=== PATIENT | female | born 1955 | race Caucasian/White ===

== ENCOUNTER → 2018-01-17 14:47 | Outpatient (CLI) | payer OTHER, SELFPAY ==
[2018-01-17 15:38] LABS: Basophils % 0.6 % (0.1-2.0); Eosinophils # 0.1 K/mm3 (0.0-0.4); Hematocrit 42.1 % (37.0-47.0); Hemoglobin 13.4 g/dL (12.2-16.2); Lymphocytes # 2.3 K/mm3 (0.7-4.5); Lymphocytes % 31.6 K/mm3 (10-50); Mean Corpuscular HGB Conc 31.8 g/dL (31.8-35.4); Mean Corpuscular Hemoglobin 29.8 pg (27.0-31.2); Mean Corpuscular Volume 93.6 fl (81-99); Mean Platelet Volume 8.9 fl (7.4-10.4); Monocytes # 0.4 K/mm3 (0.1-1.0); Monocytes % 5.7 % (1.7-9.3); Neutrophils # 4.4 K/mm3 (1.8-7.8); Neutrophils % 61.2 % (37.0-80.0); Platelet Count 274 K/mm3 (142-424); Red Cell Distribution Width 13.3 % (11.5-17.5); White Blood Count 7.2 K/mm3 (4.8-10.8)
[2018-01-17 15:45] LABS: Alanine Aminotransferase 38 U/L (12-78); Albumin Level 3.7 gm/dL (3.4-5.0); Alkaline Phosphatase 118 U/L (46-116); Anion Gap 9.2 mEq/L (5-15); Aspartate Amino Transferase 25 U/L (15-37); Bilirubin,Total 1.1 mg/dL (0.2-1.0); Blood Urea Nitrogen 28 mg/dL (7-18); Calcium 9.2 mg/dL (8.5-10.1); Carbon Dioxide 32 mmol/L (21.0-32.0); Chloride 102 mmol/L (98-107); Creatine Kinase 568 U/L (26-192); Creatinine,Serum 1.07 mg/dL (0.55-1.02); Estimated Glomerular Filt Rate 52 ml/min (>60); Ferritin 39 ng/mL (8-388); GFR (African American) 63 ML/MIN (>60); Globulin 3.6 gm/dl (1.3-3.2); Glucose 92 mg/dL (74-106); Magnesium 1.9 mg/dL (1.4-2.2); Potassium 4.2 mmoL/L (3.5-5.1); Sodium 139 mmol/L (136-145); Thyroid Stimulating Hormone 1.25 uIU/ml (0.358-3.740); Total Protein,Serum 7.3 gm/dL (6.4-8.2)
== END ==
PROVIDERS: Visit Provider Internal Medicine Adolescent Medicine
DX: M79.1 Myalgia (principal); G25.81 Restless legs syndrome
CPT/HCPCS: 36415; 80053; 82550; 82728; 83735; 84443; 85025

== ENCOUNTER → 2018-03-24 15:54 | Outpatient (CLI) | payer OTHER, SELFPAY ==
--- NOTE | 2018-03-24 16:05 | MM_ITS ---
MM Dig screening mamm BI w/CAD CAD Screening COMPARISON: None, patient had previous mammograms couple of years ago but the facility was called and no films are available. INDICATION: There Is a history of breast cancer patient's mother. TECHNIQUE: Standard CC and MLO images were obtained. R2 CAD reviewed. FINDINGS: Moderate fibroglandular densities are seen in central portions of both breasts and the findings are bilateral and symmetrical. There is no suspicious lesion in either breast and there are no suspicious microcalcifications. There is a benign-appearing calcification right breast. IMPRESSION: Upper fatty parenchyma no suspicious lesion seen BI-RADS Category: 2 Benign Finding(s) RECOMMENDED FOLLOW-UP: 1YR - 1 YEAR FOLLOW-UP (A letter has been sent to the patient regarding results of the study.)
== END ==
PROVIDERS: Family Provider Internal Medicine Adolescent Medicine; PCP Internal Medicine Adolescent Medicine; Visit Provider Internal Medicine Adolescent Medicine
DX: Z12.31 Encounter for screening mammogram for malignant neoplasm of breast (principal)
CPT/HCPCS: 77067

== ENCOUNTER → 2018-12-29 11:21 | Outpatient (CLI) | payer OTHER, SELFPAY ==
[2018-12-29 11:59] LABS: Basophils # 0.1 K/mm3 (0-0.2); Eosinophils # 0.4 K/mm3 (0.0-0.4); Eosinophils % 8.9 % (0.1-12.0); Hematocrit 38.6 % (37.0-47.0); Hemoglobin 12.5 g/dL (12.2-16.2); Lymphocytes # 1.9 K/mm3 (0.7-4.5); Lymphocytes % 41.9 % (10-50); Mean Corpuscular HGB Conc 32.5 g/dL (31.8-35.4); Mean Corpuscular Hemoglobin 29.6 pg (27.0-31.2); Mean Corpuscular Volume 91.3 fl (81-99); Mean Platelet Volume 8.9 fl (7.4-10.4); Monocytes # 0.3 K/mm3 (0.1-1.0); Monocytes % 5.7 % (1.7-9.3); Neutrophils # 1.9 K/mm3 (1.8-7.8); Neutrophils % 42.6 % (37.0-80.0); Platelet Count 222 K/mm3 (142-424); Red Blood Count 4.22 M/mm3 (4.20-5.40); Red Cell Distribution Width 13.1 % (11.5-17.5); White Blood Count 4.5 K/mm3 (4.8-10.8)
[2018-12-29 12:41] LABS: Alanine Aminotransferase 30 U/L (12-78); Albumin Level 3.5 gm/dL (3.4-5.0); Albumin/Globulin Ratio 1.1 (1.1-1.8); Alkaline Phosphatase 127 U/L (46-116); Anion Gap 12.8 mEq/L (5-15); Aspartate Amino Transferase 19 U/L (15-37); Bilirubin,Total 0.7 mg/dL (0.2-1.0); Blood Urea Nitrogen 24 mg/dL (7-18); Calcium 8.8 mg/dL (8.5-10.1); Carbon Dioxide 29 mmol/L (21.0-32.0); Chloride 105 mmol/L (98-107); Chol/HDL Ratio 3.1 (1-3.5); Cholesterol 231 mg/dL (140-200); Creatinine,Serum 1.05 mg/dL (0.55-1.02); Estimated Glomerular Filt Rate 53 ml/min (>60); GFR (African American) 64 ML/MIN (>60); Globulin 3.2 gm/dl (1.3-3.2); Glucose 85 mg/dL (74-106); HDL Cholesterol 74 mg/dL (29-89); LDL Cholesterol 147 mg/dL (0-130); Potassium 3.8 mmoL/L (3.5-5.1); Sodium 143 mmol/L (136-145); Total Protein,Serum 6.7 gm/dL (6.4-8.2); Triglycerides 52 mg/dL (30-200); VLDL Cholesterol 10 mg/dL (0-40)
== END ==
PROVIDERS: Visit Provider Internal Medicine Adolescent Medicine
DX: E78.5 Hyperlipidemia, unspecified (principal); J44.9 Chronic obstructive pulmonary disease, unspecified
CPT/HCPCS: 36415; 80053; 80061; 85025

== ENCOUNTER → 2019-03-13 07:52 | Outpatient (CLI) | payer OTHER, SELFPAY ==
--- NOTE | 2019-03-13 07:57 | XR_ITS ---
XR knee RT 3V Ordering Physician: Be Goldman MD Patient Age: 63 years: Female HISTORY: ITS.REASON: RT KNEE PAIN Lateral right knee pain TECHNIQUE: 3 views right knee COMPARISON : None . FINDINGS The right knee is intact with no fracture nor dislocation. Joint spaces well-maintained with only borderline narrowing towards medial compartment. No significant joint effusion. Bones well mineralized. IMPRESSION: Right knee intact. Negative
--- NOTE | 2019-03-13 08:00 | US_ITS ---
US gallbladder Ordering Physician: Be Goldman MD Patient Age: 63 years: Female HISTORY: ITS.REASON: EPIGASTRIC PAIN Right upper quadrant pain. Nausea, and belching. TECHNIQUE: Ultrasound right upper quadrant COMPARISON : . November 2015 bilateral renal ultrasound FINDINGS Pancreas. Unremarkable. No mass evident. No pancreatic ductal dilatation Liver.. Slightly coarse slightly inhomogeneous liver architecture which suspect most likely reflects some areas of early fatty change. No focal lesion.. If progressive abnormal LFTs consider follow-up CT No biliary ductal dilatation. Portal vein normal caliber and normal direction flow.. The visualized hepatic veins unremarkable Common duct normal diameter measuring less than 2.5 mm at hilum of liver. No intrahepatic biliary ductal dilatation. Gallbladder. . Sludge & debris;. Suggestion minimal tiny gravel-like stones along the dependent gallbladder. No gallbladder wall thickening. Gallbladder normal size. Right kidney. Overall normal size 10 cm in length. No hydronephrosis nor mass;, suggestion. Mild diffuse cortical thinning at right kidney noted IMPRESSION...... 1. Multiple tiny gallstones/gravel along dependent gallbladder. ... Along with minimal Sludge & debris. No gallbladder wall thickening. No common duct dilatation. 2. Right kidney. Normal size. Suggestion mild diffuse cortical thinning right kidney 3. Liver. No focal lesions. .Very Subtle inhomogeneity likely reflect some early fatty change . Warrants correlation with LFTs
== END ==
PROVIDERS: PCP Internal Medicine Adolescent Medicine; Visit Provider Internal Medicine Adolescent Medicine
DX: R10.11 Right upper quadrant pain (principal); M25.561 Pain in right knee
CPT/HCPCS: 73562; 76705

== ENCOUNTER 2019-04-03 12:46 | Outpatient (RCR) | payer OTHER, SELFPAY ==
--- NOTE | 2019-04-03 13:43 | HMH.PTOPEV ---
PT Outpatient Evaluation Rehab PT Outpatient Evaluation Start: 04/03/19 13:33 Freq: Status: Active Protocol: Document 04/03/19 13:33 DARRIN (Rec: 04/03/19 13:43 DARRIN [id number]) Electronically Signed By Clayton Dickson, PT 04/03/19 13:33 Outpatient Therapy Subjective History Subjective History Patient is a 63 year old female presenting to outpatient PT with reports of chronic R knee pain starting approximately 3 months ago of insidious onset. Most recent diagnostics negative. Pt reports hx of R HALEY and lumbar discectomy x2. No other comorbidities to report. Chief Complaint Pain,Swelling,Weakness Symptom Type Ache,Burning Symptoms Relieved By Rest/Positioning,OTC Meds Symptoms Aggravated By Standing,Physical Activity, Walking Prior Functional Limitations None Current Functional Limitations Housework,Standing,Squatting, Recreation Activity,Walking, Stairs Symptom Description Constant but Variable Level of pain today (0-10) 0 Pain scale - at its best (0-10) 0 Pain scale - at its worst (0-10) 7 Hip/Knee Eval Gait Observation General Gait Pattern Observation No Deviations/Normal Assistive Device Assistive Devices None / NA Palpation Tenderness right Knee Palpation Finding Tenderness Knee Palpation Overall Comment Lateral joint line, patellar tendon MMT left Hip Flexion Strength Grade 4- Good- Hip Abduction Strength Grade 4- Good- Hip Adduction Strength Grade 4- Good- Hip Extension Strength Grade 4- Good- Hip External Rotation Strength Grade 4- Good- Hip Internal Rotation Strength Grade 4- Good- Knee Extension Strength Grade 4- Good- Knee Flexion Strength Grade 4- Good- right Hip Flexion Strength Grade 3+ Fair+ Hip Abduction Strength Grade 3+ Fair+ Hip Adduction Strength Grade 3+ Fair+ Hip Extension Strength Grade 3+ Fair+ Hip External Rotation Strength Grade 3+ Fair+ Hip Internal Rotation Strength Grade 3+ Fair+ Knee Extension Strength Grade 3+ Fair+ Knee Flexion Strength Grade 3+ Fair+ ROM Hip ROM Reason Not Measured Within Functional Limits Knee Extension Active Range of Motion ( 0 degrees) Knee Flexion Active Range of Motion ( 120 degrees) Special Tests Hip Jayant Test Positive Right Hip Piriformis Test Positive Right Carter Te
== END 2019-04-03 12:50 | disposition home or self-care (01) ==
LOC: PT 12:46
PROVIDERS: Visit Provider Internal Medicine Adolescent Medicine
DX: M25.561 Pain in right knee (principal)
CPT/HCPCS: 97163

== ENCOUNTER → 2019-04-07 10:34 | Outpatient (CLI) | payer OTHER, SELFPAY ==
[2019-04-07 11:02] LABS: Basophils # 0.1 K/mm3 (0-0.2); Basophils % 1.1 % (0.1-2.0); Eosinophils # 0.3 K/mm3 (0.0-0.4); Eosinophils % 5.5 % (0.1-12.0); Hematocrit 40.7 % (37.0-47.0); Lymphocytes # 1.7 K/mm3 (0.7-4.5); Lymphocytes % 36.9 % (10-50); Mean Corpuscular HGB Conc 31.8 g/dL (31.8-35.4); Mean Corpuscular Hemoglobin 28.3 pg (27.0-31.2); Mean Platelet Volume 8.4 fl (7.4-10.4); Monocytes # 0.3 K/mm3 (0.1-1.0); Monocytes % 5.5 % (1.7-9.3); Neutrophils # 2.4 K/mm3 (1.8-7.8); Neutrophils % 50.9 % (37.0-80.0); Platelet Count 207 K/mm3 (142-424); Red Blood Count 4.57 M/mm3 (4.20-5.40); Red Cell Distribution Width 12.9 % (11.5-17.5); White Blood Count 4.6 K/mm3 (4.8-10.8)
[2019-04-07 12:00] LABS: Alanine Aminotransferase 30 U/L (12-78); Albumin Level 3.6 gm/dL (3.4-5.0); Albumin/Globulin Ratio 1.1 (1.1-1.8); Alkaline Phosphatase 116 U/L (46-116); Anion Gap 10.9 mEq/L (5-15); Aspartate Amino Transferase 21 U/L (15-37); Bilirubin,Total 0.7 mg/dL (0.2-1.0); Blood Urea Nitrogen 20 mg/dL (7-18); Carbon Dioxide 29 mmol/L (21.0-32.0); Chloride 106 mmol/L (98-107); Creatinine,Serum 1.13 mg/dL (0.55-1.02); Estimated Glomerular Filt Rate 48 ml/min (>60); GFR (African American) 59 ML/MIN (>60); Globulin 3.2 gm/dl (1.3-3.2); Glucose 79 mg/dL (74-106); Potassium 3.9 mmoL/L (3.5-5.1); Sodium 142 mmol/L (136-145); Total Protein,Serum 6.8 gm/dL (6.4-8.2)
== END ==
PROVIDERS: Visit Provider Surgery
DX: K81.1 Chronic cholecystitis (principal)
CPT/HCPCS: 36415; 80053; 85025

== ENCOUNTER → 2019-04-08 13:35 | Outpatient (CLI) | payer OTHER, SELFPAY ==
--- NOTE | 2019-04-08 13:41 | XR_ITS ---
XR knee RT 4V HISTORY: ITS.REASON: knee pain ORDERING PHYSICIAN: Gin Leslie MD PATIENT AGE: 63 years COMPARISON: 03/13/2019 FINDINGS: No fracture or dislocation. No lytic or blastic change. Normal mineralization. No significant arthritic changes evident. No other significant findings IMPRESSION: No change with no acute finding
== END ==
PROVIDERS: PCP Internal Medicine Adolescent Medicine; Visit Provider Orthopaedic Surgery
DX: M25.561 Pain in right knee (principal)
CPT/HCPCS: 73564

== ENCOUNTER → 2019-06-19 15:36 | Outpatient (CLI) | payer OTHER, SELFPAY ==
--- NOTE | 2019-06-19 15:42 | XR_ITS ---
PROCEDURE: XR HIP LT 2-3V W/PELVIS CLINICAL INDICATION: LT HIP PAIN COMPARISON: No exams were available for comparison FINDINGS: There are mild osteoarthritic changes of the left hip with some decrease in the joint space and mild osteosclerosis of the acetabulum. No fracture or dislocation. There are mild osteoarthritic changes of the SI joints and there is a right hip bipolar prosthesis present. IMPRESSION: No acute finding. Mild osteoarthritis. Dictated by: Gianfranco Iverson MD 06/19/2019 16:01 Signed by: <Electronically signed by Gianfranco Iverson MD in [place]> 06/19/2019 16:01
== END ==
PROVIDERS: PCP Internal Medicine Adolescent Medicine; Visit Provider Internal Medicine Adolescent Medicine
DX: M25.552 Pain in left hip (principal)
CPT/HCPCS: 73502

== ENCOUNTER → 2019-09-08 15:51 | Outpatient (CLI) | payer OTHER, MEDICARE, SELFPAY ==
[2019-09-08 18:08] LABS: Blood Urea Nitrogen 19 mg/dL (7-18); Creatinine,Serum 1.08 mg/dL (0.55-1.02); Estimated Glomerular Filt Rate 51 ml/min (>60); GFR (African American) 62 ML/MIN (>60)
== END ==
PROVIDERS: Visit Provider Internal Medicine Adolescent Medicine
DX: M53.3 Sacrococcygeal disorders, not elsewhere classified (principal)
CPT/HCPCS: 36415; 82565; 84520

== ENCOUNTER → 2019-09-11 13:33 | Outpatient (CLI) | payer OTHER, MEDICARE, SELFPAY ==
--- NOTE | 2019-09-11 13:46 | MR_ITS ---
PROCEDURE: MR LUMBAR SPINE WO/W CON CLINICAL INDICATION: SACROILIAC JOINT DYSFUNCTION OF LEFT SIDE Left hip and groin pain COMPARISON: [facility] [place] W/WO from 11/25/2014 TECHNIQUE: Standard multiplanar multiecho sequences are performed without contrast. 3-D MIP and myelographic images are also rendered and reviewed FINDINGS: There is normal alignment. Spinal cord ends at the L1-L2 level. There is mild lumbar scoliosis convex right. T10-T11: Mild degenerative disc disease. T11-T12: Mild degenerative disc disease. T12-L1: Mild degenerative disc disease. Small Schmorl's node along superior endplate of L1. L1-L2: Mild facet and ligamentum hypertrophy. L2-L3: Severe degenerative disc disease with bulging disc with moderate facet and ligamentum hypertrophy with moderate to severe bilateral foraminal narrowing and mild left lateral recess narrowing. This has developed since the previous exam. L3-L4: Mild concentric bulging disc. There is a lipoma along the endplate of L3 posteriorly and inferiorly on the right incidentally noted. There is moderate to severe bilateral foraminal narrowing secondary to the bulging disc along with facet ligamentum hypertrophy. This has also developed since the previous exam. L4-5: Degenerative disc disease with bulging disc along with facet ligamentum hypertrophy with severe right foraminal narrowing and mild left foraminal narrowing. There are postsurgical changes at this level with signal alteration in the subcutaneous tissue posterior to the L4-5 region. L5-S1: Mild facet and ligamentum hypertrophy. IMPRESSION: 1. Multilevel degenerative changes/lumbar spondylosis. Please see above for detailed description at each level. There has been interval development of mild lumbar scoliosis convex right 2. L2-L3: Severe degenerative disc disease with bulging disc with moderate facet and ligamentum hypertrophy with moderate to severe bilateral foraminal narrowing and mild left lateral recess narrowing. This has developed since the previous exam. 3. L3-L4: Mild concentric bulging disc. There is a lipoma along the endplate of L3 posteriorly and inferiorly on the right incidentally noted. There is moderate to severe bilateral foraminal narrowing secondary to the bulging disc along with facet ligamentum hypertrophy. This has also developed since the previous exam. 4. L4-5: Degenerative disc disease with bulging disc along with facet ligamentum hypertrophy with severe right foraminal narrowing and mild left foraminal narrowing. There are postsurgical changes at this level with signal alteration in the subcutaneous tissue posterior to the L4-5 region Dictated by: Gianfranco Iverson MD 09/12/2019 14:22 Electronically signed by Gianfranco Iverson MD in [place] 09/14/2019 11:49
--- NOTE | 2019-09-11 14:40 | HMH.ITSHM ---
Current Home Medications as stated by this patient Natalia Thomas or administrative representative. []ZYRTEC PRAVASTATIN CELEBREX BENADRYL VITAMIN D3 DIAZEPAM OMEPRAZOLE FLONASE BREO POTASSIUM CHLORIDE CITALOPRAM RANITIDINE LYRICA
== END ==
PROVIDERS: PCP Internal Medicine Adolescent Medicine; Visit Provider Internal Medicine Adolescent Medicine
DX: M53.3 Sacrococcygeal disorders, not elsewhere classified (principal)
CPT/HCPCS: 72158; 76376; A9576

== ENCOUNTER → 2019-12-08 14:40 | Outpatient (CLI) | payer OTHER, MEDICARE, SELFPAY ==
[2019-12-08 16:41] LABS: Blood Urea Nitrogen 17 mg/dl (7-17); Estimated Glomerular Filt Rate 50 ml/min (>60); GFR (African American) 60 ML/MIN (>60)
== END ==
PROVIDERS: Visit Provider Orthopaedic Surgery
DX: M25.552 Pain in left hip (principal)
CPT/HCPCS: 36415; 82565; 84520

== ENCOUNTER → 2019-12-09 09:32 | Outpatient (CLI) | payer OTHER, MEDICARE, SELFPAY ==
--- NOTE | 2019-12-09 09:35 | MR_ITS ---
PROCEDURE: MR HIP LT WO/W CON CLINICAL INDICATION: PAIN IN LEFT HIP COMPARISON: No exams were available for comparison TECHNIQUE: Routine multiplanar multisequence exam was performed. 18 milliliters of ProHance was given for postcontrast images. No abnormal contrast enhancement is demonstrated. FINDINGS: Incidental note is made of total right hip replacement. Magnetic susceptibility artifact degradation of images related to the metal is noted. Moderate osteoarthritis at the left hip joint is noted with loss of the cartilaginous joint space with subchondral cyst formation in the acetabulum and femoral head and there is reactive bone marrow edema in the femoral head. No acute fracture dislocation osseous contusion or avascular necrosis is apparent. A small joint effusion is noted. Adjacent muscle planes are of normal signal without evidence of muscle injury. There is some contrast enhancement in the acetabular region possibly secondary to synovitis. IMPRESSION: Moderate osteoarthritis at left hip joint. Status post total right hip arthroplasty. Dictated by: Chilango Hendrickson 12/09/2019 13:35 Electronically signed by Chilango Hendrickson in [place] 12/09/2019 13:35
== END ==
PROVIDERS: PCP Internal Medicine Adolescent Medicine; Visit Provider Physician Assistant
DX: M25.552 Pain in left hip (principal)
CPT/HCPCS: 73723; A9576

== ENCOUNTER → 2019-12-31 14:16 | Outpatient (CLI) | payer OTHER, MEDICARE, SELFPAY | PROVIDERS: PCP Internal Medicine Adolescent Medicine; Visit Provider Internal Medicine Adolescent Medicine | DX: I50.32 Chronic diastolic (congestive) heart failure; R60.9 Edema, unspecified | CPT/HCPCS: 93306 ==

== ENCOUNTER → 2020-01-20 12:23 | Outpatient (CLI) | payer OTHER, MEDICARE, SELFPAY ==
[2020-01-20 13:16] LABS: Basophils % 0.6 % (0.1-2.0); Eosinophils # 0.2 K/mm3 (0.0-0.4); Eosinophils % 3.3 % (0.1-12.0); Hematocrit 42.8 % (37.0-47.0); Hemoglobin 13.4 g/dL (12.2-16.2); Lymphocytes # 1.7 K/mm3 (0.7-4.5); Lymphocytes % 32.9 % (10-50); Mean Corpuscular HGB Conc 31.2 g/dL (31.8-35.4); Mean Corpuscular Hemoglobin 28.7 pg (27.0-31.2); Mean Platelet Volume 9.3 fl (7.4-10.4); Monocytes # 0.3 K/mm3 (0.1-1.0); Monocytes % 6.1 % (1.7-9.3); Neutrophils % 57.2 % (37.0-80.0); Platelet Count 265 K/mm3 (142-424); Red Blood Count 4.66 M/mm3 (4.20-5.40); Red Cell Distribution Width 13.6 % (11.5-17.5); White Blood Count 5.2 K/mm3 (4.8-10.8)
[2020-01-20 13:21] LABS: Chloride 104 mmol/L (98-107)
[2020-01-20 13:22] LABS: Sodium 139 mmol/L (136-145)
[2020-01-20 13:24] LABS: Alanine Aminotransferase 15 U/L (12-78); Alkaline Phosphatase 101 U/L (38-126); Aspartate Amino Transferase 24 U/L (14-36); Bilirubin,Total 0.9 mg/dl (0.2-1.3); Blood Urea Nitrogen 16 mg/dl (7-17); Carbon Dioxide 28 mmol/L (22.0-30.0); Estimated Glomerular Filt Rate 63 ml/min (>60); GFR (African American) 76 ML/MIN (>60)
[2020-01-20 13:25] LABS: Albumin/Globulin Ratio 1.5 (1.1-1.8); Calcium 9.5 mg/dl (8.4-10.2); Globulin 2.6 g/dL (1.3-3.2); Glucose 93 mg/dl (74-100); Magnesium 1.9 mg/dl (1.6-2.3); Total Protein,Serum 6.6 g/dl (6.3-8.2)
[2020-01-20 13:33] LABS: NT Pro Brain Natriuretic Pep. 261 pg/mL (0-125)
== END ==
PROVIDERS: Visit Provider Internal Medicine Adolescent Medicine
DX: I50.32 Chronic diastolic (congestive) heart failure (principal); R60.9 Edema, unspecified
CPT/HCPCS: 36415; 80053; 83735; 83880; 85025

== ENCOUNTER → 2020-07-12 12:34 | Outpatient (CLI) | payer OTHER, MEDICARE, SELFPAY ==
--- NOTE | 2020-07-12 13:24 | XR_ITS ---
PROCEDURE: XR FOOT RT MIN 3V CLINICAL INDICATION: RT FOOT PAIN COMPARISON: CR FTR3 FOOT-RT-3 VIEWS from 07/28/2013 FINDINGS: No fracture or dislocation. No lytic or blastic change. There is normal mineralization. The joint spaces are well-preserved. No significant degenerative/arthritic changes. No erosive changes evident. Other findings:None. IMPRESSION: No acute findings. Dictated by: Gianfranco Iverson MD 07/12/2020 18:27 Gianfranco Iverson MD in [place] 07/12/2020 18:27
== END ==
PROVIDERS: PCP Internal Medicine Adolescent Medicine; Visit Provider Internal Medicine Adolescent Medicine
DX: M79.671 Pain in right foot (principal)
CPT/HCPCS: 73630

== ENCOUNTER → 2020-07-27 10:33 | Outpatient (CLI) | payer OTHER, MEDICARE, SELFPAY ==
--- NOTE | 2020-07-27 10:34 | MM_ITS ---
PROCEDURE: MM DIG SCREENING MAMM BI W/CAD Digital Breast Tomosynthesis Included CLINICAL INDICATION: screening xmg There is a history of breast cancer in the patient's mother. COMPARISON: [facility] MM Dig screening mamm BI w/CAD from 03/24/2018 TECHNIQUE: Standard CC and MLO images and 3D Tomosynthesis was obtained. R2 CAD reviewed. FINDINGS: Moderate diffuse fibroglandular densities are seen throughout both breasts. The findings are fairly symmetrical and bilateral. There is a benign-appearing microcalcification right breast. There is no suspicious lesion and no suspicious microcalcifications. IMPRESSION: Moderate breast density with no suspicious lesions seen BI-RAD Category: 2 Benign Finding(s) FOLLOW-UP: 1YR 1 Year Follow-up (A letter has been sent to the patient regarding results of the study.) Dictated by: Dr. Fer Flor MD 08/02/2020 07:32 Dr. Fer Flor MD in [place] 08/02/2020 07:32
== END ==
PROVIDERS: PCP Internal Medicine Adolescent Medicine; Visit Provider Nurse Practitioner Obstetrics & Gynecology
DX: Z12.31 Encounter for screening mammogram for malignant neoplasm of breast (principal)
CPT/HCPCS: 77063; 77067

== ENCOUNTER → 2021-05-22 18:37 | Outpatient (CLI) | payer OTHER, MEDICARE, SELFPAY ==
--- NOTE | 2021-05-22 18:54 | XR_ITS ---
PROCEDURE INFORMATION: Exam: XR Chest Exam date and time: 05/22/21 06:54 PM Age: 65 years old Clinical indication: Patient HX: Cough and fever, covid testing; Additional info: Covid outpatient TECHNIQUE: Imaging protocol: XR of the chest. Views: 1 view. COMPARISON: No relevant prior studies available. FINDINGS: Lungs: Minimal bibasilar atelectasis. Pleural spaces: Unremarkable. No pleural effusion. No pneumothorax. Heart/Mediastinum: Unremarkable. No cardiomegaly. Bones/joints: Unremarkable. IMPRESSION: Minimal bibasilar atelectasis.
[2021-05-22 19:34] LABS: Coronavirus 19, PCR Not Detected (NotDetected); Influenza A, PCR Not Detected (NotDetected); Influenza B, PCR Not Detected (NotDetected)
[2021-05-22 19:43] LABS: Basophils % 0.2 % (0.1-2.0); Eosinophils # 0.1 K/mm3 (0.0-0.4); Eosinophils % 0.6 % (0.1-12.0); Hematocrit 43.9 % (37.0-47.0); Hemoglobin 14.7 g/dL (12.2-16.2); Lymphocytes # 1.5 K/mm3 (0.7-4.5); Lymphocytes % 13.6 % (10-50); Mean Corpuscular HGB Conc 33.5 g/dL (31.8-35.4); Mean Corpuscular Hemoglobin 29.5 pg (27.0-31.2); Mean Platelet Volume 9.2 fl (7.4-10.4); Monocytes # 0.4 K/mm3 (0.1-1.0); Monocytes % 3.2 % (1.7-9.3); Neutrophils % 82.2 % (37.0-80.0); Platelet Count 373 K/mm3 (142-424); Red Blood Count 4.99 M/mm3 (4.20-5.40); Red Cell Distribution Width 14.5 % (11.5-17.5); White Blood Count 10.9 K/mm3 (4.8-10.8)
[2021-05-22 19:51] LABS: Chloride 105 mmol/L (98-107); Sodium 139 mmol/L (136-145)
[2021-05-22 19:52] LABS: Potassium 4.1 mmoL/L (3.5-5.1)
[2021-05-22 19:54] LABS: Alanine Aminotransferase 23 U/L (12-78); Albumin Level 4.1 g/dl (3.5-5.0); Albumin/Globulin Ratio 1.3 (1.1-1.8); Alkaline Phosphatase 128 U/L (38-126); Anion Gap 12.1 mEq/L (5-15); Aspartate Amino Transferase 21 U/L (14-36); Bilirubin,Total 0.9 mg/dl (0.2-1.3); Blood Urea Nitrogen 23 mg/dl (7-17); Calcium 9.4 mg/dl (8.4-10.2); Carbon Dioxide 26 mmol/L (22.0-30.0); Estimated Glomerular Filt Rate 50 ml/min (>60); GFR (African American) 60 ML/MIN (>60); Globulin 3.2 g/dL (1.3-3.2); Glucose 126 mg/dl (74-100); Total Protein,Serum 7.3 g/dl (6.3-8.2)
== END ==
PROVIDERS: PCP Internal Medicine Adolescent Medicine; Visit Provider Internal Medicine Adolescent Medicine
DX: Z20.822 Contact with and (suspected) exposure to COVID-19 (principal); J18.0 Bronchopneumonia, unspecified organism
CPT/HCPCS: 71045; 80053; 85025; U0003

== ENCOUNTER → 2021-06-15 16:04 | Outpatient (CLI) | payer OTHER, MEDICARE, SELFPAY ==
--- NOTE | 2021-06-15 16:12 | XR_ITS ---
PROCEDURE: XR HIP LT 2-3V W/PELVIS CLINICAL INDICATION: LT HIP PAIN Chronic left hip pain COMPARISON: CR XR HIP LT 2-3V W/PELVIS from 06/19/2019 FINDINGS: There are mild osteoarthritic changes of the left hip which has slightly progressed from 06/19/2019. No fracture or dislocation. No lytic or blastic change. Right hip hemiarthroplasty is noted. This is in good position on the AP view. There are mild degenerative changes in the SI joints with minimal spurring inferiorly IMPRESSION: Mild osteoarthritis of the left hip Dictated by: Gianfranco Iverson MD 06/15/2021 17:00 Gianfranco Iverson MD in [place] 06/15/2021 17:00
== END ==
PROVIDERS: PCP Internal Medicine Adolescent Medicine; Visit Provider Internal Medicine Adolescent Medicine
DX: M16.12 Unilateral primary osteoarthritis, left hip (principal); M25.552 Pain in left hip
CPT/HCPCS: 73502

== ENCOUNTER 2021-11-08 13:54 | Outpatient (RCR) | payer OTHER, MEDICARE, SELFPAY | END 2021-11-08 13:55 | disposition home or self-care (01) | LOC: PT 13:54 | PROVIDERS: PCP Internal Medicine Adolescent Medicine; Visit Provider Orthopaedic Surgery | DX: M25.552 Pain in left hip (principal); Z96.642 Presence of left artificial hip joint | CPT/HCPCS: 97163 ==

== ENCOUNTER 2022-03-23 21:58 | Emergency (ER) | payer OTHER, MEDICARE, SELFPAY ==
[2022-03-23 21:59] VITALS: BP 145/65; PULSE 78; RESP 19; TEMP 36.6; O2SAT 97; BMI 34.3
--- NOTE | 2022-03-23 22:39 | XR_ITS ---
PROCEDURE INFORMATION: Exam: XR Right Foot Exam date and time: 03/23/2022 10:37 PM Age: 66 years old Clinical indication: Injury or trauma; Other: Dopped a bottle of water onto foot; Blunt trauma; Right; Additional info: Pain, bottle fell on foot TECHNIQUE: Imaging protocol: XR Right foot. Views: 3 or more views. COMPARISON: CR XR FOOT RT MIN 3V 07/12/2020 1:28 PM FINDINGS: Bones/joints: Small plantar calcaneal spur. No acute fractures. Chronic contour irregularity and cortical thickening in the distal diaphysis of the 2nd metatarsal is unchanged from 07/12/2020, suggesting chronic changes of remote prior fracture or possibly remote prior stress injury. Normal alignment is maintained in the midfoot, hindfoot, and forefoot. Joint spaces are well-maintained. No gross ankle joint effusion. No hindfoot coalition. Soft tissues: No gross soft tissue abnormalities. No radiopaque foreign bodies. IMPRESSION: 1. No acute osseous abnormalities. 2. Chronic changes in the distal 2nd metatarsal consistent with old healed fracture versus prior stress injury, unchanged from 2019. 3. Plantar calcaneal spurring.
--- NOTE | 2022-03-23 22:43 | HMH.EDLOEX ---
ED Disposition Clinical Impression: Blunt trauma Right foot sprain Qualifiers: Encounter type: initial encounter Qualified Code(s): S93.601A - Unspecified sprain of right foot, initial encounter Disposition: Home, Self-Care Condition on Discharge: Good Instructions: DI for Foot Pain Additional Instructions: use meds and ice and wt bearing as shanda and see pcp and podiatry for follow up Referrals: Milan Stanford MD [Primary Care Provider] - Sonia Sanchez DPM [Staff Physician] - - Critical Care Critical Care Time: No Attestation: On 03/23/22, the high probability of a clinically significant, sudden or life threatening deterioration of the following system(s) required my full and direct attention, intervention and personal management. The time I documented below is in addition to time spent performing reported procedures but includes the following listed in this critical care notation. Medical Decision Making - Medical Records Medical records reviewed: Yes: I reviewed the patient's medical records. - [place] Inquiry Pt receiving controlled substance: No Vital Signs: 03/23/22 21:59 Temperature 97.9 F Temperature Source Oral Pulse Rate [Right] 78 Respiratory Rate 19 Blood Pressure [Right Arm] 145/65 H Blood Pressure Mean [Right Arm] 91 02 Sat by Pulse Oximetry 97 Oxygen Delivery Method Room Air - Lab Data Lab results reviewed: Yes: I reviewed the patient's lab results. - Radiology Data #1 Image(s): Foot/Toes Image Reviewed: Yes I have reviewed radiologist's interpretation Preliminary Findings: No Fracture Seen Medical Decision Narrative: has acute injury rt foot with neg xray Lower Extremity Injury HPI - General Chief Complaint: Extremity Injury, Lower Stated Complaint: ao 03/23 @1730 INJURED R foot Time Seen by Provider: 03/23/22 22:43 Mode of Arrival: Family Vehicle Source of Information: Patient, Medical Record Limitations: No Limitations Description of Symptoms (Recalled from ER Triage Doc. by RN): Pt dropped a 1 L bottle of water on her R foot @ 1730 today. Brusing noted to anterior foot. 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 No edema noted. She is able to ambulate although reports pain when bearing full weight. 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 - History of Present Illness HPI Narrative: dropped bottle of water on foot at [facility] with pain and swelling rt foot MD complaint: foot injury Onset (ago): hour(s) Injury: Right: foot Type of Injury: blunt Place: other ([facility] ) Severity: moderate Context: direct blow Associated symptoms: swelling, able to partially bear weight Other symptoms: none - Related Data Home Medications Medication Instructions Recorded Confirmed cetirizine 10 mg tablet 10 mg PO QDAY 11/09/17 08/23/20 celecoxib 200 mg capsule 200 mg PO BID 04/07/19 08/23/20 citalopram 20 mg tablet 20 mg PO DAILY 04/07/19 08/23/20 fluticasone furoate 100 1 inh INHALATION DAILY 04/07/19 08/23/20 mcg-vilanterol 25 mcg/dose inhalation powder fluticasone propionate 50 1 spray INTRANASAL DAILY 04/07/19 08/23/20 mcg/actuation nasal spray,suspension gabapentin 100 mg capsule 100 mg PO TID 04/07/19 08/23/20 omeprazole 40 mg capsule,delayed 40 mg PO DAILY 04/07/19 08/23/20 release pravastatin 80 mg tablet 80 mg PO DAILY 04/07/19 08/23/20 albuterol sulfate 90 mcg/actuation INHALATION 11/19/19 08/23/20 aerosol inhaler furosemide 20 mg tablet 20 mg PO tab 07/20/20 08/23/20 potassium chloride 20 mEq 20 meq PO tab 07/20/20 08/23/20 tablet,extended release(part/cryst) Previous Rx's Medication Instructions Recorded clotrimazole 1 % topical cream 1 applic TOPICAL BID 14 Days #15 g 07/30/19 diclofenac sodium 1 % topical gel 4 g TOPICAL QID PRN 30 Days #100 g 08/02/20 methylprednisolone 4 mg tablets in See Rx Instructions PO PER PKG DIR 08/02/20 a dose pack #21 tab Allergies Allergy/AdvReac Type Severity Reaction Status Date / Time codeine Allergy Mil
[2022-03-23 23:44] VITALS: BP 134/78; PULSE 71; RESP 19; TEMP 36.6; O2SAT 97
== END 2022-03-23 23:44 | disposition home or self-care (01) ==
PROVIDERS: Emergency Provider Emergency Medicine; PCP Internal Medicine Adolescent Medicine
DX: S93.601A Unspecified sprain of right foot, initial encounter (principal); W20.8XXA Other cause of strike by thrown, projected or falling object, initial encounter; Z88.6 Allergy status to analgesic agent; Z91.048 Other nonmedicinal substance allergy status; K21.9 Gastro-esophageal reflux disease without esophagitis; E78.5 Hyperlipidemia, unspecified; J45.909 Unspecified asthma, uncomplicated; F41.9 Anxiety disorder, unspecified; F32.A Depression, unspecified; M19.90 Unspecified osteoarthritis, unspecified site
CPT/HCPCS: 73630; 99283

== ENCOUNTER → 2022-05-09 17:54 | Outpatient (CLI) | payer OTHER, MEDICARE, SELFPAY | PROVIDERS: PCP Internal Medicine Adolescent Medicine; Visit Provider Specialist | DX: G47.33 Obstructive sleep apnea (adult) (pediatric) (principal); R06.83 Snoring | CPT/HCPCS: G0399 ==

== ENCOUNTER → 2022-05-10 08:01 | Outpatient (CLI) | payer OTHER, MEDICARE, SELFPAY ==
--- NOTE | 2022-05-10 08:09 | US_ITS ---
FINAL REPORT CLINICAL HISTORY: EPIGASTIC PAIN FINDINGS: Sonographic images of the abdomen were obtained. The liver has an unremarkable appearance with normal echogenicity. The gallbladder surgically absent. There is no evidence of biliary ductal dilatation. The common hepatic duct measures 2 mm, which is within normal limits. Limited images of the pancreas are unremarkable. The spleen size is normal. The right kidney measures 9.8 cm in length. The left kidney measures 9.3 cm in length. There is bilateral renal cortical thinning. There is no evidence of hydronephrosis. The aorta has an unremarkable appearance. Limited images of the inferior vena cava are unremarkable. IMPRESSION: No acute abnormality. Reviewed, Interpreted and Dictated by Armando Craig III, MD Transcribed by Kenya Green Authenticated and [facility]
== END ==
PROVIDERS: PCP Internal Medicine Adolescent Medicine; Visit Provider Internal Medicine Adolescent Medicine
DX: R10.13 Epigastric pain (principal)
CPT/HCPCS: 76700

== ENCOUNTER → 2022-07-04 10:13 | Outpatient (CLI) | payer MEDICARE, SELFPAY ==
--- NOTE | 2022-07-04 10:21 | XR_ITS ---
FINAL REPORT CLINICAL HISTORY: RIGHT MEDIAL KNEE PAIN FINDINGS: RIGHT KNEE Three views of the right knee reveal no evidence of fracture or dislocation. The bony alignment is normal. There are mild degenerative changes. There is no evidence of joint effusion. No localized soft tissue abnormality is identified. IMPRESSION: Mild degenerative change with no acute bony abnormality. Reviewed, Interpreted and Dictated by Armando Craig III, MD Transcribed by Kenya Green Authenticated and [facility]
== END ==
PROVIDERS: PCP Internal Medicine Adolescent Medicine; Visit Provider Internal Medicine Adolescent Medicine
DX: M25.561 Pain in right knee (principal)
CPT/HCPCS: 73562

== ENCOUNTER 2022-07-24 13:33 | Emergency (ER) | payer MEDICARE, SELFPAY ==
[2022-07-24 13:53] VITALS: BP 120/70; PULSE 77; RESP 16; TEMP 36.6; O2SAT 100; BMI 34.3
--- NOTE | 2022-07-24 13:56 | XR_ITS ---
FINAL REPORT CLINICAL HISTORY: fall FINDINGS: LEFT HAND 3 views of the left hand were obtained. There is no acute fracture or dislocation. There are mild degenerative changes. Soft tissues are unremarkable. IMPRESSION: No acute bony abnormality. Reviewed, Interpreted and Dictated by Armando Craig III, MD Transcribed by Kenya Green Authenticated and [facility]
--- NOTE | 2022-07-24 13:56 | XR_ITS ---
FINAL REPORT CLINICAL HISTORY: fall FINDINGS: LEFT HUMERUS 2 views were obtained. There is no acute fracture of the humerus. There is a probable radial neck fracture that is not is fell visualized as on the elbow exam. There are mild degenerative changes. There is no soft tissue abnormality. IMPRESSION: No acute bony abnormality of the humerus. Probable radial neck fracture, not as well visualized as it is on the elbow exam. Reviewed, Interpreted and Dictated by Armando Craig III, MD Transcribed by Kenya Green Authenticated and . [facility]
--- NOTE | 2022-07-24 13:56 | XR_ITS ---
FINAL REPORT CLINICAL HISTORY: fall FINDINGS: 3 views of the left wrist were obtained. There is no acute fracture or dislocation. There are mild degenerative changes. There is no soft tissue abnormality. IMPRESSION: No acute abnormality. Reviewed, Interpreted and Dictated by Armando Craig III, MD Transcribed by Tray Jacobs Authenticated and [facility]
--- NOTE | 2022-07-24 13:56 | XR_ITS ---
FINAL REPORT CLINICAL HISTORY: fall FINDINGS: 2 views of the left forearm were obtained. There is a nondisplaced fracture of the radial neck. The joint spaces are intact. There is no soft tissue abnormality. IMPRESSION: Nondisplaced radial neck fracture. Reviewed, Interpreted and Dictated by Armando Craig III, MD Transcribed by Tray Jacobs Authenticated and [facility]
--- NOTE | 2022-07-24 13:56 | XR_ITS ---
FINAL REPORT CLINICAL HISTORY: fall FINDINGS: LEFT ELBOW 3 views were obtained. There is a nondisplaced fracture of the radial neck. There is no joint effusion or hemarthrosis. The joint spaces are intact. There is no soft tissue abnormality. IMPRESSION: Nondisplaced radial neck fracture without joint effusion or hemarthrosis. Reviewed, Interpreted and Dictated by Armando Craig III, MD Transcribed by Tray Jacobs Authenticated and . [facility]
--- NOTE | 2022-07-24 14:01 | EXP.UTC ---
Discharge Plan Disposition Patient Disposition: Home, Self-Care Condition: Good Prescriptions Prescriptions: New ibuprofen [IBU] 800 mg tablet 800 mg PO Q8HP PRN (Reason: Moderate Pain) Qty: 30 0RF No Action cetirizine [Zyrtec] 10 mg tablet 10 mg PO QDAY citalopram 20 mg tablet 20 mg PO DAILY omeprazole 40 mg capsule,delayed release(DR/EC) 40 mg PO DAILY fluticasone propionate [Flonase Allergy Relief] 50 mcg/actuation spray,suspension 1 spray INTRANASAL DAILY Breo Ellipta 100-25 mcg/dose blister with device 1 inh INHALATION DAILY pravastatin 80 mg tablet 80 mg PO DAILY gabapentin 100 mg capsule 100 mg PO TID albuterol sulfate 90 mcg/actuation HFA aerosol inhaler INHALATION furosemide 20 mg tablet 20 mg PO potassium chloride 20 mEq tablet,ER particles/crystals 20 meq PO estradiol [Estrace] 0.01 % (0.1 mg/gram) cream 0.5 appful vaginal .COMPLEX Qty: 42.5 3RF Rx Instructions: 1 blueberry size cream vaginally Twice weekly; Referrals Follow up/Referrals: Jose Armando Marie MD [Staff Physician] - See instructions Be Goldman MD [Primary Care Provider] - See instructions Activity Restrictions/Add. Instructions Additional Instructions/Restrictions: Rest the extremity, apply ice for 15 minutes as tolerated three or four times per day, levate the extremity as tolerated while you are resting. Take ibuprofen for pain. I sent in a prescription to your pharmacy. Follow up with Dr. Marie (orthopedics). I put in a referral but you need to call his office tomorrow morning and schedule an appointment. Follow up with your regular doctor. GO TO THE ER FOR ANY WORSENING SYMPTOMS Clinical Impressions Clinical Impression: Closed fracture of neck of left radius Instructions Patient Instructions: Forearm Fracture, How to Take Care of Your Splint Discharge ED Provider: Milan Beltran [facility] General Stated complaint: AO 07/24@1230@home pain in Lt arm Mode of Arrival: Ambulatory Source of Information: Patient Limitations: No Limitations Time Seen by Provider: 07/24/22 14:00 Description of Symptoms (Recalled from Triage Doc. by RN): pt comes in today with left arm pain. pt states that she fell on concrete today and her arms caught her. her left hand has a few scrapes. pt states her left arm is painful. HEENT Symptoms (Recalled from RN notes): No Resp Symptoms (Recalled from RN notes): No Skin Symptoms (Recalled from RN notes): Yes MS Symptoms (Recalled from RN notes): Yes Functional Status (Recalled from RN notes): n/a History of Present Illness Provider Complaint: She states that she fell around 1 hours ago. She came down on her left forearm. She is having left elbow and forearm pain. Her pain is worse when she twists her forearm. Related Data Home Medications Medication Instructions Recorded Confirmed cetirizine 10 mg tablet (Zyrtec) 10 mg PO QDAY allergies 11/09/17 07/02/22 citalopram 20 mg tablet 20 mg PO DAILY Anxiety 04/07/19 07/02/22 fluticasone furoate 100 1 inh inhalation DAILY allergies 04/07/19 07/02/22 mcg-vilanterol 25 mcg/dose inhalation powder (Breo Ellipta) fluticasone propionate 50 1 spray intranasal DAILY allergoes 04/07/19 07/02/22 mcg/actuation nasal spray,suspension (Flonase Allergy Relief) gabapentin 100 mg capsule 100 mg PO TID Pain 04/07/19 07/02/22 omeprazole 40 mg capsule,delayed 40 mg PO DAILY stomach 04/07/19 07/02/22 release pravastatin 80 mg tablet 80 mg PO DAILY Cholesterol 04/07/19 07/02/22 albuterol sulfate 90 mcg/actuation inhalation 11/19/19 07/02/22 aerosol inhaler furosemide 20 mg tablet 20 mg PO 07/20/20 07/02/22 potassium chloride 20 mEq 20 meq PO 07/20/20 07/02/22 tablet,extended release(part/cryst) Previous Rx's Medication Instructions Recorded estradiol 0.01% (0.1 mg/gram) 0.5 appful vaginal .COMPLEX #42.5 06/18/22 vaginal cream (Estrace) grams ibup
[2022-07-24 15:57] VITALS: BP 120/70; PULSE 77; RESP 16; TEMP 36.6
== END 2022-07-24 16:02 | disposition home or self-care (01) ==
PROVIDERS: Emergency Provider Nurse Practitioner Family; PCP Internal Medicine Adolescent Medicine
DX: S52.132A Displaced fracture of neck of left radius, initial encounter for closed fracture; W19.XXXA Unspecified fall, initial encounter
CPT/HCPCS: 29075; 73060; 73080; 73090; 73110; 73130; 99213; G0463

== ENCOUNTER → 2022-08-02 09:41 | Outpatient (CLI) | payer MEDICARE, SELFPAY ==
--- NOTE | 2022-08-02 09:45 | XR_ITS ---
FINAL REPORT CLINICAL HISTORY: Left radial neck fracture- COMPARISON: July 24, 2022 FINDINGS: LEFT ELBOW Three views of the left elbow were obtained. An overlying cast obscures bony detail. There is a healing fracture of the radial neck. No joint effusion is identified. There is no soft tissue abnormality. IMPRESSION: Healing fracture of the radial neck. Reviewed, Interpreted and Dictated by Jamarcus Mcgarry MD Transcribed by Kenya Green Authenticated and [facility]
== END ==
PROVIDERS: PCP Internal Medicine Adolescent Medicine; Visit Provider Physician Assistant Surgical
DX: S52.132A Displaced fracture of neck of left radius, initial encounter for closed fracture (principal)
CPT/HCPCS: 73080

== ENCOUNTER → 2022-08-23 08:46 | Outpatient (CLI) | payer MEDICARE, SELFPAY ==
--- NOTE | 2022-08-23 08:56 | XR_ITS ---
FINAL REPORT CLINICAL HISTORY: fracture f/u lt forearm COMPARISON: July 24, 2022 FINDINGS: 2 views of the left forearm were obtained. Overlying cast material obscures detail. There is a subacute radial neck fracture. Bony alignment is stable. The joint spaces are intact. There is no soft tissue abnormality. IMPRESSION: Subacute radial neck fracture. Stable bony alignment. Reviewed, Interpreted and Dictated by Armando Craig III, MD Transcribed by Tray Jacobs Authenticated and . [facility]
== END ==
LOC: RAD 08:50
PROVIDERS: PCP Internal Medicine Adolescent Medicine; Visit Provider Orthopaedic Surgery
DX: S52.132A Displaced fracture of neck of left radius, initial encounter for closed fracture (principal)
CPT/HCPCS: 73090

== ENCOUNTER 2022-09-11 17:02 | Emergency (ER) | payer MEDICARE, SELFPAY ==
[2022-09-11 17:20] VITALS: BP 137/77; PULSE 76; RESP 18; TEMP 36.6; O2SAT 98; BMI 33.0
--- NOTE | 2022-09-11 17:30 | EXP.UTC ---
Discharge Plan Disposition Patient Disposition: Home, Self-Care Condition: Good Prescriptions Prescriptions: New methocarbamol 500 mg tablet 500 mg PO TID PRN (Reason: muscle spasm) Qty: 15 0RF No Action cetirizine [Zyrtec] 10 mg tablet 10 mg PO QDAY citalopram 20 mg tablet 20 mg PO DAILY omeprazole 40 mg capsule,delayed release(DR/EC) 40 mg PO DAILY fluticasone propionate [Flonase Allergy Relief] 50 mcg/actuation spray,suspension 1 spray INTRANASAL DAILY Breo Ellipta 100-25 mcg/dose blister with device 1 inh INHALATION DAILY pravastatin 80 mg tablet 80 mg PO DAILY gabapentin 100 mg capsule 100 mg PO TID albuterol sulfate 90 mcg/actuation HFA aerosol inhaler INHALATION furosemide 20 mg tablet 20 mg PO potassium chloride 20 mEq tablet,ER particles/crystals 20 meq PO estradiol [Estrace] 0.01 % (0.1 mg/gram) cream 0.5 appful vaginal .COMPLEX Qty: 42.5 3RF Rx Instructions: 1 blueberry size cream vaginally Twice weekly; ibuprofen [IBU] 800 mg tablet 800 mg PO Q8HP PRN (Reason: Moderate Pain) Qty: 30 0RF Referrals Follow up/Referrals: Be Goldman MD [Primary Care Provider] - See instructions Activity Restrictions/Add. Instructions Additional Instructions/Restrictions: *Ibuprofen concepcion 6 hours with meal as needed for pain/inflammation if you can take it *Not additional anti-inflammatory like motrin, aleve, advil with the above amount of ibuprofen. You can still take Tylenol every 4 hours as needed if you need something else for pain *Muscle relaxer every 8 hours as needed for muscle spasms but remember, it WILL cause drowsiness You cannot take it and drive, operate machinery or care for small children. *Keep this area active, no movement leads to more stiffness, However take it easy and avoid heavy lifting pushing or pulling *Follow up with you family doctor if no improvement for further treatment ? Clinical Impressions Clinical Impression: Low back pain Instructions Patient Instructions: DI for Sciatica, DI for Back Pain With Sciatica Discharge ED Provider: Natalia Venegas [facility] HPI General Stated complaint: Down in her back Mode of Arrival: Ambulatory Source of Information: Patient Limitations: No Limitations Time Seen by Provider: 09/11/22 17:30 Description of Symptoms (Recalled from Triage Doc. by RN): PATIENT C/O PAIN TO RIGHT LOWER BACK THAT STARTED AFTER SHE PUT HER SEATBELT ON LAST NIGHT HEENT Symptoms (Recalled from RN notes): No Resp Symptoms (Recalled from RN notes): No Skin Symptoms (Recalled from RN notes): No MS Symptoms (Recalled from RN notes): Yes Functional Status (Recalled from RN notes): WNL History of Present Illness Provider Complaint: Patient states that she has had sciatica before and feels like she is having a flare right now States that pain started after she twisted last night putting her seatbelt on States that she has been having pain in her right buttock area that is radiating down into her right upper leg Reports pain worse when she sits or lays on that side Denies known injury and denies loss of control of bowel or bladder Related Data Home Medications Medication Instructions Recorded Confirmed cetirizine 10 mg tablet (Zyrtec) 10 mg PO QDAY allergies 11/09/17 08/23/22 citalopram 20 mg tablet 20 mg PO DAILY Anxiety 04/07/19 08/23/22 fluticasone furoate 100 1 inh inhalation DAILY allergies 04/07/19 08/23/22 mcg-vilanterol 25 mcg/dose inhalation powder (Breo Ellipta) fluticasone propionate 50 1 spray intranasal DAILY allergoes 04/07/19 08/23/22 mcg/actuation nasal spray,suspension (Flonase Allergy Relief) gabapentin 100 mg capsule 100 mg PO TID Pain 04/07/19 08/23/22 omeprazole 40 mg capsule,delayed 40 mg PO DAILY stomach 04/07/19 08/23/22 release pravastatin 80 mg tablet 80 mg PO DAILY Cholesterol 04/07/19 08/23/22 albuterol sulfate 90
[2022-09-11 17:56] VITALS: BP 137/77; PULSE 76; RESP 18; TEMP 36.6; O2SAT 98
== END 2022-09-11 18:09 | disposition home or self-care (01) ==
PROVIDERS: Emergency Provider Nurse Practitioner; PCP Internal Medicine Adolescent Medicine
DX: M54.16 Radiculopathy, lumbar region (principal); M54.30 Sciatica, unspecified side; I10 Essential (primary) hypertension; K21.9 Gastro-esophageal reflux disease without esophagitis; E78.5 Hyperlipidemia, unspecified; M62.838 Other muscle spasm; J45.909 Unspecified asthma, uncomplicated; F32.A Depression, unspecified; F41.9 Anxiety disorder, unspecified; Z79.1 Long term (current) use of non-steroidal anti-inflammatories (NSAID); Z79.51 Long term (current) use of inhaled steroids; Z79.890 Hormone replacement therapy; Z79.899 Other long term (current) drug therapy; Z88.5 Allergy status to narcotic agent; Z88.8 Allergy status to other drugs, medicaments and biological substances; Z87.891 Personal history of nicotine dependence; Z96.641 Presence of right artificial hip joint
CPT/HCPCS: 96372; 99213; G0463

== ENCOUNTER → 2022-09-20 09:22 | Outpatient (CLI) | payer MEDICARE, SELFPAY ==
--- NOTE | 2022-09-20 09:25 | XR_ITS ---
FINAL REPORT CLINICAL HISTORY: fracture COMPARISON: August 23, 2022 FINDINGS: LEFT FOREARM 2 views of the left forearm were obtained. An overlying cast has been removed. There is a healed fracture deformity of the radial neck. The joints are intact. No joint effusion is seen on the lateral view. IMPRESSION: Healed fracture deformity of the radial neck. Reviewed, Interpreted and Dictated by Jamarcus Mcgarry MD Transcribed by Kenya Green Authenticated and [facility]
== END ==
LOC: RAD 09:23
PROVIDERS: PCP Internal Medicine Adolescent Medicine; Visit Provider Orthopaedic Surgery
DX: S52.132A Displaced fracture of neck of left radius, initial encounter for closed fracture (principal); M79.632 Pain in left forearm
CPT/HCPCS: 73090

== ENCOUNTER → 2022-10-01 13:33 | Outpatient (CLI) | payer MEDICARE, SELFPAY ==
[2022-10-01 14:04] LABS: Blood Urea Nitrogen 15 mg/dl (7-17); Estimated Glomerular Filt Rate 45 ml/min (>60); GFR (African American) 54 ML/MIN (>60)
== END ==
PROVIDERS: PCP Internal Medicine Adolescent Medicine; Visit Provider Internal Medicine Adolescent Medicine
DX: Z01.812 Encounter for preprocedural laboratory examination (principal)
CPT/HCPCS: 36415; 82565; 84520

== ENCOUNTER → 2022-10-02 07:56 | Outpatient (CLI) | payer MEDICARE, SELFPAY ==
--- NOTE | 2022-10-02 08:04 | MR_ITS ---
FINAL REPORT CLINICAL HISTORY: ACUTE RIGHT SIDED LOW BACK PAIN. right leg pain. prior history 2 back surgeries in 2014 and 2015. no injury or trauma. 18ml prohance given COMPARISON: August 2019 FINDINGS: Multiplanar MR imaging of the lumbar spine was performed without and with contrast. On the sagittal T2-weighted images, disc degeneration is seen at multiple levels. There is endplate change at several levels. There is rightward curvature. The vertebral alignment is normal. There is no evidence of fracture. The conus has an unremarkable appearance. T11-T12: There is an annular bulge, facet arthropathy and vertebral osteophytes. T12-L1: There is an annular bulge, facet arthropathy and vertebral osteophytes. There is mild right neural foraminal narrowing. L1-2: There is an annular bulge and facet arthropathy. There is mild right and moderate left neural foraminal narrowing. L2-3: There is an annular bulge, facet arthropathy and vertebral osteophytes. There is moderate right and severe left neural foraminal narrowing. L3-4: There is an annular bulge and facet arthropathy. There is severe bilateral neural foraminal narrowing. L4-5: There is an annular bulge, facet arthropathy and vertebral osteophytes. There is severe right and mild left neural foraminal narrowing. L5-S1: Facet arthropathy is present. No significant canal stenosis or neuroforaminal narrowing is seen. There is mild spurring of the SI joints. There is contrast enhancement of the right annulus at L2-L3 likely representing an annular tear. No other contrast enhancement is identified. IMPRESSION: Multilevel mild degenerative disc disease and spondylosis with areas of neural foraminal narrowing as described. Reviewed, Interpreted and Dictated by Armando Craig III, MD Transcribed by Tray Jacobs Authenticated and [facility]
== END ==
LOC: RAD 07:56
PROVIDERS: PCP Internal Medicine Adolescent Medicine; Visit Provider Internal Medicine Adolescent Medicine
DX: M54.41 Lumbago with sciatica, right side (principal)
CPT/HCPCS: 72158; 76376; A9576

== ENCOUNTER → 2022-11-30 10:19 | Outpatient (CLI) | payer MEDICARE, SELFPAY ==
--- NOTE | 2022-11-30 10:22 | US_ITS ---
FINAL REPORT CLINICAL HISTORY: palp soft tissue mass ruq FINDINGS: Sonographic images of the right upper quadrant abdominal wall were obtained. No fluid collection or convincing mass is identified. There is prominent fatty tissue, a lipoma not excluded. IMPRESSION: Fatty prominent tissue, lipoma not excluded. Reviewed, Interpreted and Dictated by Shantell Caldwell MD Transcribed by Kenya Green Authenticated and [facility]
== END ==
LOC: RAD 10:19
PROVIDERS: PCP Internal Medicine Adolescent Medicine; Visit Provider Internal Medicine Adolescent Medicine
DX: R22.2 Localized swelling, mass and lump, trunk (principal)
CPT/HCPCS: 76705

== ENCOUNTER → 2022-12-26 09:34 | Outpatient (CLI) | payer MEDICARE, SELFPAY ==
--- NOTE | 2022-12-26 09:45 | ECG_ITS ---
APPROVED REPORT Exam: Resting ECG HR:63 bpm ECG Measurements Heart Rate 63 AXES PA 156 P 60 QRSd 83 QRS 34 QT 422 T 59 QTc 429 Conclusion SINUS RHYTHM WITH OCCASIONAL SUPRAVENTRICULAR PREMATURE COMPLEXES BORDERLINE ECG UNCONFIRMED REPORT Electronically signed by : Be Goldman MD 12/26/2022 17:57:50
[2022-12-26 10:35] LABS: Basophils # 0.1 K/mm3 (0-0.2); Basophils % 2.3 % (0.1-2.0); Eosinophils # 0.2 K/mm3 (0.0-0.4); Eosinophils % 2.9 % (0.1-12.0); Hematocrit 40.4 % (37.0-47.0); Hemoglobin 13.1 g/dL (12.2-16.2); Lymphocytes # 2.1 K/mm3 (0.7-4.5); Mean Corpuscular HGB Conc 32.4 g/dL (31.8-35.4); Mean Corpuscular Volume 92.5 fl (81-99); Mean Platelet Volume 10.2 fl (7.4-10.4); Monocytes # 0.4 K/mm3 (0.1-1.0); Monocytes % 7.1 % (1.7-9.3); Neutrophils # 2.4 K/mm3 (1.8-7.8); Neutrophils % 46.8 % (37.0-80.0); Platelet Count 252 K/mm3 (142-424); Red Blood Count 4.36 M/mm3 (4.20-5.40); Red Cell Distribution Width 15.4 % (11.5-17.5); White Blood Count 5.1 K/mm3 (4.8-10.8)
[2022-12-26 11:15] LABS: Blood Urea Nitrogen 16 mg/dl (7-17); Calcium 8.7 mg/dl (8.4-10.2); Carbon Dioxide 30 mmol/L (22.0-30.0); Chloride 104 mmol/L (98-107); Estimated Glomerular Filt Rate 49 ml/min (>60); GFR (African American) 60 ML/MIN (>60); Glucose 92 mg/dl (74-100); Potassium 4.2 mmoL/L (3.5-5.1)
[2022-12-26 11:21] LABS: Anion Gap 7.2 mEq/L (5-15); Sodium 137 mmol/L (136-145)
== END ==
LOC: LAB 09:35
PROVIDERS: PCP Internal Medicine Adolescent Medicine; Visit Provider Surgery
DX: D17.9 Benign lipomatous neoplasm, unspecified (principal); M79.671 Pain in right foot; Z01.818 Encounter for other preprocedural examination
CPT/HCPCS: 36415; 80048; 85025; 93005

== ENCOUNTER 2023-01-03 08:59 | Day surgery (SDC) | payer MEDICARE, SELFPAY ==
[2023-01-03] VITALS (9 sets, daily range): BP systolic 111–160; BP diastolic 66–83; PULSE 69–77; RESP 16–18; TEMP 36.7–37.2; O2SAT 90–96; BMI 34.3
--- NOTE | 2023-01-03 11:04 | P.PN_ITS ---
[facility] Disclaimer: The information contained in this section may have been updated after the patient was seen, as this information can be updated by other users. Medical History Anxiety Asthma Depression GERD (gastroesophageal reflux disease) HLD (hyperlipidemia) Hypertension Surgical History (Updated 01/03/23 @ 09:15 by Renetta Castañeda RN) H/O arthroscopy of right knee History of cholecystectomy History of colonoscopy History of left hip replacement History of total right hip replacement Hx of tonsillectomy Family History (Updated 01/03/23 @ 09:15 by Renetta Castañeda RN) Other Family history of stroke Social History (Updated 01/03/23 @ 09:16 by Renetta Castañeda RN) Smoking Status: Former smoker alcohol intake: current substance use type: denies use current occupational status: retired Travel in the last 8 weeks: None household members: spouse housing: house lives independently: No marital status: education level: college caffeine: Yes special zeinab needs: No agree to transfusion: No do you feel safe at home: Yes victim of physical abuse: No victim of emotional abuse: No victim of sexual abuse: No would you like helpful sources: No [facility] Anesthesia Checklist Patient Identification Patient Identification: Arm Band Structural Data Admitted From: Home Planned Operative Procedure/s: Excision of Right Upper Quadrant Lipoma Consent for Planned Operative Procedure(s) Verified: Yes Verified Documents: Surgical Consent and History and Physical NPO Status Verified Time NPO: 00:00 Additional verifications Anesthesia Reactions: No Hx Blood Transfusions: No Blood Transfusion Reaction: No Airway Assessment C-Spine Mobility Assessed: Yes TMJ Mobility Assessed: Yes Dentition: Good Dentition Neurological Assessment Level of Consciousness: Awake and Alert Anesthesia Plan Anesthesia Risk discussed: Yes Anesthesia Plan: Verified ASA Class: II Anesthesia Type: General
--- NOTE | 2023-01-03 11:45 | P.OP_ITS ---
Date of procedure: 01/03/23 Pre-op Diagnosis:: Right upper abdominal wall/lower chest lipoma (6 cm) Post-op Diagnosis:: Same Procedure performed:: Excision of complex right upper abdominal wall/lower chest lipoma (6 cm) Surgeon:: Warren Khalil MD UTILITY PIPE LAYER:: Sunil Hassan Anesthesia: LMA Estimated blood loss (mL): 25 Operative findings:: Lobulated lipoma versus atypical adiposity Operative note:: After informed consent was obtained the patient was taken to the operating room and placed in the supine position. General anesthesia with laryngeal mask airway was achieved. Her right upper quadrant/lower chest was prepped and draped in a sterile fashion. After infiltration local anesthetic an incision was made over the lesion. A combination of sharp dissection, blunt dissection, and electrocautery was utilized to excise a lobulated mass of adiposity that was greater than 6 cm. Dissection was taken to the fascial margin. The lesion was excised in toto and passed off for pathologic evaluation. Electrocautery was utilized to achieve hemostasis. Skin was closed with 4-0 Monocryl in a mattress fashion to facilitate hemostasis. Dressings were applied and the patient was transferred to recovery in stable condition. Condition: stable Disposition: PACU Specimens:: Abdominal/lower chest lipoma Complications:: No immediate
--- NOTE | 2023-01-03 11:48 | P.PNANES_ITS ---
[facility] Anesthesia Record Part I Anesthesia Record I Intake, IV Amount: 600 Estimated blood loss (mL): 10 Urine output (mL): 0 Blood Products used (#): none Blood Pressure: 153/77 SaO2: 92 Pulse Rate: 77 Respiratory Rate: 16 Temperature: 99 F Patient is:: Drowsy and Stable Stable to PACU at:: 11:45
--- NOTE | 2023-01-04 07:05 | EXP.ANES.II ---
[facility] Anesthesia Record Part II Anesthesia Record Part II Discharge Time: 12:15 Destination: Surgical Day Care (OP Surgery) PACU nurse assessment reviewed?: Yes Patient Condition:: Good Anesthesia Complications:: None Swallowing reflex intact?: Yes Cyanosis?: No Blood Pressure: 148/79 Pulse Rate: 69 Temperature: 98.1 F Mental Status: Alert & Oriented Pain level:: 0 Nausea and/or vomitting:: None Intake, IV Amount: 0
[2023-01-04 07:07] VITALS: BP 148/79; PULSE 69; TEMP 36.7
== END 2023-01-03 12:46 | disposition home or self-care (01) ==
PROVIDERS: PCP Internal Medicine Adolescent Medicine; Visit Provider Surgery
DX: D17.1 Benign lipomatous neoplasm of skin and subcutaneous tissue of trunk (principal); Z79.899 Other long term (current) drug therapy
CPT/HCPCS: 21931; 88304; 96374; J2405

== ENCOUNTER 2023-05-17 10:10 | Emergency (ER) | payer MEDICARE, SELFPAY ==
[2023-05-17 10:11] VITALS: BP 128/72; PULSE 71; RESP 16; TEMP 36.6; O2SAT 95; BMI 34.3
--- NOTE | 2023-05-17 10:28 | EXP.UTC ---
Discharge Plan Disposition Patient Disposition: Home, Self-Care Condition: Good Prescriptions Prescriptions: New mupirocin 2 % ointment 1 applic topical TID Qty: 22 0RF silver sulfadiazine [Silvadene] 1 % cream 1 applic topical DAILY Qty: 25 0RF Rx Instructions: apply a 1.5 mm thickness No Action cetirizine [Zyrtec] 10 mg tablet 10 mg PO QDAY citalopram 20 mg tablet 20 mg PO DAILY omeprazole 40 mg capsule,delayed release(DR/EC) 40 mg PO DAILY fluticasone propionate [Flonase Allergy Relief] 50 mcg/actuation spray,suspension 1 spray INTRANASAL DAILY Breo Ellipta 100-25 mcg/dose blister with device 1 inh INHALATION DAILY pravastatin 80 mg tablet 80 mg PO DAILY gabapentin 100 mg capsule 100 mg PO TID albuterol sulfate 90 mcg/actuation HFA aerosol inhaler 90 mcg INHALATION DAILY furosemide 20 mg tablet 20 mg PO DAILY potassium chloride 20 mEq tablet,ER particles/crystals 20 meq PO DAILY ibuprofen [IBU] 800 mg tablet 800 mg PO Q8HP PRN (Reason: Moderate Pain) Qty: 30 0RF methocarbamol 500 mg tablet 500 mg PO TID PRN (Reason: muscle spasm) Qty: 15 0RF estradiol [Estrace] 0.01 % (0.1 mg/gram) cream 0.5 appful vaginal .COMPLEX Rx Instructions: 1 blueberry size cream vaginally Twice weekly; Referrals Follow up/Referrals: Be Goldman MD [Primary Care Provider] - See instructions Activity Restrictions/Add. Instructions Additional Instructions/Restrictions: Keep clean and dry Monitor for signs of infection Follow up with Dr Goldman as needed Clinical Impressions Clinical Impression: Abrasion of forearm, left Instructions Patient Instructions: DI for Abrasion Discharge ED Provider: Eva Mccormick [facility] HPI General Stated complaint: AO 05/17, left elbow laceration Time Seen by Provider: 05/17/23 10:47 Description of Symptoms (Recalled from Triage Doc. by RN): Tripped over flower pot and skinned left elbow just [employer]. Last tetanus shot roughly 1 year ago. History of Present Illness Provider Complaint: Patient tripped over flower pot on front porch and skinned left elbow. Last tetanus 1 year ago. Onset (ago): hour(s) (1) Location: left and upper extremity Radiation: non-radiation Severity: moderate Quality: burning Related Data Home Medications Medication Instructions Recorded Confirmed cetirizine 10 mg tablet (Zyrtec) 10 mg PO QDAY allergies 11/09/17 01/23/23 citalopram 20 mg tablet 20 mg PO DAILY Anxiety 04/07/19 01/23/23 fluticasone furoate 100 1 inh inhalation DAILY allergies 04/07/19 01/23/23 mcg-vilanterol 25 mcg/dose inhalation powder (Breo Ellipta) fluticasone propionate 50 1 spray intranasal DAILY allergoes 04/07/19 01/23/23 mcg/actuation nasal spray,suspension (Flonase Allergy Relief) gabapentin 100 mg capsule 100 mg PO TID Pain 04/07/19 01/23/23 omeprazole 40 mg capsule,delayed 40 mg PO DAILY stomach 04/07/19 01/23/23 release pravastatin 80 mg tablet 80 mg PO DAILY Cholesterol 04/07/19 01/23/23 albuterol sulfate 90 mcg/actuation 90 mcg inhalation DAILY allergies 11/19/19 01/23/23 aerosol inhaler furosemide 20 mg tablet 20 mg PO DAILY Fluid 07/20/20 01/23/23 potassium chloride 20 mEq 20 meq PO DAILY Supplement 07/20/20 01/23/23 tablet,extended release(part/cryst) estradiol 0.01% (0.1 mg/gram) 0.5 appful vaginal .COMPLEX hormone 01/03/23 01/23/23 vaginal cream (Estrace) Previous Rx's Medication Instructions Recorded ibuprofen 800 mg tablet (IBU) 800 mg PO Q8HP PRN Moderate Pain 07/24/22 #30 tabs methocarbamol 500 mg tablet 500 mg PO TID PRN muscle spasm #15 09/11/22 tabs mupirocin 2 % topical ointment 1 applic topical TID #22 grams 05/17/23 silver sulfadiazine 1 % topical 1 applic topical DAILY #25 grams 05/17/23 cream (Silvadene) Allergies Allergy/AdvReac Type Severity Reaction Status Date / Time codeine Allergy Mild NA-NAUSEA/V Verifi
[2023-05-17 11:16] VITALS: BP 128/72; PULSE 71; RESP 16; TEMP 36.6; O2SAT 95
== END 2023-05-17 11:17 | disposition home or self-care (01) ==
PROVIDERS: Emergency Provider Physician Assistant; PCP Internal Medicine Adolescent Medicine
DX: S50.812A Abrasion of left forearm, initial encounter (principal); J45.909 Unspecified asthma, uncomplicated; I10 Essential (primary) hypertension; E78.5 Hyperlipidemia, unspecified; K21.9 Gastro-esophageal reflux disease without esophagitis; F41.9 Anxiety disorder, unspecified; F32.A Depression, unspecified; W01.0XXA Fall on same level from slipping, tripping and stumbling without subsequent striking against object, initial encounter
CPT/HCPCS: 99212; 99214; G0463

== ENCOUNTER 2023-10-31 12:51 | Outpatient (CLI) | payer MEDICARE, SELFPAY ==
--- NOTE | 2023-10-31 12:58 | XR_ITS ---
FINAL REPORT CLINICAL HISTORY: RT FOOT PAIN FINDINGS: Right foot Three views were obtained. There is no acute fracture or dislocation. The joint spaces appear normal. No soft tissue abnormality is identified. There is a small plantar calcaneal spur. IMPRESSION: No acute process. Reviewed, Interpreted and Dictated by Armando Craig III, MD Transcribed by Liz Dyer Authenticated and [facility]
== END 2023-10-31 23:59 ==
LOC: RAD 12:53
PROVIDERS: PCP Internal Medicine Adolescent Medicine; Visit Provider Nurse Practitioner Family
DX: M79.671 Pain in right foot (principal)
CPT/HCPCS: 73630

== ENCOUNTER 2023-12-06 12:44 | Outpatient (CLI) | payer MEDICARE, SELFPAY ==
--- NOTE | 2023-12-06 12:47 | CT_ITS ---
FINAL REPORT TECHNIQUE: Thin section axial images were obtained from the lung apices to the upper abdomen by computed tomography. Reformatted images were obtained and reviewed. This study was performed with techniques to keep radiation doses al low as reasonably achievable (ALARA). Individualized dose reduction techniques using automated exposure control or adjustment of mA and/or kV according to the patient's size were employed. CLINICAL HISTORY: H/O TOBACCO USE former smoker x 16 years 2ppd x 35 years COMPARISON: None FINDINGS: CHEST CT LOW DOSE 68-year-old female, former smoker who quit 16 years ago, 21-mfpd-brgf history. CTDI vol (mGy): 2.9 DLP (mGy-cm): 100.29 There is no axillary adenopathy. There is no mediastinal or hilar mass or adenopathy. The heart is normal in size. There is no pericardial or pleural effusion. There is mild pulmonary scarring. Lung window images demonstrate reveal a lateral left upper lobe nodule, 3 mm in size, best seen on image #19. There is also a 3 mm lateral left upper lobe nodule seen on image #22. In the right lower lobe there is a 3 mm nodule, noncalcified, seen best in image #45. There are several other bilateral noncalcified nodules present, less than 5 mm in size, nonspecific. Limited images of the upper abdomen reveal that the patient has undergone a prior cholecystectomy IMPRESSION: Lung-RADS category 2. Recommend 12 month follow up low dose chest CT. Reviewed, Interpreted and Dictated by Armando Craig III, MD Transcribed by Jo Ann Mckinnon Authenticated and [facility]
== END 2023-12-06 23:59 ==
LOC: RAD 12:44
PROVIDERS: PCP Internal Medicine Adolescent Medicine; Visit Provider Internal Medicine Adolescent Medicine
DX: Z87.891 Personal history of nicotine dependence (principal); Z12.2 Encounter for screening for malignant neoplasm of respiratory organs
CPT/HCPCS: 71271

== ENCOUNTER 2023-12-13 07:57 | Outpatient (CLI) | payer MEDICARE, SELFPAY ==
--- NOTE | 2023-12-13 08:03 | MM_ITS ---
PROCEDURE INFORMATION: Exam: MG Bilateral Screening 3D Mammography Exam date and time: 12/13/2023 8:03 AM Age: 68 years old Clinical indication: Screening mammogram TECHNIQUE: Imaging protocol: Bilateral Screening tomosynthesis and 2D mammography including computer-aided detection (CAD) when performed. COMPARISON: 1. MG MM DIG SCREENING MAMM BI W/CAD 07/27/2020 10:36 AM 2. MG SCBI MM Dig screening mamm BI w/CAD 03/24/2018 4:11 PM FINDINGS: MAMMOGRAPHY: Breast composition: There are scattered areas of fibroglandular density. Mass: 0.5 cm mass within the upper inner left middle 1/3 should be further assessed with spot views in CC/MLO projection. Ultrasound should also be performed. 0.5 cm mass within the slightly upper slightly outer anterior right breast should be further assessed with spot views in CC/MLO projection. Ultrasound should also be performed. Architectural distortion: No new or suspicious architectural distortion. Calcifications: No new or suspicious calcifications are present Asymmetric density: No new or suspicious asymmetric density is present Skin thickening: None. Axillary adenopathy: None. IMPRESSION: 1. 0.5 cm mass within the upper inner left middle 1/3 should be further assessed with spot views in CC/MLO projection. Ultrasound should also be performed. 2. 0.5 cm mass within the slightly upper slightly outer anterior right breast should be further assessed with spot views in CC/MLO projection. Ultrasound should also be performed. ASSESSMENT: BI-RADS category 0: Incomplete-need additional imaging evaluation
--- NOTE | 2023-12-13 08:04 | XR_ITS ---
FINAL REPORT CLINICAL HISTORY: POST MENOPAUSAL FINDINGS: Using L1-4, the bone mineral density of the spine is 1.011 g/cm2, corresponding to T-score of -0.3 which is within the normal range but may be falsely elevated due to hypertrophic change. Using the distal one third of the ulna, the bone mineral density of the right forearm is 0.542 g/cm2, corresponding to a T-score of -2.5 which is within the osteoporosis range.. IMPRESSION: Normal bone mineral density of the lumbar spine may be falsely elevated due to hypertrophic changes. Osteoporotic bone mineral density of the right forearm. NOTE: T-score: Standard deviation compared with peak bone mass of young adult mean. *Following the recommendations of the International Society of Bone densitometry, classification of hip BMD is based on the lower of two T-scores; total hip or femoral neck. Reviewed, Interpreted and Dictated by Jamarcus Mcgarry MD Transcribed by Sindy Calvert Authenticated and [facility]
== END 2023-12-13 23:59 ==
LOC: RAD 07:58
PROVIDERS: PCP Internal Medicine Adolescent Medicine; Visit Provider Nurse Practitioner Family
DX: Z12.31 Encounter for screening mammogram for malignant neoplasm of breast; Z78.0 Asymptomatic menopausal state; Z13.820 Encounter for screening for osteoporosis
CPT/HCPCS: 77063; 77067; 77080

== ENCOUNTER 2023-12-31 13:49 | Outpatient (CLI) | payer MEDICARE, SELFPAY ==
--- NOTE | 2023-12-31 13:59 | MM_ITS ---
PROCEDURE INFORMATION: Exam: US Right Breast, Complete US Left Breast, Complete MG Bilateral Diagnostic Breast Tomosynthesis Exam date and time: 12/31/2023 1:52 PM Age: 68 years old Clinical indication: Patient recalled on the basis of a screening mammogram for further evaluation; Bilateral breasts; masses TECHNIQUE: Imaging protocol: Complete ultrasound of all four quadrants of the right breast and the retroareolar regions, including ultrasound of the axilla when performed. Complete ultrasound of all four quadrants of the left breast and the retroareolar regions, including ultrasound of the axilla when performed. Bilateral Diagnostic tomosynthesis and 2D mammography including computer-aided detection (CAD) when performed. Unilateral or bilateral exam. COMPARISON: 1. MG MM DIG SCREENING MAMM BI W/CAD 12/13/2023 8:03 AM 2. MG MM DIG SCREENING MAMM BI W/CAD 07/27/2020 10:36 AM FINDINGS: MAMMOGRAPHY: Digital diagnostic spot compression views of the left breast and 90 degree lateral view of the left breast demonstrate normal overlapping fibroglandular structures without persistent mass or asymmetry identified. Digital diagnostic spot compression views of the right breast and 90 degree lateral view of the right breast demonstrate normal overlapping fibroglandular structures without persistent mass or asymmetry identified. ULTRASOUND: Sonographic images of both breasts including the retroareolar regions, all 4 quadrants and the axilla demonstrates a vertically oriented hypoechoic mass in the left 11 o'clock axis 4 cm from the nipple not definitively seen on mammography. It measures 0.3 x 0.3 x 0.3 cm in dimension. 0.5 cm cyst in the right retroareolar region. No architectural distortion or acoustical shadowing. No skin thickening or axillary adenopathy. IMPRESSION: Indeterminate sonographically detected left breast mass. Ultrasound-guided core biopsy is recommended for further evaluation. ASSESSMENT: BI-RADS Category 4: Suspicious.
== END 2023-12-31 23:59 ==
LOC: RAD 13:50
PROVIDERS: PCP Nurse Practitioner Family; Visit Provider Nurse Practitioner Family
DX: R92.8 Other abnormal and inconclusive findings on diagnostic imaging of breast (principal); Z12.31 Encounter for screening mammogram for malignant neoplasm of breast
CPT/HCPCS: 76641; 77062; 77066; G0279

== ENCOUNTER 2024-01-09 07:34 | Outpatient (CLI) | payer MEDICARE, SELFPAY ==
--- NOTE | 2024-01-09 07:44 | US_ITS ---
FINAL REPORT CLINICAL HISTORY: ABN MAMM OF LT BREAST FINDINGS: Ultrasound directed aspiration left breast nodule History: Left breast nodule Comparison: 12/31/2023 Technique: Sent a written informed consent was obtained. Left breast was prepped in a routine sterile fashion and locally anesthetized with 1% lidocaine. A 3 mm hypoechoic nodule was redemonstrated at 11:00 4 cm from the nipple. An 18-gauge needle was directed toward the nodule of interest to better assess whether the lesion was cystic or solid in nature. The nodule was completely decompressed with less than 1 mL of slightly cloudy fluid removed. No residual solid component was seen. Imaging features were compatible with a benign cyst. IMPRESSION: Technically successful complete aspiration of nodule compatible with benign cyst measuring 3 mm at 11:00 Recommendation: Short-term sonographic and mammographic follow-up left breast in 6 months for continued surveillance. If cystic nodule does not recur, patient may resume screening mammography at that time Authenticated and [facility]
== END 2024-01-09 23:59 ==
LOC: RAD 07:34
PROVIDERS: PCP Nurse Practitioner Family; Visit Provider Nurse Practitioner Family
DX: R92.8 Other abnormal and inconclusive findings on diagnostic imaging of breast (principal); N63.20 Unspecified lump in the left breast, unspecified quadrant
CPT/HCPCS: 10005; 88173

== ENCOUNTER 2024-03-18 15:44 | Outpatient (CLI) | payer MEDICARE, SELFPAY ==
--- NOTE | 2024-03-18 15:53 | XR_ITS ---
FINAL REPORT TECHNIQUE: Chest PA & Lateral CLINICAL HISTORY: CRACKLES IN LUNG BASES WITH WHEEZING COMPARISON: 05/22/2021 FINDINGS: 2 views of the chest were performed. The lungs are slightly underinflated. The heart size is normal. The mediastinum is within normal limits. There is no acute cardiopulmonary process. Mild chronic changes are noted in the lung bases. There are no pleural effusions. There is no pneumothorax. The bony thorax appears intact. IMPRESSION: No acute cardiopulmonary process. Reviewed, Interpreted and Dictated by Jamarcus Mcgarry MD Transcribed by Jo Ann Mckinnon Authenticated and [facility]
== END 2024-03-18 23:59 | disposition home or self-care (01) ==
PROVIDERS: PCP Internal Medicine Adolescent Medicine; Visit Provider Physician Assistant
DX: J44.1 Chronic obstructive pulmonary disease with (acute) exacerbation (principal)
CPT/HCPCS: 71046

== ENCOUNTER 2024-04-16 15:49 | Outpatient (CLI) | payer MEDICARE, SELFPAY ==
--- NOTE | 2024-04-16 15:55 | XR_ITS ---
FINAL REPORT CLINICAL HISTORY: ACUTE BRONCHOPNEUMONIA COMPARISON: 03/18/2024 FINDINGS: No acute pulmonary density is evident. There is no evidence of effusion or other pleural disease. The mediastinum has a normal appearance. The cardiac silhouette is unremarkable. IMPRESSION: No active disease, no change from prior. Reviewed, Interpreted and Dictated by Haylee Louie MD Transcribed by Martha Covarrubias Authenticated and [facility]
== END 2024-04-16 23:59 | disposition home or self-care (01) ==
LOC: RAD 15:51
PROVIDERS: PCP Internal Medicine Adolescent Medicine; Visit Provider Internal Medicine Adolescent Medicine
DX: J18.0 Bronchopneumonia, unspecified organism (principal)
CPT/HCPCS: 71046

== ENCOUNTER 2024-04-21 09:57 | Outpatient (CLI) | payer MEDICARE, SELFPAY ==
[2024-04-21 10:07] LABS: Adenovirus,PCR Not Detected (NotDetected); Bordetella Pertussis Not Detected (NotDetected); Chlamydophila Pneumoniae, PCR Not Detected (NotDetected); Coronavirus 19, PCR Not Detected (NotDetected); Coronavirus 229E Not Detected (NotDetected); Coronavirus NL63 Not Detected (NotDetected); Coronavirus OC43 Not Detected (NotDetected); Coronovirus HKU1,PCR Not Detected (NotDetected); Human Metapneumovirus Not Detected (NotDetected); Influenza A, PCR Not Detected (NotDetected); Influenza AH1, 2009 Not Detected (NotDetected); Influenza AH1, PCR Not Detected (NotDetected); Influenza AH3,PCR Not Detected (NotDetected); Influenza B, PCR Not Detected (NotDetected); Mycoplasma Pneumoniae, PCR Not Detected (NotDetected); Parainfluenza 1, PCR Not Detected (NotDetected); Parainfluenza 2, PCR Not Detected (NotDetected); Parainfluenza 3, PCR Not Detected (NotDetected); Parainfluenza 4, PCR Not Detected (NotDetected); Respiratory Syncytial Virus Not Detected (NotDetected); Rhinovirus/Enterovirus Not Detected (NotDetected)
[2024-04-21 10:53] LABS: Basophils # 0.1 K/mm3 (0-0.2); Basophils % 1.1 % (0.1-2.0); Eosinophils # 0.2 K/mm3 (0.0-0.4); Eosinophils % 2.3 % (0.1-12.0); Hematocrit 42.7 % (37.0-47.0); Hemoglobin 13.9 g/dL (12.2-16.2); Lymphocytes # 3.1 K/mm3 (0.7-4.5); Lymphocytes % 40.3 % (10-50); Mean Corpuscular HGB Conc 32.6 g/dL (31.8-35.4); Mean Corpuscular Hemoglobin 31.1 pg (27.0-31.2); Mean Corpuscular Volume 95.4 fl (81-99); Mean Platelet Volume 9.5 fl (7.4-10.4); Monocytes # 0.5 K/mm3 (0.1-1.0); Monocytes % 6.7 % (1.7-9.3); Neutrophils # 3.8 K/mm3 (1.8-7.8); Neutrophils % 49.7 % (37.0-80.0); Platelet Count 270 K/mm3 (142-424); Red Blood Count 4.47 M/mm3 (4.20-5.40); Red Cell Distribution Width 13.7 % (11.5-17.5); White Blood Count 7.7 K/mm3 (4.8-10.8)
[2024-04-21 11:05] LABS: Chloride 106 mmol/L (98-107); Potassium 4.1 mmoL/L (3.5-5.1); Sodium 138 mmol/L (136-145)
[2024-04-21 11:08] LABS: Alanine Aminotransferase 16 U/L (12-78); Albumin Level 3.7 g/dl (3.5-5.0); Albumin/Globulin Ratio 1.4 (1.1-1.8); Alkaline Phosphatase 111 U/L (38-126); Anion Gap 7.1 mEq/L (5-15); Aspartate Amino Transferase 19 U/L (14-36); Blood Urea Nitrogen 14 mg/dl (7-17); Calcium 9.3 mg/dl (8.4-10.2); Carbon Dioxide 29 mmol/L (22.0-30.0); Estimated Glomerular Filt Rate 41 ml/min (>60); GFR (African American) 49 ML/MIN (>60); Globulin 2.6 g/dL (1.3-3.2); Glucose 80 mg/dl (74-100); Total Protein,Serum 6.3 g/dl (6.3-8.2)
[2024-04-21 11:14] LABS: C-Reactive Protein 29.5 mg/L (0-4)
== END 2024-04-21 23:59 | disposition home or self-care (01) ==
LOC: LAB 10:01
PROVIDERS: PCP Internal Medicine Adolescent Medicine; Visit Provider Internal Medicine Adolescent Medicine
DX: J18.9 Pneumonia, unspecified organism (principal); R06.09 Other forms of dyspnea; J44.89 Other specified chronic obstructive pulmonary disease
CPT/HCPCS: 36415; 80053; 85025; 86140; 87581; 87632; 87635; 87798

== ENCOUNTER 2024-04-22 12:41 | Outpatient (CLI) | payer MEDICARE, SELFPAY ==
--- NOTE | 2024-04-22 12:48 | CT_ITS ---
FINAL REPORT CLINICAL HISTORY: PNEUMONIA OF BOTH LOWER LOBES COMPARISON: 12/06/2023 FINDINGS: CT CHEST WITHOUT AND WITH CONTRAST TECHNIQUE: Pre and postcontrast axial images through the chest were performed by computed tomography. This study was performed with techniques to keep radiation doses as low as reasonably achievable, (ALARA). Individualized dose reduction techniques using automated exposure control or adjustment of mA and/or kV according to the patient's size were employed. FINDINGS: There is no axillary adenopathy. Small mediastinal nodes are present. There is no hilar adenopathy. The heart size is normal. There is no pericardial or pleural effusion. Limited images of the upper abdomen are unremarkable. No suspicious infiltrate or nodule identified. There is mild atelectasis or scarring in the lung bases. IMPRESSION: No acute intrathoracic abnormality. Mild atelectasis or scarring in the lung bases. Reviewed, Interpreted and Dictated by Armando Craig III, MD Transcribed by Sindy Calvert Authenticated and [facility]
[2024-04-22] MEDS: SODIUM CHLORIDE 0.9% 10ML SYR (RAD ONLY) 10 ML IV (13:40)
[2024-04-22] MEDS: IOPAMIDOL-370 (76%);100ML BOTTLE 75 ML IV (13:40)
== END 2024-04-22 23:59 | disposition home or self-care (01) ==
LOC: RAD 12:41
PROVIDERS: PCP Internal Medicine Adolescent Medicine; Visit Provider Internal Medicine Adolescent Medicine
DX: J18.9 Pneumonia, unspecified organism (principal); R06.09 Other forms of dyspnea; Z87.891 Personal history of nicotine dependence
CPT/HCPCS: 71270; Q9967

== ENCOUNTER 2024-05-27 15:54 | Outpatient (CLI) | payer MEDICARE, SELFPAY ==
[2024-05-27 16:21] LABS: Basophils % 0.6 % (0.1-2.0); Eosinophils # 0.1 K/mm3 (0.0-0.4); Eosinophils % 2.1 % (0.1-12.0); Hematocrit 41.4 % (37.0-47.0); Hemoglobin 13.3 g/dL (12.2-16.2); Lymphocytes # 1.7 K/mm3 (0.7-4.5); Mean Corpuscular HGB Conc 32.2 g/dL (31.8-35.4); Mean Corpuscular Volume 96.5 fl (81-99); Mean Platelet Volume 10.4 fl (7.4-10.4); Monocytes # 0.2 K/mm3 (0.1-1.0); Monocytes % 4.2 % (1.7-9.3); Neutrophils # 3.5 K/mm3 (1.8-7.8); Neutrophils % 62.2 % (37.0-80.0); Platelet Count 227 K/mm3 (142-424); Red Cell Distribution Width 13.7 % (11.5-17.5); White Blood Count 5.6 K/mm3 (4.8-10.8)
[2024-05-27 17:12] LABS: 25-OH Vitamin D, Total 33.6 ng/mL (30-100)
[2024-06-04 05:00] LABS: Immunoglobulin E, Total 28 IU/mL (6-495)
== END 2024-05-27 23:59 | disposition home or self-care (01) ==
LOC: LAB 15:55
PROVIDERS: PCP Internal Medicine Adolescent Medicine; Visit Provider Allergy & Immunology
DX: J45.40 Moderate persistent asthma, uncomplicated (principal); E66.9 Obesity, unspecified; Z68.35 Body mass index [BMI] 35.0-35.9, adult; Z87.891 Personal history of nicotine dependence
CPT/HCPCS: 36415; 82306; 82785; 85025

== ENCOUNTER 2024-07-14 14:30 | Outpatient (CLI) | payer MEDICARE, SELFPAY ==
[2024-07-14 15:25] LABS: Basophils # 0.1 K/mm3 (0-0.2); Basophils % 0.9 % (0.1-2.0); Eosinophils # 0.1 K/mm3 (0.0-0.4); Hemoglobin 13.9 g/dL (12.2-16.2); Lymphocytes # 2.2 K/mm3 (0.7-4.5); Lymphocytes % 39.2 % (10-50); Mean Corpuscular HGB Conc 30.9 g/dL (31.8-35.4); Mean Corpuscular Hemoglobin 30.5 pg (27.0-31.2); Mean Corpuscular Volume 98.7 fl (81-99); Mean Platelet Volume 9.4 fl (7.4-10.4); Monocytes # 0.3 K/mm3 (0.1-1.0); Monocytes % 6.1 % (1.7-9.3); Neutrophils # 2.8 K/mm3 (1.8-7.8); Neutrophils % 51.8 % (37.0-80.0); Platelet Count 235 K/mm3 (142-424); Red Blood Count 4.56 M/mm3 (4.20-5.40); Red Cell Distribution Width 13.3 % (11.5-17.5); White Blood Count 5.5 K/mm3 (4.8-10.8)
[2024-07-18 03:47] LABS: D001-IgE D pteronyssinus <0.10 kU/L (Class 0); D002-IgE D farinae <0.10 kU/L (Class 0); E001-IgE Cat Dander <0.10 kU/L (Class 0); E005-IgE Dog Dander <0.10 kU/L (Class 0); E072-IgE Mouse Urine <0.10 kU/L (Class 0); G002-IgE Bermuda Grass <0.10 kU/L (Class 0); G006-IgE Timothy Grass <0.10 kU/L (Class 0); I006-IgE Cockroach, German 0.22 kU/L (Class 0/I); Immunoglobulin E, Total 19 IU/mL (6-495); M001-IgE Penicillium chrysogen <0.10 kU/L (Class 0); M002-IgE Cladosporium herbarum <0.10 kU/L (Class 0); M003-IgE Aspergillus fumigatus <0.10 kU/L (Class 0); M006-IgE Alternaria alternata <0.10 kU/L (Class 0); T001-IgE Maple/Box Elder <0.10 kU/L (Class 0); T003-IgE Common Silver Birch <0.10 kU/L (Class 0); T006-IgE Cedar, Mountain <0.10 kU/L (Class 0); T007-IgE Oak, White <0.10 kU/L (Class 0); T008-IgE Elm, American <0.10 kU/L (Class 0); T010-IgE Walnut <0.10 kU/L (Class 0); T011-IgE Maple Leaf Sycamore <0.10 kU/L (Class 0); T014-IgE Cottonwood <0.10 kU/L (Class 0); T015-IgE Ash, White <0.10 kU/L (Class 0); T022-IgE Pecan, Hickory <0.10 kU/L (Class 0); T070-IgE White Mulberry <0.10 kU/L (Class 0); W001-IgE Ragweed, Short <0.10 kU/L (Class 0); W011-IgE Thistle, Russian <0.10 kU/L (Class 0); W014-IgE Pigweed, Common <0.10 kU/L (Class 0); W018-IgE Sheep Sorrel <0.10 kU/L (Class 0)
== END 2024-07-14 23:59 | disposition home or self-care (01) ==
LOC: LAB 14:31
PROVIDERS: PCP Internal Medicine Adolescent Medicine; Visit Provider Internal Medicine Pulmonary Disease
DX: J45.909 Unspecified asthma, uncomplicated (principal); R06.09 Other forms of dyspnea; Z87.09 Personal history of other diseases of the respiratory system; Z87.891 Personal history of nicotine dependence
CPT/HCPCS: 36415; 82785; 85025; 86003

== ENCOUNTER 2024-07-29 14:13 | Outpatient (CLI) | payer MEDICARE, SELFPAY ==
--- NOTE | 2024-07-29 14:19 | XR_ITS ---
FINAL REPORT CLINICAL HISTORY: COPD EXACERBATION COMPARISON: 04/16/2024 FINDINGS: Two views of the chest were obtained. The heart size and pulmonary vascularity are within normal limits. The mediastinum is normal. There is mild linear atelectasis or scar in the left lung base. There is no pneumothorax. The bony thorax is intact. IMPRESSION: Left lung base linear atelectasis or scar. Reviewed, Interpreted and Dictated by Armando Craig III, MD Transcribed by Martha Covarrubias Authenticated and [facility]
== END 2024-07-29 23:59 | disposition home or self-care (01) ==
LOC: RAD 14:16
PROVIDERS: PCP Internal Medicine Adolescent Medicine; Visit Provider Physician Assistant
DX: J44.9 Chronic obstructive pulmonary disease, unspecified (principal)
CPT/HCPCS: 71046

== ENCOUNTER 2024-08-21 07:46 | Outpatient (CLI) | payer MEDICARE, SELFPAY ==
[2024-08-21] MEDS: IPRATROPIUM/ALBUTEROL 3 ML NEB IH (09:51)
[2024-08-28 09:15] LABS: Aspergillus fumigatus IgG Negative (Negative); Pigeon Serum Abs Negative (Negative)
[2024-08-31 16:20] LABS: Antinuclear Antibodies (ANA) POSITIVE
[2024-08-31 16:22] LABS: RNP Antibodies Charge YES
[2024-08-31 16:23] LABS: RNP Antibodies 1.5
[2024-08-31 16:24] LABS: Anti-DNA (DS) Ab Charge YES
[2024-08-31 16:26] LABS: Anti-DNA (DS) Ab Qn 1
== END 2024-08-21 23:59 | disposition home or self-care (01) ==
PROVIDERS: PCP Internal Medicine Adolescent Medicine; Visit Provider Internal Medicine Pulmonary Disease
DX: R06.09 Other forms of dyspnea (principal); J84.9 Interstitial pulmonary disease, unspecified
CPT/HCPCS: 36415; 86038; 86140; 86225; 86235; 86331; 86602; 86606; 86609; 94060; 94618; 94726; 94729; J7620

== ENCOUNTER 2024-12-14 06:57 | Outpatient (CLI) | payer MEDICARE, SELFPAY ==
--- NOTE | 2024-12-14 06:58 | CT_ITS ---
FINAL REPORT TECHNIQUE: Axial CT without IV contrast administration. Coronal and sagittal reconstructions obtained and reviewed. This study was performed with techniques to keep radiation doses as low as reasonably achievable, (ALARA). Individualized dose reduction techniques using automated exposure control or adjustment of mA and/or kV according to the patient''s size were employed. CLINICAL HISTORY: .smoker, exertional dyspnea, ?? interstitial lung disease COMPARISON: 04/22/2024 FINDINGS: There are coarse linear densities in the lung bases, greater on the right, probably due to scar. Mild bronchiectasis is noted. There are mild airspace opacities in the posterior periphery of both lower lung superior segment. This is mildly improved with prone position and favored to represent dependent atelectasis. No pleural or pericardial effusion is seen. No adenopathy or mass lesion is present. IMPRESSION: No evidence of diffuse interstitial lung disease. Mild bronchiectasis. Bibasilar scarring. Peripheral airspace opacity superior segment of the bilateral lower lobes, probable dependent atelectasis. Reviewed, Interpreted and Dictated by Haylee Louie MD Transcribed by Martha Covarrubias Authenticated and . [facility]
[2024-12-14 07:31] LABS: Basophils % 0.3 % (0.1-2.0); Eosinophils # 0.3 K/mm3 (0.0-0.4); Eosinophils % 3.5 % (0.1-12.0); Hematocrit 39.2 % (37.0-47.0); Hemoglobin 12.5 g/dL (12.2-16.2); Lymphocytes # 3.3 K/mm3 (0.7-4.5); Mean Corpuscular HGB Conc 31.9 g/dL (31.8-35.4); Mean Corpuscular Hemoglobin 29.2 pg (27.0-31.2); Mean Corpuscular Volume 91.6 fl (81-99); Mean Platelet Volume 11.9 fl (7.4-10.4); Monocytes # 0.9 K/mm3 (0.1-1.0); Monocytes % 9.7 % (1.7-9.3); Neutrophils # 4.4 K/mm3 (1.8-7.8); Neutrophils % 48.9 % (37.0-80.0); Platelet Count 154 K/mm3 (142-424); Red Blood Count 4.28 M/mm3 (4.20-5.40); Red Cell Distribution Width 13.2 % (11.5-17.5)
[2024-12-14 08:02] LABS: Albumin Level 3.2 g/dl (3.5-5.0); Chloride 105 mmol/L (98-107); Sodium 138 mmol/L (136-145)
[2024-12-14 08:03] LABS: Potassium 3.7 mmoL/L (3.5-5.1)
[2024-12-14 08:05] LABS: Alanine Aminotransferase 25 U/L (12-78); Albumin/Globulin Ratio 1.3 (1.1-1.8); Alkaline Phosphatase 108 U/L (38-126); Anion Gap 10.7 mEq/L (5-15); Aspartate Amino Transferase 22 U/L (14-36); Bilirubin,Total 1.2 mg/dl (0.2-1.3); Blood Urea Nitrogen 13 mg/dl (7-17); Carbon Dioxide 26 mmol/L (22.0-30.0); Cholesterol 120 mg/dl (140-200); Estimated Glomerular Filt Rate 49 ml/min (>60); GFR (African American) 59 ML/MIN (>60); Globulin 2.5 g/dL (1.3-3.2); Total Protein,Serum 5.7 g/dl (6.3-8.2); Triglycerides 150 mg/dl (30-150); VLDL Cholesterol 30 mg/dL (0-40)
[2024-12-14 08:06] LABS: Calcium 8.5 mg/dl (8.4-10.2); Chol/HDL Ratio 2.9 (1-3.5); Glucose 106 mg/dl (74-100); HDL Cholesterol 42 mg/dl (40-60)
[2024-12-14 08:17] LABS: Direct LDL Cholesterol 43.94 mg/dL (100-129)
[2024-12-14 11:30] LABS: 25-OH Vitamin D, Total 49.7 ng/mL (30-100)
== END 2024-12-14 23:59 | disposition home or self-care (01) ==
LOC: RAD 06:58
PROVIDERS: Nurse Practitioner Family; PCP Internal Medicine Adolescent Medicine; Visit Provider Internal Medicine Pulmonary Disease
DX: J84.9 Interstitial pulmonary disease, unspecified (principal); E78.5 Hyperlipidemia, unspecified; I10 Essential (primary) hypertension; E55.9 Vitamin D deficiency, unspecified
CPT/HCPCS: 36415; 71250; 80053; 80061; 82306; 85025

== ENCOUNTER 2024-12-30 16:27 | Outpatient (CLI) | payer MEDICARE, SELFPAY ==
--- NOTE | 2024-12-30 16:30 | MM_ITS ---
PROCEDURE INFORMATION: Exam: MG Bilateral Screening 3D Mammography Exam date and time: 12/30/2024 4:33 PM Age: 69 years old Clinical indication: Screening mammogram TECHNIQUE: Imaging protocol: Bilateral Screening tomosynthesis and 2D mammography including computer-aided detection (CAD) when performed. COMPARISON: 1. MG MM DIG MAMM BI DX W/CAD 12/31/2023 1:52 PM 2. MG MM DIG SCREENING MAMM BI W/CAD 12/13/2023 8:03 AM 3. MG MM DIG SCREENING MAMM BI W/CAD 07/27/2020 10:36 AM 4. MG [facility]BI MM Dig screening mamm BI w/CAD 03/24/2018 4:11 PM FINDINGS: MAMMOGRAPHY: Breast composition: There are scattered areas of fibroglandular density. Mass: None. Architectural distortion: No new or suspicious architectural distortion. Calcifications: No new or suspicious calcifications are present Asymmetric density: No new or suspicious asymmetric density is present Skin thickening: None. Axillary adenopathy: None. IMPRESSION: No mammographic evidence of malignancy. Recommend annual screening mammography unless otherwise clinically indicated. ASSESSMENT: BI-RADS category 1: Negative.
== END 2024-12-30 23:59 | disposition home or self-care (01) ==
LOC: RAD 16:28
PROVIDERS: PCP Internal Medicine Adolescent Medicine; Visit Provider Nurse Practitioner Family
DX: Z12.31 Encounter for screening mammogram for malignant neoplasm of breast (principal)
CPT/HCPCS: 77063; 77067

== ENCOUNTER 2025-05-20 15:40 | Inpatient (IN) | payer MEDICARE, SELFPAY ==
[2025-05-20] VITALS (17 sets, daily range): BP systolic 119–148; BP diastolic 48–85; PULSE 67–85; RESP 13–28; TEMP 36.8–39.1; O2SAT 84–98; BMI 34.3; BMI 34.9
--- NOTE | 2025-05-20 | CT_ITS ---
PROCEDURE INFORMATION: Exam: CT Abdomen And Pelvis With Contrast Exam date and time: 05/20/2025 4:46 PM Age: 69 years old Clinical indication: Abdominal pain; Additional info: Sepsis, diffuse abd pain, nausea, vomiting TECHNIQUE: Imaging protocol: Computed tomography of the abdomen and pelvis with contrast. 3D rendering (Not supervised by radiologist): MIP and/or 3D reconstructed images were created by the technologist. Radiation optimization: All CT scans at this facility use at least one of these dose optimization techniques: automated exposure control; mA and/or kV adjustment per patient size (includes targeted exams where dose is matched to clinical indication); or iterative reconstruction. Contrast material: ISOVUE; Contrast volume: 70 ml; Contrast route: IV; COMPARISON: CT HR CHEST X3 12/14/2024 6:59 AM FINDINGS: Tubes, catheters and devices: None noted. Lungs: Bilateral lower lobe atelectasis and infiltrate. Heart: No significant coronary calcifications. No cardiomegaly. No significant pericardial effusion. Liver: Normal. No mass. Gallbladder and biliary ducts: Normal. No calcified stones. No ductal dilation. Pancreas: Normal. No ductal dilation. Spleen: Normal. No splenomegaly. Adrenal glands: Normal. No mass. Kidneys and ureters: Normal. No hydronephrosis. Stomach and bowel: Unremarkable. No obstruction. No mucosal thickening. Appendix: No evidence of appendicitis. Intraperitoneal space: Unremarkable. No free air. No significant fluid collection. Retroperitoneal space: No significant retroperitoneal inflammatory changes are noted. Vasculature: Unremarkable. No abdominal aortic aneurysm. Lymph nodes: Unremarkable. No enlarged lymph nodes. Urinary bladder: Unremarkable as visualized. Reproductive: Unremarkable as visualized. Bones/joints: Bilateral total hip arthroplasty. No acute fracture. Soft tissues: Unremarkable. IMPRESSION: 1. Bilateral lower lobe infiltrates. 2. Cholecystectomy.
--- NOTE | 2025-05-20 15:47 | ED_ITS ---
<Statement entered by Drea Jackson DO - 05/20/25 23:27> I was consulted by the RAJIV, and we discussed the complexity of the problems being addressed. I approved the treatment and management plan for this patient's care in the emergency department, thus performing a substantive portion of the medical decision making. Drea Jackson DO Discharge Plan Disposition Patient Disposition: Admitted Condition: Fair Clinical Impressions Clinical Impression: Pneumonia, Hypoxia, Sepsis, Electrolyte disturbance Discharge ED Provider: Drea Jackson General Adult HPI <MICHAEL Charles - Last Filed: 05/20/25 19:46> General Chief complaint: Shortness of Breath/Dyspnea Stated complaint: Jones wants her to be seen,headache,vomiting Time Seen by Provider: 05/20/25 15:43 Mode of Arrival: Ambulatory Source of Information: Patient and Relative Limitations: No Limitations History of Present Illness HPI narrative: 69-year-old female presents to the emergency department, accompanied by her relatives, at the request of her PCP for a 1 week history of productive cough congestion, subjective fever and chills, shortness of breath, that is worsened over the last 2 or 3 days, generalized weakness and fatigue as well as nausea and vomiting that occurred over the last 2 or 3 days, patient also endorses headache, denies any recent sick contacts, denies any overt chest pain, does admit to abdominal pain, denies any diarrhea or constipation, does admit to increased urinary output, denies any true dysuria, patient is a current everyday smoker, denies any alcohol or drug use, other past medical history is consistent with COPD, obesity, anxiety/depression, GERD, hyperlipidemia. Initial triage vitals triggering sepsis criteria with Fever 102.4 ?F, SPO2 in the mid 80s according to nursing staff upon triage, placement was placed on 2 L nasal cannula, patient also had some tachypnea at 28, breaths per minute, no tachycardia, blood pressure within normal limits. Please note that above description of symptoms, in this electronic medical record under categorization of recalled from ER triage doctor by RN are reflective of an initial nursing assessment, however, is not reflective of my full history and physical exam that was personally taken and clarified. Consequentially, this preceding description of symptoms, which may include the patient's categorized chief complaint in the EMR, do not reflect my personal clinical impression, and the ultimate description of history of present illness and patient stated complaints should be deferred to this section of the note. Unless stated otherwise or congruent with this section of the note, additional signs, symptoms, or incongruence should be interpreted as inaccurate with my clinical impression. Onset (ago): week(s) Related Data Home Medications ?Medication ?Instructions ?Recorded ?Confirmed citalopram 20 mg tablet 20 mg PO DAILY Anxiety 04/0708/21/24 fluticasone propionate 50 1 spray intranasal DAILY all ergoes 04/07/19 08/21/24 mcg/actuation nasal spray,suspension (Flonase Allergy Relief) gabapentin 100 mg capsule 100 mg PO TID Pain 04/07/19 08/21/24 omeprazole 40 mg capsule,delayed 40 mg PO DAILY stomac h 04/07/19 08/21/24 release pravastatin 80 mg tablet 80 mg PO DAILY Cholesterol 0 04/07/19 08/21/24 albuterol sulfate 90 mcg/actuation 90 mcg inhalation D AILY allergies 11/19/19 08/21/24 aerosol inhaler furosemide 20 mg tablet 20 mg PO DAILY Fluid 0 08/21/24 potassium chloride 20 mEq 20 meq PO DAILY Supplement 0 07/20/20 08/21/24 tablet,extended release(part/cryst) estradiol 0.01% (0.1 mg/gram) 0.5 appful vaginal .COMP LAXMI hormone 01/03/23 08/21/24 vaginal cream (Estrace) carvedilol 12.5 mg tablet 12.5 mg PO BID 07/14/24 1111/13 cholecalciferol (vitamin D3) 25 25 mcg PO DAILY 08/21/24 mcg (1,000 unit) capsule cyclosporine 0.05 % eye drops in a 1 drp ophthalmic (e ye) Q12H 07/14/24 08/21/24 dropperette (Restasis) ipratropium 0.5 mg-albuterol 3 mg 3 ml inhalation Q4-6 H PRN 07/14/24 08/21/24 (2.5 mg base)/3 mL nebulization soln metoclopramide HCl 5 mg tablet 5 mg PO QACHS 07/14/24 08/21/24 Previous Rx's ?Medication ?Instructions ?Recorded ibuprofen 800 mg tablet (IBU) 800 mg PO Q8HP PRN Moder ate Pain 07/24/22 #30 tabs methocarbamol 500 mg tablet 500 mg PO TID PRN muscle s pasm #15 09/11/22 tabs Spiriva with HandiHaler 18 mcg and 1 cap inhalation DA EARL #90 puffs 08/21/24 inhalation capsules (tiotropium bromide) montelukast 10 mg tablet 10 mg PO DAILY #90 tabs 11/13 (Singulair) fluticasone 500 mcg-salmeterol 50 1 inh inhalation BID #180 ea 10/28/24 mcg/dose blistr powdr for inhalation (Advair Diskus) Allergies Allergy/AdvReac Type Severity Reaction Status Date / Time codeine Allergy Mild NA-NAUSEA/V Verified 08/21/24 10:13 OMITING adhesive Allergy Unknown Verified 08/21/24 10:13 lanolin Allergy Unknown Verified 08/21/24 10:13 [facility] <MICHAEL Charles - Last Filed: 05/20/25 19:46> [facility] Disclaimer: The information contained in this section may have been updated after the patient was seen, as this information can be updated by other users. Medical History (Updated 05/20/25 @ 19:02 by Milan Stanford MD) History of asthma History of COPD History of smoking 30 or more pack years Dyspnea on exertion Lipoma Hypertension HLD (hyperlipidemia) GERD (gastroesophageal reflux disease) Depression Asthma Anxiety Surgical History History of local excision of skin lesion History of left hip replacement History of colonoscopy History of cholecystectomy Hx of tonsillectomy History of total right hip replacement H/O arthroscopy of right knee Family History Family history of stroke Social History Smoking Status: Never smoker alcohol intake: current alcohol intake frequency: holidays/special occasions only substance use type: denies use current occupational status: retired Travel in the last 8 weeks?: None household members: spouse housing: house lives independently: No marital status: education level: college caffeine: Yes special zeinab needs: No agree to transfusion: No do you feel safe at home: Yes victim of physical abuse: No victim of emotional abuse: No victim of sexual abuse: No would you like helpful sources: No Have you lived/traveled outside [place] in past 30 days?: No Contact w/someone who lives/traveled outside [place] past 30 days?: No Exposure to someone with infectious disease in past 14 days?: No Do you have a fever (greater than 100.4 F or 38 C)?: No Have you tested positive for COVID-19?: No Exposed to someone with COVID-19 in past 14 days?: No Do you have a sore throat?: No Do you have a cough?: Yes Do you have any weakness?: Yes Do you have any diarrhea?: No Are you experiencing any unusual bleeding?: No Do you have any muscle aches/pain?: No Do you have any abdominal pain?: No Are you experiencing loss of taste or smell?: No Other Medical History Have you received the Flu Vaccine for this season: No Have you received the Pneumonia Vaccine: Yes <MICHAEL Charles - Last Filed: 05/20/25 19:46> ROS Obtained: Yes All systems reviewed & no additional complaints except as documented Physical Exam <MICHAEL Charles - Last Filed: 05/20/25 19:46> General General appearance: alert and in no apparent distress Comment: Alert, oriented, ill-appearing female Head Head exam: atraumatic and normocephalic Eye Eye exam: Present PERRL and EOMI ENT ENT exam: Present mucous membranes moist Neck Neck exam: Present normal inspection Chest Chest inspection: Present normal inspection and symmetric chest wall rise Respiratory Respiratory exam: Present wheezes, accessory muscle use and other (Patient has bilateral wheezes and crackles upon auscultation.); Absent normal lung sounds bilaterally or respiratory distress Cardiovascular Cardiovascular exam: Present regular rate and normal rhythm Abdominal Exam Abdominal exam: Present soft and tenderness; Absent guarding or rebound Abdominal tenderness: Present diffuse and mild Extremities Exam Extremities exam: Present normal inspection Neurological Exam Neurological exam: Present alert and oriented X3 Psychiatric Psychiatric exam: Present normal affect Skin Skin exam: Present warm and dry Medical Decision Making <MICHAEL Charles - Last Filed: 05/20/25 19:46> Medical Records Medical records reviewed: Yes I reviewed the patient's medical records. Screening: Per USPSTF and CDC recommendations, given the prevalence of disease in our region, it is our hospital?s policy to screen for HIV and viral Hepatitis for all patients aged 18 and over and those with ongoing risk factors. [place] Inquiry Pt receiving controlled substance: No [place] was queried for this patient: No Vital Signs: 05/20/25 15:49 05/20/25 16:01 05/20/25 17:00 Temperature 102.4 F H Temperature Source Oral Pulse Rate 84 85 Pulse Rate [Right] 85 Respiratory Rate 28 H 28 H 25 H Blood Pressure 119/54 L 138/54 L Blood Pressure [Right Arm] 122/71 Blood Pressure Mean 73 82 Blood Pressure Mean [Right Arm] 88 02 Sat by Pulse Oximetry 84 L 94 L 92 L Oxygen Delivery Method Room Air 05/20/25 17:30 05/20/25 18:00 05/20/25 18:30 Temperature Temperature Source Pulse Rate 84 78 74 Pulse Rate [Right] Respiratory Rate 23 22 16 Blood Pressure 125/48 L 133/58 L 125/70 Blood Pressure [Right Arm] Blood Pressure Mean Blood Pressure Mean [Right Arm] 02 Sat by Pulse Oximetry 92 L 90 L 95 Oxygen Delivery Method 05/20/25 19:00 05/20/25 19:30 Temperature Temperature Source Pulse Rate 77 73 Pulse Rate [Right] Respiratory Rate 19 17 Blood Pressure 145/85 H 142/62 H Blood Pressure [Right Arm] Blood Pressure Mean Blood Pressure Mean [Right Arm] 02 Sat by Pulse Oximetry 98 95 Oxygen Delivery Method Lab Data Lab results reviewed: Yes I reviewed the patient's lab results. Lab Results 05/20/25 15:50: SARS-CoV-2 (PCR) Not detected, Influenza A Untype (PCR) Not detected, Influenza Type B (PCR) Not detected 05/20/25 15:51: WBC 15.9 H, RBC 4.21, Hgb 11.9 L, Hct 36.5 L, MCV 86.7, MCH 28.3, MCHC 32.6, RDW 13.3, Plt Count 255, MPV 11.2 H, Neut % (Auto) 83.3 H, L ymph % (Auto) 9.2 L, [place] % (Auto) 6.5, Eos % (Auto) 0.3, Baso % (Auto) 0.3, N eut # (Auto) 13.3 H, Lymph # (Auto) 1.5, [place] # (Auto) 1.0, Eos # (Auto) 0.1, Baso # (Auto) 0.0, PT 15.0 H, INR 1.38 H, Sodium 131 L, Potassium 3.4 L, Chloride 100, Carbon Dioxide 26, Anion Gap 8.4, BUN 15, Creatinine 1.10 H, Estimated Creat Clear 68, Estimated GFR 49 L, Est GFR ( Amer) 59, Glucose 102 H, Lactate 1.0, Calcium 9.0, Magnesium 1.3 L, Total Bilirubin 2.4 H, AST 24, ALT 16, Alkaline Phosphatase 113, Troponin I < 0.01, NT-Pro-B Natriuret Pep 1220 H, Total Protein 7.0, Albumin 3.1 L, Globulin 3.9 H, Albumin/Globulin Ratio 0.8 L, Lipase 24 05/20/25 16:01: VBG pH 7.43 H, VBG pCO2 35.5, VBG pO2 49.7 H, VBG HCO3 23.1, VBG Total CO2 24.2, VBG O2 Saturation 86.7 H, VBG Base Excess -0.7, VBG Lactic Acid 1.5 05/20/25 15:51 05/20/25 15:51 Orders (Tests/Meds): ED MEDICATIONS Generic Name Dose Route Start Last Admin Trade Name Freq PRN Reason Stop Dose Admin Acetaminophen 650 mg 05/20/25 18:35 Acetaminophen 325mg Tab PO 06/19/25 18:34 Q4HP PRN Fever or Mild Pain (1-3) Heparin Sodium (Porcine) 5,000 unit 05/20/25 21:00 Heparin Sodium 5,000 Unit/Ml Vial SUBCUT 06/19/25 20:59 TID CIRA Ondansetron HCl 4 mg 05/20/25 18:35 Ondansetron 4mg/2ml Vial IV 06/19/25 18:34 Q8HP PRN Nausea Sodium Chloride 10 ml 05/20/25 16:49 05/20/25 16:50 Sodium Chloride 0.9% 10ml Syr (Rad Only) IV 06/19/25 16:48 10 ml NEEDED PRN Administration Maintain IV Site Discontinued Medications Generic Name Dose Route Start Last Admin Trade Name Freq PRN Reason Stop Dose Admin Acetaminophen 1,000 mg 05/20/25 16:15 05/20/25 16:18 Acetaminophen 1,000mg/100ml Vial IV 05/20/25 16:16 1,000 mg ONCE ONE Administration Albuterol/Ipratropium 6 ml 05/20/25 18:04 05/20/25 18:24 Ipratropium/Albuterol 3 Ml Neb IH 05/20/25 18:05 6 ml ONCE ONE Administration Lactated Ringer's 1,000 mls @ 999 mls/hr 05/20/25 15:57 05/20/25 16:13 Lactated Ringer's 1000 Ml Bag IV 05/20/25 16:57 999 mls/hr .Q1H1M ONE Administration Ceftriaxone Sodium 1 gm/ 50 mls @ 100 mls/hr 05/20/25 15:58 05/20/25 16:12 Sodium Chloride IV 05/20/25 16:27 100 mls/hr ONCE ONE Administration Magnesium Sulfate 2 gm in 50 mls @ 50 mls/hr 05/20/25 17:02 05/20/25 18:00 Magnesium Sulfate 2gm/50ml Premix IV 05/20/25 18:01 50 mls/hr ONCE ONE Administration Azithromycin 500 mg/ Sodium 250 mls @ 250 mls/hr 05/20/25 18:22 05/20/25 18:23 Chloride IV 05/20/25 18:23 250 mls/hr ONCE ONE Administration Iopamidol 75 ml 05/20/25 16:49 05/20/25 16:51 Iopamidol-370 (76%);100ml Bottle IV 05/20/25 16:50 75 ml ONCE ONE Administration Methylprednisolone Sodium Succinate 125 mg 05/20/25 18:05 05/20/25 18:24 Methylprednisolone Sod Succ 125mg Vial IV 05/20/25 18:06 125 mg ONCE ONE Administration Ondansetron HCl 4 mg 05/20/25 18:36 05/20/25 18:38 Ondansetron 4mg/2ml Vial IV 05/20/25 18:37 4 mg ONCE ONE Administration Sodium Chloride 50 ml 05/20/25 16:49 05/20/25 16:50 0.9 % Sodium Chloride 50 Ml Vial IV 05/20/25 16:50 50 ml ONCE ONE Administration ORDERS Category Date Time Status CT abdomen pelvis w con Stat Cat Scan 05/20/[address] angio chest PE protocol Stat Cat Scan 05/20/25 15:55 Completed XR chest portable Stat Exams 05/20/25 15:57 Completed Basic Metabolic Panel AMLAB Lab 05/21/25 06:00 Ordered Basic Metabolic Panel AMLAB Lab 05/22/25 06:00 Ordered Basic Metabolic Panel AMLAB Lab 05/23/25 06:00 Ordered Complete Blood Count Auto Diff AMLAB Lab 05/21/25 06:00 Ordered Complete Blood Count Auto Diff AMLAB Lab 05/22/25 06:00 Ordered Complete Blood Count Auto Diff AMLAB Lab 05/23/25 06:00 Ordered Complete Blood Count Auto Diff Stat Lab 05/20/25 15:51 Completed Comprehensive Metabolic Panel Stat Lab 05/20/25 15:51 Completed HIV Combo Stat Lab 05/20/25 15:51 Received Hepatitis C Ab Qual. W/ RFX Stat Lab 05/20/25 15:51 Received Lactic Acid Stat Lab 05/20/25 15:51 Completed Lipase Stat Lab 05/20/25 15:51 Completed Magnesium Stat Lab 05/20/25 15:51 Completed NT Pro Brain Natriuretic Pep. Stat Lab 05/20/25 15:51 Completed PT INR [Prothrombin Time INR] Stat Lab 05/20/25 15:51 Completed Rapid PCR Covid and Flu A/B Stat Lab 05/20/25 15:50 Completed Troponin I Q3H Lab 05/20/25 22:00 Ordered Troponin I Stat Lab 05/20/25 15:51 Completed Urinalysis and Microscopic Stat Lab 05/20/25 15:56 Ordered Blood Culture Stat Micro 05/20/25 15:59 Received VBG [Venous Blood Gas] Stat RT 05/20/25 16:00 Stop Req VBG [Venous Blood Gas] Stat RT 05/20/25 16:01 Completed Medical Decision Narrative: 69-year-old female presents the emergency department with productive cough, shortness of air, hypoxia, congestion, abdominal pain nausea and vomiting for 1 week, differential diagnose include but not limited to, sepsis, acute UTI, acute pyelonephritis, colitis, ileitis, gastroenteritis, COPD exacerbation, new onset CHF exacerbation, ACS, cardiac arrhythmia, electrolyte disturbance, acute URI, acute bronchitis, pneumonia, pulmonary edema, pleural effusion, among others. I discussed the patient's case with the attending physician Dr. Jackson Will obtain basic laboratory studies, EKG, lactic acid level lipase level magnesium level proBNP PT/INR, rapid PCR COVID and flu, troponin level, will give 1 L LR IV, for sepsis protocol will give 1 g IV Rocephin and obtain blood cultures, will only give 1 L LR IV at this time for sepsis bolus, due to concerns of pulmonary edema upon auscultation of the patient's chest. Will give IV Tylenol 1000 mg, will obtain CT abdomen pelvis with contrast, VBG and CTA chest with and without contrast for further evaluation/characterization. CBC is notable for leukocytosis of 15.9, hemoglobin hematocrit are 11.9/36.5 respectively, neutrophil percentage is elevated. Coagulation studies are notable for PT of 15 seconds, INR 1.38 CMP is notable for mild hyponatremia at 131, and hypokalemia at 3.4, creatinine is minimally elevated at 1.1, lactic acid level within normal limits, total bilirubin is elevated at 2.4, hypomagnesia 1.3, troponin initially is within normal limits at less than 0.01, lipase within normal limits, proBNP is significantly elevated at 1220 VBG is notable for pH of 7.43, PO2 is 49.7, but oxygen saturation is 86.7. Venous lactic acid within normal limits. I reviewed the patient's chest x-ray along the corresponding radiologic report, patchy bilateral pulmonary infiltrates. Will replace patient's magnesium with 2 g IV magnesium. I reviewed the patient's CTA chest with without contrast PE protocol, bilateral lower lobe atelectasis and infiltrates, no CT evidence of pulmonary embolism. However the patient's CT abdomen pelvis with contrast along the corresponding radiologic report, bilateral lower lobe infiltrates, cholecystectomy. Will add additional 500 mg IV azithromycin for community-acquired pneumonia. I attempted to call the hospitalist at approximately 6 PM, he would like me to call him back in around 15 minutes as he is currently performing direct patient care at this time. Will call back. At this time we will also add on DuoNeb therapy 6 mL, and 125 mg IV Solu-Medrol COVID-19, influenza is negative per PCR I attempted to discuss this patient's case with Dr. Banegas again at 6:23 PM, fortunately he is unable to discuss the patient's case at this time , due to performing direct patient care. We will call them back at later time. I discussed this patient's case with the hospitalist Dr. Banegas at 6:34 PM, he is in agreement with the current admission plan/treatment plan for sepsis in the setting of bilateral pneumonia, hypoxia requiring new oxygen supplementation. I discussed need for admission with the patient family at the bedside patient and family in agreement with current admission plan/treatment plan. I was notified by nursing staff at approximately 6:36 PM the patient is complaining of some nausea, will give 4 mg IV Zofran for nausea. <Drea Hyde Jackson, DO - Last Filed: 05/20/25 18:13> Vital Signs: 05/20/25 15:49 05/20/25 16:01 05/20/25 17:00 Temperature 102.4 F H Temperature Source Oral Pulse Rate 84 85 Pulse Rate [Right] 85 Respiratory Rate 28 H 28 H 25 H Blood Pressure 119/54 L 138/54 L Blood Pressure [Right Arm] 122/71 Blood Pressure Mean 73 82 Blood Pressure Mean [Right Arm] 88 02 Sat by Pulse Oximetry 84 L 94 L 92 L Oxygen Delivery Method Room Air 05/20/25 17:30 05/20/25 18:00 05/20/25 18:30 Temperature Temperature Source Pulse Rate 84 78 74 Pulse Rate [Right] Respiratory Rate 23 22 16 Blood Pressure 125/48 L 133/58 L 125/70 Blood Pressure [Right Arm] Blood Pressure Mean Blood Pressure Mean [Right Arm] 02 Sat by Pulse Oximetry 92 L 90 L 95 Oxygen Delivery Method 05/20/25 19:00 05/20/25 19:30 Temperature Temperature Source Pulse Rate 77 73 Pulse Rate [Right] Respiratory Rate 19 17 Blood Pressure 145/85 H 142/62 H Blood Pressure [Right Arm] Blood Pressure Mean Blood Pressure Mean [Right Arm] 02 Sat by Pulse Oximetry 98 95 Oxygen Delivery Method Lab Data Lab Results 05/20/25 15:50: SARS-CoV-2 (PCR) Not detected, Influenza A Untype (PCR) Not detected, Influenza Type B (PCR) Not detected 05/20/25 15:51: WBC 15.9 H, RBC 4.21, Hgb 11.9 L, Hct 36.5 L, MCV 86.7, MCH 28.3, MCHC 32.6, RDW 13.3, Plt Count 255, MPV 11.2 H, Neut % (Auto) 83.3 H, L ymph % (Auto) 9.2 L, [place] % (Auto) 6.5, Eos % (Auto) 0.3, Baso % (Auto) 0.3, N eut # (Auto) 13.3 H, Lymph # (Auto) 1.5, [place] # (Auto) 1.0, Eos # (Auto) 0.1, Baso # (Auto) 0.0, PT 15.0 H, INR 1.38 H, Sodium 131 L, Potassium 3.4 L, Chloride 100, Carbon Dioxide 26, Anion Gap 8.4, BUN 15, Creatinine 1.10 H, Estimated Creat Clear 68, Estimated GFR 49 L, Est GFR ( Amer) 59, Glucose 102 H, Lactate 1.0, Calcium 9.0, Magnesium 1.3 L, Total Bilirubin 2.4 H, AST 24, ALT 16, Alkaline Phosphatase 113, Troponin I < 0.01, NT-Pro-B Natriuret Pep 1220 H, Total Protein 7.0, Albumin 3.1 L, Globulin 3.9 H, Albumin/Globulin Ratio 0.8 L, Lipase 24 05/20/25 16:01: VBG pH 7.43 H, VBG pCO2 35.5, VBG pO2 49.7 H, VBG HCO3 23.1, VBG Total CO2 24.2, VBG O2 Saturation 86.7 H, VBG Base Excess -0.7, VBG Lactic Acid 1.5 Orders (Tests/Meds): ED MEDICATIONS Generic Name Dose Route Start Last Admin Trade Name Freq PRN Reason Stop Dose Admin Acetaminophen 650 mg 05/20/25 18:35 Acetaminophen 325mg Tab PO 06/19/25 18:34 Q4HP PRN Fever or Mild Pain (1-3) Heparin Sodium (Porcine) 5,000 unit 05/20/25 21:00 Heparin Sodium 5,000 Unit/Ml Vial SUBCUT 06/19/25 20:59 TID CIRA Ondansetron HCl 4 mg 05/20/25 18:35 Ondansetron 4mg/2ml Vial IV 06/19/25 18:34 Q8HP PRN Nausea Sodium Chloride 10 ml 05/20/25 16:49 05/20/25 16:50 Sodium Chloride 0.9% 10ml Syr (Rad Only) IV 06/19/25 16:48 10 ml NEEDED PRN Administration Maintain IV Site Discontinued Medications Generic Name Dose Route Start Last Admin Trade Name Freq PRN Reason Stop Dose Admin Acetaminophen 1,000 mg 05/20/25 16:15 05/20/25 16:18 Acetaminophen 1,000mg/100ml Vial IV 05/20/25 16:16 1,000 mg ONCE ONE Administration Albuterol/Ipratropium 6 ml 05/20/25 18:04 05/20/25 18:24 Ipratropium/Albuterol 3 Ml Neb IH 05/20/25 18:05 6 ml ONCE ONE Administration Lactated Ringer's 1,000 mls @ 999 mls/hr 05/20/25 15:57 05/20/25 16:13 Lactated Ringer's 1000 Ml Bag IV 05/20/25 16:57 999 mls/hr .Q1H1M ONE Administration Ceftriaxone Sodium 1 gm/ 50 mls @ 100 mls/hr 05/20/25 15:58 05/20/25 16:12 Sodium Chloride IV 05/20/25 16:27 100 mls/hr ONCE ONE Administration Magnesium Sulfate 2 gm in 50 mls @ 50 mls/hr 05/20/25 17:02 05/20/25 18:00 Magnesium Sulfate 2gm/50ml Premix IV 05/20/25 18:01 50 mls/hr ONCE ONE Administration Azithromycin 500 mg/ Sodium 250 mls @ 250 mls/hr 05/20/25 18:22 05/20/25 18:23 Chloride IV 05/20/25 18:23 250 mls/hr ONCE ONE Administration Iopamidol 75 ml 05/20/25 16:49 05/20/25 16:51 Iopamidol-370 (76%);100ml Bottle IV 05/20/25 16:50 75 ml ONCE ONE Administration Methylprednisolone Sodium Succinate 125 mg 05/20/25 18:05 05/20/25 18:24 Methylprednisolone Sod Succ 125mg Vial IV 05/20/25 18:06 125 mg ONCE ONE Administration Ondansetron HCl 4 mg 05/20/25 18:36 05/20/25 18:38 Ondansetron 4mg/2ml Vial IV 05/20/25 18:37 4 mg ONCE ONE Administration Sodium Chloride 50 ml 05/20/25 16:49 05/20/25 16:50 0.9 % Sodium Chloride 50 Ml Vial IV 05/20/25 16:50 50 ml ONCE ONE Administration ORDERS Category Date Time Status CT abdomen pelvis w con Stat Cat Scan 05/20/[address] angio chest PE protocol Stat Cat Scan 05/20/25 15:55 Completed XR chest portable Stat Exams 05/20/25 15:57 Completed Basic Metabolic Panel AMLAB Lab 05/21/25 06:00 Ordered Basic Metabolic Panel AMLAB Lab 05/22/25 06:00 Ordered Basic Metabolic Panel AMLAB Lab 05/23/25 06:00 Ordered Complete Blood Count Auto Diff AMLAB Lab 05/21/25 06:00 Ordered Complete Blood Count Auto Diff AMLAB Lab 05/22/25 06:00 Ordered Complete Blood Count Auto Diff AMLAB Lab 05/23/25 06:00 Ordered Complete Blood Count Auto Diff Stat Lab 05/20/25 15:51 Completed Comprehensive Metabolic Panel Stat Lab 05/20/25 15:51 Completed HIV Combo Stat Lab 05/20/25 15:51 Received Hepatitis C Ab Qual. W/ RFX Stat Lab 05/20/25 15:51 Received Lactic Acid Stat Lab 05/20/25 15:51 Completed Lipase Stat Lab 05/20/25 15:51 Completed Magnesium Stat Lab 05/20/25 15:51 Completed NT Pro Brain Natriuretic Pep. Stat Lab 05/20/25 15:51 Completed PT INR [Prothrombin Time INR] Stat Lab 05/20/25 15:51 Completed Rapid PCR Covid and Flu A/B Stat Lab 05/20/25 15:50 Completed Troponin I Q3H Lab 05/20/25 22:00 Ordered Troponin I Stat Lab 05/20/25 15:51 Completed Urinalysis and Microscopic Stat Lab 05/20/25 15:56 Ordered Blood Culture Stat Micro 05/20/25 15:59 Received VBG [Venous Blood Gas] Stat RT 05/20/25 16:00 Stop Req VBG [Venous Blood Gas] Stat RT 05/20/25 16:01 Completed ECG Data Tracing #1: I reviewed this ECG and interpreted as documented below: Normal sinus rhythm with a ventricular rate of [address] changes concerning for STEMI. Normal axis and intervals. ECG initial impression date: 05/20/25 ECG initial impression time: 15:52 Critical Care <MICHAEL Charles - Last Filed: 05/20/25 19:46> Critical Care Time Critical Care Time: Yes Attestation: On 05/20/25, the high probability of a clinically significant, sudden or life threatening deterioration of the following system(s) required my full and direct attention, intervention and personal management. The time I documented below is in addition to time spent performing reported procedures but includes the following listed in this critical care notation. Total Time Total Critical Care Time: 60
--- NOTE | 2025-05-20 15:51 | ECG_ITS ---
APPROVED REPORT Exam: Resting ECG HR:85 bpm ECG Measurements Heart Rate 85 AXES NJ 151 P 82 QRSd 84 QRS 95 QT 348 T 87 QTc 390 Conclusion SINUS RHYTHM BORDERLINE RIGHT AXIS DEVIATION [QRS AXIS > 90] LOW QRS VOLTAGE IN PRECORDIAL LEADS [QRS DEFLECTION < 1.0 mV IN CHEST LEADS] MODERATE ST DEPRESSION [0.05+ mV ST DEPRESSION] No STEMI Electronically signed by : HERO JAVED, 05/22/2025 06:42:17
--- NOTE | 2025-05-20 15:55 | CT_ITS ---
PROCEDURE INFORMATION: Exam: CTA Chest With Contrast Exam date and time: 05/20/2025 4:46 PM Age: 69 years old Clinical indication: Dyspnea; Additional info: Cough, dyspnea, hypoxia, sepsis TECHNIQUE: Imaging protocol: Computed tomographic angiography of the chest with contrast. Exam focused on the arteries. 3D rendering (Not supervised by radiologist): MIP and/or 3D reconstructed images were created by the technologist. Radiation optimization: All CT scans at this facility use at least one of these dose optimization techniques: automated exposure control; mA and/or kV adjustment per patient size (includes targeted exams where dose is matched to clinical indication); or iterative reconstruction. Contrast material: ISOVUE; Contrast volume: 70 ml; Contrast route: INTRAVENOUS (IV); COMPARISON: CT HR CHEST X3 12/14/2024 6:59 AM FINDINGS: Pulmonary arteries: No CTA evidence of pulmonary embolus. Aorta: Unremarkable. No aortic aneurysm. No aortic dissection. Lungs: Bilateral lower lobe atelectasis and infiltrates. Pleural spaces: Unremarkable. No pneumothorax. No pleural effusion. Heart: Unremarkable. No cardiomegaly. No pericardial effusion. Lymph nodes: Unremarkable. No enlarged lymph nodes. Bones/joints: Unremarkable. No acute fracture. Soft tissues: Unremarkable. IMPRESSION: 1. Bilateral lower lobe atelectasis and infiltrates. 2. No CTA evidence of pulmonary embolus.
--- NOTE | 2025-05-20 15:57 | XR_ITS ---
PROCEDURE INFORMATION: Exam: XR Chest Exam date and time: 05/20/2025 4:09 PM Age: 69 years old Clinical indication: Shortness of breath; Additional info: Shortness of air TECHNIQUE: Imaging protocol: Radiologic exam of the chest. Views: 1 view. COMPARISON: CT HR CHEST X3 12/14/2024 6:59 AM FINDINGS: Lungs: Patchy bilateral pulmonary infiltrates. Pleural spaces: Unremarkable. No pleural effusion. No pneumothorax. Heart/Mediastinum: Unremarkable. No cardiomegaly. Bones/joints: Unremarkable. IMPRESSION: Patchy bilateral pulmonary infiltrates.
--- OUTSIDE RECORDS SUMMARY | 2025-05-20 16:03 | XMS_ITS | Encounter Summary ---
Author Organization [employer] ([place], [place], [place], [place]) Address [address] [place] [address] Care Team Providers Care General Farm Hand Name Role Phone Unavailable Primary Care Provider Unavailabl e Encounter Details Date Type Department Care Team (Late st Contact Info) Description 09/20/2021 Transcribed Document [facility] Radiology [address] [place] [address] Salena Brush MD [facility] [address] [address] Social History Tobacco Use Types Packs/Day Years Used Date Smoking Tobacco: Never Assessed Comments Unknown Sex and Gender Information Value Date Recorded Sex Assigned at Female 04/17/2022 7:31 PM CDT Legal Sex Female 7:31 PM CDT Gender Identity Female 04/17/2022 7:31 PM CDT Sexual Orientation Not on file documented as of this encounter Miscellaneous Notes * Cerner Conversion Note - Salena Brush MD - 09/20/2021 10:18 AM EST Patient: PINKY REID Age: 66 years Sex: Female : 1955 Associated Diagnoses: None Author: JEREMIAH CROWLEY PA-FAM 09/20/2021 cc: medical management s/p left total hip arthroplasty HPI: Patient is a 66 yo female admitted to [facility] per Dr. Johnson for a left total hip arthroplasty. Preoperatively patient was found to have advanced osteoarthritis of the left hip and elected surgical intervention after failing conservative treatment. Patient is followed perioperatively while hospitalized for medical management. Initial visit in preop --- Denies prior stroke or seizure. Denies SC, CHF or cardiac arrhythmia. Denies DM. Denies asthma or RAFFAELE. Denies DVT or PE. Denies h/o cancer. +urinary incontinences. Denies any recent illnesses that required abx. Denies prior skin infections. +GERD/ PUD, HTN, OA. Has COPD. has some allergies and coughing. Sleepy after surgery. Past Med Hx: Active Problems (17) Arthritis Asthma At risk for sleep apnea Back pain Bronchitis Cardiac arrhythmia Cataract Cataracts, bilateral Depression GERD - Gastro-esophageal reflux disease High blood pressure Impaired vision Incontinence Osteoporosis Peptic ulcer disease Peripheral neuropathy Seasonal allergies Active Procedures (3) back surgery Cholecystectomy right total hip Family Hx: parents and siblings --- no health problems. Social & Psychosocial Habits Alcohol 03/28/2015 Alcohol Use History, Social Habits No Alcohol Use in Last Twelve Months No 08/30/2021 Alcohol Use History, Social Habits Yes Alcohol Use Frequency Rarely Home/Environment 03/28/2015 Lives with: Spouse Living situation: Home/Independent Alcohol abuse in household: No Substance abuse in household: No Smoker in household: Yes Injuries/Abuse/Neglect in household: No Feels unsafe at home: No Substance Abuse 05/12/2014 Recreational Drug Use History No Recreational Drug Use Last 12 Months No 08/30/2021 Recreational Drug Use History No Recreational Drug Use Last 12 Months No Tobacco 03/28/2015 Tobacco Use Within Last Twelve Months Cigarettes Smoking Status Former smoker Years of Tobacco Use 35 Packs/Tins Daily 2 Month Tobacco Last Used quit in 200608/30/2021 Smoking Status Former smoker, quit more Smokeless Tobacco Status Never Allergies (8) Active Reaction codeine NAUSEA AND VOMITING feathers None Documented Hay None Documented hemlock None Documented Mold None Documented Nickel None Documented trees None Documented wool None Documented Home Medications (14) Active Allergy Relief (Diphenhydramine HCl) 25 mg oral capsule 25 mg = 1 Cap, PRN, Oral, Once a day (at bedtime) Breo Ellipta 100 mcg-25 mcg inhalation powder 1 Puff, Inhalation, Daily Celexa 20 mg, Oral, Daily Chondroitin-Glucosamine 2,000 Units, Oral, Daily Flonase 1 [place], PRN, Nasal, BID furosemide 20 mg oral tablet , Oral, Daily gabapentin 100 mg oral capsule 200 mg = 2 Cap, Oral, BID loratadine 10 mg, PRN, Oral, Daily potassium chloride extended release 20 mEq, Oral, BID pravastatin 80 mg oral tablet , Oral, Daily ProAir HFA 90 mcg/inh inhalation aerosol 2 puffs, PRN, Inhalation, QID traMADol 50 mg, PRN, Oral, Q8H Tylenol 8 HR Arthritis Pain 650 mg oral tablet, extended release , Oral, Q8H Vitamin D3 2,000 Units, Oral, Daily ROS: Constitutional: [No fevers, chills, sweats] HEENT: [No ear pain, nasal congestion, sore throat] Respiratory: [No shortness of breath,+cough due to allergies she states. Cardiovascular: [No Chest pain, palpitations, shortness of breath] Gastrointestinal: [No nausea, vomiting, diarrhea, constipation] Genitourinary: [No hematuria, dysuria, incontinence Musculoskeletal: left hip pain Integumentary: [No rash, pruritus, abrasions, lesions] Neurologic: [No seizures or stroke. No dizziness or syncope. Psychiatric: +depression Exam: Vitals Signs (last 24 hrs) Last Charted Minimum Maximum Temp 97.5 (SEP 20:) 97.5 (SEP 20:) 97.5 (SEP 20:) Mon HR 73 (SEP 20:) 73 (SEP 20:) 73 (SEP 20:) Resp Rate 16 (SEP 20:19) 16 (SEP 20:19) 16 (SEP 20:) SBP 122 (SEP 20:19) 122 (SEP 20:) 122 (SEP 20:) DBP 70 (SEP 20:) 70 (SEP 20:) 70 (SEP 20:) MAP 87 (SEP 20:) 87 (SEP 20:) 87 (SEP 20:19) SpO2 98 (SEP 20:) 98 (SEP 20:) 98 (SEP 20:) GEN: sleepy, NAD Neck: supple, no thyromegaly HEENT: NCAT, no icterus, no thrush, nares patent, CV: S1S2, no murmur. No LE edema Resp: Right lung wheezes,rhonchi Abd: Soft, NT, ND +BS Skin: no rashes on inspection and palpation. Ext: No LE edema. No joint edema, erythema. Neuro: O x 3, CN grossly intact Data: Labs Most Recent Last 28 days CBC Results-Most Recent Last 28 Days Event Name Event Result Date/Time WBC 7.2 K/uL 08/31/21 11:24:00 RBC 4.28 Million/uL 08/31/21 11:24:00 Hgb 12.8 g/dL 08/31/21 11:24:00 Hct 40.3 % 08/31/21 11:24:00 MCV 94.2 fL 08/31/21 11:24:00 MCH 29.9 pg 08/31/21 11:24:00 MCHC 31.8 Gram/dL Low 08/31/21 11:24:00 Platelet Count 287 K/uL 08/31/21 11:24:00 MPV 11.2 fL 08/31/21 11:24:00 RDW 12.6 % 08/31/21 11:24:00 Slide Review No 08/31/21 11:24:00 BMP Results (Most Recent Last 28 Days) Event Name Event Result Date/Time Sodium Level 134 mmol/L Low 08/31/21 11:24:00 Potassium Level 4.1 mmol/L 08/31/21 11:24:00 Chloride Level 101 mmol/L Low 08/31/21 11:24:00 Carbon Dioxide Level 29 mmol/L 08/31/21 11:24:00 Anion Gap 8 Low 08/31/21 11:24:00 Glucose Level 92 mg/dL 08/31/21 11:24:00 Blood Urea Nitrogen 22 mg/dL 08/31/21 11:24:00 Creatinine Level 1.1 mg/dL High 08/31/21 11:24:00 eGFR 60 mL/min/1.73m2 08/31/21 11:24:00 eGFR NonAfrican 50 mL/min/1.73m2 Low 08/31/21 11:24:00 Bun/Creatinine 20 08/31/21 11:24:00 Calcium Level 9.5 mg/dL 08/31/21 11:24:00 Other Lab Results (Most Recent Last 28 Days) Event Name Event Result Date/Time PT 11.9 Second(s) 08/31/21 11:24:00 INR 1.1 08/31/21 11:24:00 PTT 32.5 Second(s) 08/31/21 11:24:00 a1c 5.3 EKG SR with occ PVC HR 81 Impression: advanced OA left hip -s/p left total hip arthroplasty per Dr. Johnson COPD HTN HLD cough Plan: duoneb tid flutter valve IS hold lasix Monitor HTN; add PRN's, hold parameters bowel regimen incentive spirometer PT/OT DVT prophylaxis: ASA, SCDs Pain management deferred to surgeon will monitor hb/hct daily for signs of ongoing acute blood loss will monitor bun/cr daily for signs of dehydration, prerenal azotemia will monitor for signs/symptoms of post-op wound infection or hospital acquired infectious process resume outpatient medication regimen for comorbidities Assessment and treatment plan made in conjunction with Marc Brush MD Scribed by Katherin Carrera documented in this encounter Plan of Treatment Not on file documented as of this encounter Visit Diagnoses Not on filedocumented in this encounter
--- OUTSIDE RECORDS SUMMARY | 2025-05-20 16:03 | XMS_ITS | Encounter Summary ---
Author Organization [employer] ([place], [place], [place], [place]) Address [address] [place] [address] Care Team Providers Care Financial Consultant Name Role Phone Unavailable Primary Care Provider Unavailabl e Encounter Details Date Type Department Care Team (Late st Contact Info) Description 08/30/2021 Transcribed Document [facility] Family Medicine [address] [place] [address] ProviderInes MD [address] [place] [address] Social History Tobacco Use Types Packs/Day Years Used Date Smoking Tobacco: Never Assessed Comments Unknown Sex and Gender Information Value Date Recorded Sex Assigned at Female 04/17/2022 7:31 PM CDT Legal Sex Female 7:31 PM CDT Gender Identity Female 04/17/2022 7:31 PM CDT Sexual Orientation Not on file documented as of this encounter Miscellaneous Notes * Cerner Conversion Note - Historical ProviderMD - 08/30/2021 1:24 PM CORN HUSK BALER PAT Adult Entered On: 08/30/2021 13:29 EST Performed On: 08/30/2021 13:24 EST by LEON JAMES RN Vital Measurements Temperature Source : Temporal artery scanning Temperature Mode : Fahrenheit Temperature, Fahrenheit : 97.8 Deg F Clinical Temperature, C : 36.6 Deg C Pulse Method : Palpation Pulse Source : Radial, Left Heart Rate, Apical : 82 bpm Pulse Rhythm : Regular Respiratory Rate : 20 Breaths/Min Blood Pressure Location : Arm, left upper Blood Pressure Source : Non-Invasive BP Device Blood Pressure Position : Sitting Systolic Blood Pressure : 147 mmHg (HI) Diastolic Blood Pressure : 67 mmHg Oxygen Saturation : 96 % Oxygen Therapy Mode : Room air KASSI AMIN RN - 08/31/2021 10:45 EST Height and Weight, Clinical Dosing Height Source : Measured Height Entry Format : [place] Height, Feet : 5 ft(Converted to: 152 cm, 60 Inch) Height, Inches : 4 Inch(Converted to: 0 ft 4 Inch, 10.16 cm) Clinical Height : 162.56 cm Weight Source : Standing scale Weight Entry Format : [place] Clinical Dosing Weight : 88.18 kg Weight, Pounds : 194 lb Body Surface Area (BSA) : 1.93 m2 Body Mass Index : 33.4 kg/m2 (HI) [place] Body Weight : 54 kg KASSI AMIN RN - 08/31/2021 10:45 EST Health Histories Smoking Status : Former smoker, quit more than 30 days ago Smokeless Tobacco Status : Never LEON JAMES RN - 08/30/2021 13:24 EST Social History (As Of: 08/30/2021 13:29:41 EST) Tobacco: Use in Last 12 Months: Cigarettes. Smoking Status Former smoker. Years of Use: 35. Packs/Tins Daily: 2. Last Used: quit in 2006. (Last Updated: 03/28/2015 11:17:26 EDT by TERESA PARKER RN) Former smoker, quit more than 30 days ago Smoking Status. Never Smokeless Tobacco Status. (Last Updated: 08/30/2021 13:25:09 EST by LEON JAMES RN) Alcohol: Alcohol Use History No. Use in Last 12 Months: No. (Last Updated: 03/28/2015 11:17:31 EDT by TERESA PARKER RN) Alcohol Use History Yes. Alcohol Use Frequency Rarely. (Last Updated: 08/30/2021 13:25:09 EST by LEON JAMES RN) Substance Abuse: Drug Use Hx: No. Use in Last 12 Months: No. (Last Updated: 05/12/2014 12:30:30 EDT by PADMA CARDONA RN) Drug Use Hx: No. Use in Last 12 Months: No. (Last Updated: 08/30/2021 13:25:09 EST by LEON JAMES RN) Home/Environment: Lives with Spouse. Living situation: Home/Independent. Alcohol abuse in household: No. Substance abuse in household: No. Smoker in household: Yes. Injuries/Abuse/Neglect in household: No. Feels unsafe at home: No. (Last Updated: 03/28/2015 11:18:04 EDT by TERESA PARKER RN) Infectious Disease History Does patient have symptoms of COVID-19? : No Has the Patient Been Tested for COVID-19 in the last 14 days? : No, Patient stated Does the Patient state known exposure to a COVID-19 positive case in the last 14 days? : No Patient Vaccinated for COVID-19 : Fully vaccinated LEON JAMES RN - 08/30/2021 13:24 EST Infectious Disease Risk Screening Grid Cough < 2 wks of unknown origin : NO Cough > 2 weeks : NO Blood in Sputum : NO Fever or self-reported Fever : NO Rash of unknown origin : NO Headache : NO Stiff neck : NO Night Sweats : NO Unexplained Weight Loss : NO Diarrhea (3 episode per day) : NO LEON JAMES RN - 08/30/2021 13:24 EST Physical contact outside [place] in the last 30 days : No Hospitalized in Foreign Country : No Infectious Disease History : Chicken pox/Shingles, Influenza, Measles, Mumps INF Disease TB Screening Calc : 0 INF Disease Recent Travel Calc : 0 LEON JAMES RN - 08/30/2021 13:24 EST COVID19 PreProcedure Screening Date PreProcedure COVID-19 test known? : Yes Date of PreProcedure COVID-19 : 09/18/2021 EST Has patient been isolated since the test : Yes Exposed to COVID19 symptoms since test? : No DERECK Yates RN - 09/20/2021 6:17 EST Is this an Emergent or Add on Procedure? : No KASSI AMIN RN - 08/31/2021 10:45 EST Anesthesia/Transfusion History Family History of Anesthesia Reaction : No prior transfusion(s) Blood Transfusion Acceptable to Patient : Yes Transfusion History : Prior anesthesia without reaction Family History of Anesthesia Reaction : None LEON JAMES RN - 08/30/2021 13:24 EST Functional Assessment Functional ADL Evaluation Index EBN Bathing : Independent (2) Dressing : Independent (2) Toileting : Independent (2) Transferring Bed or Chair : Independent (2) Continence : Independent (2) Feeding : Independent (2) LEON JAMES RN - 08/30/2021 13:24 EST ADL Index Score : 12 LEON JAMES RN - 08/30/2021 13:24 EST Advance Directive Patient has Advance Directive *Q : No, patient refuses Advance Directive information LEON JAMES RN - 08/30/2021 13:24 EST Spiritual/Cultural Needs Any Spiritual/Cultural Needs or Requests : Yes Spiritual/Cultural Needs Comment : 09/20 Spiritual/Cultural Needs Comment : 09/20 LEON JAMES RN - 08/30/2021 13:24 EST [place] Suicide Severity Rating Scale (C-SSRS) CSSRS Past Month Wish to be : No CSSRS Past Month Suicidal Thoughts : No CSSRS Lifetime Suicide Behavior : No Suicide Severity Rating Score : 0 Suicide Severity Rating : No Additional Care Required at this time LEON JAMES RN - 08/30/2021 13:24 EST Psychosocial History Do You Have a History of the Following? : Depression Currently in Unsafe Situation : No LEON JAMES RN - 08/30/2021 13:24 EST General Info Patient Arrival Date/Time : 09/20/2021 5:30 EST DERECK Yates RN - 09/20/2021 6:17 EST Preferred Name : Natalia Arrived From : Home Mode of Arrival on Unit : Ambulatory Legal Guardian : Spouse Support Person/Patient Dental Nurse : Yes Support Person/Pt Rep Name : Yesica Gilbert mother Support Person/Pt Rep Contact Information : [phone] Want Family/Rep/Phys Notified of Admit : No Emergency Contact #1 : Eugene Thomas Emergency Contact #1 Emergency Contact #1 Relationship : spouse Emergency Contact #2 : Kaya Pruitt Emergency Contact #2 Phone Number : [phone] Emergency Contact #2 Relationship : sister Information Obtained From : Patient Primary Language : Guinean Preferred Communication Mode : Verbal Communication Barrier : None Credit Operations Processor Needed : No Objects to Sharing Info w Family : No LEON JAMES RN - 08/30/2021 13:24 EST Forest Scale Forest Sensory Perception : No impairment Forest Moisture : Rarely moist Forest Activity : Walks occasionally Forest Mobility : Slightly limited Forest Nutrition : Excellent Forest Friction and Shear : No apparent problem Forest Score : 21 LEON JAMES RN - 08/30/2021 13:24 EST Sleep Apnea Risk Assmt BMI Greater Than 35 kg/m2 : Yes Neck Circumference Greater Than 40 cm : No STOP-BANG Sleep Apnea Risk Level Score : 4 KASSI AMIN RN - 08/31/2021 10:45 EST Hx of Obstructive Sleep Apnea Diagnosis : No Snore Loudly : Yes Tired, Fatigued, or Sleepy During Day : Yes Observed Stopping Breathing During Sleep : No Have/Are Being Treated for Hypertension : No Age over 50 Years Old : Yes Gender Male : No LEON JAMES RN - 08/30/2021 13:24 EST documented in this encounter Plan of Treatment Not on file documented as of this encounter Visit Diagnoses Not on filedocumented in this encounter
--- OUTSIDE RECORDS SUMMARY | 2025-05-20 16:03 | XMS_ITS | Encounter Summary ---
Author Organization [employer] ([place], [place], [place], [place]) Address [address] [place] [id number] Care Team Providers Care Town Clerk Name Role Phone Unavailable Primary Care Provider Unavailabl e Encounter Details Date Type Department Care Team (Late st Contact Info) Description 09/20/2021 Transcribed Document [facility] Family Medicine [address] [place] [address] ProviderInes MD [address] [place] [address] Social History Tobacco Use Types Packs/Day Years Used Date Smoking Tobacco: Never Assessed Comments Unknown Sex and Gender Information Value Date Recorded Sex Assigned at Female 04/17/2022 7:31 PM CDT Legal Sex Female 7:31 PM CDT Gender Identity Female 04/17/2022 7:31 PM CDT Sexual Orientation Not on file documented as of this encounter Miscellaneous Notes * Cerner Conversion Note - Ines ProviderMD - 09/20/2021 11:23 AM DIRECTOR FOOD SAFETY UM Authorization Entered On: 09/20/2021 11:23 EST Performed On: 09/20/2021 11:23 EST by KEVIN STONE, Honey Blender Primary Insurance Authorization Authorization and Policy Numbers : Insurance 1 Health Plan: [employer] Policy Number: [id number] Authorization Number: [id number] Insurance 2 Health Plan: [employer] CHOICE Policy Number: [id number] Authorization Number: [id number] Insurance Primary Name : Juan Manuel [id number] Authorization Status-Primary : Opo status approv Authorized Service Begin Date-Primary : 09/20/2021 EST Observation Authorization Nbr-Primary : [id number] Historical Authorization Comments-Primary : Comment 1: Pt is [place] for OP total hip on Sat09-20-21 [place] [facility] auth# [id number] Gold OP auth# [id number] (KEVIN STONE, Honey Blender 09/19/2021 14:10) KEVIN STONE, Honey Blender - 09/20/2021 11:23 EST Secondary Insurance Authorization Authorization and Policy Numbers : Insurance 1 Health Plan: [employer] Policy Number: [id number] Authorization Number: [id number] Insurance 2 Health Plan: [employer] CHOICE Policy Number: [id number] Authorization Number: [id number] Insurance Secondary Name : [employer] [id number] Authorization Status-Secondary : Opo status approv Auth/Referral Contact Name-Secondary : Marcus R Authorized Service Begin Date-Secondary : 09/20/2021 EST Observation Authorization Number-Secondary : [id number] Historical Authorization Comments-Secondary : No Authorization Comments Found KEVIN STONE, Honey Blender - 09/20/2021 11:23 EST Electronically signed by Penelope Hutchins Conversion Practical Nurse Clinical Coordinator Cerner at 02/04/2023 12:33 PM CDT documented in this encounter Plan of Treatment Not on file documented as of this encounter Visit Diagnoses Not on filedocumented in this encounter
--- OUTSIDE RECORDS SUMMARY | 2025-05-20 16:03 | XMS_ITS | Encounter Summary ---
Author Organization [employer] ([place], [place], [place], [place]) Address [address] [place] [address] Care Team Providers Care Cosmetic Assembler Name Role Phone Unavailable Primary Care Provider Unavailabl e Encounter Details Date Type Department Care Team (Late st Contact Info) Description 08/25/2021 Transcribed Document [facility] Family Medicine [address] [place] [address] ProviderInes MD [address] [place] [address] Social History Tobacco Use Types [...] Cerner Conversion Note - Historical ProviderMD - 08/25/2021 1:15 PM CDT Orthopedic Nurse Navigator Entered On: 08/25/2021 13:17 EDT Performed On: 08/25/2021 13:15 EDT by Karmen Gates RN-Navigator Orthopedic Nurse Navigator Assessment Anticipated Discharge Plan Comment : Called patient, she confirmed PAT 08/31 0930. She plans on overnight stay and d/c home with the help of her . She would like home therapy. Discussed issues in 2016 when she had [facility]. [employer] with scant HH in network. She states that [employer] is her primary insurance now. She would like whichever home therapy agency is rated best. Karmen Gates RN-Navigator - 08/25/2021 13:15 EDT Electronically signed by Penelope Hutchins Conversion Small Offset Printer Luis Enrique at 02/04/2023 12:15 PM CDT documented in this encounter Plan of Treatment Not on file documented as of this encounter Visit Diagnoses Not on filedocumented in this encounter
--- OUTSIDE RECORDS SUMMARY | 2025-05-20 16:03 | XMS_ITS | Encounter Summary ---
Author Organization [employer] ([place], [place], [place], [place]) Address [address] [place] [address] Care Team Providers Care Inside Phone Sales Name Role Phone Unavailable Primary Care Provider Unavailabl e Encounter Details Date Type Department Care Team (Late st Contact Info) Description 09/20/2021 Transcribed Document [facility] Family Medicine [address] [place] [address] ProviderInes MD [address] [place] [address] Social History Tobacco Use Types [...] Cerner Conversion Note - Historical ProviderMD - 09/20/2021 2:00 AM EARTH SCIENCES PROFESSOR Spiritual Care Assessment Entered On: 09/20/2021 7:53 EST Performed On: 09/20/2021 6:45 EST by DIEUDONNE MORALES General Information Initial Visit : Yes Referred by : Patient Referral Reason Comment : Pre-surgery visit Ministry Provided to : Patient, Family/Significant other DIEUDONNE MORALES P - 09/20/2021 7:52 EST Spiritual Assessment Spiritual Assessment Comment/Summary Points : Provided pre-surgery visit and prayer with patient and . Spirital Assessment Comment/Summary Report : SPIRITUAL ASSESSMENT COMMENT/SUMMARY No qualifying data available. DIEUDONNE MORALES - 09/20/2021 7:52 EST Interventions Emotional Support : Empathic/Engaged listening, Family/Significant other supported Spiritual and Sabianism : Prayer shared, Spiritual/Sabianism support provided DIEUDONNE MORALES - 09/20/2021 7:52 EST documented in this encounter Plan of Treatment Not on file documented as of this encounter Visit Diagnoses Not on filedocumented in this encounter
--- OUTSIDE RECORDS SUMMARY | 2025-05-20 16:03 | XMS_ITS | Encounter Summary ---
Author Organization [email or web address] ([place], [place], [place], [place]) Address [address] [place] [id number] Care Team Providers Care Fiberglass Boat Assembly Supervisor Name Role Phone Unavailable Primary Care Provider Unavailabl e Encounter Details Date Type Department Care Team (Late st Contact Info) Description 09/20/2021 Transcribed Document [facility] Family Medicine [address] [place] [address] ProviderInes MD [address] [place] [address] Social History Tobacco Use Types [...] Conversion Note - Ines ProviderMD - 09/20/2021 7:56 AM SUPERVISOR DRAWING [facility] Main OR IntraOp Summary Primary Physician: TIMO BLAKE MD-ORT Finalized Date/Time: 09/21/21 13:14:06 Pt. Name: NATALIA REID Barrett /Sex: 1955 Female Med Rec #: [id number] Physician: TIMO BLAKE MD-ORT Financial #: [id number] Pt. Type: O Room/Bed: 3/1 Admit/Disch: 09/20/21 06:33:00 - Institution: [facility] IntraOp Case Attendance Entry 1 Entry 2 Entry 3 Case Attendee TIMO BLAKE CORNEA, MIHAELA, [facility], VLAD K, MD-ORT PENSIONHOLDER INFORMATION CLERK, PSYCHIATRIC SPECIALIST Role Performed Surgeon/Proceduralist, Anesthesiologist of PSYCHIATRIC SPECIALIST/Nurse Immigration Associate First Record Time In 09/20/21 07:25:00 09/20/21 07:25:00 09/20/21 07:25:00 Time Out 09/20/21 09:12:00 09/20/21 09:12:00 09/20/21 09:12:00 Procedure Hip Total Anterior Hip Total Anterior Hip Total Anterior Approach(Left) Approach(Left) Approach(Left) Other Attendee Superficial Wound Closed By: Last Modified By: Ana Fitch, Rn Ana Fitch, Rn Ana Fitch, Alfa 09/20/21 09:12:37 09/20/21 09:12:37 09/20/21 09:12:37 Entry 4 Entry 5 Entry 6 Case Attendee BAUTISTA SEXTON, Ana Buenrostro, Rn Sridhar eJssica, Pharmacy Scheduler Role Performed Fiber Optic Technician, First Development Educator, First Scrub, First Time In 09/20/21 07:25:00 09/20/21 07:25:00 09/20/21 07:25:00 Time Out 09/20/21 09:12:00 09/20/21 09:12:00 09/20/21 09:12:00 Procedure Hip Total Anterior Hip Total Anterior Hip Total Anterior Approach(Left) Approach(Left) Approach(Left) Other Attendee Superficial Wound Closed By: Last Modified By: Ana Fitch, Ana Padilla, Rn Ana Fitch, Alfa 09/20/21 09:12:37 09/20/21 09:12:37 09/20/21 09:12:37 Entry 7 Entry 8 Entry 9 Case Attendee RADHA OWUSU OTHER, ATTENDEE LEON PEACOCK RN Role Performed Vocational Rehab Consultant Vendor Development Educator, Second Time In 09/20/21 07:25:00 09/20/21 07:25:00 09/20/21 07:25:00 Time Out 09/20/21 09:12:00 09/20/21 09:12:00 09/20/21 09:12:00 Procedure Hip Total Anterior Hip Total Anterior Hip Total Anterior Approach(Left) Approach(Left) Approach(Left) Other Attendee JERZY FERNANDO BREAK Superficial Wound Closed By: Last Modified By: Ana Fitch Rn Ana Fitch, Rn Ana Fitch Rn 09/20/21 09:12:37 09/20/21 09:12:37 09/20/21 09:12:37 [facility] IntraOp Case Attendance Audit 09/20/21 09:12:37 Print Line Inspector: [id number] Modifier: [id number] <+> Time Out 1 <*> Procedure Hip Total Anterior Approach(Left) 2 <+> Time Out 2 <*> Procedure Hip Total Anterior Approach(Left) 3 <+> Time Out 3 <*> Procedure Hip Total Anterior Approach(Left) 4 <+> Time Out 4 <*> Procedure Hip Total Anterior Approach(Left) 5 <+> Time Out 5 <*> Procedure Hip Total Anterior Approach(Left) 6 <+> Time Out 6 <*> Procedure Hip Total Anterior Approach(Left) 7 <+> Time Out 7 <*> Procedure Hip Total Anterior Approach(Left) 8 <+> Time Out 8 <*> Procedure Hip Total Anterior Approach(Left) 9 <+> Time In 9 <+> Time Out 9 <*> Procedure Hip Total Anterior Approach(Left) 09/20/21 08:55:51 Print Line Inspector: [id number] Modifier: [id number] 1 <+> Time In 1 <*> Procedure Hip Total Anterior Approach(Left) 2 <+> Time In 2 <*> Procedure Hip Total Anterior Approach(Left) 3 <+> Time In 3 <*> Procedure Hip Total Anterior Approach(Left) 4 <+> Time In 4 <*> Procedure Hip Total Anterior Approach(Left) 5 <+> Time In 5 <*> Procedure Hip Total Anterior Approach(Left) 6 <+> Time In 6 <*> Procedure Hip Total Anterior Approach(Left) 7 <+> Time In 7 <*> Procedure Hip Total Anterior Approach(Left) 8 <+> Time In 8 <*> Procedure Hip Total Anterior Approach(Left) <+> 9 Case Attendee <+> 9 Role Performed <+> 9 Procedure <+> 9 Other Attendee 09/20/21 06:47:55 Print Line Inspector: [id number] Modifier: [id number] <+> 1 Procedure 2 <*> Procedure Hip Total Anterior Approach(Left) 3 <*> Procedure Hip Total Anterior Approach(Left) 4 <*> Procedure Hip Total Anterior Approach(Left) 5 <*> Procedure Hip Total Anterior Approach(Left) 6 <*> Procedure Hip Total Anterior Approach(Left) 7 <*> Procedure Hip Total Anterior Approach(Left) 8 <*> Procedure Hip Total Anterior Approach(Left) [facility] IntraOp Case Times Entry 1 Patient In Room Time 09/20/21 07:25:00 Out Room Time 09/20/21 09:12:00 Anesthesia Start Time 09/20/21 07:25:00 Stop Time 09/20/21 09:12:00 Surgery / Procedure Times Start Time 09/20/21 07:56:00 Stop Time 09/20/21 09:05:00 Last Modified By: Ana Fitch Rn 09/20/21 09:12:29 [facility] IntraOp Case Times Audit 09/20/21 09:12:29 Print Line Inspector: [id number] Modifier: [id number] <+> 1 Out Room Time <+> 1 Stop Time <+> 1 Stop Time 09/20/21 07:56:47 Print Line Inspector: [id number] Modifier: [id number] <+> 1 Start Time [facility] IntraOp Cautery Entry 1 ESU Identification Cautery Type Monopolar ESU ID Number [id number] ID Type Hospital Number Cautery Settings Cut Setting 50 Coag Setting 50 ESU Grounding Pad Ground Pad Type Adult Grounding Pad Site Right Lower Abdomen Grounding Pad Ana Fitch Rn Applied By Grounding Pad Site Intact, Warm, Dry Skin Condition Before Cautery Grounding Pad Site Unchanged Skin Condition After Cautery Last Modified By: Ana Fitch Rn 09/20/21 06:45:44 [facility] IntraOp Communication Entry 1 Entry 2 Communication To Family/Significant other Family/Significant other Comment CLOSE Communication By Ana Fitch Rn TAYLOR, MELISSA A, RN Date and Time 09/20/21 07:58:00 09/20/21 08:56:00 Last Modified By: Ana Fitch Rn Compton, Tracy R, Rn 09/20/21 07:58:41 09/20/21 09:06:57 [facility] IntraOp Communication Audit 09/20/21 09:06:57 Print Line Inspector: [id number] Modifier: [id number] <+> 2 Communication By <+> 2 Date and Time <+> 2 Communication To <+> 2 Comment [facility] IntraOp Counts Verification Entry 1 Procedure Hip Total Anterior Approach(Left) Count Info Count Type Sponge, Sharps Counts Verification Baseline/pre-procedure Sequence Count Results Not Applicable Counts Performed By Count Performed By Sridhar Jessica Scrub (Scrub) Tech Count Performed By Ana Fitch Rn (RN) Last Modified By: Ana Fitch Rn 09/20/21 06:45:59 [facility] IntraOp Counts Final Entry 1 Procedure Hip Total Anterior Approach(Left) Final Count Info Count Type Sponge, Sharps, Miscellaneous Counts Verification Skin Closure/end of Sequence procedure Count Results Correct, surgeon notified Counts Performed By Count Performed By Sridhar Jessica Scrub (Scrub) Tech Count Performed By LEON PEACOCK RN (RN) Last Modified By: Ana Fitch Rn 09/20/21 08:56:06 [facility] IntraOp Cultures and Spec Summary Entry 1 Cultrures and Specimens Specimen Ordered: Yes Test(s) Routine/Path-Lab Requested/Final Disposition Last Modified By: Ana Fitch Rn 09/20/21 06:46:09 General Comments: A, LEFT FEMORAL HEAD [facility] IntraOp Delays Entry 1 Delay Reason Surgeon late - no reason Duration 10 Minute(s) Last Modified By: Ana Fitch Rn 09/20/21 07:32:08 [facility] IntraOp Departure from OR Entry 1 Integumentary Assessment Integumentary WDL Assessment WDL Transfer/Handoff Transfer to PACU Phase I Handoff Method Bedside/Face to face, Phone call Post-op Transport Stretcher/Johanna Via Patient Transport VLAD ORTIZ, Accompanied by PENSIONHOLDER INFORMATION CLERK, PSYCHIATRIC SPECIALIST, Ana Fitch Rn Last Modified By: Ana Fitch Rn 09/20/21 06:46:16 [facility] IntraOp Dressing and Packing Entry 1 Type Dressing Location OPERATIVE SITE Wound Dressing Item Occlusive dressing, Skin Closure Glue, Other Applied By BAUTISTA SEXTON CSA Other Comments AQUACEL AG, HIP WRAP Last Modified By: Ana Fitch Rn 09/20/21 06:46:19 [facility] IntraOp Fire Risk Assessment Entry 1 Fire Info Surgical Site or 0- No Incision Above the Xyphoid Open O2 Source 0- No (Mask or Cannula) Available Ignition 1- Yes (ESU, Laser, Light Source) Fire Risk 1 Assessment Score Fire Score Fire Risk Yes Assessment Complete Fire Risk Ana Fitch Rn Assessment Verified By Fire Risk 09/20/21 06:46:00 Assessment Verified Date/Time Fire Risk Standard Fire Yes Safety Precautions Followed Last Modified By: Ana Fitch Rn 09/20/21 06:46:22 [facility] IntraOp General Case Electronic Engineering Technician 1 Case Information OR OR 05 [facility] Case Level 1 Room Verified Yes Wound Class 1 - Clean Specialty Orthopedic Anesthesia Type General ASA Class 2 Diagnosis Preop Diagnosis LEFT HIP OSTEOARTHRITIS Postop Same As Preop Yes Postop Diagnosis LEFT HIP OSTEOARTHRITIS Wound Class Definitions Last Modified By: Ana Fitch Rn 09/20/21 08:08:55 [facility] IntraOp General Case Data Audit 09/20/21 08:08:55 Print Line Inspector: [id number] Modifier: [id number] 1 <*> OR OR 04 [facility] IntraOp Implant Log Entry 1 Entry 2 Entry 3 Type Implant (Synthetic) Implant (Synthetic) Implant (Synthetic) Implant Log Implant Type Hardware Hardware Hardware Tissue Implant Type Implant TRIDENT ACEL CLUSTER SCR LOW PROFILE SCR LOW PROFILE Identification 48MM [id number] Description Implant Quantity 1 1 1 Implant Site LEFT HIP LEFT HIP LEFT HIP Implant Identification Model Number Implant Identification Serial Number Implant [id number] Identification Lot Number Implant Ira Ortho Cap Ira:Ira Ira:Ira Identification Orthopaedics Orthopaedics Private Branch Exchange Operator Name: Implant [id number] Identification Catalog Number Implant Size Implant Has an Yes Yes Yes Expiration Date Implant Expiration 07/12/26 06/14/26 06/16/26 Date Wasted Radioactive Material Time Implanted Tissue Implant Continue for Tissue Implant Documentation Tissue Identification Number Graft Prep Per Private Branch Exchange Operator Instructions: Tissue Preparation Method: Reconstitution Solution: Reconstitution Solution Lot Number Reconstitution Solution Expiration Date: Thawing Solution Thawing Solution Lot Number Thawing Solution Expiration Date Preparation Materials, Other Preparation Materials, Other Lot Number Preparation Materials, Other Expiration Date Tissue Prepared/Processed By Private Branch Exchange Operator Paperwork Completed Implant Type Comment Last Modified By: Ana Fitch Rn Compton, Tracy R, Rn Compton, Tracy R, Rn 09/20/21 08:45:43 09/20/21 08:45:43 09/20/21 08:45:43 Entry 4 Entry 5 Entry 6 Type Implant (Synthetic) Implant (Synthetic) Implant (Synthetic) Implant Log Implant Type Hardware Hardware Hardware Tissue Implant Type Implant INSRT TRIDENT POLY X3 HIP STEM ACCOLADE II HEAD FEM 36MM BIOLOX Identification 36MM [id number] [id number] Description Implant Quantity 1 1 1 Implant Site LEFT HIP LEFT HIP LEFT HIP Implant Identification Model Number Implant Identification Serial Number Implant [id number] Identification Lot Number Implant Ira:Ira [place]:Ira Ira:Ira Identification Orthopaedics Orthopaedics Orthopaedics Private Branch Exchange Operator Name: Implant [id number] Identification Catalog Number Implant Size Implant Has an Yes Yes Yes Expiration Date Implant Expiration 07/16/26 07/17/26 07/18/26 Date Wasted Radioactive Material Time Implanted Tissue Implant Continue for Tissue Implant Documentation Tissue Identification Number Graft Prep Per Private Branch Exchange Operator Instructions: Tissue Preparation Method: Reconstitution Solution: Reconstitution Solution Lot Number Reconstitution Solution Expiration Date: Thawing Solution Thawing Solution Lot Number Thawing Solution Expiration Date Preparation Materials, Other Preparation Materials, Other Lot Number Preparation Materials, Other Expiration Date Tissue Prepared/Processed By Private Branch Exchange Operator Paperwork Completed Implant Type Comment Last Modified By: Ana Fitch Rn Compton, Tracy R, Rn Compton, Tracy R, Rn 09/20/21 08:45:43 09/20/21 08:45:43 09/20/21 08:45:43 [facility] IntraOp Intraoperative Assessment Entry 1 Handoff Method Bedside/Face to face, Online nursing summary Valid History / Yes Physical in Chart Preoperative Yes Checklist Reviewed/Evaluated Allergies Reviewed Yes Patient is Latex No Sensitive Isolation Not applicable Precautions Noted Level of WDL Consciousness (WDL = Alert, Oriented to Person, Place, and Time) Skin Assessment Yes Verified Present Upon IVs Arrival to OR Last Modified By: Ana Fitch Rn 09/20/21 06:46:55 [facility] IntraOp Intraoperative Equipment Entry 1 Type Equipment Equipment Equipment Alina Suction System ID Number [id number] Setting ON Intraop Monitoring Blood Pressure Non-Invasive BP Device Source Blood Pressure Arm, right upper Location Pulse Oximeter Hand, left Probe Site Antiembolic Devices Antiembolic Devices Antiembolic hose, knee high Antiembolic Device Right Location Scopes Photo/Video Documentation Last Modified By: Ana Fitch Rn 09/20/21 06:47:18 [facility] IntraOp Medication Admin Entry 1 Entry 2 Entry 3 Medication/Irrigant TRANEXAMIC ACID 1 GM vancomycin 1Gm vial - SHIREEN IRR NACL 0.9PCT [id number] 2000ML [id number] Combo Med List Time Administered 09/20/21 08:47:00 09/20/21 08:47:00 09/20/21 07:56:00 Route of TOPICAL TOPICAL IRRIGATION Administration Dose Dose 2 1 Unit of Measure gram gram Volume Administered By TIMO BLAKE KARTHIKEYAN, THARUN, KARTHIKEYAN, THARUN, MD-ORT MERYORT MERYORT Procedure Irrigation Irrigant Volume In Irrigant Volume Out Last Modified By: Ana Fitch Rn Compton, Tracy R, Rn Compton, Tracy R, Rn 09/20/21 08:47:38 09/20/21 08:47:38 09/20/21 07:57:01 Entry 4 Medication/Irrigant DR. BLAKE HIP INJECTION Combo Med List Time Administered 09/20/21 08:47:00 Route of INJECTION Administration Dose Dose 50 Unit of Measure ml Volume Administered By TIMO BLAKE MD-ORKristin Procedure Irrigation Irrigant Volume In Irrigant Volume Out Last Modified By: Ana Fitch Rn 09/20/21 08:47:38 [facility] IntraOp Medication Admin Audit 09/20/21 08:47:38 Print Line Inspector: [id number] Modifier: [id number] <+> 1 Time Administered 2 <*> Medication/Irrigant vancomycin 1Gm vial - [id number] <+> Time Administered <+> 4 Time Administered 09/20/21 07:57:01 Print Line Inspector: [id number] Modifier: [id number] <*> Medication/Irrigant SHIREEN IRR NACL 0.9PCT 2000ML [id number] 3 <+> Time Administered [facility] IntraOp Patient Positioning Entry 1 Procedure Hip Total Anterior Approach(Left) Body Position Supine Left Arm Position Secured on padded arm board Right Arm Position Secured on padded arm board Left Leg Position Secured in Leg Costa Right Leg Position Secured in Leg Cosat Feet Uncrossed Yes Pressure Points Yes Checked Positioning Devices Arm Board, Head Rest, Pad, Arm, Safety Strap, Arm(s), Stirrups/Leg Costa, Boot, Pad, Elbow, Table, Lincoln Positioned By TIMO BLAKE MD-ORKristin, VLAD ORTIZ APRN, TRISTEN, Ana Fitch, Rn, BAUTISTA SEXTON CSA Position Verified Positioning Yes Verified by Anesthesia Positioning Yes Verified by Surgeon Last Modified By: Ana Fitch Rn 09/20/21 06:47:25 [facility] IntraOp Sign In Entry 1 Patient, Site, Yes Procedure Identified Surgical Consent Yes Confirmed Relevant Surgical Yes Documents Available Surgical Site Yes Marked by person performing procedure Anesthesia Machine Yes Check Completed Medication Checks Yes Completed Allergies Yes Airway Difficult Yes Airway/Aspiration Risk Difficult Yes Airway/Aspiration Intervention Equipment Available Blood Loss Risk Yes Blood Loss Yes Intervention Equipment Prepared and Ready Blood Identifiers Not applicable Verified Per Policy Hypothermia Risk Yes Warming Measures Yes Taken Last Modified By: Ana Fitch Rn 09/20/21 06:47:33 [facility] IntraOp Sign Out Entry 1 RN Confirmation Surgical Yes Procedure(s) Identified Instrument, Sponge Yes and Sharps Counts Correct/Documented Equipment Problems N/A Documented Specimen Labeled Yes Correctly Urinary Catheter N/A Documented in IView Wound Yes classification reviewed, verified and updated post case in both the General Case Data and Procedure segments Chan Patient Yes Recovery Concerns Reviewed with Anesthesia Provider, Surgeon and RN Chan Patient Yes Management Concerns Reviewed with Anesthesia Provider, Surgeon and RN Safety Checklist Yes Elements Complete? RN Sign Out Ana Fitch Rn Signature RN Sign Out 09/20/21 09:12:00 Signature Date/Time Plan of Care Outcome - Fire Risk OUTCOME STATEMENT: Goal met Patient is free from injury related to surgical fire Plan of Care Outcome - Pt Positioning OUTCOME STATEMENT: Goal met Absence of signs and symptoms of positioning injury. Plan of Care Outcome - Skin Prep OUTCOME STATEMENT: Goal met Intraoperative care is consistent with measures to prevent infection Plan of Care Outcome - Xray/Images OUTCOME STATEMENT: Goal met Absence of observable signs or symptoms of radiation injury Plan of Care Outcome - Counts OUTCOME STATEMENT: Goal met Absence of signs and symptoms of injury related to extraneous objects Last Modified By: Ana Fitch Rn 09/20/21 09:12:34 [facility] IntraOp Sign Out Audit 09/20/21 09:12:34 Print Line Inspector: [id number] Modifier: [id number] <+> 1 RN Sign Out Signature Date/Time [facility] IntraOp Skin Prep Entry 1 Procedure Hip Total Anterior Approach(Left) Prescribed Yes Pre-Surgical Prep Completed Prep Area OPERATIVE HIP TO KNEE Intraop Prep Integumentary WDL Assessment WDL Prep Agents Chlorhexidine gluconate/alcohol, Chloraprep, DuraPrep Prep by Ana Fitch Rn Hair Removal Methods No hair removal performed Last Modified By: Ana Fitch Rn 09/20/21 06:47:49 [facility] IntraOp Surgical Procedures Entry 1 Procedure Hip Total Anterior Approach Modifiers Left Additional (LT ANTERIOR TOTAL HIP Procedure ARTHROPLASTY Description Primary Procedure Yes Primary Surgeon TIMO BLAKE MD-ORT Start 09/20/21 07:56:00 Stop 09/20/21 09:05:00 Anesthesia Type General Specialty Orthopedic Wound Class 1 - Clean Last Modified By: Ana Fitch Rn 09/20/21 09:12:35 [facility] IntraOp Surgical Procedures Audit 09/20/21 09:12:35 Print Line Inspector: [id number] Modifier: [id number] <+> 1 Start <+> 1 Stop [facility] IntraOp Temp Regulation Devices Entry 1 Temp Regulation Temperature Forced Air Warming Regulation Device device, Warm blankets Temperature 60794 Regulation Device Serial/Unit Number Temperature Upper body Regulation Site Temperature Device ON Setting Temperature VLAD ORTIZ, Regulation Device PENSIONHOLDER INFORMATION CLERK, PSYCHIATRIC SPECIALIST Applied by Temperature THERMOREGULATION Regulation Comment MEASURES MONITORED AND ADJUSTED BY ANESTHESIA Last Modified By: Ana Fitch Rn 09/20/21 06:48:09 [facility] IntraOP Time Out Entry 1 Procedure to be Hip Total Anterior Performed Approach(Left) Time Out Time Out Pause Time 09/20/21 07:54:00 All activity Yes suspended (unless life threatening emergency) Team Verbally Correct patient Confirms Information identity, Correct side and site are marked, Consent form is present and accurate, Agreement on the procedure to be done, Correct patient position, Relevant images/results properly labeled/appropriately displayed, Confirm antibiotics have been administered, Confirm the skin prep has dried, Confirm prosthesis/implant/devic e is present, Performed in location of procedure after prepped/draped, Reconcile problems if responses among team members differ Antibiotic Yes Prophylaxis Administered Or In Progress Within the Last 60 Minutes Beta Kelly N/A Administered Venous N/A Thromboembolism Prophylaxis Required Anticipated Critical Events Surgeon None expected Anesthesia Provider None expected Nursing Assures Sterility of instruments, Equipment concerns or issues, Implant Availability Essential Imaging Yes Labeled and Displayed Last Modified By: Ana Fitch Rn 09/20/21 07:54:28 [facility] IntraOP Time Out Audit 09/20/21 07:54:28 Print Line Inspector: [id number] Modifier: [id number] <+> Time Out Pause Time 1 <*> Procedure to be Performed Hip Total Anterior Approach(Left) [facility] IntraOp X-Ray and Images Entry 1 X-Ray/Imaging Type Fluoroscopy Fluoroscopy Type C-Arm Site OPERATIVE HIP Distribution Spec Name RADHA OWUSU Protective Devices No Used Last Modified By: Ana Fitch Rn 09/20/21 06:48:44 Case Comments <None> Finalized By: KAL ROBLES Document Signatures Signed By: Ana Fitch Rn 09/20/21 11:04 Ana Fitch Rn 09/20/21 09:12 KAL ROBLES 09/21/21 13:14 Unfinalized History Date/Time Username Reason for Unfinalizing Freetext Reason for Unfinalizing 09/20/21 11:00 [id number] Correct Documentation 09/21/21 13:11 ISAAC Correct Billing Electronically signed by Liset [facility] Conversion Committee Member Cerner at 02/04/2023 12:40 PM CDT documented in this encounter Plan of Treatment Not on file documented as of this encounter Visit Diagnoses Not on filedocumented in this encounter
--- OUTSIDE RECORDS SUMMARY | 2025-05-20 16:03 | XMS_ITS | Referral Summary ---
Author Organization [employer] ([place], [place], [place], [place]) Address [address] [place] [address] Care Team Providers Care Distiller Name Role Phone Unavailable Primary Care Provider Unavailabl e Social History Tobacco Use Types Packs/Day Years Used Date Smoking Tobacco: Never Assessed Comments Unknown Sex and Gender Information Value Date Recorded Sex Assigned at Female 04/17/2022 7:31 PM CDT Legal Sex Female 7:31 PM CDT Gender Identity Female 04/17/2022 7:31 PM CDT Sexual Orientation Not on file Plan of Treatment Not on file
--- OUTSIDE RECORDS SUMMARY | 2025-05-20 16:03 | XMS_ITS | Encounter Summary ---
Author Organization [employer] ([place], [place], [place], [place]) Address [address] [place] [address] Care Team Providers Care Final Cigar And Box Examiner Name Role Phone Unavailable Primary Care Provider Unavailabl e Encounter Details Date Type Department Care Team (Late st Contact Info) Description 09/19/2021 Transcribed Document [facility] [place] Family Medicine [address] [place] [address] ProviderInes MD [address] [place] [address] Social History Tobacco Use Types [...] Cerner Conversion Note - Historical ProviderMD - 09/19/2021 2:10 PM AUTOMATION AND CONTROLS INSTRUCTOR UM Authorization Entered On: 09/19/2021 15:32 EST Performed On: 09/19/2021 14:10 EST by KEVIN STONE, Quality Intern Primary Insurance Authorization Authorization and Policy Numbers : Insurance 1 Health Plan: CIGNA Policy Number: [id number] Authorization Number: Insurance 2 Health Plan: [employer] GOLD CHOICE Policy Number: [id number] Authorization Number: Insurance Primary Name : Cigna [id number] Authorization Status-Primary : Opo status approv Authorized Service Begin Date-Primary : 09/20/2021 EST Observation Authorization Nbr-Primary : [id number] Authorization Comments-Primary : Pt is [place] for OP total hip on Sat09-20-21 Cigna OP auth# [id number] Hum[employer] Gold OP auth# [id number] Historical Authorization Comments-Primary : No Authorization Comments Found KEVIN STONE, Quality Intern - 09/19/2021 14:10 EST Secondary Insurance Authorization Authorization and Policy Numbers : Insurance 1 Health Plan: CIGNA Policy Number: [id number] Authorization Number: Insurance 2 Health Plan: HUMANA [employer]'s CHOICE Policy Number: [id number] Authorization Number: Insurance Secondary Name : [place] [id number] Authorization Status-Secondary : Opo status approv Auth/Referral Contact Name-Secondary : Marcus R Authorized Service Begin Date-Secondary : 09/20/2021 EST Observation Authorization Number-Secondary : [id number] Historical Authorization Comments-Secondary : No Authorization Comments Found KEVIN STONE, Quality Intern - 09/19/2021 14:10 EST documented in this encounter Plan of Treatment Not on file documented as of this encounter Visit Diagnoses Not on filedocumented in this encounter
--- OUTSIDE RECORDS SUMMARY | 2025-05-20 16:03 | XMS_ITS | Encounter Summary ---
Author Organization [employer] ([place], [place], [place], [place]) Address [address] [place] [address] Care Team Providers Care Energy Attorney Name Role Phone Unavailable Primary Care Provider Unavailabl e Encounter Details Date Type Department Care Team (Late st Contact Info) Description 03/04/2021 Transcribed Document [facility] [place] [address] [place] [address] ProviderInes MD [address] [place] [address] Social History Tobacco Use Types [...] Cerner Conversion Note - Ines ProviderMD - 03/04/2021 10:32 AM CDT Total Joints Assessment Entered On: 12/26/2021 10:33 EST Performed On: 03/04/2021 10:32 EDT by KAVIN LARA OTR/Yoanna MONTE JR. Hip Survey 1. Going up or down stairs : Severe 2. Walking on an uneven surface : Severe 3. Rising from sitting : Severe 4. Bending to floor/apple picker an object : Severe 5. Lying in bed (turning over, maintaining hip position) : Severe 6. Sitting : Severe MELL CUMMINS Raw Score (ref) : 18 KAVIN LARA OTR/Yoanna - 12/26/2021 10:32 EST PROMIS Global Health Scale In general, would you say your health is: : Good In general, would you say your quality of life is: : Very good In general, how would you rate your physical health? : Fair In general, how would you rate your mental health, including your mood and your ability to think? : Good In general, how would you rate your satisfaction with your social activities and relationships? : Fair In general, please rate how well you carry out your usual social activities and roles. (This includes activities at home, at work and in your community, and responsibilities as a parent, child, spouse, employee, friend, etc.) : Poor To what extent are you able to carry out your everyday physical activities such as walking, climbing stairs, carrying groceries, or moving a chair? : A little How often have you been bothered by emotional problems such as feeling anxious, depressed or irritable? : Sometimes How would you rate your fatigue on average? : Severe How would you rate your pain on average? : 8 Global Physical Health Score (ref) : 8 Global Mental Health Score (ref) : 12 KAVIN LARA OTR/Yoanna - 12/26/2021 10:32 EST documented in this encounter Plan of Treatment Not on file documented as of this encounter Visit Diagnoses Not on filedocumented in this encounter
--- OUTSIDE RECORDS SUMMARY | 2025-05-20 16:03 | XMS_ITS | Encounter Summary ---
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 Pain Assessment Entered On: 09/21/2021 6:28 EST Performed On: 09/21/2021 4:36 EST by Gabby Mukherjee RN Intervention Information: oxyCODONE Performed by Gabby Mukherjee RN on 09/21/2021 03:36:00 EST oxyCODONE,10mg Oral,Pain (Severe 7-10) Pain Assessment Pain Assessment : Follow-up assessment Pain Scale Goal : 3 Pain Scale Used : 0-10 Scale Onset : Acute Opioid Adverse Effects : None Pain Improved by Intervention : Yes Gabby Mukherjee RN - 09/21/2021 6:26 EST Pain Scale Intensity : 3 Gabby Mukherjee RN - 09/21/2021 6:26 EST Image 4 - Images currently included in the form version of this document have not been included in the text rendition version of the form. Electronically signed by Penelope Hutchins Conversion Central Control Room Operator Cerner at 02/10/2023 12:58 PM CDT documented in this encounter Plan of Treatment Not on file documented as of this encounter Visit Diagnoses Not on filedocumented in this encounter
--- OUTSIDE RECORDS SUMMARY | 2025-05-20 16:03 | XMS_ITS | Clinical Summary ---
Author Organization [facility] Address [address] [place] [address], [address] [place] [address] Care Team Providers Care Consulting Sme Name Role Phone System, Referring Not In Primary Care Provider U navailable Social History Tobacco Use Types Packs/Day Years Used Date Smoking Tobacco: Never Assessed Comments Unknown Sex and Gender Information Value Date Recorded Sex Assigned at Not on file Legal Sex Female 5:14 PM EST Gender Identity Not on file Sexual Orientation Not on file Plan of Treatment Not on file Care Teams Consulting Sme Relationship Specialty Start Date End Date System, Referring Not In PCP - General 11/05/12
--- OUTSIDE RECORDS SUMMARY | 2025-05-20 16:03 | XMS_ITS | Encounter Summary ---
Author Organization [employer] ([place], [place], [place], [place]) Address [address] [place] [address] Care Team Providers Care Pit Shovel Operator Name Role Phone Unavailable Primary Care Provider Unavailabl e Encounter Details Date Type Department Care Team (Late st Contact Info) Description 09/21/2021 Transcribed Document [facility] Radiology [address] [place] [address] Salena Brush MD [address] [address] Social History Tobacco Use Types [...] Conversion Note - Salena Brush MD - 09/21/2021 9:23 AM EST Patient: PINKY REID Age: 66 years Sex: Female : 1955 Associated Diagnoses: None Author: DEX ALMAZAN PA 09/21/2021 cc: medical management s/p left total hip arthroplasty S: Pt is doing ok. No f'/c/s. No n/v/d. + gas, - BM. No CP, SOA, palpitations. No cough or sputum. Urinating well. +post op pain. Using incentive spirometer. No issues overnight. Has had some left upper quadrant pain, likely due to gas, improved after flatus. HPI: Patient is a 66 yo female admitted to [facility] per Dr. Johnson for a left total hip arthroplasty. Preoperatively patient was found to have advanced osteoarthritis of the left hip and elected surgical intervention after failing conservative treatment. Patient is followed perioperatively while hospitalized for medical management. Initial visit in preop --- Denies prior stroke or seizure. Denies ND, CHF or cardiac arrhythmia. Denies DM. Denies [...] None Documented wool None Documented Home Medications (18) Active Allergy Relief (Diphenhydramine HCl) 25 mg oral capsule 25 mg = 1 Cap, PRN, Oral, Once a day (at bedtime) aspirin 81 mg oral delayed release tablet 81 mg = 1 Tab, Oral, BID Breo Ellipta 100 mcg-25 mcg inhalation powder 1 Puff, Inhalation, Daily cefadroxil 500 mg oral capsule 500 mg = 1 Cap, Oral, Q12H Celexa 20 mg, Oral, Daily Chondroitin-Glucosamine 2,000 Units, Oral, Daily Colace 100 mg oral capsule 100 mg = 1 Cap, PRN, Oral, BID Flonase 1 [place], PRN, Nasal, BID furosemide 20 mg oral tablet , Oral, Daily gabapentin 100 mg oral capsule 200 mg = 2 Cap, Oral, BID loratadine 10 mg, PRN, Oral, Daily Mobic 15 mg oral tablet 15 mg = 1 Tab, Oral, Daily Percocet 5/325 oral tablet 1 Tab, PRN, Oral, Q4H potassium chloride extended release 20 mEq, Oral, BID pravastatin 80 mg oral tablet , Oral, Daily ProAir HFA 90 mcg/inh inhalation aerosol 2 puffs, PRN, Inhalation, QID Vitamin D3 2,000 Units, Oral, Daily Zofran 4 mg oral tablet 4 mg = 1 Tab, Oral, Q8H ROS: ROS as above, all other systems reviewed negative Exam: Vitals Signs (last 24 hrs) Last Charted Minimum Maximum Temp 98.5 (SEP 21 05:55) 97.8 (SEP 20 20:34) 98.3 (SEP 20 09:15) Mon HR 90 (SEP 21 05:55) 78 (SEP 20 15:19) 94 (SEP 20 20:34) Resp Rate 16 (SEP 21 05:55) L 9 (SEP 20 10:35) H 31 (SEP 20 10:25) SBP 140 (SEP 21 05:55) 97 (SEP 20 18:30) 140 (SEP 21 05:55) DBP 65 (SEP 21 05:55) L 51 (SEP 20 10:20) 65 (SEP 21 05:55) MAP 86 (SEP 21 05:55) 64 (SEP 20 20:34) 86 (SEP 21 05:55) SpO2 95 (SEP 21 05:55) L 93 (SEP 20 09:55) 100 (SEP 20 09:25) GEN: Alert, awake, NAD, sitting up in chair Neck: supple, no thyromegaly HEENT: NCAT, no icterus, no thrush. Nares patent. CV: S1S2, no murmur. No LE edema RESP: CTAB, NL. No wheezes or rhonchi ABD: soft, NTND, +BS NEURO: A&O x 3, CN grossly intact. No focal deficits. MSK: Generalized weakness. No calf tenderness. No joint edema, erythema. Data: Labs Most Recent Last 28 days CBC Results-Most Recent Last 28 Days Event Name Event Result Date/Time WBC 13.4 K/uL High 09/21/21 03:26:00 RBC 3.01 Million/uL Low 09/21/21 03:26:00 Hgb 9 g/dL Low 09/21/21 03:26:00 Hct 29 % Low 09/21/21 03:26:00 MCV 96.3 fL High 09/21/21 03:26:00 MCH 29.9 pg 09/21/21 03:26:00 MCHC 31 Gram/dL Low 09/21/21 03:26:00 Platelet Count 288 K/uL 09/21/21 03:26:00 MPV 10.9 fL 09/21/21 03:26:00 RDW 12.5 % 09/21/21 03:26:00 Slide Review No 09/21/21 03:26:00 BMP Results (Most Recent Last 28 Days) Event Name Event Result Date/Time Sodium Level 135 mmol/L Low 09/21/21 03:26:00 Potassium Level 4.8 mmol/L 09/21/21 03:26:00 Chloride Level 104 mmol/L 09/21/21 03:26:00 Carbon Dioxide Level 24 mmol/L 09/21/21 03:26:00 Anion Gap 12 09/21/21 03:26:00 Glucose Level 138 mg/dL High 09/21/21 03:26:00 Blood Urea Nitrogen 24 mg/dL High 09/21/21 03:26:00 Creatinine Level 1.2 mg/dL High 09/21/21 03:26:00 eGFR 54 mL/min/1.73m2 Low 09/21/21 03:26:00 eGFR NonAfrican 45 mL/min/1.73m2 Low 09/21/21 03:26:00 Bun/Creatinine 18.5 09/21/21 03:26:00 Calcium Level 8.8 mg/dL 09/21/21 03:26:00 Other Lab Results (Most Recent Last 28 Days) Event Name Event Result Date/Time PT 11.9 Second(s) 08/31/21 11:24:00 INR 1.1 08/31/21 11:24:00 PTT 32.5 Second(s) 08/31/21 11:24:00 a1c 5.3 EKG SR with occ PVC HR 81 Impression: advanced OA left hip -s/p left total hip arthroplasty per Dr. Johnson COPD HTN HLD cough Postop anemia-likely due to acute blood loss and delusional component from IV fluids Postop leukocytosis-likely due to perioperative steroid as well as inflammation from surgery Plan: Encourage fluids at home, expect small bump in creatinine to improve with continued oral hydration. OK to discharge from IM standpoint pain meds per surgery DVT prophylaxis per surgery bowel regimen at home IS at home Assessment and treatment plan made in conjunction with Marc Brush MD Scribed by Katherin Carrera documented in this encounter Plan of Treatment Not on file documented as of this encounter Visit Diagnoses Not on filedocumented in this encounter
--- OUTSIDE RECORDS SUMMARY | 2025-05-20 16:03 | XMS_ITS | Encounter Summary ---
Author Organization [employer] ([place], [place], [place], [place]) Address [address] [place] [address] Care Team Providers Care Gum Remover Name Role Phone Unavailable Primary Care Provider Unavailabl e Encounter Details Date Type Department Care Team (Late st Contact Info) Description 09/21/2021 Transcribed Document [facility] [place] [address] [place] [address] ProviderInes MD [address] [place] [address] Social History Tobacco Use Types [...] Cerner Conversion Note - Historical ProviderMD - 09/21/2021 4:02 PM SCHOOL COMMUNITY RELATIONS COORDINATOR Nursing Discharge Summary Entered On: 09/21/2021 16:02 EST Performed On: 09/21/2021 16:02 EST by Hue Lopez RN Discharge Documentation Discharge Date/Time : 09/21/2021 16:00 EST Patient Disposition, General : Discharge Discharge To : Home with ambulatory/outpatient follow-up Mode Of Departure, General Discharge : Private vehicle Accompanied By, Discharge : Spouse IV Discontinued : Yes Prescriptions Given to Patient : Yes Discharge Instructions Reviewed With, Opportunity For Questions Given : 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
--- OUTSIDE RECORDS SUMMARY | 2025-05-20 16:03 | XMS_ITS | Encounter Summary ---
Author Organization [facility] ([place], [place], [place], [place]) Address [address] [place] [address] Care Team Providers Care Medical Director Occupational Health Name Role Phone Unavailable Primary Care Provider Unavailabl e Encounter Details Date Type Department Care Team (Late st Contact Info) Description 09/20/2021 Transcribed Document [facility] Radiology [address] [place] [address] Kuldeep Johnson MD [address] [place] [address] Social History Tobacco Use Types Packs/Day Years Used Date Smoking Tobacco: Never Assessed Comments Unknown Sex and Gender Information Value Date Recorded Sex Assigned at Female 04/17/2022 7:31 PM CDT Legal Sex Female 7:31 PM CDT Gender Identity Female 04/17/2022 7:31 PM CDT Sexual Orientation Not on file documented as of this encounter Miscellaneous Notes * Cerner Conversion Note - Kuldeep Johnson MD - 09/20/2021 7:00 AM EST Patient: PINKY REID Age: 66 years Sex: Female : 1955 Associated Diagnoses: None Author: COMER, CHINMAY Urena APRN Chief Complaint pleasant 66 yo female here with her for L anterior HALEY with Dr. Johnson. pt has had L hip pain for 1 year, gotten worse, failed conservative measures. Review of Systems Constitutional: Negative. Eye: Negative. Ear/Nose/Mouth/Throat: Negative. Respiratory: Negative. Cardiovascular: Negative. Gastrointestinal: Negative. Genitourinary: Negative. Hematology/Lymphatics: Negative. Endocrine: Negative. Immunologic: Negative. Musculoskeletal: Joint pain, Decreased range of motion, L hip. Integumentary: Negative. Neurologic: Negative. Psychiatric: Negative. All other systems are negative Health Status Allergies: Allergic Reactions (Selected) Severity Not Documented Codeine- Nausea and vomiting. Feathers- No reactions were documented. Hay- No reactions were documented. Quincy- No reactions were documented. Mold- No reactions were documented. Nickel- No reactions were documented. Trees- No reactions were documented. Wool- No reactions were documented., Allergies (8) Active Reaction codeine NAUSEA AND VOMITING feathers None Documented Hay None Documented hemlock None Documented Mold None Documented Nickel None Documented trees None Documented wool None Documented Current medications: (Selected) Inpatient Medications Ordered Ancef: 2 Gram, 100 mL, 200 mL/Hr, IV Piggyback, PREOP Lactated Ringers Injection intravenous solution 1,000 mL: 20 mL/Hr, IntraVENous Toradol: 15 mg, IV Push, 1-Time Zofran: 4 mg, IV Push, 1-Time clonidine/epinephrine/ketorolac/ropivacaine: 50 mL, IntraArtiCULAR, 1-Time lidocaine 1% preservative-free injectable solution: 0.5 mL, IntraDermal, 1-Time tranexamic acid 1,000 mg + syringe 1 Each + Sodium Chloride 0.9% intravenous solution 15 mL: 1,000 mg, 10 mL, 150 mL/Hr, Miscellaneous, 1-Time tranexamic acid 2,000 mg + sodium chloride 0.9% injectable solution 5 mL + syringe 1 Each: 2,000 mg, 20 mL, mL/Hr, IntraArtiCULAR, 1-Time Documented Medications Documented Allergy Relief (Diphenhydramine HCl) 25 mg oral capsule: 1 Cap, Oral, Once a day (at bedtime), PRN: as needed for insomnia, 30 Cap, 0 Refill(s) Breo Ellipta 100 mcg-25 mcg inhalation powder: 1 Puff, Inhalation, Daily, 0 Refill(s) Celexa: 20 mg, Oral, Daily Chondroitin-Glucosamine: 2,000 Units, Oral, Daily, 0 Refill(s) Flonase: 1 [place], Nasal, BID, PRN: as needed for allergies, 0 Refill(s) ProAir HFA 90 mcg/inh inhalation aerosol: 2 puffs, Inhalation, QID, PRN: as needed, 0 Refill(s) Tylenol 8 HR Arthritis Pain 650 mg oral tablet, extended release: Tab, Oral, Q8H, 0 Refill(s) Vitamin D3: 2,000 Units, Oral, Daily, 0 Refill(s) furosemide 20 mg oral tablet: Tab, Oral, Daily, 0 Refill(s) gabapentin 100 mg oral capsule: 2 Cap, Oral, BID, 120 Cap, 0 Refill(s) loratadine: 10 mg, Oral, Daily, PRN: as needed, 0 Refill(s) potassium chloride extended release: 20 mEq, Oral, BID, 0 Refill(s) pravastatin 80 mg oral tablet: Tab, Oral, Daily, 0 Refill(s) traMADol: 50 mg, Oral, Q8H, PRN: as needed for pain, 0 Refill(s), Home Medications (14) Active Allergy Relief (Diphenhydramine HCl) 25 mg oral capsule 25 mg = 1 Cap, PRN, Oral, Once a day (at bedtime) Breo Ellipta 100 mcg-25 mcg inhalation powder 1 Puff, Inhalation, Daily Celexa 20 mg, Oral, Daily Chondroitin-Glucosamine 2,000 Units, Oral, Daily Flonase 1 [place], PRN, Nasal, BID furosemide 20 mg oral [...] Q8H Vitamin D3 2,000 Units, Oral, Daily , Medications (8) Active Scheduled: (7) ceFAZolin 2 Gram 100 mL, IV Piggyback, PREOP clon/epi/ketor/ropiv 0.04/0.25/15/123 mg 50 mL inj 50 mL, IntraArtiCULAR, 1-Time ketorolac 30 mg/1 mL inj 15 mg 0.5 mL, IV Push, 1-Time lidocaine 1% *PF* inj 2 mL 0.5 mL, IntraDermal, 1-Time ondansetron 4 mg/2 mL inj 4 mg 2 mL, IV Push, 1-Time tranexamic acid 1,000 mg + syringe 1 Each + NaCl 0.9% 15 mL 1,000 mg 10 mL, Miscellaneous, 1-Time tranexamic acid 2,000 mg + NaCl 0.9% *PF* 5 mL + syringe 1 Each 2,000 mg 20 mL, IntraArtiCULAR, 1-Time Continuous: (1) lactated ringers 1,000 mL 1,000 mL, IntraVENous, 20 mL/Hr PRN: (0) Problem list: All Problems Seasonal allergies / SNOMED CT 5972513039 / Confirmed Peripheral neuropathy / SNOMED CT 4976162888 / Confirmed Peptic ulcer disease / SNOMED CT 2744254854 / Confirmed Osteoporosis / SNOMED CT 069428721 / Confirmed Incontinence / SNOMED CT 26779710 / Confirmed stress-wears a pad Impaired vision / SNOMED CT 30392791 / Confirmed corrected with lenses Cataract / SNOMED CT 9717591785 / Confirmed High blood pressure / SNOMED CT 45490181 / Confirmed GERD - Gastro-esophageal reflux disease / SNOMED CT 0556287605 / Confirmed Depression / SNOMED CT 84204180 / Confirmed Cardiac arrhythmia / SNOMED CT 6316345123 / Confirmed Bronchitis / SNOMED CT 76976665 / Confirmed Cataracts, bilateral / SNOMED CT 199325878 / Confirmed Back pain / SNOMED CT 696269506 / Confirmed At risk for sleep apnea / IMO 59976622 / Confirmed Asthma / SNOMED CT 191469506 / Confirmed Arthritis / SNOMED CT 4851557 / Confirmed, Active Problems (17) Arthritis Asthma At risk for sleep apnea Back pain Bronchitis Cardiac arrhythmia Cataract Cataracts, bilateral Depression GERD - Gastro-esophageal reflux disease High blood pressure Impaired vision Incontinence Osteoporosis Peptic ulcer disease Peripheral neuropathy Seasonal allergies Histories Past Medical History: Active Cataract (7418452285) Peptic ulcer disease (3905694886) Resolved Anemia (357153400): Resolved. Family History: No family history items have been selected or recorded. Procedure history: Right Hand Surgery in 2008 at 54 Years. stress test on 10/21/1999 at 44 Years. Right Knee Scope in 1998 at 44 Years. tubal ligation in 1976 at 22 Years. tonsillectomy in 1959 at 4 Years. cataract surgery right and left. fatty tumor removed from left thigh. colonoscopy. right total hip. Cholecystectomy (12033946). back surgery. Social History Social & Psychosocial Habits Alcohol 03/28/2015 Alcohol [...] smoker, quit more Smokeless Tobacco Status Never . Physical Examination VS/Measurements Vital Signs/Vital Measures 09/20/2021 6:19 EST Systolic Blood Pressure 122 mmHg Diastolic Blood Pressure 70 mmHg Mean Arterial Pressure (MAP)-BMDI 87 Temperature Source Temporal artery scanning Temperature Mode Fahrenheit Temperature, Fahrenheit 97.5 Deg F Clinical Temperature, C 36.4 Deg C Heart Rate Monitored 73 bpm Respiratory Rate 16 Breaths/Min Oxygen Saturation 98 % Oxygen Therapy Mode Room air , Vitals Signs (last 24 hrs) Last Charted Minimum Maximum Temp 97.5 (SEP 20 06:19) 97.5 (SEP 20 06:19) 97.5 (SEP 20 06:19) Mon HR 73 (SEP 20 06:19) 73 (SEP 20 06:19) 73 (SEP 20 06:19) Resp Rate 16 (SEP 20 06:19) 16 (SEP 20 06:19) 16 (SEP 20 06:19) SBP 122 (SEP 20 06:19) 122 (SEP 20 06:19) 122 (SEP 20 06:19) DBP 70 (SEP 20 06:19) 70 (SEP 20 06:19) 70 (SEP 20 06:19) MAP 87 (SEP 20 06:19) 87 (SEP 20 06:19) 87 (SEP 20 06:19) SpO2 98 (SEP 20 06:19) 98 (SEP 20 06:19) 98 (SEP 20 06:19) General: Alert and oriented, No acute distress, obese. Eye: Extraocular movements are intact, glasses. HENT: Normocephalic, Normal hearing. Respiratory: Lungs are clear to auscultation, Respirations are non-labored. Cardiovascular: Normal rate, Regular rhythm, No murmur, No gallop, No edema. Musculoskeletal: painful ROM L hip, LLE weakness, uses cane/wc, see comprehensive ortho exam in office notes. Integumentary: Warm, Dry, [place]. Neurologic: Alert, Oriented. Psychiatric: Cooperative, Appropriate mood & affect. Review / Management Results review: Labs (Last four charted values) WBC 7.2 (AUG 31) HB 12.8 (AUG 31) HCT 40.3 (AUG 31) Plt 287 (AUG 31) Na L 134 (AUG 31) K 4.1 (AUG 31) Cl L 101 (AUG 31) CO2 29 (AUG 31) BUN 22 (AUG 31) Cr H 1.10 (AUG 31) Glu R 92 (AUG 31) Ca 9.5 (AUG 31) PT 11.9 (AUG 31) INR 1.1 (AUG 31) PTT 32.5 (AUG 31) . Impression and Plan Diagnosis 1. OA L hip 2. RAFFAELE risk 3. depression 4. GERD 5. HTN 6. PUD 7. neuropathy . Condition: Stable. pt to proceed with surgery, plan to DC home tomorrow documented in this encounter Plan of Treatment Not on file documented as of this encounter Visit Diagnoses Not on filedocumented in this encounter
--- OUTSIDE RECORDS SUMMARY | 2025-05-20 16:03 | XMS_ITS | Clinical Summary ---
Author Organization [employer] ([place], [place], [place], [place]) Address [address] [place] [address] Care Team Providers Care Elementary School Director Name Role Phone Unavailable Primary Care Provider [...]
--- OUTSIDE RECORDS SUMMARY | 2025-05-20 16:03 | XMS_ITS | Encounter Summary ---
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 Discharge Vitals Temperature 36.6 ??C Heart Rate (Monitored) 100 Respiratory Rate 15 Blood Pressure 104/55 What to do next Instructions From Your Care Team Please STOP taking Tramadol Home Health Services: [facility]--[phone] Medical Equipment for Home Use: Diet after Discharge: Resume usual diet as tolerated, _, _ Activity after Discharge: As tolerated, _, _ Lifting Restrictions: No heavy lifting over 10 pounds Weight Bearing: Full weight bearing Driving after Discharge: Do not drive Showering/Bathing: May shower, No tub bathing, soaking or swimming Notify Provider of: MD of any redness, swelling, excessive drainage, or temperature over 100.5F Wound/Incision Care after Discharge: Keep operative site/wound site clean and dry, _remove bandage in 7-10days Medical Equipment for Home Use: Home Health Services: Community Services: Discharge Follow Up Instructions: Follow-up w/ Jose Maria Hernandez PA-C in 3 wks ([phone]) Follow Up Instructions: Continue AMANDA hose for 3 wks if tolerated. Follow Up Instructions: Leave Aquacel dressing in place x 7d, then leave open to air. Follow-Up Appointments Follow Up with ARNOLD HERNANDEZ PA-ORT When 10/11/2021 02:15 PM EST Where: [address] [place], [place] [address] [address]- Medications What How Much When Instructions Next Dose acetaminophen-oxyCODONE (Percocet 5/ 325 oral tablet) 1 Tablet(s) Oral Every 4 Hours as needed for as needed for pain Duration: 7 Day(s) not to exceed 5 tablets/ day Pickup at [facility] [address] aspirin (aspirin 81 mg oral delayed release tablet) 1 Tablet(s) Oral Two Times A Day Pickup at [facility] cefadroxil (cefadroxil 500 mg oral capsule) 1 Capsule(s) Oral Every 12 hours Duration: 7 Day(s) Pickup at [facility] docusate (Colace 100 mg oral capsule) 1 Capsule(s) Oral Two Times A Day as needed for as needed for constipation Pickup at [facility] meloxicam (Mobic 15 mg oral tablet) 1 Tablet(s) Oral Every Day Pickup at [facility] 12-3 PRAVAstatin (pravastatin 80 mg oral tablet) 1 Tablet(s) Oral Every Day 12-3 albuterol (ProAir HFA 90 mcg/ inh inhalation aerosol) 2 puffs Inhalation Four Times A Day as needed for Shortness of Breath 12-3 furosemide (furosemide 20 mg oral tablet) 1 Tablet(s) Oral Every Day 12-3 loratadine 10 Milligram(s) Oral Every Day as needed for Allergies 12-3 cholecalciferol (Vitamin D3) 2,000 Unit(s) Oral Every Day 12-3 chondroitin-glucosamine (Chondroitin-Glucosamine) 2,000 Unit(s) Oral Every Day 12-3 citalopram (Celexa) 20 Milligram(s) Oral Every Day 12-3 diphenhydrAMINE (Allergy Relief (Diphenhydramine HCl) 25 mg oral capsule) 1 Capsule(s) Oral Once a day (at bedtime) as needed for as needed for insomnia tonight fluticasone nasal (Flonase) 1 [place](s) Nasal Two Times A Day as needed for as needed for allergies tonight fluticasone-vilanterol (Breo Ellipta 100 mcg-25 mcg inhalation powder) 1 Puff(s) Inhalation Every Day 12-3 gabapentin (gabapentin 100 mg oral capsule) 2 Capsule(s) Oral Two Times A Day tonight ondansetron (Zofran 4 mg oral tablet) 1 Tablet(s) Oral Every 8 Hours as needed for Nausea/Vomiting Pickup at [facility] potassium chloride (potassium chloride extended release) 20 Milliequivalent(s) Oral Two Times A Day [facility] Pharmacy Information [facility]: [address] [facility] [address] [place], [place] [id number] [phone] Take your medications faithfully. Do NOT skip medication. Do NOT stop taking medications without the direction of a physician. Carry a list of your medications with you at all times, and take this medication list with you to your first follow up visit. Report any side effects. Avoid herbal remedies unless discussed with your physician. As part of your treatment plan, your physician may have prescribed a limited course of a controlled substance. This medication may be given to help people with moderate or severe pain or for other medical conditions, but there are risks involved with treatment. Common side effects may include nausea, constipation, drowsiness, sweating, itching, dry mouth, and rash. More serious side effects may include cognitive and motor impairment, like problems with thinking, concentrating, alertness, and movement (e.g. slowed reflexes), and driving and operating heavy machinery can be dangerous. It is important for you to talk to your physician if you have these side effects or questions. These controlled substances can produce physical dependence and be habit-forming if taken for an extended period of time, which means that the body has gotten used to them and may experience withdrawal symptoms if they are abruptly stopped. Withdrawal symptoms can include runny nose, sweating, goose bumps, diarrhea, abdominal cramping, rapid heartbeat, difficulty sleeping, and nervousness. Please dispose of unused and medications per your retail pharmacy guidance. Allergies Hay Mold Nickel codeine (NAUSEA AND VOMITING) feathers hemlock trees wool Immunizations This Visit No Immunizations Found Education Materials Discharge Instructions for Anterior Total Hip Replacement Your Hip Incision: Do not swim, soak or bathe in a tub until cleared by the surgeon. If you have an Aquacel (light brown) dressing: ??? Keep your dressing in place for 7-10 days. You may shower, but you must cover your incision or dressing with Glad Wrap Press N??? Seal or something that will keep your incision dry. ??? Your Physical Therapist will remove the dressing after 7-10 days, OR your surgeon will remove it at your follow-up appointment. Then your incision may be open to air. If you shower, be sure to keep your incision dry until your follow-up appointment. Activity ??? You may put weight on your leg when you walk, unless your surgeon tells you differently. Use your walker until the therapist or surgeon say you do not need it anymore. Continue your exercises from physical therapy. ??? Stay active, getting up every 1-2 hours, walk short distances. No driving until cleared by your surgeon. ??? If your surgeon has ordered support hose, continue to wear them for 3 weeks in order to prevent blood clots. Remove them 1-2 times per day for about 30 minutes-1 hour. Check your skin for red or open areas under stockings. Support hose can be bought online and at many pharmacies, be sure that compression is at least 15-20mmHg. ??? For swelling, prop up your leg above your heart. ??? Cold therapy wrap as tolerated. Switch out cold gel pack every 4 - 5 hours. Cold therapy is for pain and swelling. Use it as long as your hip is painful or swollen. General Instructions: ??? Increase fiber and protein intake. Drink 8-10 glasses of water a day and take stool softeners while you are on pain medication, since it causes constipation. If you do not have a bowel movement in 3-4 days after your surgery, try an over the counter laxative, such as milk of magnesia, miralax, dulcolax tablet or suppository, or fleets enema. If you do not have success after this, contact your nurse navigator or surgeon???s office. ??? Continue using your incentive spirometer to keep fever and lung infection away. Aim for 10 breaths every hour while you are awake. ??? Take pain medicine as needed, especially before therapy. ??? Let your doctors and dentist know you have a prosthetic hip. They may need to give you an antibiotic before a procedure. Call Your Surgeon: 1. Infection: ??? Your hip has increased swelling that does not get better with time, propping up your leg and with rest. ??? Your incision has a foul smell or your incision begins to open. ??? Your incision gets red, is warm or has increased drainage after 2 days. ??? You have a fever over 101 degrees for more than 24 hours. 2. A Blood Clot: ??? You have increased swelling that does not get better with time, propping your leg and rest, and redness, warmth or pain in your calf. 3. A Fall: ??? You fall down without obvious injury. Call 911: 1. You have sudden chest pain and/or difficulty breathing 2. You fall and cannot get up CALL FIRST! Unless you are experiencing life-threatening issues, call your surgeon???s office or nurse navigator first, before going to the Emergency Department. Call your surgeon or nurse navigator if: ??? Your incision has increased swelling that does not get better with time, rest, and propping up your leg ??? Your incision has a foul smell or begins to open ??? You have a large amount of bleeding from incision ??? Your incision gets red, warm or increased drainage after 2 days ??? You have a fever over 101 degrees for more than 24 hours ??? You have increased swelling, redness, warmth or pain in your calf ??? You fall, but don???t have an obvious injury ??? You have questions or cause for concern regarding your total joint replacement Call 329 if: ??? You have sudden chest pain or shortness of breath ??? You fall and cannot get up ??? Life-threatening signs or symptoms ??? Stroke signs and symptoms: Facial droop, uneven smile, arm numbness, arm weakness, slurred speech, difficulty speaking or understanding If you are a patient of Dr. Johnson or Dr. Damon, call [phone] If you are a patient of Dr. Reid, call [phone] Nurse Navigator: Kemi Gates Office: [phone]; ; available during regular business hours docusate (oral/rectal) (DOK ue sate) Colace, Diocto, Doc-Q-Lace, Docu, Doculase, Docusil, Docusoft S, DocuSol, Dulcolax Stool Softener, Enemeez Mini, Mario-Tin, Pedia-Lax Stool Softener, Sharma Stool Softener, Promolaxin, Silace, Surfak Stool Softener, Angelita-Q-Lax What is the most important information I should know about docusate? You should not use docusate if you also use mineral oil, unless your doctor tells you to. What is docusate? Docusate is a stool softener that makes bowel movements softer and easier to pass. Docusate is used to relieve occasional constipation (irregularity). There are many brands and forms of docusate available. Not all brands are listed on this leaflet. Docusate may also be used for purposes not listed in this medication guide. What should I discuss with my healthcare provider before using docusate? You should not use docusate if you are allergic to it. Ask a doctor or pharmacist if this medicine is safe to use if you have: ?? stomach pain; ?? nausea; ?? vomiting; or ?? a sudden change in bowel habits that lasts over 2 weeks. Ask a doctor before using this medicine if you are or . Do not give this medicine to a child without medical advice. How should I use docusate? Use exactly as directed on the label, or as prescribed by your doctor. Drink plenty of liquids while you are using docusate. Measure liquid medicine carefully. Use the dosing syringe provided, or use a medicine dose-measuring device (not a kitchen spoon). Do not take the rectal enema by mouth. Rectal medicine is for use only in the rectum. Wash your hands before and after using the enema. To use the enema, lie on your left side with your left leg extended and your right leg slightly bent. Remove the cap from the applicator tip and gently insert the tip into your rectum. Slowly squeeze the bottle to empty the contents into the rectum. After using the enema, lie down on your left side for at least 30 minutes to allow the liquid to distribute throughout your intestines. Avoid using the bathroom, and hold in the enema at least 1 hour, or all night if possible. Read and carefully follow any Instructions for Use provided with your medicine. Ask your doctor or pharmacist if you do not understand these instructions. Docusate generally produces bowel movement in 12 to 72 hours. Call your doctor if your symptoms do not improve after 72 hours. You should not use docusate for longer than 1 week, unless your doctor tells you to. Store at room temperature away from moisture and heat. Do not freeze liquid medicine. What happens if I miss a dose? Since docusate is used when needed, you may not be on a dosing schedule. Skip any missed dose if it's almost time for your next dose. Do not use two doses at one time. What happens if I overdose? Seek emergency medical attention or call the Poison Help line at . What should I avoid while using docusate? Avoid using mineral oil, unless told to do so by a doctor. What are the possible side effects of docusate? Get emergency medical help if you have signs of an allergic reaction: hives; difficult breathing; swelling of your face, lips, tongue, or throat. Stop using docusate and call your doctor at once if you have: ?? rectal bleeding or irritation; or ?? no bowel movement after 72 hours. Less serious side effects may be more likely, and you may have none at all. This is not a complete list of side effects and others may occur. Call your doctor for medical advice about side effects. You may report side effects to FDA at 6-180-VIR-2981. What other drugs will affect docusate? Other drugs may affect docusate, including prescription and lapk-mpe-debgsem medicines, vitamins, and herbal products. Tell your doctor about all your current medicines and any medicine you start or stop using. Where can I get more information? Your pharmacist can provide more information about docusate. Remember, keep this and all other medicines out of the reach of children, never share your medicines with others, and use this medication only for the indication prescribed. Every effort has been made to ensure that the information provided by [employer] is accurate, up-to-date, and complete, but no guarantee is made to that effect. Drug information contained herein may be time sensitive. [employer] information has been compiled for use by healthcare practitioners and consumers in the [place] and therefore [employer] does not warrant that uses outside of the [place] are appropriate, unless specifically indicated otherwise. [employer] drug information does not endorse drugs, diagnose patients or recommend therapy. [employer] drug information is an informational resource designed to assist licensed healthcare practitioners in caring for their patients and/or to serve consumers viewing this service as a supplement to, and not a substitute for, the expertise, skill, knowledge and judgment of healthcare practitioners. The absence of a warning for a given drug or drug combination in no way should be construed to indicate that the drug or drug combination is safe, effective or appropriate for any given patient. [employer] does not assume any responsibility for any aspect of healthcare administered with the aid of information [employer] provides. The information contained herein is not intended to cover all possible uses, directions, precautions, warnings, drug interactions, allergic reactions, or adverse effects. If you have questions about the drugs you are taking, check with your doctor, nurse or pharmacist. Copyright 9611-8611 [employer]. Version: 4.01. Revision Date: 04/27/2019. cefadroxil (SEF a DROX il) What is the most important information I should know about cefadroxil? Follow all directions on your medicine label and package. Tell each of your healthcare providers about all your medical conditions, allergies, and all medicines you use. What is cefadroxil? Cefadroxil is a cephalosporin (SEF a low spor in) antibiotic that is used to treat many different types of infections caused by bacteria. Cefadroxil may also be used for purposes not listed in this medication guide. What should I discuss with my healthcare provider before taking cefadroxil? You should not take this medicine if you are allergic to cefadroxil or other cephalosporin antibiotic (cefdinir, cefalexin, Keflex, Omnicef, and others). Tell your doctor if you have ever had: ?? an allergy to any drug (especially penicillin); ?? intestinal problems, such as colitis; or ?? kidney disease. Cefadroxil liquid contains sucrose. Talk to your doctor before using this form of cefadroxil if you have diabetes. Tell your doctor if you are or . How should I take cefadroxil? Follow all directions on your prescription label and read all medicine guides or instruction sheets. Use the medicine exactly as directed. You may take cefadroxil with or without food. Take with food if cefadroxil upsets your stomach. Shake the oral suspension (liquid) before you measure a dose. Use the dosing syringe provided, or use a medicine dose-measuring device (not a kitchen spoon). Cefadroxil doses are based on weight in children. Follow all dosing instructions carefully when giving this medicine to a child. Use this medicine for the full prescribed length of time, even if your symptoms quickly improve. Skipping doses can increase your risk of infection that is resistant to medication. Cefadroxil will not treat a viral infection such as the flu or a common cold. Cefadroxil can affect the results of certain medical tests. Tell any doctor who treats you that you are using cefadroxil. Store the tablets or capsules at room temperature, away from moisture and heat. Store cefadroxil liquid in the refrigerator. Do not freeze. Throw away any unused cefadroxil liquid that is older than 14 days. What happens if I miss a dose? Take the medicine as soon as you can, but skip the missed dose if it is almost time for your next dose. Do not take two doses at one time. What happens if I overdose? Seek emergency medical attention or call the Poison Help line at . What should I avoid while taking cefadroxil? Antibiotic medicines can cause diarrhea, which may be a sign of a new infection. If you have diarrhea that is watery or bloody, call your doctor before using anti-diarrhea medicine. What are the possible side effects of cefadroxil? Get emergency medical help if you have signs of an allergic reaction: hives; difficult breathing; swelling of your face, lips, tongue, or throat. Call your doctor at once if you have: ?? severe stomach pain, diarrhea that is watery or bloody (even if it occurs months after your last dose); ?? fever, chills, body aches, flu symptoms; ?? pale skin, easy bruising, unusual bleeding; ?? a seizure; ?? fever, weakness, confusion; ?? dark colored urine, jaundice (yellowing of the skin or eyes); or ?? kidney problems--little or no urination, swelling in your feet or ankles, feeling tired or short of breath. Common side effects may include: ?? diarrhea; ?? stomach pain; or ?? vaginal itching or discharge. This is not a complete list of side effects and others may occur. Call your doctor for medical advice about side effects. You may report side effects to FDA at 2-591-OLV-9570. What other drugs will affect cefadroxil? Other drugs may affect cefadroxil, including prescription and uzdl-heg-nbxqufv medicines, vitamins, and herbal products. Tell your doctor about all your current medicines and any medicine you start or stop using. Where can I get more information? Your pharmacist can provide more information about cefadroxil. Remember, keep this and all other medicines out of the reach of children, never share your medicines with others, and use this medication only for the indication prescribed. Every effort has been made to ensure that the information provided by [employer] is accurate, up-to-date, and complete, but no guarantee is made to that effect. Drug information contained herein may be time sensitive. [employer] information has been compiled for use by healthcare practitioners and consumers in the [place] and therefore [employer] does not warrant that uses outside of the [place] are appropriate, unless specifically indicated otherwise. [employer]'s drug information does not endorse drugs, diagnose patients or recommend therapy. [employer] drug information is an informational resource designed to assist licensed healthcare practitioners in caring for their patients and/or to serve consumers viewing this service as a supplement to, and not a substitute for, the expertise, skill, knowledge and judgment of healthcare practitioners. The absence of a warning for a given drug or drug combination in no way should be construed to indicate that the drug or drug combination is safe, effective or appropriate for any given patient. [facility] does not assume any responsibility for any aspect of healthcare administered with the aid of information [facility] provides. The information contained herein is not intended to cover all possible uses, directions, precautions, warnings, drug interactions, allergic reactions, or adverse effects. If you have questions about the drugs you are taking, check with your doctor, nurse or pharmacist. Copyright 0837-3979 [facility] [employer]. Version: 6.03. Revision Date: 10/24/2020. acetaminophen and oxycodone (a SEET a MIN oh fen and OX i KOE done) Endocet 10/325, Endocet 2.5/325, Endocet 5/325, Endocet 7.5/325, Nalocet, Percocet, Primlev What is the most important information I should know about acetaminophen and oxycodone? MISUSE OF OPIOID MEDICINE CAN CAUSE ADDICTION, OVERDOSE, OR . Keep the medication in a place where others cannot get to it. Taking opioid medicine during may cause life-threatening withdrawal symptoms in the . Fatal side effects can occur if you use opioid medicine with alcohol, or with other drugs that cause drowsiness or slow your breathing. Stop taking this medicine and call your doctor right away if you have skin redness or a rash that spreads and causes blistering and peeling. What is acetaminophen and oxycodone? Acetaminophen and oxycodone is a combination medicine used to relieve moderate to severe pain. Acetaminophen and oxycodone contains an opioide medicine and may be habit-forming. Acetaminophen and oxycodone may also be used for purposes not listed in this medication guide. What should I discuss with my healthcare provider before taking acetaminophen and oxycodone? You should not use this medicine if you are allergic to acetaminophen or oxycodone, or if you have: ?? severe asthma or breathing problems; or ?? a blockage in your stomach or intestines. Tell your doctor if you have ever had: ?? breathing problems, sleep apnea; ?? liver disease; ?? a drug or alcohol addiction; ?? kidney disease; ?? a head injury or seizures; ?? urination problems; or ?? problems with your thyroid, pancreas, or gallbladder. If you use opioid medicine while you are , your baby could become dependent on the drug. This can cause life-threatening withdrawal symptoms in the baby after it is born. Babies born dependent on opioids may need medical treatment for several weeks. Ask a doctor before using opioid medicine if you are . Tell your doctor if you notice severe drowsiness or slow breathing in the nursing baby. How should I take acetaminophen and oxycodone? Follow all directions on your prescription label. Never take this medicine in larger amounts, or for longer than prescribed. An overdose can damage your liver or cause . Tell your doctor if you feel an increased urge to use more of this medicine. Never share opioid medicine with another person, especially someone with a history of drug abuse or addiction. MISUSE CAN CAUSE ADDICTION, OVERDOSE, OR . Keep the medicine in a place where others cannot get to it. Selling or giving away opioid medicine is against the law. Measure liquid medicine carefully. Use the dosing syringe provided, or use a medicine dose-measuring device (not a kitchen spoon). If you need surgery or medical tests, tell the doctor ahead of time that you are using this medicine. You should not stop using this medicine suddenly. Follow your doctor's instructions about tapering your dose. Store at room temperature away from moisture and heat. Keep track of your medicine. You should be aware if anyone is using it improperly or without a prescription. Do not keep leftover opioid medication. Just one dose can cause in someone using this medicine accidentally or improperly. Ask your pharmacist where to locate a drug take-back disposal program. If there is no take-back program, flush the unused medicine down the toilet. What happens if I miss a dose? Since this medicine is used for pain, you are not likely to miss a dose. Skip any missed dose if it is almost time for your next dose. Do not use two doses at one time. What happens if I overdose? Seek emergency medical attention or call the Poison Help line at . An overdose of this medicine can be fatal, especially in a child or other person using the medicine without a prescription. Overdose symptoms may include nausea, vomiting, sweating, severe drowsiness, pinpoint pupils, slow breathing, or no breathing. Your doctor may recommend you get naloxone (a medicine to reverse an opioid overdose) and keep it with you at all times. A person caring for you can give the naloxone if you stop breathing or don't wake up. Your caregiver must still get emergency medical help and may need to perform CPR (cardiopulmonary resuscitation) on you while waiting for help to arrive. Anyone can buy naloxone from a pharmacy or local health department. Make sure any person caring for you knows where you keep naloxone and how to use it. What should I avoid while taking acetaminophen and oxycodone? Avoid driving or operating machinery until you know how this medicine will affect you. Dizziness or drowsiness can cause falls, accidents, or severe injuries. Do not drink alcohol. Dangerous side effects or could occur. Ask a doctor or pharmacist before using any other medicine that may contain acetaminophen (sometimes abbreviated as APAP). Taking certain medications together can lead to a fatal overdose. What are the possible side effects of acetaminophen and oxycodone? Get emergency medical help if you have signs of an allergic reaction: hives; difficulty breathing; swelling of your face, lips, tongue, or throat. Opioid medicine can slow or stop your breathing, and may occur. A person caring for you should give naloxone and/or seek emergency medical attention if you have slow breathing with long pauses, blue colored lips, or if you are hard to wake up. In rare cases, acetaminophen may cause a severe skin reaction that can be fatal. This could occur even if you have taken acetaminophen in the past and had no reaction. Stop taking this medicine and call your doctor right away if you have skin redness or a rash that spreads and causes blistering and peeling. Call your doctor at once if you have: ?? noisy breathing, sighing, shallow breathing, breathing that stops; ?? a light-headed feeling, like you might pass out; ?? weakness, tiredness, fever, unusual bruising or bleeding; ?? confusion, unusual thoughts or behavior; ?? problems with urination; ?? liver problems--nausea, upper stomach pain, tiredness, loss of appetite, dark urine, perla-colored stools, jaundice (yellowing of the skin or eyes); ?? low cortisol levels-- nausea, vomiting, loss of appetite, dizziness, worsening tiredness or weakness; or ?? high levels of serotonin in the body--agitation, hallucinations, fever, sweating, shivering, fast heart rate, muscle stiffness, twitching, loss of coordination, nausea, vomiting, diarrhea. Serious breathing problems may be more likely in older adults and in those who are debilitated or have wasting syndrome or chronic breathing disorders. Common side effects include: ?? dizziness, drowsiness, feeling tired; ?? feelings of extreme happiness or sadness; ?? nausea, vomiting, stomach pain; ?? constipation; or ?? headache. This is not a complete list of side effects and others may occur. Call your doctor for medical advice about side effects. You may report side effects to FDA at 2-876-QYV-3333. What other drugs will affect acetaminophen and oxycodone? You may have breathing problems or withdrawal symptoms if you start or stop taking certain other medicines. Tell your doctor if you also use an antibiotic, antifungal medication, heart or blood pressure medication, seizure medication, or medicine to treat HIV or hepatitis C. Opioid medication can interact with many other drugs and cause dangerous side effects or . Be sure your doctor knows if you also use: ?? cold or allergy medicines, bronchodilator asthma/COPD medication, or a diuretic ('water pill'); ?? medicines for motion sickness, irritable bowel syndrome, or overactive bladder; ?? other opioids--opioid pain medicine or prescription cough medicine; ?? a sedative like Valium--diazepam, alprazolam, lorazepam, Xanax, Klonopin, Versed, and others; ?? drugs that make you sleepy or slow your breathing--a sleeping pill, muscle relaxer, medicine to treat mood disorders or mental illness; ?? drugs that affect serotonin levels in your body--a stimulant, or medicine for depression, Parkinson's disease, migraine headaches, serious infections, or nausea and vomiting. This list is not complete. Other drugs may affect acetaminophen and oxycodone, including prescription and pnqz-tpc-ndvykhe medicines, vitamins, and herbal products. Not all possible interactions are listed here. Where can I get more information? Your doctor or pharmacist can provide more information about acetaminophen and oxycodone. Remember, keep this and all other medicines out of the reach of children, never share your medicines with others, and use this medication only for the indication prescribed. Every effort has been made to ensure that the information provided by [employer]. [employer]') is accurate, up-to-date, and complete, but no guarantee is made to that effect. Drug information contained herein may be time sensitive. [employer] information has been compiled for use by healthcare practitioners and consumers in the [place] and therefore [employer] does not warrant that uses outside of the [place] are appropriate, unless specifically indicated otherwise. [employer] drug information does not endorse drugs, diagnose patients or recommend therapy. [employer] drug information is an informational resource designed to assist licensed healthcare practitioners in caring for their patients and/or to serve consumers viewing this service as a supplement to, and not a substitute for, the expertise, skill, knowledge and judgment of healthcare practitioners. The absence of a warning for a given drug or drug combination in no way should be construed to indicate that the drug or drug combination is safe, effective or appropriate for any given patient. [employer] does not assume any responsibility for any aspect of healthcare administered with the aid of information [employer] provides. The information contained herein is not intended to cover all possible uses, directions, precautions, warnings, drug interactions, allergic reactions, or adverse effects. If you have questions about the drugs you are taking, check with your doctor, nurse or pharmacist. Copyright 7682-3193 [employer]. Version: .. Revision Date: 11/25/2020. ondansetron (oral) (on PRIYA se cathryn) Qing Longo Zuplenz What is the most important information I should know about ondansetron? You should not use ondansetron if you are also using apomorphine (Apokyn). What is ondansetron? Ondansetron blocks the actions of chemicals in the body that can trigger nausea and vomiting. Ondansetron is used to prevent nausea and vomiting that may be caused by surgery, cancer chemotherapy, or radiation treatment. Ondansetron may be used for purposes not listed in this medication guide. What should I discuss with my health care provider before taking ondansetron? You should not use ondansetron if: ?? you are also using apomorphine (Apokyn); or ?? you are allergic to ondansetron or similar medicines (dolasetron, granisetron, palonosetron). To make sure ondansetron is safe for you, tell your doctor if you have: ?? liver disease; ?? an electrolyte imbalance (such as low levels of potassium or magnesium in your blood); ?? congestive heart failure, slow heartbeats; ?? a personal or family history of long QT syndrome; or ?? a blockage in your digestive tract (stomach or intestines). Ondansetron is not expected to harm an unborn baby. Tell your doctor if you are . It is not known whether ondansetron passes into breast milk or if it could harm a nursing baby. Tell your doctor if you are breast-feeding a baby. Ondansetron is not approved for use by anyone younger than 4 years old. Ondansetron orally disintegrating tablets may contain phenylalanine. Tell your doctor if you have phenylketonuria (PKU). How should I take ondansetron? Follow all directions on your prescription label. Do not take this medicine in larger or smaller amounts or for longer than recommended. Ondansetron can be taken with or without food. The first dose of ondansetron is usually taken before the start of your surgery, chemotherapy, or radiation treatment. Follow your doctor's dosing instructions very carefully. Take the ondansetron regular tablet with a full glass of water. To take the orally disintegrating tablet (Zofran ODT): ?? Keep the tablet in its blister pack until you are ready to take it. Open the package and peel back the foil. Do not push a tablet through the foil or you may damage the tablet. ?? Use dry hands to remove the tablet and place it in your mouth. ?? Do not swallow the tablet whole. Allow it to dissolve in your mouth without chewing. ?? Swallow several times as the tablet dissolves. To use ondansetron oral soluble film (strip) (Zharitha): ?? Keep the strip in the foil pouch until you are ready to use the medicine. ?? Using dry hands, remove the strip and place it on your tongue. It will begin to dissolve right away. ?? Do not swallow the strip whole. Allow it to dissolve in your mouth without chewing. ?? Swallow several times after the strip dissolves. If desired, you may drink liquid to help swallow the dissolved strip. ?? Wash your hands after using Zuplenz. Measure liquid medicine with the dosing syringe provided, or with a special dose-measuring spoon or medicine cup. If you do not have a dose-measuring device, ask your pharmacist for one. Store at room temperature away from moisture, heat, and light. Store liquid medicine in an upright position. What happens if I miss a dose? Take the missed dose as soon as you remember. Skip the missed dose if it is almost time for your next scheduled dose. Do not take extra medicine to make up the missed dose. What happens if I overdose? Seek emergency medical attention or call the Poison Help line at . Overdose symptoms may include sudden loss of vision, severe constipation, feeling light-headed, or fainting. What should I avoid while taking ondansetron? Ondansetron may impair your thinking or reactions. Be careful if you drive or do anything that requires you to be alert. What are the possible side effects of ondansetron? Get emergency medical help if you have signs of an allergic reaction: rash, hives; fever, chills, difficult breathing; swelling of your face, lips, tongue, or throat. Call your doctor at once if you have: ?? severe constipation, stomach pain, or bloating; ?? headache with chest pain and severe dizziness, fainting, fast or pounding heartbeats; ?? fast or pounding heartbeats; ?? jaundice (yellowing of the skin or eyes); ?? blurred vision or temporary vision loss (lasting from only a few minutes to several hours); ?? high levels of serotonin in the body--agitation, hallucinations, fever, fast heart rate, overactive reflexes, nausea, vomiting, diarrhea, loss of coordination, fainting. Common side effects may include: ?? diarrhea or constipation; ?? headache; ?? drowsiness; or ?? tired feeling. This is not a complete list of side effects and others may occur. Call your doctor for medical advice about side effects. You may report side effects to FDA at 8-736-KYI-8010. What other drugs will affect ondansetron? Ondansetron can cause a serious heart problem, especially if you use certain medicines at the same time, including antibiotics, antidepressants, heart rhythm medicine, antipsychotic medicines, and medicines to treat cancer, malaria, HIV or AIDS. Tell your doctor about all medicines you use, and those you start or stop using during your treatment with ondansetron. Taking ondansetron while you are using certain other medicines can cause high levels of serotonin to build up in your body, a condition called 'serotonin syndrome,' which can be fatal. Tell your doctor if you also use: ?? medicine to treat depression; ?? medicine to treat a psychiatric disorder; ?? a narcotic (opioid) medication; or ?? medicine to prevent nausea and vomiting. This list is not complete and many other drugs can interact with ondansetron. This includes prescription and muux-nww-yubkurm medicines, vitamins, and herbal products. Give a list of all your medicines to any healthcare provider who treats you. Where can I get more information? Your pharmacist can provide more information about ondansetron. Remember, keep this and all other medicines out of the reach of children, never share your medicines with others, and use this medication only for the indication prescribed. Every effort has been made to ensure that the information provided by [employer]. ('[employer] is accurate, up-to-date, and complete, but no guarantee is made to that effect. Drug information contained herein may be time sensitive. [employer] information has been compiled for use by healthcare practitioners and consumers in the [place] and therefore [employer] does not warrant that uses outside of the [place] are appropriate, unless specifically indicated otherwise. [employer]'s drug information does not endorse drugs, diagnose patients or recommend therapy. [employer] drug information is an informational resource designed to assist licensed healthcare practitioners in caring for their patients and/or to serve consumers viewing this service as a supplement to, and not a substitute for, the expertise, skill, knowledge and judgment of healthcare practitioners. The absence of a warning for a given drug or drug combination in no way should be construed to indicate that the drug or drug combination is safe, effective or appropriate for any given patient. [employer] does not assume any responsibility for any aspect of healthcare administered with the aid of information [employer] provides. The information contained herein is not intended to cover all possible uses, directions, precautions, warnings, drug interactions, allergic reactions, or adverse effects. If you have questions about the drugs you are taking, check with your doctor, nurse or pharmacist. Copyright 7478-9998 [employer]. Version: 13.01. Revision Date: 08/10/2016. aspirin (oral) ( pir in) Arthritis Pain, Aspi-Cor, Aspir-Low, Moy Plus, Durlaza, Ecotrin, Miniprin, Vazalore What is the most important information I should know about aspirin? Aspirin can cause Nina's syndrome, a serious and sometimes fatal condition in children. What is aspirin? Aspirin is a salicylate (bq-ZMZ-rd-ate) that is used to treat pain, and reduce fever or inflammation. Aspirin is sometimes used to treat or prevent heart attacks, strokes, and chest pain (angina). Aspirin should be used for these conditions only under the supervision of a doctor. Aspirin may also be used for purposes not listed in this medication guide. What should I discuss with my healthcare provider before taking aspirin? Using aspirin in a child or teenager with flu symptoms or chickenpox can cause a serious or fatal condition called Nina's syndrome. You should not use aspirin if you are allergic to it, or if you have: ?? a recent history of stomach or intestinal bleeding; ?? a bleeding disorder such as hemophilia; or ?? if you have ever had an asthma attack or severe allergic reaction after taking aspirin or an NSAID (non-steroidal anti-inflammatory drug). Tell your doctor if you have ever had: ?? asthma or seasonal allergies; ?? stomach ulcers; ?? liver disease; ?? kidney disease; ?? a bleeding or blood clotting disorder; ?? gout; or ?? heart disease, high blood pressure, or congestive heart failure. Taking aspirin during late may cause bleeding in the mother or the baby during delivery. Tell your doctor if you are or plan to become . You should not breastfeed while using this medicine. How should I take aspirin? Use exactly as directed on the label, or as prescribed by your doctor. Always follow directions on the medicine label about giving aspirin to a child. Take with food if aspirin upsets your stomach. You must chew the chewable tablet before you swallow it. Do not crush, chew, break, or open an enteric-coated or delayed/extended-release pill. Swallow it whole. Tell your doctor if you have a planned surgery. Store at room temperature away from moisture and heat. Do not use aspirin if you smell a strong vinegar odor in the aspirin bottle. The medicine may no longer be effective. What happens if I miss a dose? Aspirin is used when needed. If you are on a dosing schedule, skip any missed dose. Do not use two doses at one time. What happens if I overdose? Seek emergency medical attention or call the Poison Help line at . Overdose may cause stomach pain, vomiting, diarrhea, vision or hearing problems, fast or slow breathing, or confusion. What should I avoid while taking aspirin? Avoid alcohol. Heavy drinking can increase your risk of stomach bleeding. Avoid taking ibuprofen if you take aspirin to prevent stroke or heart attack. Ibuprofen can make aspirin less effective in protecting your heart and blood vessels. Ask your doctor how far apart your doses should be. Ask a doctor or pharmacist before using other medicines for pain, fever, swelling, or cold/flu symptoms. They may contain ingredients similar to aspirin (such as magnesium salicylate, ibuprofen, ketoprofen, or naproxen). What are the possible side effects of aspirin? Get emergency medical help if you have signs of an allergic reaction: hives; difficult breathing; swelling of your face, lips, tongue, or throat. Stop using aspirin and call your doctor at once if you have: ?? ringing in your ears, confusion, hallucinations, rapid breathing, seizure (convulsions); ?? severe nausea, vomiting, or stomach pain; ?? bloody or tarry stools, coughing up blood or vomit that looks like coffee grounds; ?? fever lasting longer than 3 days; or ?? swelling, or pain lasting longer than 10 days. Common side effects may include: ?? upset stomach, heartburn; ?? drowsiness; or ?? mild headache. This is not a complete list of side effects and others may occur. Call your doctor for medical advice about side effects. You may report side effects to FDA at 1-576-MFZ-7569. What other drugs will affect aspirin? Ask your doctor before using aspirin if you take an antidepressant. Taking certain antidepressants with aspirin may cause you to bruise or bleed easily. Ask a doctor or pharmacist before using aspirin with any other medications, especially: ?? a blood thinner (warfarin, Coumadin, Jantoven), or other medication used to prevent blood clots; or ?? other salicylates such as Nuprin Backache Caplet, Kaopectate, KneeRelief, Pamprin Cramp Formula, Pepto-Bismol, Tricosal, Trilisate, and others. This list is not complete. Other drugs may affect aspirin, including prescription and wegh-eht-xwvsidw medicines, vitamins, and herbal products. Not all possible drug interactions are listed here. Where can I get more information? Your pharmacist can provide more information about aspirin. Remember, keep this and all other medicines out of the reach of children, never share your medicines with others, and use this medication only for the indication prescribed. Every effort has been made to ensure that the information provided by [employer]') is accurate, up-to-date, and complete, but no guarantee is made to that effect. Drug information contained herein may be time sensitive. [employer] information has been compiled for use by healthcare practitioners and consumers in the [place] and therefore [employer] does not warrant that uses outside of the [place] are appropriate, unless specifically indicated otherwise. [employer] drug information does not endorse drugs, diagnose patients or recommend therapy. [employer] drug information is an informational resource designed to assist licensed healthcare practitioners in caring for their patients and/or to serve consumers viewing this service as a supplement to, and not a substitute for, the expertise, skill, knowledge and judgment of healthcare practitioners. The absence of a warning for a given drug or drug combination in no way should be construed to indicate that the drug or drug combination is safe, effective or appropriate for any given patient. [employer] does not assume any responsibility for any aspect of healthcare administered with the aid of information [employer] provides. The information contained herein is not intended to cover all possible uses, directions, precautions, warnings, drug interactions, allergic reactions, or adverse effects. If you have questions about the drugs you are taking, check with your doctor, nurse or pharmacist. Copyright 6112-5181 [employer]. Version: 16.03. Revision Date: 04/17/2021. meloxicam (oral/injection) (anh OKS i vance) Darian, Mobic, Qmiiz ODT, Vivlodex What is the most important information I should know about meloxicam? Meloxicam can increase your risk of fatal heart attack or stroke. Do not use this medicine just before or after heart bypass surgery (coronary artery bypass graft, or CABG). Meloxicam may also cause stomach or intestinal bleeding, which can be fatal. What is meloxicam? Meloxicam is a nonsteroidal anti-inflammatory drug (NSAID) that is used to treat osteoarthritis or rheumatoid arthritis in adults. Meloxicam is also used to treat juvenile rheumatoid arthritis in children who are at least 2 years old. The Anjeso brand of meloxicam is used to treat moderate to severe pain in adults. Vivlodex is for use only in adults. Qmiiz is for adults and children weighing at least 132 pounds (60 kilograms). Meloxicam may also be used for purposes not listed in this medication guide. What should I discuss with my healthcare provider before taking meloxicam? Meloxicam can increase your risk of fatal heart attack or stroke, even if you don't have any risk factors. Do not use this medicine just before or after heart bypass surgery (coronary artery bypass graft, or CABG). Meloxicam may also cause stomach or intestinal bleeding, which can be fatal. These conditions can occur without warning while you are using meloxicam, especially in older adults. You should not use meloxicam if you are allergic to it, or if you have ever had an asthma attack or severe allergic reaction after taking aspirin or an NSAID. You should not take meloxicam disintegrating tablets (Qmiiz ODT) if you have phenylketonuria (PKU). This form of meloxicam contains phenylalanine. Tell your doctor if you have ever had: ?? heart disease, high blood pressure, high cholesterol, diabetes, or if you smoke; ?? a heart attack, stroke, or blood clot; ?? ulcers or bleeding in your stomach; ?? asthma; ?? kidney disease (or if you are on dialysis); ?? liver disease; or ?? fluid retention. If you are , you should not take meloxicam unless your doctor tells you to. Taking an NSAID during the last 20 weeks of can cause serious heart or kidney problems in the unborn baby and possible complications with your . Meloxicam may cause a delay in ovulation (the release of an egg from an ovary). You should not take meloxicam if you are undergoing fertility treatment, or are otherwise trying to get . It may not be safe to breastfeed while using this medicine. Ask your doctor about any risk. Meloxicam is not approved for use by anyone younger than 2 years old. How should I take meloxicam? Follow all directions on your prescription label and read all medication guides. Use the lowest dose that is effective in treating your condition. Meloxicam oral is taken by mouth. Meloxicam injection is given as an infusion into a vein. A healthcare provider will give you this injection. You may take meloxicam oral with or without food. Remove an orally disintegrating tablet from the package only when you are ready to take the medicine. Place the tablet in your mouth and allow it to dissolve, without chewing. Swallow several times as the tablet dissolves. Your dose needs may change if you switch to a different brand, strength, or form of this medicine. Avoid medication errors by using only the form and strength your doctor prescribes. Meloxicam doses are based on weight (especially in children and teenagers). Your dose needs may change if you gain or lose weight. If you use this medicine long-term, you may need frequent medical tests. Store meloxicam tablets or capsules at room temperature, away from moisture and heat. Keep the bottle tightly closed when not in use. What happens if I miss a dose? Take the medicine as soon as you can, but skip the missed dose if it is almost time for your next dose. Do not take two doses at one time. What happens if I overdose? Seek emergency medical attention or call the Poison Help line at . What should I avoid while taking meloxicam? Avoid alcohol. Heavy drinking can increase your risk of stomach bleeding. Avoid taking aspirin while you are taking meloxicam, unless your doctor tells you to. Ask a doctor or pharmacist before using other medicines for pain, fever, swelling, or cold/flu symptoms. They may contain ingredients similar to meloxicam (such as aspirin, ibuprofen, ketoprofen, or naproxen). What are the possible side effects of meloxicam? Get emergency medical help if you have signs of an allergic reaction (hives, difficult breathing, swelling in your face or throat) or a severe skin reaction (fever, sore throat, burning eyes, skin pain, red or purple skin rash with blistering and peeling). Get emergency medical help if you have signs of a heart attack or stroke: chest pain spreading to your jaw or shoulder, sudden numbness or weakness on one side of the body, slurred speech, leg swelling, feeling short of breath. Stop using meloxicam and call your doctor at once if you have: ?? the first sign of any skin rash, no matter how mild; ?? shortness of breath (even with mild exertion); ?? swelling or rapid weight gain; ?? signs of stomach bleeding--bloody or tarry stools, coughing up blood or vomit that looks like coffee grounds; ?? liver problems--nausea, upper stomach pain, itching, tired feeling, flu-like symptoms, loss of appetite, dark urine, perla-colored stools, jaundice (yellowing of the skin or eyes); ?? low red blood cells (anemia)--pale skin, unusual tiredness, feeling light-headed, cold hands and feet; or ?? kidney problems--little or no urination, swelling in your feet or ankles, feeling tired or short of breath. Common side effects may include: ?? stomach pain, nausea, vomiting, heartburn; ?? diarrhea, constipation, gas; ?? dizziness; or ?? cold symptoms, flu symptoms. This is not a complete list of side effects and others may occur. Call your doctor for medical advice about side effects. You may report side effects to FDA at 4-881-EMT-8213. What other drugs will affect meloxicam? Ask your doctor before using meloxicam if you take an antidepressant. Taking certain antidepressants with an NSAID may cause you to bruise or bleed easily. Tell your doctor about all your other medicines, especially: ?? cyclosporine; ?? lithium; ?? methotrexate; ?? pemetrexed; ?? sodium polystyrene sulfonate (Kayexalate); ?? a blood thinner (warfarin, Coumadin, Jantoven); ?? heart or blood pressure medication, including a diuretic or 'water pill'; or ?? steroid medicine (such as prednisone). This list is not complete. Other drugs may affect meloxicam, including prescription and waks-nww-afoonnf medicines, vitamins, and herbal products. Not all possible drug interactions are listed here. Where can I get more information? Your pharmacist can provide more information about meloxicam. Remember, keep this and all other medicines out of the reach of children, never share your medicines with others, and use this medication only for the indication prescribed. Every effort has been made to ensure that the information provided by [employer]. ('[employer]') is accurate, up-to-date, and complete, but no guarantee is made to that effect. Drug information contained herein may be time sensitive. [employer] information has been compiled for use by healthcare practitioners and consumers in the [place] and therefore [employer] does not warrant that uses outside of the [place] are appropriate, unless specifically indicated otherwise. [employer] drug information does not endorse drugs, diagnose patients or recommend therapy. [employer] drug information is an informational resource designed to assist licensed healthcare practitioners in caring for their patients and/or to serve consumers viewing this service as a supplement to, and not a substitute for, the expertise, skill, knowledge and judgment of healthcare practitioners. The absence of a warning for a given drug or drug combination in no way should be construed to indicate that the drug or drug combination is safe, effective or appropriate for any given patient. [employer] does not assume any responsibility for any aspect of healthcare administered with the aid of information [employer] provides. The information contained herein is not intended to cover all possible uses, directions, precautions, warnings, drug interactions, allergic reactions, or adverse effects. If you have questions about the drugs you are taking, check with your doctor, nurse or pharmacist. Copyright 8384-6954 [employer]. Version: 14.. Revision Date: 08/23/2020. Emergency Awareness and Preventative Care STROKE is an EMERGENCY Every Minute Counts Act FAST and Check for these signs: FACE Does the face look uneven? ARM Does one arm drift down? SPEECH Does their speech sound strange? TIME Call at any sign of stroke Stroke Risk Factors Atrial Fibrillation (irregular heartbeat) Diabetes Family history of stroke Heart Disease Heavy alcohol use High Blood Pressure High Cholesterol Physical inactivity and obesity Smoking Cigarette Smoking The facts are clear, cigarette smoking will shorten your life. Smoking can cause many illnesses along the way. As a healthcare provider, we recommend that you stop smoking. Assistance with quitting is available by contacting 3-159-HDYG-NOW. This is a free resource providing counseling, support, and referral. Or you may contact your personal physician. National Suicide Prevention Lifeline: The National Suicide Prevention Lifeline is a national network of local crisis centers that provides free and confidential emotional support to people in suicidal crisis or emotional distress 24 hours a day, 7 days a week. Don't Wait! Stop a Heart Attack Before it Starts What is a heart attack? A heart attack is damage or to a part of the heart from severely decreased or lack of blood flow to the heart. Over time, arteries can become narrow from the buildup of fat and cholesterol, which is called plaque. The plaque can rupture causing a blood clot to form. When the blood clot forms, the artery can become severely narrowed or completely blocked, causing a heart attack. Heart attack is the leading cause of in the [place]. 85% of muscle damage occurs within the first 2 hours. Delay in the recognition of heart attack symptoms increases the chances of . Know the early symptoms of a heart attack: Nausea Feeling of fullness in chest Jaw Pain Pain that travels down one or both arms Fatigue/being tired Anxiety Back Pain Chest pressure, squeezing, or discomfort Shortness of breath Sweating, or a cold sweat Feeling of impending doom There are unusual signs of a heart attack, too! Women, the elderly, and diabetics may present with atypical symptoms: Fainting/dizziness Weakness Confusion Risk Factors for a Heart Attack Some heart disease risk factors, such as age and family history, cannot be changed. Others, like smoking and lack of exercise, can be changed. Smoking High Cholesterol High Blood Pressure Family History Obesity Age Gender (Males are at higher risk) Lack of Exercise Diabetes Diet Stress Excessive Alcohol Intake If you or someone you know is experiencing the signs and symptoms of a heart attack, DON???T DELAY. Call immediately and seek help. If someone collapses, perform CPR! Do not attempt to drive if you are having symptoms of heart attack. Hands-Only CPR Why Hands-Only CPR? Hands-Only CPR has been shown to be as effective as conventional CPR for cardiac arrests that occur outside of a hospital. Survival depends on immediately receiving CPR from someone nearby. How do you perform Hands-Only CPR? There are two easy steps: Call if you see a teen or adult collapse Push hard and fast in the center of the chest at a beat of 100 beats per minute. Save a life! 4 WAYS TO GET AHEAD OF SEPSIS SEPSIS is a MEDICAL EMERGENCY. Time matters! Infections put you and your family at risk for a life-threatening condition called sepsis. Sepsis is the body's extreme response to an infection. It is life-threatening, and without timely treatment, sepsis can rapidly lead to tissue damage, organ failure, and . Sepsis happens when an infection you already have-in your skin, lungs, urinary tract or somewhere else-triggers a chain reaction throughout your body. 1 PREVENT INFECTIONS Take good care of chronic conditions. Talk to your doctor about getting the recommended vaccines. 2 PRACTICE GOOD HYGIENE Wash your hands frequently. Keep cuts or open sores clean and covered until they are healed. 3 KNOW THE SYMPTOMS Confusion or disorientation Shortness of breath High heart rate Fever, shivering, or feeling very cold Extreme pain or discomfort Clammy or sweaty skin 4 ACT FAST Get medical care IMMEDIATELY if you suspect sepsis or if you have an infection that is not getting better or is getting worse. To learn more about sepsis and how to prevent infections, visit www.cdc.gov/sepsis. Test Results Laboratory or Other Results This Visit (last charted value for your 09/20/2021 visit) Hematology 09/21/2021 3:26 AM WBC: 13.4 K/uL -- Normal range between ( 4.5 and 10.5 ) RBC: 3.01 Million/uL -- Normal range between ( 3.93 and 5.22 ) Hct: 29.0 % -- Normal range between ( 34.1 and 44.9 ) Hgb: 9.0 g/dL -- Normal range between ( 11.2 and 15.7 ) Platelet Count: 288 K/uL -- Normal range between ( 163 and 369 ) MCH: 29.9 pg -- Normal range between ( 25.6 and 32.2 ) MCHC: 31.0 Gram/dL -- Normal range between ( 32.2 and 36.5 ) documented in this encounter Plan of Treatment Not on file documented as of this encounter Visit Diagnoses Not on filedocumented in this encounter
--- OUTSIDE RECORDS SUMMARY | 2025-05-20 16:03 | XMS_ITS | Encounter Summary ---
Author Organization [employer] ([place], [place], [place], [place]) Address [address] [place] [address] Care Team Providers Care Lead Data Entry Operator Name Role Phone Unavailable Primary Care Provider Unavailabl e Encounter Details Date Type Department Care Team (Late st Contact Info) Description 09/21/2021 Transcribed Document [facility] [place] [address] [place] [address] ProviderInes MD [address] [place] [address] Social History Tobacco Use Types [...] Conversion Note - Historical ProviderMD - 09/21/2021 2:44 PM JUDGE CLERK Spiritual Care Assessment Entered On: 09/21/2021 18:02 EST Performed On: 09/21/2021 14:44 EST by Derrek Saldana Chaplain General Information Referred by : initiated Ministry Provided to : Patient Derrek Saldana Chaplain - 09/21/2021 18:02 EST Spiritual Assessment Spiritual Assessment Comment/Summary Points : Follow-up visit with patient at bedside prior to discharge. Continued support provided. Spirital Assessment Comment/Summary Report : SPIRITUAL ASSESSMENT COMMENT/SUMMARY Spiritual Assessment Comment/Summary 09/20/21 17:04:00 Supportive visit with patient at bedside. Signed By: Derrek Saldana Chaplain Spiritual Assessment Comment/Summary 09/20/21 06:45:00 Provided pre-surgery visit and prayer with patient and . Signed By: DIEUDONNE MORALES Fred M, Chaplain - 09/21/2021 18:02 EST Interventions Emotional Support : Empathic/Engaged listening Spiritual and Spiritism : Spiritual/Spiritism support provided Derrek Saldana Chaplain - 09/21/2021 18:02 EST Electronically signed by Liset [facility] Conversion Fuse Assembler Cerner at 02/04/2023 12:17 PM CDT documented in this encounter Plan of Treatment Not on file documented as of this encounter Visit Diagnoses Not on filedocumented in this encounter
--- OUTSIDE RECORDS SUMMARY | 2025-05-20 16:03 | XMS_ITS | Encounter Summary ---
Author Organization [employer] ([place], [place], [place], [place]) Address [address] [place] [id number] Care Team Providers Care Hand Screen Printer Name Role Phone Unavailable Primary Care Provider Unavailabl e Encounter Details Date Type Department Care Team (Late st Contact Info) Description 09/21/2021 Transcribed Document [facility] [place] [address] [place] [address] ProviderInes MD [address] [place] [address] Social History Tobacco Use Types [...] Conversion Note - Ines ProviderMD - 09/21/2021 3:15 PM SACK SEWER MACHINE Final Discharge Planning Entered On: 09/21/2021 15:15 EST Performed On: 09/21/2021 15:15 EST by FERNIE MACE RN-C Python Developer Final Discharge Planning Discharge Arrangements : Patient Post-Acute Information Patient Name: PINKY REID Gender: Female : [birth year] Age: 66 Years [place] Referral(s): Service: Organization: Business Address: Phone Number: Home Care Physician Services [facility] - [address], [address], [place], [place], [address] Patient Offered Choice/Affiliations Explained : Yes Designation of Choice Signed : Yes Important Medicare Message Reviewed With : Other: Outpatient Transportation Needs : Car Follow Up Appointment Scheduled : Yes Is Patient High/Moderate Readmission Risk? : No Patient/Family Notified of Plan : Yes Is Patient Ready for Discharge? : Yes Physician Notified Patient is Ready for Discharge? : Yes Discharge To Care Management : Home Health Services (Related/SOC within 3 days)-06 FERNIE MACE RN-C Python Developer - 09/21/2021 15:15 EST Electronically signed by Liset [facility] Conversion Diet Supervisor Cerner at 02/04/2023 12:20 PM CDT documented in this encounter Plan of Treatment Not on file documented as of this encounter Visit Diagnoses Not on filedocumented in this encounter
--- OUTSIDE RECORDS SUMMARY | 2025-05-20 16:03 | XMS_ITS | Encounter Summary ---
Author Organization [employer] ([place], [place], [place], [place]) Address [address] [place] [address] Care Team Providers Care Certified Medical Coder Name Role Phone Unavailable Primary Care Provider Unavailabl e Encounter Details Date Type Department Care Team (Late st Contact Info) Description 09/20/2021 Transcribed Document [facility] [place] [address] [place] [address] ProviderInes MD [address] [place] [address] Social History Tobacco Use Types [...] Conversion Note - Historical ProviderMD - 09/20/2021 10:45 AM POWER BRAKE OPERATOR Meds to Bed Enrollment Entered On: 09/20/2021 10:52 EST Performed On: 09/20/2021 10:45 EST by Bret Plummer Risk Advisor Cert Lead Meds to Bed Enrollment Patient Enrollment Decision: : Yes/enroll in meds to bed program Bret Plummer Risk Advisor Cert Lead - 09/20/2021 10:52 EST documented in this encounter Plan of Treatment Not on file documented as of this encounter Visit Diagnoses Not on filedocumented in this encounter
--- OUTSIDE RECORDS SUMMARY | 2025-05-20 16:03 | XMS_ITS | Encounter Summary ---
Author Organization [employer] ([place], [place], [place], [place]) Address [address] [place] [address] Care Team Providers Care Postage Machine Operator Name Role Phone Unavailable Primary Care Provider Unavailabl e Encounter Details Date Type Department Care Team (Late st Contact Info) Description 09/20/2021 Transcribed Document [facility] [place] [address] [place] [address] ProviderInes MD [address] [place] [address] Social History Tobacco Use Types [...] Conversion Note - Ines ProviderMD - 09/20/2021 5:04 PM GREASE REMOVER Spiritual Care Assessment Entered On: 09/20/2021 17:45 EST Performed On: 09/20/2021 17:04 EST by Derrek Saldana Chaplain General Information Referred by : initiated Ministry Provided to : Patient Derrek Saldana Chaplain - 09/20/2021 17:45 EST Spiritual Assessment Spiritual Assessment Comment/Summary Points : Supportive visit with patient at bedside. Spirital Assessment Comment/Summary Report : SPIRITUAL ASSESSMENT COMMENT/SUMMARY Spiritual Assessment Comment/Summary 09/20/21 06:45:00 Provided pre-surgery visit and prayer with patient and . Signed By: DIEUDONNE MORALES Fred M, Chaplain - 09/20/2021 17:45 EST Interventions Emotional Support : Empathic/Engaged listening Spiritual and Mosque : Spiritual/Mosque support provided Derrek Saldana Chaplain - 09/20/2021 17:45 EST Electronically signed by [facility] Conversion Environmental Air Specialist Cerner at 02/04/2023 12:38 PM CDT documented in this encounter Plan of Treatment Not on file documented as of this encounter Visit Diagnoses Not on filedocumented in this encounter
--- OUTSIDE RECORDS SUMMARY | 2025-05-20 16:03 | XMS_ITS | Encounter Summary ---
Author Organization [employer] ([place], [place], [place], [place]) Address [address] [place] [address] Care Team Providers Care Ocean Export Account Manager Name Role Phone Unavailable Primary Care Provider Unavailabl e Encounter Details Date Type Department Care Team (Late st Contact Info) Description 09/21/2021 Transcribed Document [facility] [place] [address] [place] [address] ProviderInes MD [address] [place] [address] Social History Tobacco Use Types [...] Conversion Note - Historical ProviderMD - 09/21/2021 11:51 AM TECHNICAL ASSISTANT Discharge Summary, PT Entered On: 09/21/2021 11:51 EST Performed On: 09/21/2021 11:51 EST by EDGARD BUENO PT Discharge Summary Discharge Summary Provider Notified : Nursing, Referring provider Reason for Discharge : Discharged from hospital, All goals met Discharge Summary Comment, PT : Pt has met 3/3 goals for physical therapy and is appropriate for discharge from acute care therapy services. Pt performs all bed mobility and transfers with SBA-modified independent, and is ambulatory x 150ft with RWx and SBA. Pt has successfully navigated a single step with RWx and CGA. Pt has successfully participated in post-op HEP for anterior HALEY and was issued written exercises instructions for continued strengthening at discharge. EDGARD BUENO PT - 09/21/2021 11:51 EST Electronically signed by [facility] Conversion Certified Home Health Aide Cerner at 02/04/2023 12:20 PM CDT documented in this encounter Plan of Treatment Not on file documented as of this encounter Visit Diagnoses Not on filedocumented in this encounter
--- OUTSIDE RECORDS SUMMARY | 2025-05-20 16:03 | XMS_ITS | Encounter Summary ---
Author Organization [employer] ([place], [place], [place]) Address [address] [place] [address] Care Team Providers Care Homemaker Companion Name Role Phone Unavailable Primary Care Provider Unavailabl e Encounter Details Date Type Department Care Team (Late st Contact Info) Description 09/21/2021 Transcribed Document [facility] [place] [address] [place] [address] ProviderInes MD [address] [place] [address] Social History Tobacco Use Types [...] Conversion Note - Historical ProviderMD - 09/21/2021 12:00 PM MANUFACTURING MAINTENANCE MECHANIC Pain Assessment Entered On: 09/21/2021 16:07 EST Performed On: 09/21/2021 12:54 EST by Hue Lopez RN Intervention Information: acetaminophen Performed by Hue Lopez RN on 09/21/2021 11:54:00 EST acetaminophen,1000mg Oral Pain Assessment Pain Assessment : Follow-up assessment Pain Scale Goal : 3 Pain Scale Used : 0-10 Scale Location : Hip, left Onset : Acute Quality : Aching Pain Radiation : No Pain Worsened by : Movement Pain Improved by Intervention : Yes Hue Lopez RN - 09/21/2021 16:06 EST Pain Scale Intensity : 3 Hue Lopez RN - 09/21/2021 16:06 EST Image 4 - Images currently included in the form version of this document have not been included in the text rendition version of the form. Electronically signed by Liset, Penelope Conversion Adjunct Business Instructor Cerner at 02/04/2023 12:43 PM CDT documented in this encounter Plan of Treatment Not on file documented as of this encounter Visit Diagnoses Not on filedocumented in this encounter
--- OUTSIDE RECORDS SUMMARY | 2025-05-20 16:03 | XMS_ITS | Encounter Summary ---
Author Organization [employer] ([place], [place], [place], [place]) Address [address] [place] [address] Care Team Providers Care Regional Engagement Consultant Name Role Phone Unavailable Primary Care Provider Unavailabl e Encounter Details Date Type Department Care Team (Late st Contact Info) Description 09/20/2021 Transcribed Document [facility] [place] Family Medicine [address] [place] [address] ProviderInes MD [address] [place] [address] Social History Tobacco Use Types [...] Conversion Note - Historical ProviderMD - 09/20/2021 10:00 PM REFUELING RAMPMAN Pain Assessment Entered On: 09/21/2021 6:27 EST Performed On: 09/20/2021 21:00 EST by Gabby Mukherjee RN Intervention Information: ketorolac Performed by Gabby Mukherjee RN on 09/20/2021 20:30:00 EST ketorolac,15mg IV Push,Forearm Right Pain Assessment Pain Assessment : Follow-up assessment Pain Scale Goal : 3 Pain Scale Used : 0-10 Scale Opioid Adverse Effects : Not applicable Pain Improved by Intervention : Yes Gabby Mukherjee RN - 09/21/2021 6:26 EST Pain Scale Intensity : 2 Gabby Mukherjee RN - 09/21/2021 6:26 EST Image 4 - Images currently included in the form version of this document have not been included in the text rendition version of the form. documented in this encounter Plan of Treatment Not on file documented as of this encounter Visit Diagnoses Not on filedocumented in this encounter
--- OUTSIDE RECORDS SUMMARY | 2025-05-20 16:03 | XMS_ITS | Encounter Summary ---
Author Organization [employer] ([place], [place], [place], [place]) Address [address] [place] [address] Care Team Providers Care Cable Layer Name Role Phone Unavailable Primary Care Provider Unavailabl e Encounter Details Date Type Department Care Team (Late st Contact Info) Description 09/20/2021 Transcribed Document [facility] [place] Family Medicine [address] [place] [address] ProviderInes MD [address] [place] [address] Social History Tobacco Use Types [...] Conversion Note - Ines ProviderMD - 09/20/2021 10:50 AM UPPER EXTREMITY SURGEON Evaluation, Occupational Therapy Entered On: 09/20/2021 16:24 EST Performed On: 09/20/2021 14:56 EST by MADONNA CUETO OTR/L General Information, OT Visit Type, OT : Initial evaluation Patient Orders : Order Date Order Ordering 09/20/2021 10:50 OT Evaluation and Treatment Ordered By: TIMO BLAKE MD-ORT 09/20/2021 10:50 OT Treatment Instructions Ordered By: TIMO BLAKE MD-ORT Active Diagnoses : No Qualifying Diagnoses Therapy Diagnosis, OT : Decreased weakness s/p L anterior HALEY Admission Date : 09/20/2021 06:33 Co-treated by, OT : Physical Therapist Personal Devices : Personal Devices No Devices Recorded Assistive Devices : Assistive Devices No Devices Recorded General Information Comment, OT : S/P L anterior HALEY MADONNA CUETO OTR/Yoanna - 09/20/2021 16:23 EST General Status Treatment Start Time : 09/20/2021 14:38 EST Patient Left Status : Up in chair, All needs met and within reach RN/PCT Informed Comment : RN ok/d Treatment End Time : 09/20/2021 14:56 EST Treatment Time : 18 Minute(s) MADONNA CUETO OTR/Yoanna - 09/20/2021 16:24 EST Patient Received Status : Supine in bed MADONNA CUETO OTR/Yoanna - 09/20/2021 16:23 EST History and Environment, OT Living Situation, Therapy : Home Patient Lives With : Spouse Persons Assisting Patient at Home : Spouse Professional Skilled Services : None Persons Providing Information : Patient Home Equipment, Therapy : Walker Walker : Walker, front wheel Home Setup : One story Stairs : Yes Stair Location(s) : Outside Outside Stairs, Number of Steps : 2 Outside Stairs Comment : platform steps Railing Outside : No MADONNA CUETO OTR/Yoanna - 09/20/2021 16:24 EST Prior LOF Bathing, OT : Independent Prior LOF Bed Mobility : Independent Prior LOF Upper Body Dressing, OT : Independent Prior LOF Lower Body Dressing, OT : Independent Prior LOF Toileting : Independent Prior LOF Transfer : Independent Prior LOF Grooming, OT : Independent Prior LOF for IADLs, OT : Independent MADONNA CUETO OTR/Yoanna - 09/20/2021 16:24 EST Upper Extremity Right UE Active ROM : WFL Left UE Active ROM : WFL MADONNA CUETO OTR/Yoanna - 09/20/2021 16:24 EST Self Care/Home Management, OT Self Feeding Assist Level, OT : Supervision or set-up Grooming Assist Level, OT : Supervision or set-up Bathing Assist Level, OT : Assist, minimal Upper Body Dressing Assist Level, OT : Supervision or set-up Lower Body Dressing Assist Level, OT : Assist, minimal Toileting Assist Level : Assist, minimal Toilet Transfer Assist Level : Assist, minimal MADONNA CUETO OTR/Yoanna - 09/20/2021 16:24 EST Functional Mobility Mobility Grid Sit to Stand : Rehab Minimal assistance Bed to Chair : Rehab Minimal assistance Stand to Sit : Rehab Minimal assistance MADONNA CUETO OTR/L - 09/20/2021 16:24 EST Cognition Assessment, OT Orientation : Oriented x 4 MADONNA CUETO OTR/L - 09/20/2021 16:24 EST Indication Assessment, OT Occupational Therapy Indicated : Yes Problem List, OT : Impaired, endurance tolerance, Impaired functional mobility, Impaired, strength, Impaired, transfers Potential Barriers, OT : None evident Rehabilitation Potential, OT : Good NORYMADONNA OTR/L - 09/20/2021 16:24 EST Plan of Care, OT OT Tx Plan/Goals Established w Patient : Yes OT Frequency Rehab : Five days per week OT Duration Rehab : Fourteen days OT Treatments Planned : Activities of daily living, Functional mobility training, Safety education, Therapeutic activities MADONNA CUETO OTR/L - 09/20/2021 16:24 EST Prison Goals, OT Grooming LTG Grid Goal #1 Activity : Grooming Assist : Independent, modified Date to Meet : 10/04/2021 EST Goal Status : Initial goal MADONNA CUETO OTR/L - 09/20/2021 16:24 EST Bathing LTG Grid Goal #1 Activity : Bathing Assist : Independent, modified Date to Meet : 10/04/2021 EST Goal Status : Initial goal MADONNA CUETO OTR/L - 09/20/2021 16:24 EST Dressing, Lower Body LTG Grid Goal #1 Activity : Dressing, Lower Body Assist : Independent, modified Date to Meet : 10/04/2021 EST Goal Status : Initial goal MADONNA CUETO OTR/L - 09/20/2021 16:24 EST Toileting LTG Grid Goal #1 Activity : Toileting (Comment: [MADONNA CUETO OTR/L - 09/20/2021 16:24 EST] ) Assist : Independent, modified Date to Meet : 10/04/2021 EST Goal Status : Initial goal MADONNA CUETO OTR/L - 09/20/2021 16:24 EST Toilet Transfer LTG Grid Goal #1 Activity : Toilet Transfer, Ambulatory Assist : Independent, modified Date to Meet : 10/04/2021 EST Goal Status : Initial goal MADONNA CUETO OTR/L - 09/20/2021 16:24 EST Treatment Note Subjective Comment : Pt was agreeable Patient's Response to Treatment : Pt tolerated eval Additional Objective Information : Pt was found lying supine in bed. Pt was mi nA for supine to sit, sit to stand, ambulation via RWX, tolieting, stand to sit. Pt was left sitting up in chair with all needs met, call light within reach. Assessment : Pt would benefit from OT services during hospitalization Plan for Treatment : See goals MADONNA CUETO OTR/L - 09/20/2021 16:24 EST Pain Assessment Pain Scaled Used : 0-10 Pain scale Pain Score Pre-Intervention : 5 MADONNA CUETO OTR/L - 09/20/2021 16:24 EST Image 1 - Images currently included in the form version of this document have not been included in the text rendition version of the form. Anticipated Discharge Needs, OT/PT Anticipated Discharge to : Home, with home health MADONNA CUETO OTR/L - 09/20/2021 16:[address] [facility] OT Charges OT Selfcare/Hm Mgmt Ea 15 Min : 1 OT Eval Moderate Complexity : 1 MADONNA CUETO OTR/L - 09/20/2021 16:24 EST documented in this encounter Plan of Treatment Not on file documented as of this encounter Visit Diagnoses Not on filedocumented in this encounter
--- OUTSIDE RECORDS SUMMARY | 2025-05-20 16:03 | XMS_ITS | Encounter Summary ---
Author Organization [employer] ([place], [place], [place], [place]) Address [address] [place] [address] Care Team Providers Care Color Tester Name Role Phone Unavailable Primary Care Provider Unavailabl e Encounter Details Date Type Department Care Team (Late st Contact Info) Description 09/20/2021 Transcribed Document [facility] [place] [address] [place] [address] ProviderInes MD [address] [place] [address] Social History Tobacco Use Types [...] Conversion Note - Historical ProviderMD - 09/20/2021 6:00 PM SHOP DIRECTOR Pain Assessment Entered On: 09/21/2021 6:26 EST Performed On: 09/20/2021 19:32 EST by Gabby Mukherjee RN Intervention Information: acetaminophen Performed by RONEN DAVE RN on 09/20/2021 18:32:00 EST acetaminophen,1000mg Oral Pain Assessment Pain Assessment : Follow-up assessment Pain Scale Goal : 3 Pain Scale Used : 0-10 Scale Onset : Acute Opioid Adverse Effects : Not applicable Pain [...]
--- OUTSIDE RECORDS SUMMARY | 2025-05-20 16:03 | XMS_ITS | Encounter Summary ---
Author Organization [employer] ([place], [place], [place], [place]) Address [address] [place] [address] Care Team Providers Care Financial Planning Assistant Name Role Phone Unavailable Primary Care Provider Unavailabl e Encounter Details Date Type Department Care Team (Late st Contact Info) Description 09/20/2021 Transcribed Document [facility] [place] [address] [place] [address] ProviderInes MD [address] [place] [address] Social History Tobacco Use Types [...] Conversion Note - Historical ProviderMD - 09/20/2021 6:32 AM CHILI POWDER MIXER Admission History, Adult Entered On: 09/20/2021 18:05 EST Performed On: 09/20/2021 6:32 EST by RONEN DAVE RN Advance Directive Patient has Advance Directive *Q : No, patient refuses Advance Directive information RONEN DAVE RN - 09/20/2021 18:03 EST Anesthesia/Transfusion History Family History of Anesthesia Reaction : No prior transfusion(s) Blood Transfusion Acceptable to Patient : Yes Transfusion History : Prior anesthesia without reaction Family History of Anesthesia Reaction : None RONEN DAVE RN - 09/20/2021 18:03 EST Anticipated Discharge Needs Discharge To, Anticipated : Home Anticipated Discharge Needs at This Time : Equipment, Outpatient follow-up, Physical Therapy RONEN DAVE RN - 09/20/2021 18:03 EST Education Topics, Admission Orientation DCP GENERIC CODE Advance Directives : Verbalizes understanding Allergy Band Applied : Verbalizes understanding Assessment/Vital Signs : Verbalizes understanding Bed Control : Verbalizes understanding Call Light : Verbalizes understanding Confidentiality : Verbalizes understanding Diet/Room Service : Verbalizes understanding Fall Prevention : Verbalizes understanding Hand Hygiene : Verbalizes understanding Healthcare Provider Visit : Verbalizes understanding ID Band Applied : Verbalizes understanding Isolation Precautions : Verbalizes understanding Orientation to Room/Bathroom : Verbalizes understanding Patient Bill of Rights : Verbalizes understanding Patient Rights/Responsibilities : Verbalizes understanding Patient Safety : Verbalizes understanding Personal Privacy Code : Verbalizes understanding Rapid Response Initiated by Patient/Family : Verbalizes understanding Rounding : Verbalizes understanding Siderails use/risks : Verbalizes understanding Skin Precautions : Verbalizes understanding Smoking Policy : Verbalizes understanding Telemetry Monitoring : Verbalizes understanding Television/Phone : Verbalizes understanding Visiting Policy : Verbalizes understanding RONEN DAVE RN - 09/20/2021 18:03 EST Functional Assessment Living Situation : Home Patient Lives With : Spouse Persons Assisting Patient at Home : Spouse Current Home Treatments : None Professional Skilled Services : None RONEN DAVE RN - 09/20/2021 18:03 EST General Info Preferred Name : Natalia Arrived From : Home Mode of Arrival on Unit : Ambulatory Legal Guardian : Spouse Support Person/Patient Hand Glass Cutter : Yes Support Person/Pt Rep Name : Yesica Gilbert mother Support Person/Pt Rep Contact Information : [phone] Want Family/Rep/Phys Notified of Admit : No Emergency Contact #1 : Eugene Thomas Emergency Contact #1 Emergency Contact #1 Relationship : spouse Emergency Contact #2 : Kaya Pruitt Emergency Contact #2 Phone Number : [phone] Emergency Contact #2 Relationship : sister Information Obtained From : Patient Primary Language : Italian Preferred Communication Mode : Verbal Communication Barrier : None Door To Door Lead Generation Needed : No Objects to Sharing Info w Family : No RONEN DAVE RN - 09/20/2021 18:03 EST Fall Risk Scales ABCs Fall Injury Risk Identification : Surgery ABC Fall Injury Risk : Moderate to high injury risk LAMBERT Hx Falls Immediate/Within 3 Months : No Lambert Secondary Diagnosis : No LAMBERT Use of Ambulatory Aid : Bed rest/Nurse assist LAMBERT IV Therapy or IV Access : Yes Lambert Gait/Transferring : Impaired Lambert Mental Status : Oriented to own ability Lambert Fall Risk Score : 40 LAMBERT Fall Scale Risk Level : 25-45 Medium Risk [place] Fall Interventions : Adequate lighting, Assistive devices within reach, Bed in low position Barriers to Learning : None evident RONEN DAVE RN - 09/20/2021 18:03 EST Health Histories Smoking Status : Former smoker, quit more than 30 days ago Smokeless Tobacco Status : Never RONEN DAVE RN - 09/20/2021 18:03 EST Social History (As Of: 09/20/2021 18:05:02 EST) Tobacco: Use in Last 12 Months: Cigarettes. Smoking Status Former smoker. Years of Use: 35. Packs/Tins Daily: 2. Last Used: quit in 2006. (Last Updated: 03/28/2015 11:17:26 EDT by TERESA PARKER RN) Former smoker, quit more than 30 days ago Smoking Status. Never Smokeless Tobacco Status. (Last Updated: 08/30/2021 13:25:09 EST by LEON JAMES, DELROY) Alcohol: Alcohol Use History No. Use in Last 12 Months: No. (Last Updated: 03/28/2015 11:17:31 EDT by TERESA PARKER RN) Alcohol Use History Yes. Alcohol Use Frequency Rarely. (Last Updated: 08/30/2021 13:25:09 EST by LEON JAMES, DELROY) Substance Abuse: Drug Use Hx: No. Use in Last 12 Months: No. (Last Updated: 05/12/2014 12:30:30 EDT by PADMA CARDONA RN) Drug Use Hx: No. Use in Last 12 Months: No. (Last Updated: 08/30/2021 13:25:09 EST by LEON JAMES, DELROY) Home/Environment: Lives with Spouse. Living situation: Home/Independent. Alcohol abuse in household: No. Substance abuse in household: No. Smoker in household: Yes. Injuries/Abuse/Neglect in household: No. Feels unsafe at home: No. (Last Updated: 03/28/2015 11:18:04 EDT by TERESA PARKER RN) Height and Weight, Clinical Dosing Height Source : Measured Height Entry Format : [place] Height, Feet : 5 ft(Converted to: 152 cm, 60 Inch) Height, Inches : 4 Inch(Converted to: 0 ft 4 Inch, 10.16 cm) Clinical Height : 162.56 cm Weight Source : Standing scale Weight Entry Format : [place] Clinical Dosing Weight : 88.18 kg Weight, Pounds : 194 lb Body Surface Area (BSA) : 1.93 m2 Body Mass Index : 33.4 kg/m2 (HI) [place] Body Weight : 54 kg RONEN DAVE RN - 09/20/2021 18:03 EST Infectious Disease History Does patient have symptoms of COVID-19? : No Has the Patient Been Tested for COVID-19 in the last 14 days? : No, Patient stated Does the Patient state known exposure to a COVID-19 positive case in the last 14 days? : No Patient Vaccinated for COVID-19 : Fully vaccinated RONEN DAVE RN - 09/20/2021 18:03 EST Infectious Disease Risk Screening Grid Cough < 2 wks of unknown origin : NO Cough > 2 weeks : NO Blood in Sputum : NO Fever or self-reported Fever : NO Rash of unknown origin : NO Headache : NO Stiff neck : NO Night Sweats : NO Unexplained Weight Loss : NO Diarrhea (3 episode per day) : NO RONEN DAVE RN - 09/20/2021 18:03 EST Physical contact outside [place] in the last 30 days : No Hospitalized in Foreign Country : No Infectious Disease History : Chicken pox/Shingles, Influenza, Measles, Mumps INF Disease TB Screening Calc : 0 INF Disease Recent Travel Calc : 0 RONEN DAVE RN - 09/20/2021 18:03 EST Influenza Vaccine Asmt, Adult Previous Vaccines from Immunization Schedule : No qualifying data available. Influenza Immunization, Current Season : Yes RONEN DAVE RN - 09/20/2021 18:03 EST Pneumococcal Vaccine Previous Vaccines from Immunization Schedule : No qualifying data available. Pneumonia Immunization Received : Yes RONEN DAVE RN - 09/20/2021 18:03 EST Order Details Patient Needs Meds Crushed/Liquid : No RONEN DAVE RN - 09/20/2021 18:03 EST Nutrition History Adaptive Feeding Equipment : Regular Eating Poorly Due to Decreased Appetite : No Unplanned Weight Loss in Past 3-6 Months : No Malnutrition Screening Tool Total(mal) : 0 Malnutrition Screening Tool Risk Level : Patient not at risk RONEN DAVE RN - 09/20/2021 18:03 EST [place] Suicide Severity Rating Scale (C-SSRS) CSSRS Past Month Wish to be : No CSSRS Past Month Suicidal Thoughts : No CSSRS Lifetime Suicide Behavior : No Suicide Severity Rating Score : 0 Suicide Severity Rating : No Additional Care Required at this time RONEN DAVE RN - 09/20/2021 18:03 EST Psychosocial History Do You Have a History of the Following? : Depression Currently in Unsafe Situation : No RONEN DAVE RN - 09/20/2021 18:03 EST Sleep Apnea Risk Assmt Hx of Obstructive Sleep Apnea Diagnosis : No Snore Loudly : Yes Tired, Fatigued, or Sleepy During Day : Yes Observed Stopping Breathing During Sleep : No Have/Are Being Treated for Hypertension : No BMI Greater Than 35 kg/m2 : Yes Age over 50 Years Old : Yes Neck Circumference Greater Than 40 cm : No Gender Male : No STOP-BANG Sleep Apnea Risk Level Score : 4 RONEN DAVE RN - 09/20/2021 18:03 EST Valuables and Belongings Valuables and Belongings : Clothing Clothing : Common streetwear Clothing Disposition : Bedside RONEN DAVE RN - 09/20/2021 18:03 EST Electronically signed by Liset [facility] Conversion Automation/Controls Manager Cerner at 02/04/2023 12:15 PM CDT documented in this encounter Plan of Treatment Not on file documented as of this encounter Visit Diagnoses Not on filedocumented in this encounter
--- OUTSIDE RECORDS SUMMARY | 2025-05-20 16:03 | XMS_ITS | Encounter Summary ---
Author Organization [employer] ([place], [place], [place], [place]) Address [address] [place] [id number] Care Team Providers Care Field Return Repairer Name Role Phone Unavailable Primary Care Provider Unavailabl e Encounter Details Date Type Department Care Team (Late st Contact Info) Description 09/21/2021 Transcribed Document [facility] [place] Family Medicine [address] [place] [address] ProviderInes MD [address] [place] [address] Social History Tobacco Use [...] Conversion Note - Historical ProviderMD - 09/21/2021 3:11 PM ADJUNCT PSYCHOLOGY PROFESSOR Initial Discharge Planning Entered On: 09/21/2021 15:14 EST Performed On: 09/21/2021 15:11 EST by FERNIE MACE RN-Financial Sales Representative Initial Assessment I Previously Documented Living Environment : No qualifying data available. Living Situation : Home Patient Lives With : Spouse Is the Patient a Caregiver at Home? : No Emergency Contact #1 : Eugene Thomas Emergency Contact #1 Emergency Contact #1 Relationship : spouse Emergency Contact #2 : Kaya Pruitt Emergency Contact #2 Phone Number : [phone] Emergency Contact #2 Relationship : sister Enter Doctors Name : DARSHAN ARRINGTON (REF), -CADY Does Patient have PCP Listed? : Yes FERNIE MACE RN-Financial Sales Representative - 09/21/2021 15:11 EST Initial Assessment II Sensory and Motor Deficits : None Current Home Treatments and Equipment : Walker Does the Patient have a Floor to SNF Benefit? : No FERNIE MACE RN-Financial Sales Representative - 09/21/2021 15:11 EST Discharge Needs I Anticipated Discharge Date : 09/21/2021 EST Anticipated Discharge To, CM : Home with home health Current Home Treatment/Equipment : Current Home Treatment/Equipment No qualifying data available. Post Acute/Home Treatments : Bedside commode Documentation Status Complete : Yes FERNIE MACE RN-Financial Sales Representative - 09/21/2021 15:11 EST Discharge Needs II Professional Skilled Services : Professional Skilled Services No qualifying data available. Needs Assistance with Transportation : No Discharge Options Discussed with Patient : DME, Home Health Patient Discharge Goal : Home health care FERNIE MACE RN-Financial Sales Representative - 09/21/2021 15:11 EST Narrative Note Narrative Note : 66yo female pt s/p LTHA. Met with pt at bedside to discuss DCP. Pt needs a BSC and has no DME provider preference. Obtained one from [facility] and it has been delivered. Pt agrees to HH PT and has no CEMETERY WORKERS SUPERVISOR preference other than, a good one. Referral sent to [facility] via [facility] and confirmed acceptance with Mabel. No other CM needs noted. FERNIE MACE RN-Financial Sales Representative - 09/21/2021 15:11 EST documented in this encounter Plan of Treatment Not on file documented as of this encounter Visit Diagnoses Not on filedocumented in this encounter
--- OUTSIDE RECORDS SUMMARY | 2025-05-20 16:03 | XMS_ITS | Encounter Summary ---
Author Organization [employer] ([place], [place], [place], [place]) Address [address] [place] [address] Care Team Providers Care Accounts Receivable Analyst Name Role Phone Unavailable Primary Care Provider Unavailabl e Encounter Details Date Type Department Care Team (Late st Contact Info) Description 09/20/2021 Transcribed Document [facility] [place] [address] [place] [address] ProviderInes MD [address] [place] [address] Social History Tobacco Use Types [...] Conversion Note - Ines ProviderMD - 09/20/2021 3:32 PM REGISTERED VASCULAR TECHNOLOGIST (RVT) Treatment Intervention, PT Entered On: 09/21/2021 11:51 EST Performed On: 09/21/2021 11:46 EST by EDGARD BUENO, PT General Information, PT Visit Type, PT : Treatment Note Patient Orders : Order Date Order Ordering 09/20/2021 10:50 PT Evaluation and Treatment Ordered By: TIMO BLAKE MD-ORT 09/20/2021 10:50 PT Treatment Instructions Ordered By: TIMO BLKAE MD-ORT 09/20/2021 10:50 PT Treatment Instructions Ordered By: TIMO BLAKE MD-ORT 09/20/2021 10:50 PT Treatment Instructions Ordered By: TIMO BLAKE MD-ORT 09/20/2021 10:50 PT Treatment Instructions Ordered By: TIMO BLAKE MD-ORT 09/20/2021 10:50 PT Treatment Instructions Ordered By: TIMO BLAKE MD-ORT 09/20/2021 15:32 PT Additional Treatment Ordered By: EDGARD BUENO, PT Active Diagnoses : No Qualifying Diagnoses Therapy Diagnosis, PT : Aftercare following L anterior HALEY Admission Date : 09/20/2021 06:33 Co-treated by, PT : Occupational Therapist Personal Devices : Personal Devices No Devices Recorded Assistive Devices : Assistive Devices No Devices Recorded EDGARD BUENO, PT - 09/21/2021 11:46 EST General Status Patient Received Status : Up in chair Treatment Start Time : 09/21/2021 10:59 EST Patient Left Status : Up in chair, RN/PCT informed, Communication board completed, All needs met and within reach, Other: SCD's, ICE RN/PCT Informed Comment : Rn malcolm and pt consent Treatment End Time : 09/21/2021 11:33 EST Treatment Time : 34 Minute(s) EDGARD BUENO PT - 09/21/2021 11:46 EST Edu Topics Physical Therapy Education Grid Bed Mobility Training : Returns demonstration Gait Training : Returns demonstration Home Program/Exercises : Verbalizes understanding Role of Physical Therapy : Verbalizes understanding Safety : Verbalizes understanding Stair Training : Returns demonstration Therapeutic Exercises : Returns demonstration Transfer Training : Returns demonstration Use of Assistive Device : Returns demonstration EDGARD BUENO, PT - 09/21/2021 11:46 EST Indication Assesessment, PT Physical Therapy Indicated : EDGARD Wills PT - 09/21/2021 11:46 EST Plan of Care, PT PT Tx Plan/Goals Established w Patient : EDGARD Wills PT - 09/21/2021 11:46 EST Allied Health Teacher Goals Mobility/Bed Mobility LTG PT Grid Goal #1 Activity : Sit to stand Assist : Supervision or set-up Equipment : Walker, front wheel Date to Meet : 10/04/2021 EST Goal Status : Goal met Date Met : 09/21/2021 EST EDGARD BUENO PT - 09/21/2021 11:46 EST Ambulation LTG Grid Goal #1 Device : Walker, front wheel Distance : 100ft Assist : Supervision or set-up Date to Meet : 10/04/2021 EST Goal Status : Goal met Date Met : 09/21/2021 EST EDGARD BUENO, PT - 09/21/2021 11:46 EST Stairs LTG Grid Goal #1 Device : Walker, front wheel Number of Steps : 1 Handrail(s) : No handrails Assist : Assist, minimal Date to Meet : 10/04/2021 EST Goal Status : Goal met Date Met : 09/21/2021 EST EDGARD BUENO, PT - 09/21/2021 11:46 EST Treatment Note Subjective Comment : Pt agreeable to PT treatment, states pain 4/10 at rest. Patient's Response to Treatment : No acute complaints throughout, min verbal cues to take it easy 'slow and steady wins the race.' and to reinforce use of RWx x 3 weeks. Additional Objective Information : Modified independent sup-sit with leg manager strategic development SBA sit-stand with RWx SBA gait x 150ft with RWx CGA ascend/descend 1 step with RWx. min verbal cues to promote correct sequence, 'up with the good, down with the bad.' Pt performed 10 reps of HEP to include seated LAQ, supine ankle pumps, quad sets, glut sets, heel slides, and hip abduction Assessment : Pt has met 3/3 goals for [...] exercises instructions for continued strengthening at discharge. Plan for Treatment : discontinue EDGARD BUENO, PT - 09/21/2021 11:46 EST Pain Assessment Pain Scaled Used : 0-10 Pain scale Pain Score Pre-Intervention : 3 Pain Score Post-Intervention. : 3 EDGARD BUENO, PT - 09/21/2021 11:46 EST Image 1 - Images currently included in the form version of this document have not been included in the text rendition version of the form. [facility] PT Charges PT Therap. Exercise 15 min : 1 Gait Training Each 15 Min : 1 EDGARD BUENO, PT - 09/21/2021 11:46 EST documented in this encounter Plan of Treatment Not on file documented as of this encounter Visit Diagnoses Not on filedocumented in this encounter
--- OUTSIDE RECORDS SUMMARY | 2025-05-20 16:03 | XMS_ITS | Encounter Summary ---
Author Organization [employer] ([place], [place], [place], [place]) Address [address] [place] [address] Care Team Providers Care Data Support Specialist Name Role Phone Unavailable Primary Care Provider Unavailabl e Encounter Details Date Type Department Care Team (Late st Contact Info) Description 09/20/2021 Transcribed Document [facility] [place] [address] [place] [address] ProviderInes MD [address] [place] [address] Social History Tobacco Use Types [...] - Ines ProviderMD - 09/20/2021 7:56 AM MANAGER QUALITY [facility] Main OR PACU Summary Primary Physician: TIMO BLAKE MD-ORT Finalized Date/Time: 09/25/21 14:46:33 Pt. Name: PINKY REIDO.B./Sex: 1955 Female Med Rec #: [id number] Physician: TIMO BLAKE MD-ORT Financial #: [id number] Pt. Type: O Room/Bed: 643/1 Admit/Disch: 09/20/21 06:33:00 - 09/21/21 16:00:00 Institution: [facility] Main OR PACU I Case Times Entry 1 In PACU I 09/20/21 09:15:00 Ready for PACU 09/20/21 10:10:00 Discharge Discharge from PACU 12/01/21 10:35:00 I Last Modified By: Carmela Franco RN-PATIENT CARE BEDSIDE NON-EXEMPT 09/20/21 10:52:42 [facility] Main OR PACU Acuity Entry 1 Start Time 09/20/21 10:10:00 Stop Time 09/20/21 10:35:00 Acuity Level [facility] PACU Acuity I Last Modified By: Carmela Franco RN-PATIENT CARE BEDSIDE NON-EXEMPT 09/20/21 10:53:17 [facility] Main OR PACU Acuity Audit 09/25/21 14:46:32 Cash Accounting Clerk: [id number] Modifier: [id number] <*> Start Time 09/20/21 09:15:00 Finalized By: Estella Grover, Nurse Algorithm Design Engineer Signatures Signed By: Carmela Franco RN-PATIENT CARE BEDSIDE NON-EXEMPT 09/20/21 10:53 Estella Grover, Nurse Analytical Research Program Manager 09/25/21 14:46 Unfinalized History Date/Time Username Reason for Unfinalizing Freetext Reason for Unfinalizing 09/25/21 14:46 [id number] Correct Billing Electronically signed by Liset [facility] Conversion Portfolio Analyst Cerner at 02/04/2023 12:30 PM CDT documented in this encounter Plan of Treatment Not on file documented as of this encounter Visit Diagnoses Not on filedocumented in this encounter
--- OUTSIDE RECORDS SUMMARY | 2025-05-20 16:03 | XMS_ITS | Encounter Summary ---
Author Organization [employer] ([place], [place], [place], [place]) Address [address] [place] [address] Care Team Providers Care Learning Developer Name Role Phone Unavailable Primary Care Provider Unavailabl e Encounter Details Date Type Department Care Team (Late st Contact Info) Description 09/20/2021 Transcribed Document [facility] [place] [address] [place] [address] ProviderInes MD [address] [place] [address] Social History Tobacco Use Types [...] - Ines ProviderMD - 09/20/2021 7:56 AM DETAIL TECHNICIAN [facility] Main OR Preop Summary Primary Physician: TIMO BLAKE MD-ORT Finalized Date/Time: 09/20/21 13:54:12 Pt. Name: PINKY REIDO.B./Sex: 1955 Female Med Rec #: [id number] Physician: TIMO BLAKE MD-ORT Financial #: [id number] Pt. Type: O Room/Bed: 643/1 Admit/Disch: 09/20/21 06:33:00 - Institution: [facility] PreOp Case Times Entry 1 In Preop 09/20/21 05:42:00 Ready for Holding n/a Room Patient Ready for 09/20/21 06:37:00 Surgery Patient Out of Preop 09/20/21 07:22:00 Patient Out of n/a Holding Room Last Modified By: DERECK Yates RN 09/20/21 13:54:09 [facility] PreOp Case Times Audit 09/20/21 13:54:09 Rug Weaver: ANNIE Modifier: WILSONDL <+> 1 Patient Out of Preop 09/20/21 06:37:39 Rug Weaver: ANNIE Modifier: WILSONDL <+> 1 Patient Ready for Surgery Finalized By: DERECK Yates, RN Document Signatures Signed By: DERECK Yates RN 09/20/21 13:54 Electronically signed by Liset [facility] Conversion Veterinarian Helper Cerner at 02/04/2023 12:17 PM CDT documented in this encounter Plan of Treatment Not on file documented as of this encounter Visit Diagnoses Not on filedocumented in this encounter
--- OUTSIDE RECORDS SUMMARY | 2025-05-20 16:03 | XMS_ITS | Encounter Summary ---
Author Organization [employer] ([place], [place], [place], [place]) Address [address] [place] [address] Care Team Providers Care Engine Installer Name Role Phone Unavailable Primary Care Provider Unavailabl e Encounter Details Date Type Department Care Team (Late st Contact Info) Description 09/21/2021 Transcribed Document [facility] [place] [address] [place] [address] ProviderInes MD [address] [place] [address] Social History Tobacco Use Types Packs/Day Years Used Date Smoking Tobacco: Never Assessed Comments Unknown Sex and Gender Information Value Date Recorded Sex Assigned at Female 04/17/2022 7:31 PM CDT Legal Sex Female 7:31 PM CDT Gender Identity Female 04/17/2022 7:31 PM CDT Sexual Orientation Not on file documented as of this encounter Miscellaneous Notes * Cerner Conversion Note - Ines Jimenez MD - 09/21/2021 12:16 PM PHOTOENGRAVING SKETCH MAKER Patient Education Materials Follows: Discharge Instructions for Anterior Total Hip Replacement Your Hip Incision: Do not swim, soak or bathe in a tub until cleared by the surgeon. If you have an Aquacel (light brown) dressing: ?? Keep your dressing in place for 7-10 days. You may shower, but you must cover your incision or dressing with Glad Wrap Press N??? Seal or something that will keep your incision dry. ?? Your Physical Therapist will remove the dressing after 7-10 days, OR your surgeon will remove it at your follow-up appointment. Then your incision may be open to air. If you shower, be sure to keep your incision dry until your follow-up appointment. Activity ?? You may put weight on your leg when you walk, unless your surgeon tells you differently. Use your walker until the therapist or surgeon say you do not need it anymore. Continue your exercises from physical therapy. ?? Stay active, getting up every 1-2 hours, walk short distances. No driving until cleared by your surgeon. ?? If your surgeon has ordered support hose, continue to wear them for 3 weeks in order to prevent blood clots. Remove them 1-2 times per day for about 30 minutes-1 hour. Check your skin for red or open areas under stockings. Support hose can be bought online and at many pharmacies, be sure that compression is at least 15-20mmHg. ?? For swelling, prop up your leg above your heart. ?? Cold therapy wrap as tolerated. Switch out cold gel pack every 4 - 5 hours. Cold therapy is for pain and swelling. Use it as long as your hip is painful or swollen. General Instructions: ?? Increase fiber and protein intake. Drink 8-10 [...] contact your nurse navigator or surgeon???s office. ?? Continue using your incentive spirometer to keep fever and lung infection away. Aim for 10 breaths every hour while you are awake. ?? Take pain medicine as needed, especially before therapy. ?? Let your doctors and dentist know you have a prosthetic hip. They may need to give you an antibiotic before a procedure. Call Your Surgeon: 1. Infection: ?? Your hip has increased swelling that does not get better with time, propping up your leg and with rest. ?? Your incision has a foul smell or your incision begins to open. ?? Your incision gets red, is warm or has increased drainage after 2 days. ?? You have a fever over 101 degrees for more than 24 hours. 2. A Blood Clot: ?? You have increased swelling that does not get better with time, propping your leg and rest, and redness, warmth or pain in your calf. 3. A Fall: ?? You fall down without obvious injury. Call 911: 1. You have sudden chest pain and/or difficulty breathing 2. You fall and cannot get up CALL FIRST! Unless you are experiencing life-threatening issues, call your surgeon's office or nurse navigator first, before going to the Emergency Department. Call your surgeon or nurse navigator if: ?? Your incision has increased swelling that does not get better with time, rest, and propping up your leg ?? Your incision has a foul smell or begins to open ?? You have a large amount of bleeding from incision ?? Your incision gets red, warm or increased drainage after 2 days ?? You have a fever over 101 degrees for more than 24 hours ?? You have increased swelling, redness, warmth or pain in your calf ?? You fall, but don't have an obvious injury ?? You have questions or cause for concern regarding your total joint replacement Call 201 if: ?? You have sudden chest pain or shortness of breath ?? You fall and cannot get up ?? Life-threatening signs or symptoms ?? Stroke signs and symptoms: Facial droop, uneven smile, arm numbness, arm weakness, slurred speech, difficulty speaking or understanding If you are a patient of Dr. Johnson or Dr. Damon, call [phone] If you are a patient of Dr. Thomas, call [phone] Nurse Navigator: Kemi Gates Office: [phone]; ; available during regular business hours documented in this encounter Plan of Treatment Not on file documented as of this encounter Visit Diagnoses Not on filedocumented in this encounter
--- OUTSIDE RECORDS SUMMARY | 2025-05-20 16:03 | XMS_ITS | Encounter Summary ---
Author Organization [employer] ([place], [place], [place], [place]) Address [address] [place] [address] Care Team Providers Care Patient Care Representative Name Role Phone Unavailable Primary Care Provider Unavailabl e Encounter Details Date Type Department Care Team (Late st Contact Info) Description 09/20/2021 Transcribed Document [facility] [place] [address] [place] [address] ProviderInes MD [address] [place] [address] Social History Tobacco Use Types [...] Conversion Note - Ines ProviderMD - 09/20/2021 3:59 PM IMAGERY ANALYST Orthopedic Nurse Navigator Entered On: 09/20/2021 16:00 EST Performed On: 09/20/2021 15:59 EST by Karmen Gates RN-Navigator Orthopedic Nurse Navigator Assessment Attended Joint Academy : Yes Joint AcademyType : Online Joint [facility] Cna Name : [place] Type of Surgery : Anterior Hip Replacement, Left Anticipated Discharge Plan : Home Health PT Anticipated Discharge Plan Comment : Pt plans to d/c home tomorrow with the help of her . She would like home therapy, does not have a preference. Karmen Gates RN-Navigator - 09/20/2021 15:59 EST Teaching/Learning Assessment Barriers To Learning : None evident Individuals Taught : Patient Readiness to Learn : Cooperative Readiness to Learn : Demonstration, Explanation, Printed materials, Video/Educational TV Education Comment : JA Quiz 100% Karmen Gates RN-Navigator - 09/20/2021 15:59 EST Education Topics, Orthopedic Pre-Op Ortho Pre-Op Education Grid Ed-Assistive Devices : Verbalizes understanding DVT Prophylaxis : Verbalizes understanding Family Instructions : Verbalizes understanding Herbs/Supplement Instructions : Verbalizes understanding Laboratory Studies : Verbalizes understanding Medication Instructions : Verbalizes understanding NPO : Verbalizes understanding Ed-Occupational Therapy : Verbalizes understanding Pain Management : Verbalizes understanding Physical Prep : Verbalizes understanding Physical Therapy : Verbalizes understanding Plan of Care : Verbalizes understanding Positioning : Verbalizes understanding Post-op Activity/Exercise Regimen : Verbalizes understanding Postoperative Home Needs : Verbalizes understanding Post-operative Monitoring : Verbalizes understanding Post-Op Orthopedic Equipment : Verbalizes understanding Procedure Information : Verbalizes understanding Respiratory Care : Verbalizes understanding Surgical Site : Verbalizes understanding Tubes/Drains/IV's : Verbalizes understanding Turn/Cough/Deep Breathe : Verbalizes understanding (Comment: verbalizes understanding of incentive spirometry [Karmen Gates RN-Navigator - 09/20/2021 15:59 EST] ) Weight Bearing : Verbalizes understanding Ed-Orthopedic Pre-Op, Other : Verbalizes understanding Karmen Gates RN-Navigator - 09/20/2021 15:59 EST documented in this encounter Plan of Treatment Not on file documented as of this encounter Visit Diagnoses Not on filedocumented in this encounter
--- OUTSIDE RECORDS SUMMARY | 2025-05-20 16:03 | XMS_ITS | Encounter Summary ---
Author Organization [employer] ([place], [place], [place], [place]) Address [address] [place] [address] Care Team Providers Care Lead Case Manager Name Role Phone Unavailable Primary Care Provider Unavailabl e Encounter Details Date Type Department Care Team (Late st Contact Info) Description 09/21/2021 Transcribed Document [facility] Radiology [address] [place] [address] Timo Johnson MD [address] [place] [address] Social History Tobacco Use Types Packs/Day Years Used Date Smoking Tobacco: Never Assessed Comments Unknown Sex and Gender Information Value Date Recorded Sex Assigned at Female 04/17/2022 7:31 PM CDT Legal Sex Female 7:31 PM CDT Gender Identity Female 04/17/2022 7:31 PM CDT Sexual Orientation Not on file documented as of this encounter Miscellaneous Notes * Cerner Conversion Note - Timo Johnson MD - 09/21/2021 8:04 AM EST Patient: PINKY REID Age: 66 Years Sex: Female : 1955 Admit Date 09/20/2021 06:33 Discharge Date 09/21/2021 Primary Care Provider DARSHAN ARRINGTON (REFMD [facility] Discharge Diagnosis Left direct anterior total hip arthroplasty Procedures SN - Proc - Procedure: Hip Total Anterior Approach (09/20/21 06:47:54) Reason for Hospitalization Pleasant 66-year-old female well-known to me from a previous right HALEY. The patient has end-stage osteoarthritis of the above-mentioned hip. They have otherwise failed conservative measures and now present for total hip arthroplasty. The risks benefits and alternatives have been explained to the patient in detail and they have voiced their agreement. [1] Hospital Course Patient was taken to the operating room on date of admission where they underwent the aforementioned procedure without complication. They were then transferred to the floor for postoperative care including PT & OT, consultation of hospitalist for medical care, and discharge planning by nurse navigator/case management. Vital Signs T: 36.9 ??C TMIN: 36.6 ??C TMAX: 36.9 ??C HR: 90(Monitored) RR: 16 BP: 140/65 SpO2: 95% Oxygen Settings (Last) Oxygen Therapy Mode: Room air (09/20/21 20:18:00) Oxygen Flow Rate: 2 Liter/Min (09/20/21 10:30:00) Physical Exam The dressing is clean dry secure. The operative extremity is neurovascularly intact with the exception of that which is attributed to peripheral nerve block. Compartments are soft. Discharge Disposition Home with home health Discharge Follow Up ARNOLD GOODSON PA-ORT - 02:15 PM Discharge Medications (18) Active Allergy Relief (Diphenhydramine HCl) [...] 1 Cap, PRN, Oral, BID Flonase 1 [place], PRN, Nasal, BID furosemide 20 mg [...] 4 mg = 1 Tab, Oral, Q8H Code Status Start: 09/20/21 10:50:00 EST, Full Code, Continuous Order Condition on Discharge Stable Consulting Physicians MIRZA WEEBR MD-ANS JUAN C BREWER MD-INT Current Diet Order Diet, Adult - Ordered -- Start: 09/20/21 10:50:00 EST, Regular Diet, Isolation: Standard Precautions Patient Discharge Summary Orders Patient is weightbearing as tolerated. Patient should transition from a walker to a cane at the discretion of physical therapy. However the patient should minimize ambulation, and focus on copious ice and elevation to reduce swelling. Bilateral knee-high AMANDA hose should be worn 21+ hours per day for 3 weeks for DVT prophylaxis. Chemoprophylaxis for DVT (see medlist)times 4 weeks. Dressings remain in place for 7-10 days, during which time the patient may shower. Dressings then can be removed and incision left open to air. Any wound drainage should be reported to the orthopedic office. Continuous use of cryotherapy as needed for pain and swelling. Pending Labs In Process SENDOUT REPORT [id number], [id number], RT - Routine, 09/20/21 6:54:00 EST Pathology Tissue Request [id number], [id number], 09/20/21 6:54:00 EST, Collected, RT - Routine, 09/20/21 9:36:59 EST, BRUNA CARDONA, [employer], Specimen Type: AP Specimen, Specimen Desc: LEFT FEMORAL HEAD In Transit Path Tissue Request, Sendout Specimen Type: AP Specimen, Routine collect, 09/20/21 6:54:00 EST, 1-Time, Collected, Stop: 09/20/21 6:54:00 EST, Nurse Collect, Specimen Desc: LEFT FEMORAL HEAD, Print Label By Order Location Ordered CBC w/ Auto Diff Specimen Type: Blood, AM Draw collect, 09/21/21 4:00:00 EST, Daily, For: 3 Day(s), Stop: 09/23/21 4:00:00 EST, Nurse Collect BMP Basic Metabolic Panel Specimen Type: Blood, AM Draw collect, 09/21/21 4:00:00 EST, Daily, Lab Collect Time Spent on Discharge 18 minutes Patient was seen and examed by Dr. Johnson with myself, Richard Gunderson PA-C, present in room. All medical decision making was discussed with patient. [1] Left HALEY op Note; TIMO JOHNSON MD-ORT 09/20/2021 09:02 EST documented in this encounter Plan of Treatment Not on file documented as of this encounter Visit Diagnoses Not on filedocumented in this encounter
--- OUTSIDE RECORDS SUMMARY | 2025-05-20 16:03 | XMS_ITS | Encounter Summary ---
Author Organization [employer] ([place], [place], [place], [place]) Address [address] [place] [address] Care Team Providers Care Public Works Commissioner Name Role Phone Unavailable Primary Care Provider Unavailabl e Encounter Details Date Type Department Care Team (Late st Contact Info) Description 09/20/2021 Transcribed Document [facility] Radiology [address] [place] [address] Kuldeep Johnson MD [address] [place] [address] Social History Tobacco Use Types [...] Note - Kuldeep Johnson MD - 09/20/2021 10:02 AM EST Patient: PINKY REID Age: 66 Years Sex: Female : 1955 *Operation Left total arthroplasty, direct anterior approach Indication for Surgery Pleasant 66-year-old female well-known to me from a previous right HALEY. The patient has end-stage osteoarthritis of the above-mentioned hip. They have otherwise failed conservative measures and now present for total hip arthroplasty. The risks benefits and alternatives have been explained to the patient in detail and they have voiced their agreement. *Preoperative Diagnosis 1. Osteoarthritis left hip 2. Mild dysplasia left hip *Postoperative Diagnosis 1. Osteoarthritis left hip 2. Mild dysplasia left hip *Surgeon(s) Surgeon: Alex Landfill Attendant: Richard Rowe CSA *Procedure Narrative Patient was identified in the preoperative holding and the appropriate lower extremity was marked. They were transferred to operating theater, general anesthesia induced by the attending Anesthesia staff. The patient was given appropriate preop antibiotic prophylaxis as well as 1 g of intravenous tranexamic acid. Feet wrapped in Coban, placed in traction boots. The patient was then carefully positioned on the Redway table. The hip was then prepped and draped in the usual sterile fashion. Time-out was performed. Appropriate patient and operative extremity were confirmed. A standard 14 cm skin incision was made, 2 cm distal and lateral to the ASIS. Subcutaneous dissection carried down to the level of the TFL fascia. Fascia incised in line with the skin, reflected anteriorly off the TFL muscle belly. The interval between superior neck and the abductors were identified and reflected. Lateral femoral circumflex vessels were identified and cauterized. Rectus gently elevated off the anterior aspect of the femur and the inferior neck was exposed. Pericapsular fat was removed. Next, a standard L-shaped capsulotomy performed in line with the femoral neck. Anterior and posterior limbs were tagged and reflected. Capsule released medially off the calcar down to the level of the lesser trochanter. Next, with the hip in a slight amount of external rotation and gentle traction applied, the neck osteotomy was marked using preoperative templating and local landmarks. Osteotomy carried out in a napkin ring fashion. Residual femoral neck and head were then removed. Next, the acetabulum was exposed. Capsule was reflected. Labrum, pulvinar and other soft tissues were resected. Next, under fluoroscopic guidance, a series of hemispherical acetabular reamers were passed. [id number] ream, with an excellent bleeding cancellous bony bed. Good maintenance of anterior and posterior leon. We then impacted the appropriately sized cup under fluoroscopic guidance in approximately 40 degrees of abduction, 20 degrees of anteversion. We had an appropriate initial press-fit. We placed bone screws as needed, with excellent purchase. Acetabular osteophytes removed, if present. Cup was irrigated. Final liner impacted in place. We turned our attention to femoral exposure. A femoral hook placed proximal to gluteal sling. Leg was externally rotated, extended and adducted. Posterosuperior capsule reflected medially off the greater trochanter. Conjoint tendon, Piriformis and capsule were released and the femoral hook was elevated. Next, a box osteotome used to remove lateral bone followed by canal finder. A chili pepper broach was used to set version parallel to the posterior cortex of the femur. Series of Accolade broaches were then passed. We passed sequentially larger broaches until we obtained good axial and rotational stability. Calcar planer passed over final broach. We trialed necks and heads. Stability, leg length and offset all tested at this point, found to be appropriate. Next, the proximal femur was again exposed and trials were removed. Final Accolade stem impacted into place. Position relative to final broach was assessed. We re-trialed heads and selected the above-mentioned ceramic head, which was impacted onto a clean and dry trunnion. Next, hip was reduced. Final fluoroscopic images were taken and saved. The wound was thoroughly irrigated with dilute Betadine lavage and normal saline. Pericapsular tissues infiltrated with a pain cocktail. 1 g vancomycin powder and 2 g topical tranexamic acid applied to the joint. The fascia was closed with #1 Stratafix. Skin closed in layers with Vicryl, Stratafix, and Dermabond. Wound was covered with an Aquacel dressing. Next, drapes were removed. Patient carefully transferred to a stretcher. Traction boots and Coban were removed. They were then extubated without incident, and taken to PACU in stable condition. All instruments, sponge and needle counts were correct at the end of the case. Drains/Packs Used None Anesthesia General *Estimated Blood Loss 400 cc *Findings Abx: 2g Ancef Implants: Bellona Trident 2 acetabular component: 48 mm 6.5 mm Acetabular screws: 2 Bellona Accolade 2 femoral component: Size 132 neck angle Trident X3 acetabular liner: 36 mm neutral Biolox Delta ceramic femoral head: 36 mm -2.5 Reaming technique: [id number] Initial press-fit assessment: excellent Acetabular osteophytes: none Femoral osteotomy level: 14 mm above lesser trochanter Releases: posterior/superior capsule, conjoint tendon, piriformis Broach position relative to neck cut: 1.5 mm proud Final implant position relative to final broach: same Stability: ER- 120 deg max IR- 70 Other: Mild dysplasia, minimal cup uncoverage, less than 10%. Cup completely medialized. *Specimen(s) Femoral head to pathology Complications None Technique Press-fit HALEY, direct anterior approach, Ira components Date of Service No qualifying data available. documented in this encounter Plan of Treatment Not on file documented as of this encounter Visit Diagnoses Not on filedocumented in this encounter
--- OUTSIDE RECORDS SUMMARY | 2025-05-20 16:03 | XMS_ITS | Encounter Summary ---
Author Organization [employer] ([place], [place], [place], [place]) Address [address] [place] [id number] Care Team Providers Care Electronic Lab Technician Name Role Phone Unavailable Primary Care Provider Unavailabl e Encounter Details Date Type Department Care Team (Late st Contact Info) Description 09/21/2021 Transcribed Document [facility] Family Medicine [address] [place] [address] ProviderInes MD [address] [place] [address] Social History Tobacco Use Types [...] Conversion Note - Historical ProviderMD - 09/21/2021 12:26 PM FIRE PREVENTION SPECIALIST Stroke/Warfarin Instructions Entered On: 09/21/2021 12:26 EST Performed On: 09/21/2021 12:26 EST by Hue Lopez RN Stroke/Warfarin Instructions Stroke/TIA Discharge Ins : N/A Warfarin Discharge Ins : N/A Hue Lopez RN - 09/21/2021 12:26 EST Electronically signed by Liset [facility] Conversion Campaign Advisor Cerner at 02/04/2023 12:32 PM CDT documented in this encounter Plan of Treatment Not on file documented as of this encounter Visit Diagnoses Not on filedocumented in this encounter
--- OUTSIDE RECORDS SUMMARY | 2025-05-20 16:03 | XMS_ITS | Encounter Summary ---
Author Organization [employer] ([place], [place], [place], [place]) Address [address] [place] [address] Care Team Providers Care Flexo Press Operator Name Role Phone Unavailable Primary Care Provider Unavailabl e Encounter Details Date Type Department Care Team (Late st Contact Info) Description 09/20/2021 Transcribed Document [facility] [place] [address] [place] [address] ProviderInes MD [address] [place] [address] Social History Tobacco Use Types [...] - Ines ProviderMD - 09/20/2021 10:50 AM CLOTH FOLDER HAND Evaluation, Physical Therapy Entered On: 09/20/2021 15:31 EST Performed On: 09/20/2021 15:26 EST by EDGARD BUENO, PT General Information, PT Visit Type, PT : Initial evaluation Patient Orders : Order [...] PT : Aftercare following L anterior HALEY Onset of Problem, PT : 09/20/2021 EST Admission Date : 09/20/2021 06:33 Co-treated by, PT : Occupational Therapist Personal Devices : Personal Devices No Devices Recorded Assistive Devices : Assistive Devices No Devices Recorded EDGARD BUENO, PT - 09/20/2021 15:26 EST General Status Patient Received Status : Supine in bed Treatment Start Time : 09/20/2021 14:38 EST Patient Left Status : Up in chair, RN/PCT informed, Communication board completed, All needs met and within reach, Other: SCD's, iCE RN/PCT Informed Comment : RN peter and pt consent Treatment End Time : 09/20/2021 14:56 EST Treatment Time : 18 Minute(s) EDGARD BUENO, PT - 09/20/2021 15:26 EST History and Environment Living Situation, Therapy : Home Patient Lives With : Spouse Persons Assisting Patient at Home : Spouse Professional Skilled Services : None Persons Providing Information : Patient Home Equipment Therapy, PT : Walker Walker : Walker, front wheel Home Setup : One story Stairs : Yes Stair Location(s) : Outside Outside Stairs, Number of Steps : 2 Outside Stairs Comment : platform steps Railing Outside : No EDGARD BUENO, PT - 09/20/2021 15:26 EST Prior Level of Function PT GRID Prior LOF Ambulation, Household : Independent Prior LOF Ambulation, Community : Independent Prior LOF Bed Mobility : Independent Prior LOF Toileting : Independent Prior LOF Transfer : Independent EDGARD BUENO, PT - 09/20/2021 15:26 EST Upper Extremity Right UE Active ROM : WFL Right UE Strength : WFL Left UE Active ROM : WFL Left UE Strength : WFL EDGARD BUENO, PT - 09/20/2021 15:26 EST Lower Extremity RLE Active ROM : WFL Right LE Strength : WFL LLE Active ROM : Impaired Left LE Strength : Impaired EDGARD BUENO, PT - 09/20/2021 15:26 EST Functional Mobility Mobility Grid Supine to Sit : Rehab Minimal assistance Sit to Stand : Rehab Minimal assistance Stand to Sit : Rehab Minimal assistance EDGARD BUENO, PT - 09/20/2021 15:26 EST Sit to Stand Device : Belt, gait, Walker, front wheel Bed to Chair Device : Belt, gait, Walker, front wheel EDGARD BUENO, PT - 09/20/2021 15:26 EST Gait Training/Assessment, PT Weight Bearing Status : As tolerated Gait Assistance Level : Assist, minimal Walking Distance : 15ft with RWx, no LOB, wide CARMELLA and decreased weight bearing on LLE Ambulatory Devices : Gait belt, Walker, front wheel EDGARD BUENO, PT - 09/20/2021 15:26 EST Neuromuscular Reeducation, PT Balance Comment : SBA static sitting, CGA static standing with RWx EDGARD BUENO, PT - 09/20/2021 15:26 EST Neurological/Sensory Overall Sensory Response : Intact EDGARD BUENO, PT - 09/20/2021 15:26 EST Activity Tolerance, PT Activity Comment : states severe fatigue limiting gait distance EDGARD BUENO, PT - 09/20/2021 15:26 EST Cognition Assessment, PT Orientation : Oriented x 4 Attention Assessment : Present EDGARD BUENO, PT - 09/20/2021 15:26 EST Edu Topics Physical Therapy Education Grid Bed Mobility Training : Needs reinforcement Gait Training : Needs reinforcement Role of Physical Therapy : Verbalizes understanding Safety : Verbalizes understanding Transfer Training : Needs reinforcement Use of Assistive Device : Needs reinforcement EDGARD BUENO, PT - 09/20/2021 15:26 EST Indication Assesessment, PT Physical Therapy Indicated : Yes PT Problem List : Impaired, endurance tolerance, Impaired, gait, Impaired, joint mobility, Impaired, stair mobility, Impaired, standing balance, Impaired, strength, Impaired, transfers Potential Barriers To Therapy : None evident Rehabilitation Potential : Good EDGARD BUENO, PT - 09/20/2021 15:26 EST Plan of Care, PT PT Tx Plan/Goals Established w Patient : Yes PT Frequency Rehab : Daily, twice (bid) PT Duration Rehab : Fourteen days PT Treatments Planned : Bed mobility training, Gait training, Safety education, Stair training, Therapeutic exercises, Transfer training EDGARD BUENO, PT - 09/20/2021 15:26 EST Carpenter Inspector Goals Mobility/Bed Mobility LTG PT Grid Goal #1 Activity : Sit to stand Assist : Supervision or set-up Equipment : Walker, front wheel Date to Meet : 10/04/2021 EST Goal Status : Intial Goal EDGARD BUENO, PT - 09/20/2021 15:26 EST Ambulation LTG Grid Goal #1 Device : Walker, front wheel Distance : 100ft Assist : Supervision or set-up Date to Meet : 10/04/2021 EST Goal Status : Intial Goal EDGARD BUENO, PT - 09/20/2021 15:26 EST Stairs LTG Grid Goal #1 Device : Walker, front wheel Number of Steps : 1 Handrail(s) : No handrails Assist : Assist, minimal Date to Meet : 10/04/2021 EST Goal Status : Intial Goal EDGARD BUENO, PT - 09/20/2021 15:26 EST Treatment Note Subjective Comment : Pt agreeable to PT eval, states pain 5/10 at rest. Patient's Response to Treatment : Fair initial tolerance, limited by complaints of fatigue, able to void successfully but tired after ambulation to restroom. Educated about use of call lawton for assitance with mobility tasks. Additional Objective Information : Jacob sup-sit Jacob sit-stand with RWx CGA gait 15ft with RWx Assessment : Pt with fair initial tolerance to mobility, will benefit from continued PT to maximize activity tolerance and minimize fall risk. Plan for Treatment : BID EDGARD BUENO, PT - 09/20/2021 15:26 EST Pain Assessment Pain Scaled Used : 0-10 Pain scale Pain Score Pre-Intervention : 5 Pain Score Post-Intervention. : 5 Location : Hip, left Pain Improved by : Medication Pain Improved by Intervention : Yes Pain Comment : DELROY green aware EDGARD BUENO, PT - 09/20/2021 15:26 EST Image 1 - Images currently included in the form version of this document have not been included in the text rendition version of the form. Anticipated Discharge Needs, OT/PT Anticipated Discharge to : Home, with home health, Outpatient rehabilitation Anticipated Home Equipment : Commode Recommend Continued Therapy at Discharge : Yes EDGARD BUENO, PT - 09/20/2021 15:26 EST [place] PT Charges PT Eval Low Complexity : 1 EDGARD BUENO PT - 09/20/2021 15:26 EST Electronically signed by Loyd Hutchins Conversion Medical Records Custodian Luis Enrique at 02/04/2023 12:24 PM CDT documented in this encounter Plan of Treatment Not on file documented as of this encounter Visit Diagnoses Not on filedocumented in this encounter
--- OUTSIDE RECORDS SUMMARY | 2025-05-20 16:03 | XMS_ITS | Encounter Summary ---
Author Organization [employer] ([place], [place], [place], [place]) Address [address] [place] [address] Care Team Providers Care Marketing Compliance Manager Name Role Phone Unavailable Primary Care Provider Unavailabl e Encounter Details Date Type Department Care Team (Late st Contact Info) Description 09/20/2021 Transcribed Document [facility] Family Medicine [address] [place] [address] ProviderInes MD [address] [place] [address] Social History Tobacco Use Types [...] Conversion Note - Ines ProviderMD - 09/20/2021 4:28 PM SEXUAL ASSAULT COUNSELLOR Treatment Intervention, OT Entered On: 09/21/2021 16:06 EST Performed On: 09/21/2021 11:21 EST by MADONNA CUETO OTR/Yoanna General Information, OT Visit Type, OT : Treatment Note Patient Orders : Order Date Order Ordering 09/20/2021 10:50 OT Evaluation and Treatment Ordered By: TIMO BLAKE MD-ORT 09/20/2021 10:50 OT Treatment Instructions Ordered By: TIMO BLAKE MD-ORT 09/20/2021 16:28 OT Additional Treatment Ordered By: Active Diagnoses : No Qualifying Diagnoses Therapy Diagnosis, OT : Decreased weakness s/p L anterior HALEY Admission Date : 09/20/2021 06:33 Co-treated by, OT : Physical Therapist Personal Devices : Personal Devices No Devices Recorded Assistive Devices : Assistive Devices No Devices Recorded MADONNA CUETO OTR/Yoanna - 09/21/2021 16:03 EST General Status Patient Received Status : Up in chair Treatment Start Time : 09/21/2021 10:53 EST Patient Left Status : Up in chair Treatment End Time : 09/21/2021 11:21 EST Treatment Time : 28 Minute(s) MADONNA CUETO OTR/Yoanna - 09/21/2021 16:03 EST Self Care/Home Management, OT Lower Body Dressing Assist Level, OT : Supervision or set-up Toileting Assist Level : Supervision or set-up Toilet Transfer Assist Level : Supervision or set-up MADONNA CUETO OTR/Yoanna - 09/21/2021 16:03 EST Functional Mobility Mobility Grid Sit to Stand : Supervision/set-up Bed to Chair : Supervision/set-up Stand to Sit : Supervision/set-up MADONNA CUETO OTR/Yoanna - 09/21/2021 16:03 EST Plan of Care, OT OT Tx Plan/Goals Established w Patient : Yes MADONNA CUETO OTR/Yoanna - 09/21/2021 16:03 EST Acoustical Material Worker Goals, OT Grooming LTG Grid Goal #1 Activity : Grooming Assist : Independent, modified Date to Meet : 10/04/2021 EST Goal Status : Initial goal MADONNA CUETO OTR/Yoanna - 09/21/2021 16:03 EST Bathing LTG Grid Goal #1 Activity : Bathing Assist : Independent, modified Date to Meet : 10/04/2021 EST Goal Status : Initial goal MADONNA CUETO OTR/Yoanna - 09/21/2021 16:03 EST Dressing, Lower Body LTG Grid Goal #1 Activity : Dressing, Lower Body Assist : Independent, modified Date to Meet : 10/04/2021 EST Goal Status : Progressing, continue MADONNA CUETO OTR/Yoanna - 09/21/2021 16:03 EST Toileting LTG Grid Goal #1 Activity : Toileting Assist : Independent, modified Date to Meet : 10/04/2021 EST Goal Status : Initial goal MADONNA CUETO OTR/Yoanna - 09/21/2021 16:03 EST Toilet Transfer LTG Grid Goal #1 Activity : Toilet Transfer, Ambulatory Assist : Independent, modified Date to Meet : 10/04/2021 EST Goal Status : Progressing, continue MADONNA CUETO OTR/Yoanna - 09/21/2021 16:03 EST Treatment Note Subjective Comment : Pt was agreeable Patient's Response to Treatment : Pt tolerated tx Additional Objective Information : Pt was found sitting up in chair. Pt was supervision for sit to stand, tolieting, dressing lower body via AE, ambulation via RWX, and stand to sit. Pt was left in PT gym recieivng edu on HEP. No joint jv baseball coach present. Assessment : Pt is progressing towards goals Plan for Treatment : Cont OT POC MADONNA CUETO OTR/Yoanna - 09/21/2021 16:03 EST [place] OT Charges OT Selfcare/Hm Mgmt Ea 15 Min : 1 OT Ther Activities Ea 15 Min : 1 MADONNA CUETO OTR/Yoanna - 09/21/2021 16:03 EST documented in this encounter Plan of Treatment Not on file documented as of this encounter Visit Diagnoses Not on filedocumented in this encounter
--- OUTSIDE RECORDS SUMMARY | 2025-05-20 16:03 | XMS_ITS | Encounter Summary ---
Author Organization [employer] ([place], [place], [place], [place]) Address [address] [place] [address] Care Team Providers Care Bulldogger Name Role Phone Unavailable Primary Care Provider Unavailabl e Encounter Details Date Type Department Care Team (Late st Contact Info) Description 09/20/2021 Transcribed Document [facility] [place] [address] [place] [address] ProviderInes MD [address] [place] [address] Social History Tobacco Use Types [...] - Ines ProviderMD - 09/20/2021 11:20 AM APPOINTMENT SETTER Pain Assessment Entered On: 09/20/2021 18:05 EST Performed On: 09/20/2021 12:11 EST by RONEN DAVE RN Intervention Information: oxyCODONE Performed by RONEN DAVE RN on 09/20/2021 11:11:00 EST oxyCODONE,5mg Oral,Pain (Moderate 4-6) Pain Assessment Pain Assessment : Follow-up assessment Pain Scale Goal : 3 Pain Scale Used : 0-10 Scale RONEN DAVE RN - 09/20/2021 18:05 EST Pain Scale Intensity : 3 RONEN DAVE RN - 09/20/2021 18:05 EST Image 4 - Images currently included in the form version of this document have not been included in the text rendition version of the form. documented in this encounter Plan of Treatment Not on file documented as of this encounter Visit Diagnoses Not on filedocumented in this encounter
[2025-05-20 16:05] LABS: Hematocrit 36.5 % (37.0-47.0); Hemoglobin 11.9 g/dL (12.2-16.2); Immature Granulocytes % 0.4 %; Mean Corpuscular HGB Conc 32.6 g/dL (31.8-35.4); Mean Corpuscular Hemoglobin 28.3 pg (27.0-31.2); Mean Corpuscular Volume 86.7 fl (81-99); Nucleated Red Blood Cells % 0 %; Platelet Count 255 K/mm3 (142-424); Red Blood Count 4.21 M/mm3 (4.20-5.40); Red Cell Distribution Width-SD 41.8 fL; White Blood Count 15.9 K/mm3 (4.8-10.8)
[2025-05-20 16:10] LABS: VBG PCO2 35.5 mmol/L (35-51); VBG PH 7.43 mmol/L (7.31-7.41)
[2025-05-20 16:11] LABS: Lactate Venous 1.5 mmol/L (0.4-2.0); VBG HCO3 23.1 mmol/L (23-30); VBG PO2 49.7 mmol/L (28-40)
[2025-05-20 16:11] LABS: INR 1.38 (0.9-1.1); Prothrombin Time 15.0 seconds (10.1-12.5)
[2025-05-20] MEDS: LACTATED RINGERS 1000ML 1,000 ML 999 ML IV (16:13)
[2025-05-20 16:17] LABS: Coronavirus 19, PCR Not Detected (NotDetected); Influenza A, PCR Not Detected (NotDetected); Influenza B, PCR Not Detected (NotDetected)
[2025-05-20] MEDS: ACETAMINOPHEN 1,000MG/100ML VIAL 1000 MG IV (16:18)
[2025-05-20 16:19] LABS: Albumin Level 3.1 g/dl (3.5-5.0); Chloride 100 mmol/L (98-107); Sodium 131 mmol/L (136-145)
[2025-05-20 16:20] LABS: Potassium 3.4 mmoL/L (3.5-5.1)
[2025-05-20 16:22] LABS: Alanine Aminotransferase 16 U/L (12-78); Albumin/Globulin Ratio 0.8 (1.1-1.8); Alkaline Phosphatase 113 U/L (38-126); Anion Gap 8.4 mEq/L (5-15); Aspartate Amino Transferase 24 U/L (14-36); Bilirubin,Total 2.4 mg/dl (0.2-1.3); Blood Urea Nitrogen 15 mg/dl (7-17); Calcium 9.0 mg/dl (8.4-10.2); Carbon Dioxide 26 mmol/L (22.0-30.0); Creatinine Clearance Estimated 68 mL/min (50-200); Creatinine,Serum 1.10 mg/dl (0.52-1.04); Estimated Glomerular Filt Rate 49 ml/min (>60); GFR (African American) 59 ML/MIN (>60); Globulin 3.9 g/dL (1.3-3.2); Glucose 102 mg/dl (74-100); Lipase 24 U/L (23-300); Magnesium 1.3 mg/dl (1.6-2.3); Total Protein,Serum 7.0 g/dl (6.3-8.2)
[2025-05-20 16:32] LABS: NT Pro Brain Natriuretic Pep. 1220 pg/mL (0-125)
[2025-05-20 16:40] LABS: Troponin I < 0.01 ng/ml (0.00-0.034)
[2025-05-20] MEDS: 0.9 % SODIUM CHLORIDE 50 ML VIAL IV (16:50)
[2025-05-20] MEDS: SODIUM CHLORIDE 0.9% 10ML SYR (RAD ONLY) 10 ML IV (16:50)
[2025-05-20] MEDS: IOPAMIDOL-370 (76%);100ML BOTTLE 75 ML IV (16:51)
[2025-05-20] MEDS: MAGNESIUM SULFATE IN WATER 2 GM/50 ML PIGGYBACK IV (18:00)
[2025-05-20] MEDS: AZITHROMYCIN 500 MG in 0.9 % SODIUM CHLORIDE 250 ML 250 MG IV (18:23)
[2025-05-20] MEDS: IPRATROPIUM/ALBUTEROL 3 ML NEB 6 ML IH (18:24)
[2025-05-20] MEDS: METHYLPREDNISOLONE SOD SUCC 125MG VIAL 125 MG IV (18:24)
[2025-05-20] MEDS: ONDANSETRON 4MG/2ML VIAL 4 MG IV (18:38)
--- NOTE | 2025-05-20 18:41 | PC.NURSE ---
called house for a bed
--- NOTE | 2025-05-20 19:01 | EXP.HP ---
History of Present Illness *Admission Date: 05/20/25 *Reason for visit:: dyspnea, fever *History of present illness: 69-year-old female with history of hypertension, COPD, smoking stopped many years ago, obesity. She presents with a week of worsening shortness of breath, chills, cough that is nonproductive. Saw her PCP today who sent her to the ER for evaluation for concern of sepsis and pneumonia. On arrival to the ER, patient sats were in the 70s. Placed on nasal cannula oxygen with improvement. Workup in the ER with white count of 15. Chest imaging showing bilateral multifocal pneumonia. Meeting sepsis criteria with tachycardia, tachypnea, hypoxia, white count and pneumonia on chest imaging. Initiated on ceftriaxone and azithromycin. Medicine consulted for admission and further management of sepsis and pneumonia. On arrival to the floor, patient denies chest pain but does complain of having had some nausea and intermittent emesis over the past day or 2. States she is feeling somewhat better after receiving medications in the ER. Tolerating 3 L oxygen with sats of 88 to 89%. Increased to 5 L during evaluation. Will administer additional breathing treatment at this time. Alert and oriented x 4. No antibiotics prior to the ER. States is her surrogate decision-maker [facility] Disclaimer: The information contained in this section may have been updated after the patient was seen, as this information can be updated by other users. Medical History (Updated 05/20/25 @ 21:25 by Milan Stanford MD) History of asthma History of COPD History of smoking 30 or more pack years Dyspnea on exertion Lipoma Hypertension HLD (hyperlipidemia) GERD (gastroesophageal reflux disease) Depression Asthma Anxiety Surgical History History of local excision of skin lesion History of left hip replacement History of colonoscopy History of cholecystectomy Hx of tonsillectomy History of total right hip replacement H/O arthroscopy of right knee Family History Family history of stroke Social History Smoking Status: Never smoker alcohol intake: current alcohol intake frequency: holidays/special occasions only substance use type: denies use current occupational status: retired Travel in the last 8 weeks?: None household members: spouse housing: house lives independently: No marital status: education level: college caffeine: Yes special zeinab needs: No agree to transfusion: No do you feel safe at home: Yes victim of physical abuse: No victim of emotional abuse: No victim of sexual abuse: No would you like helpful sources: No Have you lived/traveled outside US in past 30 days?: No Contact w/someone who lives/traveled outside US past 30 days?: No Exposure to someone with infectious disease in past 14 days?: No Do you have a fever (greater than 100.4 F or 38 C)?: No Have you tested positive for COVID-19?: No Exposed to someone with COVID-19 in past 14 days?: No Do you have a sore throat?: No Do you have a cough?: Yes Do you have any weakness?: Yes Do you have any diarrhea?: No Are you experiencing any unusual bleeding?: No Do you have any muscle aches/pain?: No Do you have any abdominal pain?: No Are you experiencing loss of taste or smell?: No Other Medical History Have you received the Flu Vaccine for this season: No Have you received the Pneumonia Vaccine: Yes Review of Systems Review of Systems Review of systems (narrative): 14 point review of systems performed, pertinent positives and negatives as per HPI Meds Home Medications and Allergies Home Medications ?Medication ?Instructions ?Recorded ?Confirmed ?Type citalopram 20 mg tablet 20 mg PO DAILY Anxiety 04/07/19 05/20/25 History fluticasone propionate 50 1 spray intranasal DAILY allergoes 04/07/19 05/20/25 History mcg/actuation nasal spray,suspension (Flonase Allergy Relief) gabapentin 100 mg capsule 100 mg PO TID Pain 04/07/19 05/20/25 History omeprazole 40 mg capsule,delayed 40 mg PO DAILY stomach 04/07/19 05/20/25 History release pravastatin 80 mg tablet 80 mg PO DAILY Cholesterol 04/07/19 05/20/25 History albuterol sulfate 90 mcg/actuation 90 mcg inhalation DAILY allergies 11/19/19 05/20/25 History aerosol inhaler furosemide 20 mg tablet 20 mg PO DAILY Fluid 07/20/20 05/20/25 History potassium chloride 20 mEq 20 meq PO DAILY Supplement 07/20/20 05/20/25 History tablet,extended release(part/cryst) carvedilol 12.5 mg tablet 12.5 mg PO BID 07/14/24 05/20/25 History cholecalciferol (vitamin D3) 25 25 mcg PO DAILY 07/14/24 05/20/25 History mcg (1,000 unit) capsule ipratropium 0.5 mg-albuterol 3 mg 3 ml inhalation Q4-6H PRN 07/14/24 05/20/25 History (2.5 mg base)/3 mL nebulization Shortness Of Breath soln metoclopramide HCl 5 mg tablet 5 mg PO QACHS 07/14/24 05/20/25 History Spiriva with HandiHaler 18 mcg and 1 cap inhalation DAILY #90 puffs 08/21/24 05/20/25 Rx inhalation capsules (tiotropium bromide) montelukast 10 mg tablet 10 mg PO DAILY #90 tabs 08/21/24 05/20/25 Rx (Singulair) fluticasone 500 mcg-salmeterol 50 1 inh inhalation BID #180 ea 10/28/24 05/20/25 Rx mcg/dose blistr powdr for inhalation (Advair Diskus) New Prescriptions to Start Prescriptions: Allergies Allergy/AdvReac Type Severity Reaction Status Date / Time codeine Allergy Mild NA-NAUSEA/V Verified 08/21/24 10:13 OMITING adhesive Allergy Unknown Verified 08/21/24 10:13 lanolin Allergy Unknown Verified 08/21/24 10:13 Exam Data for Last 24 hours Vital signs and Labs for Last 24 Hours: Temp Pulse Resp BP Pulse Ox O2 Del Method 102.4 F H 74 16 125/70 95 Room Air 05/20/25 15:49 05/20/25 18:30 05/20/25 18:30 05/20/25 18:30 05/20/25 18:30 05/20/25 15:49 Laboratory Results - last 24 hr 05/20/25 15:50: SARS-CoV-2 (PCR) Not detected, Influenza A Untype (PCR) Not detected, Influenza Type B (PCR) Not detected 05/20/25 15:51: WBC 15.9 H, RBC 4.21, Hgb 11.9 L, Hct 36.5 L, MCV 86.7, MCH 28.3, MCHC 32.6, RDW 13.3, Plt Count 255, MPV 11.2 H, Neut % (Auto) 83.3 H, Lymph % (Auto) 9.2 L, Mcdowell % (Auto) 6.5, Eos % (Auto) 0.3, Baso % (Auto) 0.3, Neut # (Auto) 13.3 H, Lymph # (Auto) 1.5, Mcdowell # (Auto) 1.0, Eos # (Auto) 0.1, Baso # (Auto) 0.0, PT 15.0 H, INR 1.38 H, Sodium 131 L, Potassium 3.4 L, Chloride 100, Carbon Dioxide 26, Anion Gap 8.4, BUN 15, Creatinine 1.10 H, Estimated Creat Clear 68, Estimated GFR 49 L, Est GFR ( Amer) 59, Glucose 102 H, Lactate 1.0, Calcium 9.0, Magnesium 1.3 L, Total Bilirubin 2.4 H, AST 24, ALT 16, Alkaline Phosphatase 113, Troponin I < 0.01, NT-Pro-B Natriuret Pep 1220 H, Total Protein 7.0, Albumin 3.1 L, Globulin 3.9 H, Albumin/Globulin Ratio 0.8 L, Lipase 24 05/20/25 16:01: VBG pH 7.43 H, VBG pCO2 35.5, VBG pO2 49.7 H, VBG HCO3 23.1, VBG Total CO2 24.2, VBG O2 Saturation 86.7 H, VBG Base Excess -0.7, VBG Lactic Acid 1.5 I & O for Last 24 hours: Intake & Output 05/17/25 05/18/25 05/19/25 05/20/25 23:59 23:59 23:59 23:59 Weight 90.718 kg Constitutional Constitutional: mild distress, obese, chronically ill appearing and cooperative *Routine HEENT Exam Head: Present normocephalic Eye: Present EOMI and PERRL ENT: Present mucous membranes moist *Routine Neck Exam Neck: Present supple; Absent lymphadenopathy *Routine Respiratory Exam Respiratory: Present accessory muscle use, prolonged expiratory phase, wheezes and crackles (bilateral bases); Absent rhonchi *Routine Cardiovascular Exam Cardiovascular: Present RRR *Routine Abdominal Exam Abdominal: Present soft and normoactive bowel sounds; Absent tenderness *Routine Rectal Exam Rectal:: deferred *Routine Genitalia Exam Genitalia:: deferred *Routine Extremities Exam Extremities: Absent cyanosis, clubbing or edema *Routine Skin Exam Skin: Present intact and warm; Absent rash *Routine Neurological Exam Neurological: Present alert, oriented X3 and moving all extremities; Absent altered mental status Assessment and Plan *Assessment and plan (1) Sepsis: Status: Acute Category: Medical Code(s): A41.9 - Sepsis, unspecified organism (2) Pneumonia: Status: Acute Qualifiers: Pneumonia type: due to unspecified organism Laterality: bilateral Lung location: lower lobe of lung Qualified Code(s): J18.9 - Pneumonia, unspecified organism Category: Medical Code(s): J18.9 - Pneumonia, unspecified organism (3) Acute hypoxic respiratory failure: Status: Acute Category: Medical Code(s): J96.01 - Acute respiratory failure with hypoxia (4) Hypoxia: Status: Acute Category: Medical Code(s): R09.02 - Hypoxemia (5) History of COPD: Status: Acute Category: Medical Code(s): Z87.09 - Personal history of other diseases of the respiratory system (6) History of smoking 30 or more pack years: Status: Acute Category: Social Hx Code(s): Z87.891 - Personal history of nicotine dependence (7) Obesity (BMI 30.0-34.9): Status: Acute Category: Medical Code(s): E66.811 - Obesity, class 1 (8) Hypertension: Status: Chronic Category: Medical Code(s): I10 - Essential (primary) hypertension (9) Depression: Status: Chronic Category: Medical Code(s): F32.A - Depression, unspecified (10) Hypomagnesemia: Status: Acute Category: Medical Code(s): E83.42 - Hypomagnesemia Plan 69-year-old female with history of COPD, hypertension, obesity presents with shortness of breath and suspected pneumonia. Workup in the ER positive for pneumonia and sepsis. Discussed case with ER physician, request admission for further management with IV antibiotics and supplemental oxygen. Medicine decided to admit for further care. Continue broad-spectrum IV antibiotics. Pulmonology consulted to evaluate in morning. Problems addressed as follows: Acute hypoxemic respiratory failure Multifocal pneumonia Sepsis -Meeting sepsis criteria with white count of 15, Tachypnea with respiratory rate of 28, fever of 102.4, and chest CT per my review with multifocal airspace disease bilaterally and lower lobes. Small effusion left side. No PEs per my review. - Initiated on ceftriaxone 1 g IV and azithromycin 100 mg IV in the ED. Will continue antibiotics with ceftriaxone 2 g daily and azithromycin 5 mg IV daily for 5 days. - Received 1 L IV fluids. His blood pressure is normal and heart rate is normal, will hold on further IV fluids and will not administer full sepsis bolus at this time. - Blood cultures obtained, sputum sample ordered and pending. - Continue DuoNebs every 6 hours scheduled. Budesonide twice daily - Pulmonology consulted to assist with care. Will evaluate in the morning - Supplemental oxygen as needed, goal sats greater 90%. Currently on 4 to 5 L - CBC, CMP, magnesium ordered for the more Hypomagnesemia: Received 2 g magnesium in the ED. Level 1.3 on admission. Repeat level ordered for the morning. Replace per protocol INR elevated at 1.38, patient not on blood thinners. Unsure the significance. Remainder of liver enzymes normal. Will repeat in the morning to monitor for improved Hypertension: Will resume home regimen after med rec is completed. BNP elevated at 12. Unsure the significance. Echo obtained December 2019 EF normal at that time. Pending patient's ability to wean oxygen, will consider repeat echo - Continue carvedilol 12.5 mg twice daily - Resume Lasix 20 mg daily. Kidney function normal Depression: Continue citalopram 20 mg daily Neuropathy: Continue gabapentin 100 mg 3 times a day GERD: Pantoprazole 40 mg nightly as formulary conversion Full code Heparin subcu 5000 units 3 times daily Regular diet
--- NOTE | 2025-05-20 20:09 | PC.NURSE ---
pt to unit via wheelchair at 2006
[2025-05-20 20:28] LABS: Hepatitis C Ab Qual. W/ RFX NEGATIVE (Negative)
[2025-05-20] MEDS: HEPARIN SODIUM 5,000 UNIT/ML VIAL 5000 UNIT SUBCUT (20:42)
[2025-05-20] MEDS: IPRATROPIUM/ALBUTEROL 3 ML NEB IH ×2 (20:55→23:07)
[2025-05-20 23:06] LABS: Troponin I < 0.01 ng/ml (0.00-0.034)
[2025-05-20] MEDS: SODIUM CHLORIDE 3% 15ML NEB 3 ML IH (23:07)
[2025-05-21] VITALS (24 sets, daily range): BP systolic 103–148; BP diastolic 43–71; PULSE 60–78; RESP 12–23; TEMP 36.5–36.7; O2SAT 89–100; BMI 34.9
[2025-05-21 05:20] LABS: Chloride 103 mmol/L (98-107); Potassium 3.8 mmoL/L (3.5-5.1); Sodium 132 mmol/L (136-145)
[2025-05-21 05:23] LABS: Anion Gap 6.8 mEq/L (5-15); Blood Urea Nitrogen 14 mg/dl (7-17); Carbon Dioxide 26 mmol/L (22.0-30.0); Creatinine Clearance Estimated 77 mL/min (50-200); Creatinine,Serum 0.80 mg/dl (0.52-1.04); Estimated Glomerular Filt Rate 71 ml/min (>60); GFR (African American) 86 ML/MIN (>60)
[2025-05-21 05:24] LABS: Calcium 8.8 mg/dl (8.4-10.2); Glucose 143 mg/dl (74-100); INR 1.27 (0.9-1.1); Prothrombin Time 13.8 seconds (10.1-12.5)
[2025-05-21 05:29] LABS: Magnesium 2.3 mg/dl (1.6-2.3)
[2025-05-21 05:32] LABS: Microscopic, Urine URINE MICROSCOPIC (MICROSCOPIC)
[2025-05-21 05:34] LABS: Bilirubin,Urine Negative (Negative); Color,Urine YELLOW (Yellow); Glucose,Urine (UA) Negative (Negative); Ketones,Urine TRACE (Negative); Leukocyte Esterase,Urine Negative (Negative); PH,Urine 6.5 (5.0-8.5); Protein,Urine Negative (Negative); Specific Gravity, Urine <= 1.005 (1.005-1.030); Urobilinogen,Urine 1.0 EU/dl (0.2)
[2025-05-21 05:41] LABS: Hematocrit 35.7 % (37.0-47.0); Hemoglobin 11.2 g/dL (12.2-16.2); Immature Granulocytes % 0.6 %; Mean Corpuscular HGB Conc 31.4 g/dL (31.8-35.4); Mean Corpuscular Hemoglobin 27.8 pg (27.0-31.2); Mean Corpuscular Volume 88.6 fl (81-99); Nucleated Red Blood Cells % 0 %; Platelet Count 189 K/mm3 (142-424); Red Blood Count 4.03 M/mm3 (4.20-5.40); Red Cell Distribution Width-SD 42.6 fL; White Blood Count 10.8 K/mm3 (4.8-10.8)
[2025-05-21] MEDS: IPRATROPIUM/ALBUTEROL 3 ML NEB IH (06:18)
[2025-05-21] MEDS: BUDESONIDE 0.5MG/2ML NEB 0.5 MG IH (06:18)
--- NOTE | 2025-05-21 06:40 | PC.NURSE ---
Addendum entered by Lisa Starkey RN 05/21/25 08:17: previous RN entered in on wrong patient Original Note: Called dispatch to have press operator meat sent for patient
--- NOTE | 2025-05-21 08:21 | HMH.PHAINT1 ---
Pharmacy Intervention Comments: MEDICATION RECONCILIATION COMPLETED ON PATIENT USING EXTERNAL FILL HISTORY FROM PHARMACY. -MARIA T PATRICK, PRADEEPD
[2025-05-21] MEDS: HEPARIN SODIUM 5,000 UNIT/ML VIAL 5000 UNIT SUBCUT ×3 (08:40→21:33)
[2025-05-21] MEDS: FUROSEMIDE 20MG TABLET 20 MG PO (08:40)
[2025-05-21] MEDS: CARVEDILOL 12.5MG TABLET 12.5 MG PO ×2 (08:40→21:33)
[2025-05-21] MEDS: CITALOPRAM 20MG TABLET 20 MG PO (08:40)
[2025-05-21] MEDS: GABAPENTIN 100MG CAPSULE 100 MG PO ×3 (08:40→21:33)
--- OUTSIDE RECORDS SUMMARY | 2025-05-21 09:36 | XMS_ITS | Encounter Summary ---
Author Organization [employer] ([place], [place], [place], [place]) Address [address] [place] [address] Care Team Providers Care Collection Supervisor Name Role Phone Unavailable Primary Care Provider Unavailabl e Encounter Details Date Type Department Care Team (Late st Contact Info) Description 09/20/2021 Transcribed Document [facility] [place] [address] [place] [address] ProviderInes MD [address] [place] [address] Social History Tobacco Use [...] - Historical ProviderMD - 09/20/2021 2:00 AM FAUCETS ASSEMBLER Spiritual Care Assessment Entered On: 09/20/2021 7:53 [...] Empathic/Engaged listening, Family/Significant other supported Spiritual and Hindu : Prayer shared, Spiritual/Hindu support provided DIEUDONNE MORALES - 09/20/2021 7:52 EST documented in this encounter Plan of Treatment Not on file documented as of this encounter Visit Diagnoses Not on filedocumented in this encounter
--- OUTSIDE RECORDS SUMMARY | 2025-05-21 09:36 | XMS_ITS | Encounter Summary ---
Author Organization [employer] ([place], [place], [place], [place]) Address [address] [place] [address] Care Team Providers Care Sheet Metal Technician Name Role Phone Unavailable Primary Care Provider Unavailabl e Encounter Details Date Type Department Care Team (Late st Contact Info) Description 09/21/2021 Transcribed Document [facility] [place] [address] [place] [address] ProviderInes MD [address] [place] [address] Social History Tobacco Use Types [...] - Historical ProviderMD - 09/21/2021 11:51 AM COMMUNITY INTEGRATION SPECIALIST Discharge Summary, PT Entered On: 09/21/2021 11:51 [...] - 09/21/2021 11:51 EST Electronically signed by [facility] Conversion Airset Molder Cerner at 02/04/2023 12:20 PM CDT documented in this encounter Plan of Treatment Not on file documented as of this encounter Visit Diagnoses Not on filedocumented in this encounter
--- OUTSIDE RECORDS SUMMARY | 2025-05-21 09:36 | XMS_ITS | Encounter Summary ---
Author Organization [employer] ([place], [place], [place], [place]) Address [address] [place] [address] Care Team Providers Care Bed Laster Name Role Phone Unavailable Primary Care Provider Unavailabl e Encounter Details Date Type Department Care Team (Late st Contact Info) Description 09/21/2021 Transcribed Document [facility] Radiology [address] [place] [address] Timo Johnson MD [address] [place] [address] Social History Tobacco Use Types [...] Date 09/21/2021 Primary Care Provider DARSHAN ARRINGTON (MD [facility] Discharge Diagnosis Left direct anterior total [...] 1 Cap, PRN, Oral, BID Flonase 1 [place], PRN, Nasal, BID furosemide 20 mg oral [...] Condition on Discharge Stable Consulting Physicians MIRZA WEBER MD-ANS JUAN C BREWER MD-INT Current Diet [...] swelling. Pending Labs In Process SENDOUT REPORT [id number], [id number], RT - Routine, 09/20/21 6:54:00 EST Pathology Tissue Request [id number], [id number], 09/20/21 6:54:00 EST, Collected, RT - Routine, [...]
--- OUTSIDE RECORDS SUMMARY | 2025-05-21 09:36 | XMS_ITS | Encounter Summary ---
Author Organization [employer] ([place], [place], [place], [place]) Address [address] [place] [id number] Care Team Providers Care Crackling Press Operator Name Role Phone Unavailable Primary Care Provider Unavailabl e Encounter Details Date Type Department Care Team (Late st Contact Info) Description 09/21/2021 Transcribed Document [facility] [place] [address] [place] [address] ProviderInes MD [address] [place] [address] Social History Tobacco Use Types [...] - Ines ProviderMD - 09/21/2021 3:15 PM COMPENSATION INTERN Final Discharge Planning Entered On: 09/21/2021 15:15 EST Performed On: 09/21/2021 15:15 EST by FERNIE MACE RN-Global Program Manager Final Discharge Planning Discharge Arrangements : Patient Post-Acute Information Patient Name: PINKY REID Gender: Female : 53 Age: 66 Years [place] Referral(s): Service: Organization: Business Address: Phone Number: Home Care Physician Services [facility] - [address], [address], [place], [address] Patient Offered Choice/Affiliations Explained : [...] Services (Related/SOC within 3 days)-06 FERNIE MACE RN-Global Program Manager - 09/21/2021 15:15 EST Electronically signed by [facility] Conversion Manufacturing Executive Cerner at 02/04/2023 12:20 PM CDT documented in this encounter Plan of Treatment Not on file documented as of this encounter Visit Diagnoses Not on filedocumented in this encounter
--- OUTSIDE RECORDS SUMMARY | 2025-05-21 09:36 | XMS_ITS | Encounter Summary ---
Author Organization [facility] ([place], [place], [place], [place]) Address [address] [place] [address] Care Team Providers Care Rn Ante Partum Name Role Phone Unavailable Primary Care Provider Unavailabl e Encounter Details Date Type Department Care Team (Late st Contact Info) Description 09/20/2021 Transcribed Document [facility] [place] [address] [place] [address] ProviderInes MD [address] [place] [address] Social History Tobacco Use Types [...] - Ines ProviderMD - 09/20/2021 7:56 AM COMMUNITY SERVICE REPRESENTATIVE [facility] Main OR IntraOp Summary Primary Physician: TIMO BLAKE MD-ORT Finalized Date/Time: 09/21/21 13:14:06 Pt. Name: NATALIA REID Barrett /Sex: 1955 Female Med Rec #: [id number] Physician: TIMO BLAKE MD-ORT Financial #: [id number] Pt. Type: O Room/Bed: 3/1 Admit/Disch: 09/20/21 06:33:00 - Institution: [facility] IntraOp Case Attendance Entry 1 Entry 2 Entry 3 Case Attendee TIMO BLAKE CORNEA, MIHAELA, MD-ANS [facility], VLAD K, MD-ORT MUSIC ORCHESTRATOR, RN TRANSITIONAL CARE Role Performed Surgeon/Proceduralist, Anesthesiologist of RN TRANSITIONAL CARE/Nurse Basic Sciences Professor First Record Time In 09/20/21 07:25:00 09/20/21 [...] Attendee BAUTISTA SEXTON, Ana Buenrostro, Rn Sridhar Jessica, Acquisition Cost Estimator Role Performed Cyber Defense Analyst, First Layer Off, First Scrub, First Time In 09/20/21 07:25:00 [...] OTHER, ATTENDEE LEON PEACOCK RN Role Performed Deputy Court Vendor Layer Off, Second Time In 09/20/21 07:25:00 09/20/21 07:25:00 09/20/21 07:25:00 Time Out 09/20/21 09:12:00 09/20/21 09:12:00 09/20/21 09:12:00 Procedure Hip Total Anterior Hip Total Anterior Hip Total Anterior Approach(Left) Approach(Left) Approach(Left) Other Attendee JERZY FERNANDO BREAK Superficial Wound Closed By: Last Modified By: Ana Fitch Rn Ana Fitch, Rn Ana Fitch Rn 09/20/21 09:12:37 09/20/21 09:12:37 09/20/21 09:12:37 [facility] IntraOp Case Attendance Audit 09/20/21 09:12:37 Drawer In: [id number] Modifier: [id number] 1 <+> Time Out 1 <*> Procedure [...] Procedure Hip Total Anterior Approach(Left) 09/20/21 08:55:51 Drawer In: [id number] Modifier: [id number] 1 <+> Time In 1 <*> Procedure [...] Procedure <+> 9 Other Attendee 09/20/21 06:47:55 Drawer In: [id number] Modifier: [id number] <+> 1 Procedure 2 <*> Procedure Hip Total Anterior Approach(Left) 3 <*> Procedure Hip Total Anterior Approach(Left) 4 <*> Procedure Hip Total Anterior Approach(Left) 5 <*> Procedure Hip Total Anterior Approach(Left) 6 <*> Procedure Hip Total Anterior Approach(Left) 7 <*> Procedure Hip Total Anterior Approach(Left) 8 <*> Procedure Hip Total Anterior Approach(Left) [facility] IntraOp Case Times Entry 1 Patient In Room Time 09/20/21 07:25:00 Out Room Time 09/20/21 09:12:00 Anesthesia Start Time 09/20/21 07:25:00 Stop Time 09/20/21 09:12:00 Surgery / Procedure Times Start Time 09/20/21 07:56:00 Stop Time 09/20/21 09:05:00 Last Modified By: Ana Fitch Rn 09/20/21 09:12:29 [facility] IntraOp Case Times Audit 09/20/21 09:12:29 Drawer In: [id number] Modifier: [id number] <+> 1 Out Room Time <+> 1 Stop Time <+> 1 Stop Time 09/20/21 07:56:47 Drawer In: [id number] Modifier: [id number] <+> 1 Start Time [facility] IntraOp Cautery Entry 1 ESU Identification Cautery Type Monopolar ESU ID Number [id number] ID Type Hospital Number Cautery Settings Cut Setting 50 Coag Setting 50 ESU Grounding Pad Ground Pad Type Adult Grounding Pad Site Right Lower Abdomen Grounding Pad Ana Fitch Rn Applied By Grounding Pad Site Intact, Warm, Dry Skin Condition Before Cautery Grounding Pad Site Unchanged Skin Condition After Cautery Last Modified By: Ana Fitch Rn 09/20/21 06:45:44 [facility] IntraOp Communication Entry 1 Entry 2 Communication To Family/Significant other Family/Significant other Comment CLOSE Communication By Ana Fitch Rn TAYLOR, MELISSA A, RN Date and Time 09/20/21 07:58:00 09/20/21 08:56:00 Last Modified By: Ana Fitch Rn Compton, Tracy R, Rn 09/20/21 07:58:41 09/20/21 09:06:57 [facility] IntraOp Communication Audit 09/20/21 09:06:57 Drawer In: [id number] Modifier: [id number] <+> 2 Communication By <+> 2 Date and Time <+> 2 Communication To <+> 2 Comment [facility] IntraOp Counts Verification Entry 1 Procedure Hip Total Anterior Approach(Left) Count Info Count Type Sponge, Sharps Counts Verification Baseline/pre-procedure Sequence Count Results Not Applicable Counts Performed By Count Performed By Sridhar Jessica Scrub (Scrub) Tech Count Performed By Ana Fitch Rn (RN) Last Modified By: Ana Fitch Rn 09/20/21 06:45:59 [facility] IntraOp Counts Final Entry 1 Procedure Hip Total Anterior Approach(Left) Final Count Info Count Type Sponge, Sharps, Miscellaneous Counts Verification Skin Closure/end of Sequence procedure Count Results Correct, surgeon notified Counts Performed By Count Performed By Sridhar Jessica Scrub (Scrub) Tech Count Performed By LEON PEACOCK RN (RN) Last Modified By: Ana Fitch Rn 09/20/21 08:56:06 [facility] IntraOp Cultures and Spec Summary Entry 1 Cultrures and Specimens Specimen Ordered: Yes Test(s) Routine/Path-Lab Requested/Final Disposition Last Modified By: Ana Fitch Rn 09/20/21 06:46:09 General Comments: A, LEFT FEMORAL HEAD [facility] IntraOp Delays Entry 1 Delay Reason Surgeon late - no reason Duration 10 Minute(s) Last Modified By: Ana Fitch Rn 09/20/21 07:32:08 [facility] IntraOp Departure from OR Entry 1 Integumentary Assessment Integumentary WDL Assessment WDL Transfer/Handoff Transfer to PACU Phase I Handoff Method Bedside/Face to face, Phone call Post-op Transport Stretcher/Johanna Via Patient Transport VLAD ORTIZ, Accompanied by MUSIC ORCHESTRATOR, RN TRANSITIONAL CARE, Ana Fitch Rn Last Modified By: Ana Fitch Rn 09/20/21 06:46:16 [facility] IntraOp Dressing and Packing Entry 1 Type Dressing Location OPERATIVE SITE Wound Dressing Item Occlusive dressing, Skin Closure Glue, Other Applied By BAUTISTA SEXTON CSA Other Comments AQUACEL AG, HIP WRAP Last Modified By: Ana Fitch Rn 09/20/21 06:46:19 [facility] IntraOp Fire Risk Assessment Entry 1 [...] Modified By: Ana Fitch Rn 09/20/21 06:46:22 [facility] IntraOp General Case Office Runner 1 Case Information OR OR 05 [facility] Case Level 1 Room Verified Yes Wound Class 1 - Clean Specialty Orthopedic Anesthesia Type General ASA Class 2 Diagnosis Preop Diagnosis LEFT HIP OSTEOARTHRITIS Postop Same As Preop Yes Postop Diagnosis LEFT HIP OSTEOARTHRITIS Wound Class Definitions Last Modified By: Ana Fitch Rn 09/20/21 08:08:55 [facility] IntraOp General Case Data Audit 09/20/21 08:08:55 Drawer In: [id number] Modifier: [id number] 1 <*> OR OR 04 [facility] IntraOp Implant Log Entry 1 Entry 2 Entry 3 Type Implant (Synthetic) Implant (Synthetic) Implant (Synthetic) Implant Log Implant Type Hardware Hardware Hardware Tissue Implant Type Implant TRIDENT ACEL CLUSTER SCR LOW PROFILE SCR LOW PROFILE Identification 48MM [id number] Description Implant Quantity 1 1 1 Implant Site LEFT HIP LEFT HIP LEFT HIP Implant Identification Model Number Implant Identification Serial Number Implant [id number] Identification Lot Number Implant Ira Ortho Cap Ira:Ira Ira:Ira Identification Orthopaedics Orthopaedics Head Of Commission Department Name: Implant [id number] Identification Catalog Number Implant Size Implant Has an Yes Yes Yes Expiration Date Implant Expiration 07/12/26 06/14/26 06/16/26 Date Wasted Radioactive Material Time Implanted Tissue Implant Continue for Tissue Implant Documentation Tissue Identification Number Graft Prep Per Head Of Commission Department Instructions: Tissue Preparation Method: Reconstitution Solution: Reconstitution Solution Lot Number Reconstitution Solution Expiration Date: Thawing Solution Thawing Solution Lot Number Thawing Solution Expiration Date Preparation Materials, Other Preparation Materials, Other Lot Number Preparation Materials, Other Expiration Date Tissue Prepared/Processed By Head Of Commission Department Paperwork Completed Implant Type Comment Last Modified By: Ana Fitch Rn Compton, Tracy R, Rn Compton, Tracy R, Rn 09/20/21 08:45:43 09/20/21 08:45:43 09/20/21 08:45:43 Entry 4 Entry 5 Entry 6 Type Implant (Synthetic) Implant (Synthetic) Implant (Synthetic) Implant Log Implant Type Hardware Hardware Hardware Tissue Implant Type Implant INSRT TRIDENT POLY X3 HIP STEM ACCOLADE II HEAD FEM 36MM BIOLOX Identification 36MM [id number] [id number] Description Implant Quantity 1 1 1 Implant Site LEFT HIP LEFT HIP LEFT HIP Implant Identification Model Number Implant Identification Serial Number Implant [id number] Identification Lot Number Implant Ira:[place] Ira:Ira Identification Orthopaedics Orthopaedics Orthopaedics Head Of Commission Department Name: Implant [id number] Identification Catalog Number Implant Size Implant Has an Yes Yes Yes Expiration Date Implant Expiration 07/16/26 07/17/26 07/18/26 Date Wasted Radioactive Material Time Implanted Tissue Implant Continue for Tissue Implant Documentation Tissue Identification Number Graft Prep Per Head Of Commission Department Instructions: Tissue Preparation Method: Reconstitution Solution: Reconstitution Solution Lot Number Reconstitution Solution Expiration Date: Thawing Solution Thawing Solution Lot Number Thawing Solution Expiration Date Preparation Materials, Other Preparation Materials, Other Lot Number Preparation Materials, Other Expiration Date Tissue Prepared/Processed By Head Of Commission Department Paperwork Completed Implant Type Comment Last Modified By: Ana Fitch Rn Compton, Tracy R, Rn Compton, Tracy R, Rn 09/20/21 08:45:43 09/20/21 08:45:43 09/20/21 08:45:43 [facility] IntraOp Intraoperative Assessment Entry 1 Handoff [...] Modified By: Ana Fitch Rn 09/20/21 06:46:55 [facility] IntraOp Intraoperative Equipment Entry 1 Type Equipment Equipment Equipment Alina Suction System ID Number [id number] Setting ON Intraop Monitoring Blood Pressure Non-Invasive BP Device Source Blood Pressure Arm, right upper Location Pulse Oximeter Hand, left Probe Site Antiembolic Devices Antiembolic Devices Antiembolic hose, knee high Antiembolic Device Right Location Scopes Photo/Video Documentation Last Modified By: Ana Fitch Rn 09/20/21 06:47:18 [facility] IntraOp Medication Admin Entry 1 Entry 2 Entry 3 Medication/Irrigant TRANEXAMIC ACID 1 GM vancomycin 1Gm vial - SHIREEN IRR NACL 0.9PCT [id number] 2000ML [id number] Combo Med List Time Administered 09/20/21 08:47:00 [...] Modified By: Ana Fitch Rn 09/20/21 08:47:38 [facility] IntraOp Medication Admin Audit 09/20/21 08:47:38 Drawer In: [id number] Modifier: [id number] <+> 1 Time Administered 2 <*> Medication/Irrigant vancomycin 1Gm vial - [id number] 2 <+> Time Administered <+> 4 Time Administered 09/20/21 07:57:01 Drawer In: [id number] Modifier: [id number] 3 <*> Medication/Irrigant SHIREEN IRR NACL 0.9PCT 2000ML [id number] 3 <+> Time Administered [facility] IntraOp Patient Positioning Entry 1 Procedure Hip Total Anterior Approach(Left) Body Position Supine Left Arm Position Secured on padded arm board Right Arm Position Secured on padded arm board Left Leg Position Secured in Leg Costa Right Leg Position Secured in Leg Costa Feet Uncrossed Yes Pressure Points Yes Checked Positioning Devices Arm Board, Head Rest, Pad, Arm, Safety Strap, Arm(s), Stirrups/Leg Costa, Boot, Pad, Elbow, Table, [place] Positioned By TIMO BLAKE MD-ORKristin, VLAD ORTIZ APRN, TRISTEN, Ana Fitch, Rn, BAUTISTA SEXTON CSA Position Verified Positioning Yes Verified by Anesthesia Positioning Yes Verified by Surgeon Last Modified By: Ana Fitch Rn 09/20/21 06:47:25 [facility] IntraOp Sign In Entry 1 Patient, [...] Modified By: Ana Fitch Rn 09/20/21 06:47:33 [facility] IntraOp Sign Out Entry 1 RN [...] Modified By: Ana Fitch Rn 09/20/21 09:12:34 [facility] IntraOp Sign Out Audit 09/20/21 09:12:34 Drawer In: [id number] Modifier: [id number] <+> 1 RN Sign Out Signature Date/Time [facility] IntraOp Skin Prep Entry 1 Procedure Hip Total Anterior Approach(Left) Prescribed Yes Pre-Surgical Prep Completed Prep Area OPERATIVE HIP TO KNEE Intraop Prep Integumentary WDL Assessment WDL Prep Agents Chlorhexidine gluconate/alcohol, Chloraprep, DuraPrep Prep by Ana Fitch Rn Hair Removal Methods No hair removal performed Last Modified By: Ana Fitch Rn 09/20/21 06:47:49 [facility] IntraOp Surgical Procedures Entry 1 Procedure Hip Total Anterior Approach Modifiers Left Additional (LT ANTERIOR TOTAL HIP Procedure ARTHROPLASTY Description Primary Procedure Yes Primary Surgeon TIMO BLAKE MD-ORT Start 09/20/21 07:56:00 Stop 09/20/21 09:05:00 Anesthesia Type General Specialty Orthopedic Wound Class 1 - Clean Last Modified By: Ana Fitch Rn 09/20/21 09:12:35 [facility] IntraOp Surgical Procedures Audit 09/20/21 09:12:35 Drawer In: [id number] Modifier: [id number] <+> 1 Start <+> 1 Stop [facility] IntraOp Temp Regulation Devices Entry 1 Temp Regulation Temperature Forced Air Warming Regulation Device device, Warm blankets Temperature 57060 Regulation Device Serial/Unit Number Temperature Upper body Regulation Site Temperature Device ON Setting Temperature VLAD ORTIZ, Regulation Device MUSIC ORCHESTRATOR, RN TRANSITIONAL CARE Applied by Temperature THERMOREGULATION Regulation Comment MEASURES MONITORED AND ADJUSTED BY ANESTHESIA Last Modified By: Ana Fitch Rn 09/20/21 06:48:09 [facility] IntraOP Time Out Entry 1 Procedure [...] Modified By: Ana Fitch Rn 09/20/21 07:54:28 [facility] IntraOP Time Out Audit 09/20/21 07:54:28 Drawer In: [id number] Modifier: [id number] 1 <+> Time Out Pause Time 1 <*> Procedure to be Performed Hip Total Anterior Approach(Left) [facility] IntraOp X-Ray and Images Entry 1 X-Ray/Imaging Type Fluoroscopy Fluoroscopy Type C-Arm Site OPERATIVE HIP Shank Paperer Name RADHA OWUSU Protective Devices No Used Last Modified By: Ana Fitch Rn 09/20/21 06:48:44 Case Comments <None> Finalized By: KAL ROBLES Document Signatures Signed By: Ana Fitch Rn 09/20/21 11:04 Ana Fitch Rn 09/20/21 09:12 KAL ROBLES 09/21/21 13:14 Unfinalized History Date/Time Username Reason for Unfinalizing Freetext Reason for Unfinalizing 09/20/21 11:00 [id number] Correct Documentation 09/21/21 13:11 ISAAC Correct Billing Electronically signed by Liset [facility] Conversion Crystal Gazer Cerner at 02/04/2023 12:40 PM CDT documented in this encounter Plan of Treatment Not on file documented as of this encounter Visit Diagnoses Not on filedocumented in this encounter
--- OUTSIDE RECORDS SUMMARY | 2025-05-21 09:36 | XMS_ITS | Encounter Summary ---
Author Organization [employer] ([place], [place], [place], [place]) Address [address] [place] [address] Care Team Providers Care Research Professor Name Role Phone Unavailable Primary Care Provider Unavailabl e Encounter Details Date Type Department Care Team (Late st Contact Info) Description 09/21/2021 Transcribed Document [facility] [place] Family Medicine [address] [place] [address] ProviderInes MD [address] [place] [address] Social History Tobacco Use Types [...] - Historical ProviderMD - 09/21/2021 2:44 PM SCHOOL OFFICE MANAGER Spiritual Care Assessment Entered On: 09/21/2021 18:02 [...] Emotional Support : Empathic/Engaged listening Spiritual and Religion : Spiritual/Religion support provided Derrek Saldana Chaplain - 09/21/2021 18:02 EST Electronically signed by Liset [facility] Conversion Geophysical Laboratory Chief Cerner at 02/04/2023 12:17 PM CDT documented in this encounter Plan of Treatment Not on file documented as of this encounter Visit Diagnoses Not on filedocumented in this encounter
--- OUTSIDE RECORDS SUMMARY | 2025-05-21 09:36 | XMS_ITS | Encounter Summary ---
Author Organization [employer] ([place], [place], [place], [place]) Address [address] [place] [address] Care Team Providers Care Customs Import Specialist Name Role Phone Unavailable Primary Care Provider Unavailabl e Encounter Details Date Type Department Care Team (Late st Contact Info) Description 09/21/2021 Transcribed Document [facility] Radiology [address] [place] [address] Salena Brush MD [address] [address] Social History Tobacco Use Types [...] is a 66 [address] female [facility] to [facility] per Dr. Johnson for a left total hip arthroplasty. Preoperatively patient was found to have advanced osteoarthritis of the left hip and elected surgical intervention after failing conservative treatment. Patient is followed perioperatively while hospitalized for medical management. Initial visit in preop --- Denies prior stroke or seizure. Denies [place], CHF or cardiac arrhythmia. Denies DM. Denies [...] 1 Cap, PRN, Oral, BID Flonase 1 [place], PRN, Nasal, BID furosemide 20 mg oral [...]
--- OUTSIDE RECORDS SUMMARY | 2025-05-21 09:36 | XMS_ITS | Encounter Summary ---
Author Organization [employer] ([place], [place], [place], [place]) Address [address] [place] [address] Care Team Providers Care Education Managers Name Role Phone Unavailable Primary Care Provider Unavailabl e Encounter Details Date Type Department Care Team (Late st Contact Info) Description 09/20/2021 Transcribed Document [facility] [place] Family Medicine [address] [place] [address] ProviderInes MD [address] [place] [address] Social History Tobacco Use Types [...] - Ines ProviderMD - 09/20/2021 11:20 AM TIP STRETCHER Pain Assessment Entered On: 09/20/2021 18:05 EST [...]
--- OUTSIDE RECORDS SUMMARY | 2025-05-21 09:36 | XMS_ITS | Encounter Summary ---
Author Organization [employer] ([place], [place], [place], [place]) Address [address] [place] [address] Care Team Providers Care Courier Name Role Phone Unavailable Primary Care Provider Unavailabl e Encounter Details Date Type Department Care Team (Late st Contact Info) Description 09/21/2021 Transcribed Document [facility] [place] Family Medicine [address] [place] [address] ProviderInes MD [address] [place] [address] Social History Tobacco Use Types [...] - Historical ProviderMD - 09/21/2021 3:11 PM LEAD SYSTEMS ANALYST Initial Discharge Planning Entered On: 09/21/2021 15:14 EST Performed On: 09/21/2021 15:11 EST by FERNIE MACE RN-Supervisor Screen Making Initial Assessment I Previously Documented Living Environment : No qualifying data available. Living Situation : Home Patient Lives With : Spouse Is the Patient a Caregiver at Home? : No Emergency Contact #1 : Eugene Thomas Emergency Contact #1 Emergency Contact #1 Relationship : spouse Emergency Contact #2 : Kaya Pruitt Emergency Contact #2 Phone Number : [phone] Emergency Contact #2 Relationship : sister Enter Doctors Name : DARSHAN ARRINGTON (REF), -CADY Does Patient have PCP Listed? : Yes FERNIE MACE RN-Supervisor Screen Making - 09/21/2021 15:11 EST Initial Assessment II Sensory and Motor Deficits : None Current Home Treatments and Equipment : Walker Does the Patient have a Floor to SNF Benefit? : No FERNIE MACE RN-Supervisor Screen Making - 09/21/2021 15:11 EST Discharge Needs I Anticipated Discharge Date : 09/21/2021 EST Anticipated Discharge To, CM : Home with home health Current Home Treatment/Equipment : Current Home Treatment/Equipment No qualifying data available. Post Acute/Home Treatments : Bedside commode Documentation Status Complete : Yes FERNIE MACE RN-Supervisor Screen Making - 09/21/2021 15:11 EST Discharge Needs II Professional Skilled Services : Professional Skilled Services No qualifying data available. Needs Assistance with Transportation : No Discharge Options Discussed with Patient : DME, Home Health Patient Discharge Goal : Home health care FERNIE MACE RN-Supervisor Screen Making - 09/21/2021 15:11 EST Narrative Note Narrative Note : 66yo female pt s/p LTHA. Met with pt at bedside to discuss DCP. Pt needs a BSC and has no DME provider preference. Obtained one from [facility] and it has been delivered. Pt agrees to HH PT and has no MOWING MACHINE OPERATOR preference other than, a good one. Referral sent to [facility] via [facility] and confirmed acceptance with Mabel. No other CM needs noted. FERNIE MACE RN-Supervisor Screen Making - 09/21/2021 15:11 EST Electronically signed by Penelope Hutchins Conversion Facility Practice Specialist Cerner at 02/04/2023 12:21 PM CDT documented in this encounter Plan of Treatment Not on file documented as of this encounter Visit Diagnoses Not on filedocumented in this encounter
--- OUTSIDE RECORDS SUMMARY | 2025-05-21 09:36 | XMS_ITS | Encounter Summary ---
Author Organization [employer] ([place], [place], [place], [place]) Address [address] [place] [address] Care Team Providers Care Personnel Training Officer Name Role Phone Unavailable Primary Care Provider Unavailabl e Encounter Details Date Type Department Care Team (Late st Contact Info) Description 09/20/2021 Transcribed Document [facility] [place] Family Medicine [address] [place] [address] ProviderInes MD [address] [place] [address] Social History Tobacco Use Types [...] - Ines ProviderMD - 09/20/2021 5:04 PM MACHINE TANK OPERATOR Spiritual Care Assessment Entered On: 09/20/2021 17:45 [...] Emotional Support : Empathic/Engaged listening Spiritual and Jewish : Spiritual/Jewish support provided Derrek Saldana Chaplain - 09/20/2021 17:45 EST Electronically signed by [facility] Conversion Printed Circuit Boards Inspector Cerner at 02/04/2023 12:38 PM CDT documented in this encounter Plan of Treatment Not on file documented as of this encounter Visit Diagnoses Not on filedocumented in this encounter
--- OUTSIDE RECORDS SUMMARY | 2025-05-21 09:36 | XMS_ITS | Encounter Summary ---
Author Organization [employer] ([place], [place], [place], [place]) Address [address] [place] [address] Care Team Providers Care Airport Location Manager Name Role Phone Unavailable Primary Care Provider Unavailabl e Encounter Details Date Type Department Care Team (Late st Contact Info) Description 09/20/2021 Transcribed Document [facility] Radiology [address] [place] [address] Kuldeep Johnson MD [address] [place] [address] Social History Tobacco Use Types [...] were documented. [place]- No reactions were documented. [place]- No reactions were documented. [place]- No reactions [...] Units, Oral, Daily, 0 Refill(s) Flonase: 1 [place], Nasal, BID, PRN: as needed for allergies, [...] Chondroitin-Glucosamine 2,000 Units, Oral, Daily Flonase 1 [place], PRN, Nasal, BID furosemide 20 mg oral [...] All Problems Seasonal allergies / SNOMED CT 8524839144 / Confirmed Peripheral neuropathy / SNOMED CT 7902093994 / Confirmed Peptic ulcer disease / SNOMED CT 1615715338 / Confirmed Osteoporosis / SNOMED CT 411281960 / Confirmed Incontinence / SNOMED CT 08862920 / Confirmed stress-wears a pad Impaired vision / SNOMED CT 16340894 / Confirmed corrected with lenses Cataract / SNOMED CT 2445143350 / Confirmed High blood pressure / SNOMED CT 59337221 / Confirmed GERD - Gastro-esophageal reflux disease / SNOMED CT 6545649511 / Confirmed Depression / SNOMED CT 25543787 / Confirmed Cardiac arrhythmia / SNOMED CT 8068824707 / Confirmed Bronchitis / SNOMED CT 41600618 / Confirmed Cataracts, bilateral / SNOMED CT 091637614 / Confirmed Back pain / SNOMED CT 542127785 / Confirmed At risk for sleep apnea / IMO 13098538 / Confirmed Asthma / SNOMED CT 242365910 / Confirmed Arthritis / SNOMED CT 9189694 / Confirmed, Active Problems (17) Arthritis Asthma At risk for sleep apnea Back pain Bronchitis Cardiac arrhythmia Cataract Cataracts, bilateral Depression GERD - Gastro-esophageal reflux disease High blood pressure Impaired vision Incontinence Osteoporosis Peptic ulcer disease Peripheral neuropathy Seasonal allergies Histories Past Medical History: Active Cataract (4672767407) Peptic ulcer disease (8203946394) Resolved Anemia (449605500): Resolved. Family History: No family history items [...] left thigh. colonoscopy. right total hip. Cholecystectomy (23294753). back surgery. Social History Social & Psychosocial [...] exam in office notes. Integumentary: Warm, Dry, [place]. Neurologic: Alert, Oriented. Psychiatric: Cooperative, Appropriate mood [...]
--- OUTSIDE RECORDS SUMMARY | 2025-05-21 09:37 | XMS_ITS | Clinical Summary ---
Author Organization [employer] ([place], [place], [place], [place]) Address [address] [place] [address] Care Team Providers Care Document Manager Name Role Phone Unavailable Primary Care [...]
--- OUTSIDE RECORDS SUMMARY | 2025-05-21 09:37 | XMS_ITS | Encounter Summary ---
Author Organization [employer] ([place], [place], [place], [place]) Address [address] [place] [address] Care Team Providers Care Director Of Enterprise Strategy Name Role Phone Unavailable Primary Care Provider Unavailabl e Encounter Details Date Type Department Care Team (Late st Contact Info) Description 09/20/2021 Transcribed Document [facility] [place] [address] [place] [address] ProviderInes MD [address] [place] [address] Social History Tobacco Use Types [...] - Historical ProviderMD - 09/20/2021 10:00 PM BAKER HELPER Pain Assessment Entered On: 09/21/2021 6:27 EST [...]
--- OUTSIDE RECORDS SUMMARY | 2025-05-21 09:37 | XMS_ITS | Encounter Summary ---
Author Organization [employer] ([place], [place], [place], [place]) Address [address] [place] [address] Care Team Providers Care Third Hand Name Role Phone Unavailable Primary Care Provider Unavailabl e Encounter Details Date Type Department Care Team (Late st Contact Info) Description 09/20/2021 Transcribed Document [facility] [place] [address] [place] [address] ProviderInes MD [address] [place] [address] Social History Tobacco Use Types [...] - Historical ProviderMD - 09/20/2021 6:32 AM HIM CLERK Admission History, Adult Entered On: 09/20/2021 18:05 [...] Ambulatory Legal Guardian : Spouse Support Person/Patient Director Meetings : Yes Support Person/Pt Rep Name : Yesica Gilbert mother Support Person/Pt Rep Contact Information : [phone] Want Family/Rep/Phys Notified of Admit : No Emergency Contact #1 : Eugene Thomas Emergency Contact #1 Emergency Contact #1 Relationship : spouse Emergency Contact #2 : Kaya Pruitt Emergency Contact #2 Phone Number : [phone] Emergency Contact #2 Relationship : sister Information Obtained From : Patient Primary Language : Cymro Preferred Communication Mode : Verbal Communication Barrier : None Store Sales Consultant Needed : No Objects to Sharing Info [...] Scale Risk Level : 25-45 Medium Risk [place] Fall Interventions : Adequate lighting, Assistive devices [...] Source : Measured Height Entry Format : Gordon Height, Feet : 5 ft(Converted to: 152 cm, 60 Inch) Height, Inches : 4 Inch(Converted to: 0 ft 4 Inch, 10.16 cm) Clinical Height : 162.56 cm Weight Source : Standing scale Weight Entry Format : Gordon Clinical Dosing Weight : 88.18 kg Weight, Pounds : 194 lb Body Surface Area (BSA) : 1.93 m2 Body Mass Index : 33.4 kg/m2 (HI) [place] Body Weight : 54 kg RONEN DAVE [...] RONEN DAVE RN - 09/20/2021 18:03 EST [place] Suicide Severity Rating Scale (C-SSRS) CSSRS Past [...] 09/20/2021 18:03 EST Electronically signed by Liset [facility] Conversion Fleet Sales Manager Cerner at 02/04/2023 12:15 PM CDT documented in this encounter Plan of Treatment Not on file documented as of this encounter Visit Diagnoses Not on filedocumented in this encounter
--- OUTSIDE RECORDS SUMMARY | 2025-05-21 09:37 | XMS_ITS | Encounter Summary ---
Author Organization [employer] ([place], [place], [place], [place]) Address [address] [place] [address] Care Team Providers Care Grapple Crew Leader Name Role Phone Unavailable Primary Care Provider Unavailabl e Encounter Details Date Type Department Care Team (Late st Contact Info) Description 09/20/2021 Transcribed Document [facility] [place] [address] [place] [address] ProviderInes MD [address] [place] [address] Social History Tobacco Use Types [...] - Ines ProviderMD - 09/20/2021 11:20 AM HEART DOCTOR Pain Assessment Entered On: 09/21/2021 6:28 EST [...]
--- OUTSIDE RECORDS SUMMARY | 2025-05-21 09:37 | XMS_ITS | Encounter Summary ---
Author Organization [employer] ([place], [place], [place], [place]) Address [address] [place] [address] Care Team Providers Care Manager Training And Development Name Role Phone Unavailable Primary Care Provider Unavailabl e Encounter Details Date Type Department Care Team (Late st Contact Info) Description 09/20/2021 Transcribed Document [facility] [place] [address] [place] [address] ProviderInes MD [address] [place] [address] Social History Tobacco Use Types [...] - Ines ProviderMD - 09/20/2021 7:56 AM DISC PAD PLATE FILLER [facility] Main OR PACU Summary Primary Physician: TIMO BLAKE MD-ORT Finalized Date/Time: 09/25/21 14:46:33 Pt. Name: PINKY REIDO.B./Sex: 1955 Female Med Rec #: [id number] Physician: TIMO BLAKE MD-ORT Financial #: [id number] Pt. Type: O Room/Bed: 643/1 Admit/Disch: 09/20/21 06:33:00 - 09/21/21 16:00:00 Institution: [facility] Main OR PACU I Case Times Entry 1 In PACU I 09/20/21 09:15:00 Ready for PACU 09/20/21 10:10:00 Discharge Discharge from PACU 12/01/21 10:35:00 I Last Modified By: Carmela Franco RN-PATIENT CARE BEDSIDE NON-EXEMPT 09/20/21 10:52:42 [facility] Main OR PACU Acuity Entry 1 Start Time 09/20/21 10:10:00 Stop Time 09/20/21 10:35:00 Acuity Level [facility] PACU Acuity I Last Modified By: Carmela Franco RN-PATIENT CARE BEDSIDE NON-EXEMPT 09/20/21 10:53:17 [facility] Main OR PACU Acuity Audit 09/25/21 14:46:32 Doorkeeper: [id number] Modifier: [id number] <*> Start Time 09/20/21 09:15:00 Finalized By: Estella Grover, Nurse Commercial Trailer Truck Driver Signatures Signed By: Carmela Franco RN-PATIENT CARE BEDSIDE NON-EXEMPT 09/20/21 10:53 Estella Grover, Nurse Bsa/Aml Compliance Officer 09/25/21 14:46 Unfinalized History Date/Time Username Reason for Unfinalizing Freetext Reason for Unfinalizing 09/25/21 14:46 [id number] Correct Billing documented in this encounter Plan of Treatment Not on file documented as of this encounter Visit Diagnoses Not on filedocumented in this encounter
--- OUTSIDE RECORDS SUMMARY | 2025-05-21 09:37 | XMS_ITS | Encounter Summary ---
Author Organization [employer] ([place], [place], [place], [place]) Address [address] [place] [address] Care Team Providers Care Tennis Player Name Role Phone Unavailable Primary Care Provider Unavailabl e Encounter Details Date Type Department Care Team (Late st Contact Info) Description 09/21/2021 Transcribed Document [facility] [place] [address] [place] [address] ProviderInes MD [address] [place] [address] Social History Tobacco Use Types [...] Ines Jimenez MD - 09/21/2021 12:16 PM TIN DIPPER Patient Education Materials Follows: Discharge Instructions for [...] concern regarding your total joint replacement Call 321 if: ?? You have sudden chest pain or shortness of breath ?? You fall and cannot get up ?? Life-threatening signs or symptoms ?? Stroke signs and symptoms: Facial droop, uneven smile, arm numbness, arm weakness, slurred speech, difficulty speaking or understanding If you are a patient of Dr. Johnson or Dr. Damon, call [phone] If you are a patient of Dr. Thomas, call [phone] Nurse Navigator: Kemi Gates Office: [phone]; ; available during regular business hours documented in this encounter Plan of Treatment Not on file documented as of this encounter Visit Diagnoses Not on filedocumented in this encounter
--- OUTSIDE RECORDS SUMMARY | 2025-05-21 09:37 | XMS_ITS | Encounter Summary ---
Author Organization [employer] ([place], [place], [place], [place]) Address [address] [place] [address] Care Team Providers Care Inspector Receiving Name Role Phone Unavailable Primary Care Provider Unavailabl e Encounter Details Date Type Department Care Team (Late st Contact Info) Description 09/19/2021 Transcribed Document [facility] [place] [address] [place] [address] ProviderInes MD [address] [place] [address] Social History Tobacco Use Types [...] - Historical ProviderMD - 09/19/2021 2:10 PM PRODUCT TEST SPECIALIST UM Authorization Entered On: 09/19/2021 15:32 EST Performed On: 09/19/2021 14:10 EST by KEVIN STONE, Surveillance Systems Engineer Primary Insurance Authorization Authorization and Policy Numbers : Insurance 1 Health Plan: CIGNA Policy Number: [id number] Authorization Number: Insurance 2 Health Plan: HU[employer]NA GOLD CHOICE Policy Number: [id number] Authorization Number: Insurance Primary Name : Cigna [id number] Authorization Status-Primary : Opo status approv Authorized Service Begin Date-Primary : 09/20/2021 EST Observation Authorization Nbr-Primary : [id number] Authorization Comments-Primary : Pt is [place] for OP total hip on Sat09-20-21 C[employer] OP auth# [id number] [employer] Gold OP auth# [id number] Historical Authorization Comments-Primary : No Authorization Comments Found KEVIN STONE, Surveillance Systems Engineer - 09/19/2021 14:10 EST Secondary Insurance Authorization Authorization and Policy Numbers : Insurance 1 Health Plan: CIGNA Policy Number: [id number] Authorization Number: Insurance 2 Health Plan: HUMANA Clariture CHOICE Policy Number: [id number] Authorization Number: Insurance Secondary Name : [place] [id number] Authorization Status-Secondary : Opo status approv Auth/Referral Contact Name-Secondary : Marcus R Authorized Service Begin Date-Secondary : 09/20/2021 EST Observation Authorization Number-Secondary : [id number] Historical Authorization Comments-Secondary : No Authorization Comments Found KEVIN STONE, Surveillance Systems Engineer - 09/19/2021 14:10 EST documented in this encounter Plan of Treatment Not on file documented as of this encounter Visit Diagnoses Not on filedocumented in this encounter
--- OUTSIDE RECORDS SUMMARY | 2025-05-21 09:37 | XMS_ITS | Encounter Summary ---
Author Organization [employer] ([place], [place], [place], [place]) Address [address] [place] [address] Care Team Providers Care Synthetic Cloth Binding Cutter Name Role Phone Unavailable Primary Care Provider Unavailabl e Encounter Details Date Type Department Care Team (Late st Contact Info) Description 09/20/2021 Transcribed Document [facility] [place] [address] [place] [address] ProviderInes MD [address] [place] [address] Social History Tobacco Use Types [...] - Historical ProviderMD - 09/20/2021 6:00 PM AGRICULTURAL PRODUCE WASHER Pain Assessment Entered On: 09/21/2021 6:26 EST [...]
--- OUTSIDE RECORDS SUMMARY | 2025-05-21 09:37 | XMS_ITS | Encounter Summary ---
Author Organization [employer] ([place], [place], [place], [place]) Address [address] [place] [address] Care Team Providers Care Cyber Analyst Name Role Phone Unavailable Primary Care Provider Unavailabl e Encounter Details Date Type Department Care Team (Late st Contact Info) Description 09/20/2021 Transcribed Document [facility] [place] [address] [place] [address] ProviderInes MD [address] [place] [address] Social History Tobacco Use Types [...] - Historical ProviderMD - 09/20/2021 10:45 AM WIND UP WORKER Meds to Bed Enrollment Entered On: 09/20/2021 10:52 EST Performed On: 09/20/2021 10:45 EST by Bret Plummer Asphalt Worker Cert Lead Meds to Bed Enrollment Patient Enrollment Decision: : Yes/enroll in meds to bed program Bret Plummer Asphalt Worker Cert Lead - 09/20/2021 10:52 EST Electronically signed by Penelope Hutchins Conversion Legal Billing Coordinator Luis Enrique at 02/04/2023 12:30 PM CDT documented in this encounter Plan of Treatment Not on file documented as of this encounter Visit Diagnoses Not on filedocumented in this encounter
--- OUTSIDE RECORDS SUMMARY | 2025-05-21 09:37 | XMS_ITS | Encounter Summary ---
Author Organization [employer] ([place], [place], [place], [place]) Address [address] [place] [address] Care Team Providers Care Stock Or Delivery Clerk Name Role Phone Unavailable Primary Care Provider Unavailabl e Encounter Details Date Type Department Care Team (Late st Contact Info) Description 09/20/2021 Transcribed Document [facility] Radiology [address] [place] [address] Salena Brush MD [facility] [address] [address] Social History Tobacco Use Types [...] is a 66 yo female admitted to [facility] per Dr. Johnson for a left total hip arthroplasty. Preoperatively patient was found to have advanced osteoarthritis of the left hip and elected surgical intervention after failing conservative treatment. Patient is followed perioperatively while hospitalized for medical management. Initial visit in preop --- Denies prior stroke or seizure. Denies IA, CHF or cardiac arrhythmia. Denies DM. Denies [...] Chondroitin-Glucosamine 2,000 Units, Oral, Daily Flonase 1 [place], PRN, Nasal, BID furosemide 20 mg oral [...]
--- OUTSIDE RECORDS SUMMARY | 2025-05-21 09:37 | XMS_ITS | Encounter Summary ---
Author Organization [employer] ([place], [place], [place], [place]) Address [address] [place] [address] Care Team Providers Care Director Of Oncology Name Role Phone Unavailable Primary Care Provider Unavailabl e Encounter Details Date Type Department Care Team (Late st Contact Info) Description 08/30/[address] [facility] [place] [address] [place] [address] ProviderInes MD [address] [place] [address] Social History Tobacco Use Types [...] - Historical ProviderMD - 08/30/2021 1:24 PM BATTERY CONTAINER TESTER PAT Adult Entered On: 08/30/2021 13:29 EST [...] Source : Measured Height Entry Format : Sterling Height, Feet : 5 ft(Converted to: 152 cm, 60 Inch) Height, Inches : 4 Inch(Converted to: 0 ft 4 Inch, 10.16 cm) Clinical Height : 162.56 cm Weight Source : Standing scale Weight Entry Format : Sterling Clinical Dosing Weight : 88.18 kg Weight, Pounds : 194 lb Body Surface Area (BSA) : 1.93 m2 Body Mass Index : 33.4 kg/m2 (HI) [place] Body Weight : 54 kg KASSI AMIN [...] Status. (Last Updated: 08/30/2021 13:25:09 EST by LOEN JAMES RN) Alcohol: Alcohol Use History No. [...] LEON JAMES RN - 08/30/2021 13:24 EST [place] Suicide Severity Rating Scale (C-SSRS) CSSRS Past [...] Ambulatory Legal Guardian : Spouse Support Person/Patient Palletiser Operator : Yes Support Person/Pt Rep Name : Yesica Gilbert mother Support Person/Pt Rep Contact Information : [phone] Want Family/Rep/Phys Notified of Admit : No Emergency Contact #1 : Eugene Thomas Emergency Contact #1 Emergency Contact #1 Relationship : spouse Emergency Contact #2 : Kaya Pruitt Emergency Contact #2 Phone Number : [phone] Emergency Contact #2 Relationship : sister Information Obtained From : Patient Primary Language : Dutch Preferred Communication Mode : Verbal Communication Barrier : None Edging Machine Feeder Needed : No Objects to Sharing Info [...]
--- OUTSIDE RECORDS SUMMARY | 2025-05-21 09:37 | XMS_ITS | Referral Summary ---
Author Organization [employer] ([place], [place], [place], [place]) Address [address] [place] [address] Care Team Providers Care Social Media Analyst Name Role Phone Unavailable Primary Care [...]
--- OUTSIDE RECORDS SUMMARY | 2025-05-21 09:37 | XMS_ITS | Encounter Summary ---
Author Organization [employer] ([place], [place], [place], [place]) Address [address] [place] [address] Care Team Providers Care Rainbow Trout Farm Manager Name Role Phone Unavailable Primary Care Provider Unavailabl e Encounter Details Date Type Department Care Team (Late st Contact Info) Description 09/21/2021 Transcribed Document [facility] [place] [address] [place] [address] ProviderInes MD [address] [place] [address] Social History Tobacco Use Types [...] - Historical ProviderMD - 09/21/2021 4:02 PM PLANT HEALTH CARE TECHNICIAN Nursing Discharge Summary Entered On: 09/21/2021 16:02 [...] For Questions Given : Patient, Other: joint fitness coach Patient Education Completed : Yes Teaching Method : Explanation Teaching Evaluation : Verbalizes understanding Education Comment : LYNN Coronado 100% Hue Lopez RN - 09/21/2021 16:02 EST Electronically signed by Liset [facility] Conversion Administrative Analyst Cerner at 02/04/2023 12:27 PM CDT documented in this encounter Plan of Treatment Not on file documented as of this encounter Visit Diagnoses Not on filedocumented in this encounter
--- OUTSIDE RECORDS SUMMARY | 2025-05-21 09:37 | XMS_ITS | Encounter Summary ---
Author Organization [employer] ([place], [place], [place], [place]) Address [address] [place] [address] Care Team Providers Care Project Inspector Name Role Phone Unavailable Primary Care Provider Unavailabl e Encounter Details Date Type Department Care Team (Late st Contact Info) Description 09/20/2021 Transcribed Document [facility] Family Medicine [address] [place] [address] ProviderInes MD [address] [place] [address] Social History Tobacco Use Types [...] - Ines ProviderMD - 09/20/2021 3:59 PM REPRINT SORTER Orthopedic Nurse Navigator Entered On: 09/20/2021 16:00 EST Performed On: 09/20/2021 15:59 EST by Karmen Gates RN-Navigator Orthopedic Nurse Navigator Assessment Attended Joint Academy : Yes Joint AcademyType : Online Joint Bio Medical Technician Name : Eugene Type of Surgery : [...]
--- OUTSIDE RECORDS SUMMARY | 2025-05-21 09:37 | XMS_ITS | Encounter Summary ---
Author Organization [employer] ([place], [place], [place], [place]) Address [address] [place] [address] Care Team Providers Care Care Analyst Name Role Phone Unavailable Primary Care Provider Unavailabl e Encounter Details Date Type Department Care Team (Late st Contact Info) Description 09/21/2021 Transcribed Document [facility] [place] Family Medicine [address] [place] [address] ProviderInes MD [address] [place] [address] Social History Tobacco Use Types [...] - Historical ProviderMD - 09/21/2021 12:00 PM MARKETING RESEARCH INTERN Pain Assessment Entered On: 09/21/2021 16:07 EST [...] form. Electronically signed by Liset, Penelope Conversion Automatic Riveting Machine Operator Cerner at 02/04/2023 12:43 PM CDT documented in this encounter Plan of Treatment Not on file documented as of this encounter Visit Diagnoses Not on filedocumented in this encounter
--- OUTSIDE RECORDS SUMMARY | 2025-05-21 09:37 | XMS_ITS | Encounter Summary ---
Author Organization [employer] ([place], [place], [place], [place]) Address [address] [place] [address] Care Team Providers Care Shellfish Shucker Name Role Phone Unavailable Primary Care Provider Unavailabl e Encounter Details Date Type Department Care Team (Late st Contact Info) Description 09/20/2021 Transcribed Document [facility] [place] [address] [place] [address] ProviderInes MD [address] [place] [address] Social History Tobacco Use Types [...] - Ines ProviderMD - 09/20/2021 11:23 AM SPRINKLER IRRIGATION EQUIPMENT MECHANIC UM Authorization Entered On: 09/20/2021 11:23 EST Performed On: 09/20/2021 11:23 EST by KEVIN STONE, Coating And Embossing Unit Operator Primary Insurance Authorization Authorization and Policy Numbers : Insurance 1 Health Plan: CIGNA Policy Number: [id number] Authorization Number: [id number] Insurance 2 Health Plan: HU[employer]NA GOLD CHOICE Policy Number: [id number] Authorization Number: [id number] Insurance Primary Name : Juan Manuel [id number] Authorization Status-Primary : Opo status approv Authorized Service Begin Date-Primary : 09/20/2021 EST Observation Authorization Nbr-Primary : [id number] Historical Authorization Comments-Primary : Comment 1: Pt is [place] for OP total hip on Sat09-20-21 [employer] OP auth# [id number] Gold OP auth# [id number] (KEVIN STONE, Coating And Embossing Unit Operator 09/19/2021 14:10) KEVIN STONE, Coating And Embossing Unit Operator - 09/20/2021 11:23 EST Secondary Insurance Authorization Authorization and Policy Numbers : Insurance 1 Health Plan: CIGNA Policy Number: [id number] Authorization Number: [id number] Insurance 2 Health Plan: [employer] CHOICE Policy Number: [id number] Authorization Number: [id number] Insurance Secondary Name : [email or web address] [id number] Authorization Status-Secondary : Opo status approv Auth/Referral Contact Name-Secondary : Marcus R Authorized Service Begin Date-Secondary : 09/20/2021 EST Observation Authorization Number-Secondary : [id number] Historical Authorization Comments-Secondary : No Authorization Comments Found KEVIN STONE, Coating And Embossing Unit Operator - 09/20/2021 11:23 EST documented in this encounter Plan of Treatment Not on file documented as of this encounter Visit Diagnoses Not on filedocumented in this encounter
--- OUTSIDE RECORDS SUMMARY | 2025-05-21 09:37 | XMS_ITS | Encounter Summary ---
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 Follow Up Instructions: Leave Aquacel dressing in place x 7d, then leave open to air. Follow-Up Appointments Follow Up with ARNOLD HERNANDEZ PA-ORT When 10/11/2021 02:15 PM EST Where: [address] [place], [place] [address] [address]- Medications What How Much When Instructions Next Dose acetaminophen-oxyCODONE (Percocet 5/ 325 oral tablet) 1 Tablet(s) Oral Every 4 Hours as needed for as needed for pain Duration: 7 Day(s) not to exceed 5 tablets/ day Pickup at [facility] [place] 530pm aspirin (aspirin 81 mg oral delayed release tablet) 1 Tablet(s) Oral Two Times A Day Pickup at [facility] cefadroxil (cefadroxil 500 mg oral capsule) 1 Capsule(s) Oral Every 12 hours Duration: 7 Day(s) Pickup at [facility] docusate (Colace 100 mg oral capsule) 1 Capsule(s) Oral Two Times A Day as needed for as needed for constipation Pickup at [facility] meloxicam (Mobic 15 mg oral tablet) 1 Tablet(s) Oral Every Day Pickup at [facility][1] 12-3 PRAVAstatin (pravastatin 80 mg oral tablet) [...] for insomnia tonight fluticasone nasal (Flonase) 1 [place](s) Nasal Two Times A Day as needed for as needed for allergies tonight fluticasone-vilanterol (Breo Ellipta 100 mcg-25 mcg inhalation powder) 1 Puff(s) Inhalation Every Day 12-3 gabapentin (gabapentin 100 mg oral capsule) 2 Capsule(s) Oral Two Times A Day tonight ondansetron (Zofran 4 mg oral tablet) 1 Tablet(s) Oral Every 8 Hours as needed for Nausea/Vomiting Pickup at [facility] potassium chloride (potassium chloride extended release) 20 Milliequivalent(s) Oral Two Times A Day [facility] Pharmacy Information [facility] [place]: [address] [facility] [address] [place], [place] [id number] [phone] Take your medications faithfully. Do NOT skip [...] concern regarding your total joint replacement Call [phone] if: ??? You have sudden chest pain or shortness of breath ??? You fall and cannot get up ??? Life-threatening signs or symptoms ??? Stroke signs and symptoms: Facial droop, uneven smile, arm numbness, arm weakness, slurred speech, difficulty speaking or understanding If you are a patient of Dr. Johnson or Dr. Damon, call [phone] If you are a patient of Dr. Reid, call [phone] Nurse Navigator: Kemi Gates Office: [phone]; ; available during regular business hours docusate [...] may report side effects to FDA at 6-894-CWZ-5351. What other drugs will affect docusate? Other drugs may affect docusate, including prescription and dzfc-heb-shchxrp medicines, vitamins, and herbal products. Tell your [...] to ensure that the information provided by OralWise. ('Multum') is accurate, up-to-date, and complete, but no guarantee is made to that effect. Drug information contained herein may be time sensitive. Mobicow information has been compiled for use by healthcare practitioners and consumers in the [place] and therefore Mobicow does not warrant that uses outside of the [place] are appropriate, unless specifically indicated otherwise. Photo Rankrs drug information does not endorse drugs, diagnose patients or recommend therapy. [employer] Rankrs drug information is an informational resource designed [...] effective or appropriate for any given patient. M[employer] does not assume any responsibility for any aspect of healthcare administered with the aid of information Mobicow provides. The information contained herein is not intended to cover all possible uses, directions, precautions, warnings, drug interactions, allergic reactions, or adverse effects. If you have questions about the drugs you are taking, check with your doctor, nurse or pharmacist. Copyright 6958-7402 [employer]ise. Version: 4.01. Revision Date: 04/27/2019. cefadroxil (SEF [...] may report side effects to FDA at 8-282-JOC-0379. What other drugs will affect cefadroxil? Other drugs may affect cefadroxil, including prescription and pbul-vzm-tbxoian medicines, vitamins, and herbal products. Tell your [...] to ensure that the information provided by OralWise. ('Multum') is accurate, up-to-date, and complete, but no guarantee is made to that effect. Drug information contained herein may be time sensitive. Mobicow information has been compiled for use by healthcare practitioners and consumers in the [place] and therefore OpenExchangeum does not warrant that uses outside of the [place] are appropriate, unless specifically indicated otherwise. Mobicow's drug information does not endorse drugs, diagnose patients or recommend therapy. Photo Rankrs drug information is an informational resource designed [...] effective or appropriate for any given patient. [facility] does not assume any responsibility for any aspect of healthcare administered with the aid of information [facility] provides. The information contained herein is not intended to cover all possible uses, directions, precautions, warnings, drug interactions, allergic reactions, or adverse effects. If you have questions about the drugs you are taking, check with your doctor, nurse or pharmacist. Copyright 9471-6735 [facility]. Version: 6.03. Revision Date: 10/24/2020. acetaminophen and [...] may report side effects to FDA at 9-208-GTX-5230. What other drugs will affect acetaminophen and [...] affect acetaminophen and oxycodone, including prescription and xbpw-uvn-xowqgtd medicines, vitamins, and herbal products. Not all [...] to ensure that the information provided by OralWise. ('Multum') is accurate, up-to-date, and complete, but no guarantee is made to that effect. Drug information contained herein may be time sensitive. Mobicow information has been compiled for use by healthcare practitioners and consumers in the [place] and therefore Mobicow does not warrant that uses outside of the [place] are appropriate, unless specifically indicated otherwise. Photo Rankrs drug information does not endorse drugs, diagnose patients or recommend therapy. S[employer] drug information is an informational resource designed [...] effective or appropriate for any given patient. [employer] does not assume any responsibility for any aspect of healthcare administered with the aid of information M[employer]ow provides. The information contained herein is not intended to cover all possible uses, directions, precautions, warnings, drug interactions, allergic reactions, or adverse effects. If you have questions about the drugs you are taking, check with your doctor, nurse or pharmacist. Copyright 1379-8367 OralWise. Version: .. Revision Date: 11/25/2020. ondansetron (oral) [...] may report side effects to FDA at 4-175-YLF-7530. What other drugs will affect ondansetron? Ondansetron [...] interact with ondansetron. This includes prescription and brxg-zdh-gfqtdqe medicines, vitamins, and herbal products. Give a [...] to ensure that the information provided by OralWise. ('Bluesockettum') is accurate, up-to-date, and complete, but no guarantee is made to that effect. Drug information contained herein may be time sensitive. Mobicow information has been compiled for use by healthcare practitioners and consumers in the [place] and therefore Mobicow does not warrant that uses outside of the [place] are appropriate, unless specifically indicated otherwise. Mobicow's drug information does not endorse drugs, diagnose patients or recommend therapy. Photo Rankrs drug information is an informational resource designed [...] effective or appropriate for any given patient. [employer] does not assume any responsibility for any aspect of healthcare administered with the aid of information M[employer] provides. The information contained herein is not intended to cover all possible uses, directions, precautions, warnings, drug interactions, allergic reactions, or adverse effects. If you have questions about the drugs you are taking, check with your doctor, nurse or pharmacist. Copyright 3395-4113 OralWise. Version: 13.01. Revision Date: 08/10/2016. aspirin (oral) ( pir in) Arthritis Pain, Aspi-Cor, Aspir-Low, Moy Plus, Durlaza, Ecotrin, Miniprin, Vazalore What is the most important information I should know about aspirin? Aspirin can cause Nina's syndrome, a serious and sometimes fatal condition in children. What is aspirin? Aspirin is a salicylate (hh-BFM-xl-ate) that is used to treat pain, and [...] may report side effects to FDA at 1-828-CLC-9722. What other drugs will affect aspirin? Ask [...] drugs may affect aspirin, including prescription and ymgf-mlk-qllebfc medicines, vitamins, and herbal products. Not all [...] to ensure that the information provided by OralWise. ('Multum') is accurate, up-to-date, and complete, but no guarantee is made to that effect. Drug information contained herein may be time sensitive. Mobicow information has been compiled for use by healthcare practitioners and consumers in the [place] and therefore Mobicow does not warrant that uses outside of the [place] are appropriate, unless specifically indicated otherwise. Photo Rankrs drug information does not endorse drugs, diagnose patients or recommend therapy. Photo Rankrs drug information is an informational resource designed [...] effective or appropriate for any given patient. M[employer] does not assume any responsibility for any aspect of healthcare administered with the aid of information Mobicow provides. The information contained herein is not intended to cover all possible uses, directions, precautions, warnings, drug interactions, allergic reactions, or adverse effects. If you have questions about the drugs you are taking, check with your doctor, nurse or pharmacist. Copyright 5656-5627 OralWise. Version: 16.03. Revision Date: 04/17/2021. meloxicam (oral/injection) [...] may report side effects to FDA at 4-569-HDJ-5678. What other drugs will affect meloxicam? Ask [...] drugs may affect meloxicam, including prescription and akfq-fnl-xlmigzw medicines, vitamins, and herbal products. Not all [...] to ensure that the information provided by OralWise. ('Multum') is accurate, up-to-date, and complete, but no guarantee is made to that effect. Drug information contained herein may be time sensitive. Mobicow information has been compiled for use by healthcare practitioners and consumers in the [place] and therefore Mobicow does not warrant that uses outside of the [place] are appropriate, unless specifically indicated otherwise. Photo Rankrs drug information does not endorse drugs, diagnose patients or recommend therapy. SomaLogic drug information is an informational resource designed [...] effective or appropriate for any given patient. M[employer] does not assume any responsibility for any aspect of healthcare administered with the aid of information Mobicow provides. The information contained herein is not intended to cover all possible uses, directions, precautions, warnings, drug interactions, allergic reactions, or adverse effects. If you have questions about the drugs you are taking, check with your doctor, nurse or pharmacist. Copyright 8112-5739 OralWise. Version: 14.. Revision Date: 08/23/2020. Emergency Awareness [...] Assistance with quitting is available by contacting 0-340-KUTC-NOW. This is a free resource providing counseling, [...]
--- OUTSIDE RECORDS SUMMARY | 2025-05-21 09:37 | XMS_ITS | Encounter Summary ---
Author Organization [employer] ([place], [place], [place], [place]) Address [address] [place] [address] Care Team Providers Care Supervisor Painting Shipyard Name Role Phone Unavailable Primary Care Provider Unavailabl e Encounter Details Date Type Department Care Team (Late st Contact Info) Description 09/21/2021 Transcribed Document [facility] [place] [address] [place] [address] ProviderInes MD [address] [place] [address] Social History Tobacco Use Types [...] - Historical ProviderMD - 09/21/2021 12:26 PM CASING FLUSHER Stroke/Warfarin Instructions Entered On: 09/21/2021 12:26 EST Performed On: 09/21/2021 12:26 EST by Hue Lopez RN Stroke/Warfarin Instructions Stroke/TIA Discharge Ins : N/A Warfarin Discharge Ins : N/A Hue Lopez RN - 09/21/2021 12:26 EST Electronically signed by Liset [facility] Conversion Concierge Receptionist Cerner at 02/04/2023 12:32 PM CDT documented in this encounter Plan of Treatment Not on file documented as of this encounter Visit Diagnoses Not on filedocumented in this encounter
--- OUTSIDE RECORDS SUMMARY | 2025-05-21 09:37 | XMS_ITS | Encounter Summary ---
Author Organization [employer] ([place], [place], [place], [place]) Address [address] [place] [address] Care Team Providers Care Tower Technician Name Role Phone Unavailable Primary Care Provider Unavailabl e Encounter Details Date Type Department Care Team (Late st Contact Info) Description 08/25/[address] [facility] [place] Family Medicine [address] [place] [address] ProviderInes MD [address] [place] [address] Social History Tobacco Use Types [...] scant HH in network. She states that [employer] is her primary insurance now. She would like whichever home therapy agency is rated best. Karmen Gates RN-Navigator - 08/25/2021 13:15 EDT Electronically signed by Penelope Hutchins Conversion Abseiling Instructor Luis Enrique at 02/04/2023 12:15 PM CDT documented in this encounter Plan of Treatment Not on file documented as of this encounter Visit Diagnoses Not on filedocumented in this encounter
--- OUTSIDE RECORDS SUMMARY | 2025-05-21 09:37 | XMS_ITS | Encounter Summary ---
Author Organization [employer] ([place], [place], [place], [place]) Address [address] [place] [address] Care Team Providers Care Manufacturing Weaver Name Role Phone Unavailable Primary Care Provider Unavailabl e Encounter Details Date Type Department Care Team (Late st Contact Info) Description 09/20/2021 Transcribed Document [facility] Radiology [address] [place] [address] Kuldeep Johnson MD [address] [place] [address] Social History Tobacco Use Types [...] Mild dysplasia left hip *Surgeon(s) Surgeon: Alex Fire Lieutenant Marine: Richard Rowe CSA *Procedure Narrative Patient was [...] patient was then carefully positioned on the [place] table. The hip was then prepped and [...] series of hemispherical acetabular reamers were passed. Gxcv-yn-rqxm ream, with an excellent bleeding cancellous bony [...] 400 cc *Findings Abx: 2g Ancef Implants: [place] Trident 2 acetabular component: 48 mm 6.5 mm Acetabular screws: 2 Ira Accolade 2 femoral component: Size 132 neck angle Trident X3 acetabular liner: 36 mm neutral Biolox Delta ceramic femoral head: 36 mm -2.5 Reaming technique: Fwit-ai-mnko Initial press-fit assessment: excellent Acetabular osteophytes: none [...]
--- OUTSIDE RECORDS SUMMARY | 2025-05-21 09:37 | XMS_ITS | Encounter Summary ---
Author Organization [employer] ([place], [place], [place], [place]) Address [address] [place] [address] Care Team Providers Care Deckhand Engineer Name Role Phone Unavailable Primary Care Provider Unavailabl e Encounter Details Date Type Department Care Team (Late st Contact Info) Description 09/20/2021 Transcribed Document [facility] [place] [address] [place] [address] ProviderInes MD [address] [place] [address] Social History Tobacco Use Types [...] - Ines ProviderMD - 09/20/2021 10:50 AM MARKET RESEARCH ASSOCIATE Evaluation, Occupational Therapy Entered On: 09/20/2021 16:24 [...] MADONNA CUETO OTR/L - 09/20/2021 16:24 EST Intermediate Goals, OT Grooming LTG Grid Goal #1 [...] MADONNA CUETO OTR/L - 09/20/2021 16:24 EST Electronically signed by Penelope Hutchins Conversion Commercial Parts Professional Cerner at 02/04/2023 12:28 PM CDT documented in this encounter Plan of Treatment Not on file documented as of this encounter Visit Diagnoses Not on filedocumented in this encounter
--- OUTSIDE RECORDS SUMMARY | 2025-05-21 09:37 | XMS_ITS | Encounter Summary ---
Author Organization [employer] ([place], [place], [place], [place]) Address [address] [place] [address] Care Team Providers Care Regional Transfer Liaison Name Role Phone Unavailable Primary Care Provider Unavailabl e Encounter Details Date Type Department Care Team (Late st Contact Info) Description 09/20/2021 Transcribed Document [facility] [place] Family Medicine [address] [place] [address] ProviderInes MD [address] [place] [address] Social History Tobacco Use Types [...] - Ines ProviderMD - 09/20/2021 3:32 PM JOCKEY AGENT Treatment Intervention, PT Entered On: 09/21/2021 11:51 [...] 09/20/2021 15:32 PT Additional Treatment Ordered By: EDAGRD BUENO, PT Active Diagnoses : No Qualifying [...] EDGARD Wills PT - 09/21/2021 11:46 EST Outcomes Manager Goals Mobility/Bed Mobility LTG PT Grid Goal [...] Information : Modified independent sup-sit with leg organizational psychologist SBA sit-stand with RWx SBA gait x [...] text rendition version of the form. [place] PT Charges PT Therap. Exercise 15 min : 1 Gait Training Each 15 Min : 1 EDGARD BUENO, PT - 09/21/2021 11:46 EST documented in this encounter Plan of Treatment Not on file documented as of this encounter Visit Diagnoses Not on filedocumented in this encounter
--- OUTSIDE RECORDS SUMMARY | 2025-05-21 09:37 | XMS_ITS | Encounter Summary ---
Author Organization [employer] ([place], [place], [place], [place]) Address [address] [place] [address] Care Team Providers Care Rn Utilization Management Um Name Role Phone Unavailable Primary Care Provider Unavailabl e Encounter Details Date Type Department Care Team (Late st Contact Info) Description 09/20/2021 Transcribed Document [facility] [place] Family Medicine [address] [place] [address] ProviderInes MD [address] [place] [address] Social History Tobacco Use Types [...] - Ines ProviderMD - 09/20/2021 7:56 AM RIVET FLUNKY [facility] Main OR Preop Summary Primary Physician: TIMO BLAKE MD-ORT Finalized Date/Time: 09/20/21 13:54:12 Pt. Name: PINKY REIDO.B./Sex: 1955 Female Med Rec #: [id number] Physician: TIMO BLAKE MD-ORT Financial #: [id number] Pt. Type: O Room/Bed: 643/1 Admit/Disch: 09/20/21 06:33:00 - Institution: [facility] PreOp Case Times Entry 1 In Preop 09/20/21 05:42:00 Ready for Holding n/a Room Patient Ready for 09/20/21 06:37:00 Surgery Patient Out of Preop 09/20/21 07:22:00 Patient Out of n/a Holding Room Last Modified By: DERECK Yates RN 09/20/21 13:54:09 [facility] PreOp Case Times Audit 09/20/21 13:54:09 Social Security Specialist: ANNIE Modifier: WILSONDL <+> 1 Patient Out of Preop 09/20/21 06:37:39 Social Security Specialist: ANNIE Modifier: WILSONDL <+> 1 Patient Ready for Surgery Finalized By: DERECK Yates, RN Document Signatures Signed By: DERECK Yates RN 09/20/21 13:54 Electronically signed by Liset [facility] Conversion Dye Room Helper Cerner at 02/04/2023 12:17 PM CDT documented in this encounter Plan of Treatment Not on file documented as of this encounter Visit Diagnoses Not on filedocumented in this encounter
--- OUTSIDE RECORDS SUMMARY | 2025-05-21 09:37 | XMS_ITS | Clinical Summary ---
Author Organization [facility] Address [address] [place] [address], [address] [place] [address] Care Team Providers Care Last Cleaner Name Role Phone System, Referring Not In [...] of Treatment Not on file Care Teams Last Cleaner Relationship Specialty Start Date End Date System, Referring Not In PCP - General 11/05/12
--- OUTSIDE RECORDS SUMMARY | 2025-05-21 09:37 | XMS_ITS | Encounter Summary ---
Author Organization [employer] ([place], [place], [place], [place]) Address [address] [place] [address] Care Team Providers Care Military Pay Clerk Name Role Phone Unavailable Primary Care Provider Unavailabl e Encounter Details Date Type Department Care Team (Late st Contact Info) Description 09/20/2021 Transcribed Document [facility] [place] [address] [place] [address] ProviderInes MD [address] [place] [address] Social History Tobacco Use Types [...] - Ines ProviderMD - 09/20/2021 4:28 PM BENEFIT AUTHORIZER Treatment Intervention, OT Entered On: 09/21/2021 16:06 [...] MADONNA CUETO OTR/Yoanna - 09/21/2021 16:03 EST [facility] Goals, OT Grooming LTG Grid Goal #1 [...] gym recieivng edu on HEP. No joint fitness coach present. Assessment : Pt is progressing towards goals Plan for Treatment : Cont OT POC MADONNA CUETO OTR/Yoanna - 09/21/2021 16:03 EST [place] OT Charges OT Selfcare/Hm Mgmt Ea 15 Min : 1 OT Ther Activities Ea 15 Min : 1 MADONNA CUETO OTR/Yoanna - 09/21/2021 16:03 EST Electronically signed by Liset [facility] Conversion Factory Supervisor Cerner at 02/04/2023 12:15 PM CDT documented in this encounter Plan of Treatment Not on file documented as of this encounter Visit Diagnoses Not on filedocumented in this encounter
--- OUTSIDE RECORDS SUMMARY | 2025-05-21 09:37 | XMS_ITS | Encounter Summary ---
Author Organization [employer] ([place], [place], [place], [place]) Address [address] [place] [address] Care Team Providers Care Grinder Gear Name Role Phone Unavailable Primary Care Provider Unavailabl e Encounter Details Date Type Department Care Team (Late st Contact Info) Description 09/20/2021 Transcribed Document [facility] [place] [address] [place] [address] ProviderInes MD [address] [place] [address] Social History Tobacco Use Types [...] - Ines ProviderMD - 09/20/2021 10:50 AM EMD TEACHER Evaluation, Physical Therapy Entered On: 09/20/2021 15:31 [...] EDGARD BUENO, PT - 09/20/2021 15:26 EST Assisted Goals Mobility/Bed Mobility LTG PT Grid Goal [...] EDGARD BUENO, PT - 09/20/2021 15:26 EST [place] PT Charges PT Eval Low Complexity : 1 EDGARD BUENO PT - 09/20/2021 15:26 EST documented in this encounter Plan of Treatment Not on file documented as of this encounter Visit Diagnoses Not on filedocumented in this encounter
--- OUTSIDE RECORDS SUMMARY | 2025-05-21 09:37 | XMS_ITS | Encounter Summary ---
Author Organization [employer] ([place], [place], [place], [place]) Address [address] [place] [address] Care Team Providers Care Juke Box Mechanic Name Role Phone Unavailable Primary Care Provider Unavailabl e Encounter Details Date Type Department Care Team (Late st Contact Info) Description 03/04/2021 Transcribed Document [facility] Family Medicine [address] [place] [address] ProviderInes MD [address] [place] [address] Social History Tobacco Use Types [...] from sitting : Severe 4. Bending to floor/pickler helper an object : Severe 5. Lying in [...]
--- NOTE | 2025-05-21 09:51 | EXP.PULM.CON ---
History of Present Illness History of present illness: Ms. 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 [facility] Disclaimer: The information contained in this section may have been updated after the patient was seen, as this information can be updated by other users. Medical History (Updated 05/20/25 @ 21:25 by Milan Stanford MD) History of asthma History of COPD History of smoking 30 or more pack years Dyspnea on exertion Lipoma Hypertension HLD (hyperlipidemia) GERD (gastroesophageal reflux disease) Depression Asthma Anxiety Surgical History History of local excision of skin lesion History of left hip replacement History of colonoscopy History of cholecystectomy Hx of tonsillectomy History of total right hip replacement H/O arthroscopy of right knee Family History Family history of stroke Social History Smoking Status: Never smoker alcohol intake: current alcohol intake frequency: holidays/special occasions only substance use type: denies use current occupational status: retired Travel in the last 8 weeks?: None household members: spouse housing: house lives independently: No marital status: education level: college caffeine: Yes special zeinab needs: No agree to transfusion: No do you feel safe at home: Yes victim of physical abuse: No victim of emotional abuse: No victim of sexual abuse: No would you like helpful sources: No Have you lived/traveled outside [place] in past 30 days?: No Contact w/someone who lives/traveled outside US past 30 days?: No Exposure to someone with infectious disease in past 14 days?: No Do you have a fever (greater than 100.4 F or 38 C)?: No Have you tested positive for COVID-19?: No Exposed to someone with COVID-19 in past 14 days?: No Do you have a sore throat?: No Do you have a cough?: Yes Do you have any weakness?: Yes Do you have any diarrhea?: No Are you experiencing any unusual bleeding?: No Do you have any muscle aches/pain?: No Do you have any abdominal pain?: No Are you experiencing loss of taste or smell?: No Review of Systems Constitutional Constitutional: Reports anorexia, Reports body ache(s) and Reports fatigue Eyes Eyes: Denies eye discharge, Denies dry eyes, Denies irritation and Denies itchy eyes ENT Ears, Nose, Mouth, and Throat: Denies epistaxis, Denies facial pain, Denies lip swelling and Denies throat swelling *Cardiovascular Cardiovascular: Reports dyspnea and Reports dyspnea on exertion *Respiratory Respiratory: Denies change in phlegm color, Reports chest congestion, Reports cough, Reports dyspnea, Reports dyspnea on exertion, Denies excessive phlegm production, Denies hemoptysis, Denies pain on inspiration, Denies pain with cough and Reports wheezing *Gastrointestinal Gastrointestinal: Denies abdominal pain, Denies belching and Denies cramping *Musculoskeletal Musculoskeletal: Reports back pain, Reports myalgias and Reports other (No small joint swelling or Pain) Psychiatric Psychiatric: Denies homicidal ideation and Denies suicidal ideation Endocrine Endocrine: Reports fatigue and Denies heat intolerance Hematologic/Lymphatic Hematologic/Lymphatic: Denies easy bleeding and Denies lymphadenopathy Allergic/Immunologic Allergic/Immunologic: Denies itchy eyes, Denies lip swelling, Denies throat swelling and Reports wheezing Pulmonology Exam Inpatient Vital signs and Labs for Last 24 Hours: Temp Pulse Resp BP Pulse Ox O2 Del Method O2 Flow Rate 97.9 F 70 19 106/43 L 97 Nasal Cannula 4 05/21/25 04:00 05/21/25 08:03 05/21/25 08:01 05/21/25 08:01 05/21/25 09:17 05/21/25 09:17 05/21/25 09:17 Laboratory Results - last 24 hr 05/20/25 15:50: SARS-CoV-2 (PCR) Not detected, Influenza A Untype (PCR) Not detected, Influenza Type B (PCR) Not detected 05/20/25 15:51: WBC 15.9 H, RBC 4.21, Hgb 11.9 L, Hct 36.5 L, MCV 86.7, MCH 28.3, MCHC 32.6, RDW 13.3, Plt Count 255, MPV 11.2 H, Neut % (Auto) 83.3 H, Lymph % (Auto) 9.2 L, [place] % (Auto) 6.5, Eos % (Auto) 0.3, Baso % (Auto) 0.3, Neut # (Auto) 13.3 H, Lymph # (Auto) 1.5, [place] # (Auto) 1.0, Eos # (Auto) 0.1, Baso # (Auto) 0.0, PT 15.0 H, INR 1.38 H, Sodium 131 L, Potassium 3.4 L, Chloride 100, Carbon Dioxide 26, Anion Gap 8.4, BUN 15, Creatinine 1.10 H, Estimated Creat Clear 68, Estimated GFR 49 L, Est GFR ( Amer) 59, Glucose 102 H, Lactate 1.0, Calcium 9.0, Magnesium 1.3 L, Total Bilirubin 2.4 H, AST 24, ALT 16, Alkaline Phosphatase 113, Troponin I < 0.01, NT-Pro-B Natriuret Pep 1220 H, Total Protein 7.0, Albumin 3.1 L, Globulin 3.9 H, Albumin/Globulin Ratio 0.8 L, Lipase 24, HCV Ab BRIANNA w/Rflx PCR Qn Negative, HIV Ag/Ab Combo Qual Negative 05/20/25 16:01: VBG pH 7.43 H, VBG pCO2 35.5, VBG pO2 49.7 H, VBG HCO3 23.1, VBG Total CO2 24.2, VBG O2 Saturation 86.7 H, VBG Base Excess -0.7, VBG Lactic Acid 1.5 05/20/25 22:25: Troponin I < 0.01 05/21/25 04:44: WBC 10.8 D, RBC 4.03 L, Hgb 11.2 L, Hct 35.7 L, MCV 88.6, MCH 27.8, MCHC 31.4 L, RDW 13.2, Plt Count 189 D, MPV 11.7 H, Neut % (Auto) 91.6 H, Lymph % (Auto) 6.6 L, [place] % (Auto) 1.0 L, Eos % (Auto) 0.0 L, Baso % (Auto) 0.2, Neut # (Auto) 9.9 H, Lymph # (Auto) 0.7, [place] # (Auto) 0.1, Eos # (Auto) 0.0, Baso # (Auto) 0.0, PT 13.8 H, INR 1.27 H, Sodium 132 L, Potassium 3.8, Chloride 103, Carbon Dioxide 26, Anion Gap 6.8, BUN 14, Creatinine 0.80 D, Estimated Creat Clear 77, Estimated GFR 71, Est GFR ( Amer) 86 D, Glucose 143 H D, Calcium 8.8, Magnesium 2.3 D 05/21/25 04:56: Urine Color Yellow, Urine Appearance Clear, Urine pH 6.5, Ur Specific [place] <= 1.005, Urine Protein Negative, Urine Glucose (UA) Negative, Urine Ketones Trace, Urine Blood Negative, Urine Nitrate Negative, Urine Bilirubin Negative, Urine Urobilinogen 1.0, Ur Leukocyte Esterase Negative, Urine RBC None, Urine WBC 3-5, Ur Squamous Epith Cells 5-10, Urine Bacteria None I & O for Labs for Last 24 Hours: Intake & Output 05/18/25 05/19/25 05/20/25 05/21/25 23:59 23:59 23:59 23:59 Intake Total 360 / 360 Output Total 1999 / 1999 Balance -1640 / -1640 Weight 204 lb 14.4 oz 204 lb 14.397 oz Constitutional: Present mild distress Head: Present normocephalic and atraumatic ENT: Present normal exam, normal oropharynx and mucous membranes moist Neck: Present normal inspection and full ROM Respiratory: Present prolonged expiratory phase, rhonchi, diminished air movement and able to speak in complete sentences; Absent respiratory distress or wheezes Cardiac: Present S1/S2, Tachycardia and radial pulses present GI: Present soft and distention; Absent tenderness or guarding Rectal (female): Present deferred (female): Present deferred Skin: Present intact; Absent cyanosis or jaundice Neuro: Present alert, awake and oriented x 3 Extremities: Present normal inspection; Absent clubbing or cyanosis Psychiatric: Present normal affect and cooperative Meds Home Medications and Allergies Home Medications ?Medication ?Instructions ?Recorded ?Confirmed ?Type citalopram 20 mg tablet 20 mg PO DAILY Anxiety 04/07/19 05/20/25 History fluticasone propionate 50 1 spray intranasal DAILY 04/07/19 05/20/25 History mcg/actuation nasal spray,suspension (Flonase Allergy Relief) gabapentin 100 mg capsule 100 mg PO TID Pain 04/07/19 05/20/25 History pravastatin 80 mg tablet 80 mg PO DAILY 04/07/19 05/20/25 History furosemide 20 mg tablet 20 mg PO DAILY 07/20/20 05/20/25 History potassium chloride 20 mEq 20 meq PO DAILY 07/20/20 05/20/25 History tablet,extended release(part/cryst) carvedilol 12.5 mg tablet 12.5 mg PO BID 07/14/24 05/20/25 History cholecalciferol (vitamin D3) 25 25 mcg PO DAILY 07/14/24 05/20/25 History mcg (1,000 unit) capsule ipratropium 0.5 mg-albuterol 3 mg 3 ml inhalation Q4HP PRN Shortness 07/14/24 05/21/25 History (2.5 mg base)/3 mL nebulization Of Breath soln Spiriva with HandiHaler 18 mcg and 1 cap inhalation DAILY #90 puffs 08/21/24 05/20/25 Rx inhalation capsules (tiotropium bromide) montelukast 10 mg tablet 10 mg PO DAILY #90 tabs 08/21/24 05/20/25 Rx (Singulair) fluticasone 500 mcg-salmeterol 50 1 inh inhalation BID #180 ea 10/28/24 05/20/25 Rx mcg/dose blistr powdr for inhalation (Advair Diskus) omeprazole 20 mg capsule,delayed 20 mg PO DAILY 05/21/25 05/21/25 History release New Prescriptions to Start Prescriptions: Allergies Allergy/AdvReac Type Severity Reaction Status Date / Time codeine Allergy Mild NA-NAUSEA/V Verified 08/21/24 10:13 OMITING adhesive Allergy Unknown Verified 08/21/24 10:13 lanolin Allergy Unknown Verified 08/21/24 10:13 Results Laboratory Findings 05/21/25 04:44 05/21/25 04:44 PT/INR, D-dimer PT 13.8 seconds (10.1-12.5) H 05/21/25 04:44 INR 1.27 (0.9-1.1) H 05/21/25 04:44 Abnormal lab findings: Abnormal Labs 05/20/25 05/20/25 05/21/25 15:51 16:01 04:44 WBC 15.9 H RBC 4.03 L Hgb 11.9 L 11.2 L Hct 36.5 L 35.7 L MCHC 31.4 L MPV 11.2 H 11.7 H Neut % (Auto) 83.3 H 91.6 H Lymph % (Auto) 9.2 L 6.6 L [place] % (Auto) 1.0 L Eos % (Auto) 0.0 L Neut # (Auto) 13.3 H 9.9 H PT 15.0 H 13.8 H INR 1.38 H 1.27 H VBG pH 7.43 H VBG pO2 49.7 H VBG O2 Saturation 86.7 H Sodium 131 L 132 L Potassium 3.4 L Creatinine 1.10 H Estimated GFR 49 L Glucose 102 H 143 H D Magnesium 1.3 L Total Bilirubin 2.4 H NT-Pro-B Natriuret Pep 1220 H Albumin 3.1 L Globulin 3.9 H Albumin/Globulin Ratio 0.8 L Assessment and Plan *Assessment and plan (1) Acute hypoxic respiratory failure: Status: Acute Category: Medical Code(s): J96.01 - Acute respiratory failure with hypoxia (2) Pneumonia: Status: Acute Qualifiers: Laterality: bilateral Lung location: lower lobe of lung Pneumonia type: due to unspecified organism Qualified Code(s): J18.9 - Pneumonia, unspecified organism Category: Medical Code(s): J18.9 - Pneumonia, unspecified organism Plan Ms. 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 Afebrile. Hemodynamically stable mild neutrophilic predominant leukocytosis, improving. Currently receiving ceftriaxone and azithromycin for COVID-19 and flu PCR panel negative. Blood gas upon admission venous did not show any evidence of hypoxic/hypercarbic respiratory failure CTA upon admission no evidence of pulmonary embolism. Bilateral lower lobe patchy airspace disease. No pleural effusions. HRCT from November 2024 scant lower lobe interstitial infiltrates. On examination mild respiratory distress. No significant wheezing noted on auscultation. Significantly improved oxygen requirements, saturating 100% on 4 L, weaned to room air. Will follow. Plan: Continue ceftriaxone with azithromycin pending blood culture results. Unable to induce sputum. Antibiotics can be weaned to cefdinir to complete a total of 7-day course upon discharge. Follow up procalcitonin and CRP Trelegy 100 inhaler along with DuoNebs 4 times daily as needed Oxygen supplementation on as-needed basis to maintain O2 saturation goal of 90% and above Incentive spirometry and flutter valve # Thank you for involving pulmonary in this patient care will follow the patient pulmonary clinic 1 to 2 weeks postdischarge
[2025-05-21 10:28] LABS: Procalcitonin 2.05 ng/mL (0.0-2.0)
[2025-05-21] MEDS: FLUTICASONE/UMECLIDIN/VILANTER 100/62.5/25MCG INHALER 1 PUFF IH (12:37)
--- NOTE | 2025-05-21 13:56 | PC.NURSE ---
Attempted to call report at [phone]. RN stated that she would call back.
[2025-05-21 14:23] LABS: C-Reactive Protein 210.4 mg/L (0-4)
--- NOTE | 2025-05-21 16:26 | EXP.PN ---
Subjective *Date: 05/21/25 *Time: 16:26 Interval history: Patient is seen and evaluated at the bedside, denied chest pain shortness of breath nausea vomiting diarrhea constipation dysuria, no new complaints today. Patient complains of having wheezing, per patient that is chronic finding Exam Data for Last 24 hours Vital signs and Labs for Last 24 Hours: Temp Pulse Resp BP Pulse Ox O2 Del Method O2 Flow Rate 97.7 F 69 16 103/51 L 94 L Room Air 2 05/21/25 16:00 05/21/25 16:05/21/25 16:05/21/25 16:00 05/21/25 16:00 05/21/25 16:00 05/21/25 10:37 Laboratory Results - last 24 hr 05/20/25 15:50: SARS-CoV-2 (PCR) Not detected, Influenza A Untype (PCR) Not detected, Influenza Type B (PCR) Not detected 05/20/25 15:51: Sodium 131 L, Potassium 3.4 L, Chloride 100, Carbon Dioxide 26, Anion Gap 8.4, BUN 15, Creatinine 1.10 H, Estimated Creat Clear 68, Estimated GFR 49 L, Est GFR ( Amer) 59, Glucose 102 H, Lactate 1.0, Calcium 9.0, Magnesium 1.3 L, Total Bilirubin 2.4 H, AST 24, ALT 16, Alkaline Phosphatase 113, Troponin I < 0.01, NT-Pro-B Natriuret Pep 1220 H, Total Protein 7.0, Albumin 3.1 L, Globulin 3.9 H, Albumin/Globulin Ratio 0.8 L, Lipase 24, HCV Ab BRIANNA w/Rflx PCR Qn Negative, HIV Ag/Ab Combo Qual Negative 05/20/25 22:25: Troponin I < 0.01 05/21/25 04:44: WBC 10.8 D, RBC 4.03 L, Hgb 11.2 L, Hct 35.7 L, MCV 88.6, MCH 27.8, MCHC 31.4 L, RDW 13.2, Plt Count 189 D, MPV 11.7 H, Neut % (Auto) 91.6 H, Lymph % (Auto) 6.6 L, [place] % (Auto) 1.0 L, Eos % (Auto) 0.0 L, Baso % (Auto) 0.2, Neut # (Auto) 9.9 H, Lymph # (Auto) 0.7, [place] # (Auto) 0.1, Eos # (Auto) 0.0, Baso # (Auto) 0.0, PT 13.8 H, INR 1.27 H, Sodium 132 L, Potassium 3.8, Chloride 103, Carbon Dioxide 26, Anion Gap 6.8, BUN 14, Creatinine 0.80 D, Estimated Creat Clear 77, Estimated GFR 71, Est GFR ( Amer) 86 D, Glucose 143 H D, Calcium 8.8, Magnesium 2.3 D, C-Reactive Protein 210.4 H, Procalcitonin 2.05 H 05/21/25 04:56: Urine Color Yellow, Urine Appearance Clear, Urine pH 6.5, Ur Specific [place] <= 1.005, Urine Protein Negative, Urine Glucose (UA) Negative, Urine Ketones Trace, Urine Blood Negative, Urine Nitrate Negative, Urine Bilirubin Negative, Urine Urobilinogen 1.0, Ur Leukocyte Esterase Negative, Urine RBC None, Urine WBC 3-5, Ur Squamous Epith Cells 5-10, Urine Bacteria None I & O for Last 24 hours: Intake & Output 05/18/25 05/19/25 05/20/25 05/21/25 23:59 23:59 23:59 23:59 Intake Total 610 / 610 Output Total 2250 / 2250 Balance -1640 / -1640 Weight 92.941 kg 92.941 kg Microbiology Reports for the Last 24 Hours: Microbiology 05/20/25 15:59 Blood Blood Culture - Preliminary NO GROWTH AFTER 24 HOURS 05/20/25 15:57 Blood Blood Culture - Preliminary NO GROWTH AFTER 24 HOURS Constitutional Constitutional: no acute distress *Routine HEENT Exam Head: Present normocephalic Eye: Present EOMI and PERRL ENT: Present mucous membranes moist *Routine Neck Exam Neck: Present supple; Absent lymphadenopathy *Routine Respiratory Exam Respiratory: Present prolonged expiratory phase *Routine Cardiovascular Exam Cardiovascular: Present RRR *Routine Abdominal Exam Abdominal: Present soft and normoactive bowel sounds; Absent tenderness *Routine Extremities Exam Extremities: Absent cyanosis, clubbing or edema *Routine Skin Exam Skin: Present warm; Absent rash *Routine Neurological Exam Neurological: Present alert and oriented X3 Assessment and Plan *Assessment and plan (1) Sepsis: Status: Acute Category: Medical Code(s): A41.9 - Sepsis, unspecified organism (2) Pneumonia: Status: Acute Qualifiers: Laterality: bilateral Lung location: lower lobe of lung Pneumonia type: due to unspecified organism Qualified Code(s): J18.9 - Pneumonia, unspecified organism Category: Medical Code(s): J18.9 - Pneumonia, unspecified organism (3) Acute hypoxic respiratory failure: Status: Acute Category: Medical Code(s): J96.01 - Acute respiratory failure with hypoxia (4) Hypoxia: Status: Acute Category: Medical Code(s): R09.02 - Hypoxemia (5) History of COPD: Status: Acute Category: Medical Code(s): Z87.09 - Personal history of other diseases of the respiratory system (6) History of smoking 30 or more pack years: Status: Acute Category: Social Hx Code(s): Z87.891 - Personal history of nicotine dependence (7) Obesity (BMI 30.0-34.9): Status: Acute Category: Medical Code(s): E66.811 - Obesity, class 1 (8) Hypertension: Status: Chronic Category: Medical Code(s): I10 - Essential (primary) hypertension (9) Depression: Status: Chronic Category: Medical Code(s): F32.A - Depression, unspecified (10) Hypomagnesemia: Status: Acute Category: Medical Code(s): E83.42 - Hypomagnesemia Plan 69-year-old female with history of COPD, hypertension, obesity presents with shortness of breath and suspected pneumonia. Workup in the ER positive for pneumonia and sepsis. Acute hypoxemic respiratory failure Multifocal pneumonia Sepsis continue antibiotics with ceftriaxone 2 g daily and azithromycin 5 mg IV daily for 5 days. - Blood cultures obtained, sputum sample ordered and pending. - Continue DuoNebs every 6 hours scheduled. Budesonide twice daily - Pulmonology consulted to assist with care. started on trelogy, ok to dc on cefdinir when ready for DC - Supplemental oxygen as needed, goal sats greater 90%. Currently on 4 to 5 L - CBC, CMP, magnesium ordered for the more Hypomagnesemia: Replace per protocol INR elevated at 1.38, patient not on blood thinners. repeat inr 1.27 - MONITOR for now Hypertension: - Continue carvedilol 12.5 mg twice daily - Resume Lasix 20 mg daily. Kidney function normal Depression: Continue citalopram 20 mg daily Neuropathy: Continue gabapentin 100 mg 3 times a day GERD: Pantoprazole 40 mg nightly as formulary conversion Full code Heparin subcu 5000 units 3 times daily Regular diet DC 1-2 days pending improvement
[2025-05-21] MEDS: AZITHROMYCIN 500 MG in 0.9 % SODIUM CHLORIDE 250 ML 250 MG IV (17:06)
[2025-05-21] MEDS: PANTOPRAZOLE 40MG TABLET 40 MG PO (21:33)
[2025-05-21] MEDS: ACETAMINOPHEN 325MG TAB 650 MG PO (21:55)
[2025-05-22] VITALS: BP 112/65; PULSE 60; PULSE 64; RESP 16; TEMP 36.4; O2SAT 96
[2025-05-22 04:00] VITALS: BP 121/63; PULSE 70; RESP 16; TEMP 36.4; O2SAT 95; BMI 34.6
--- NOTE | 2025-05-22 05:44 | PC.NURSE ---
v/s, ox4, RA. Family at bedside. No acute events to report. plan of care ongoing.
[2025-05-22 07:07] LABS: Hematocrit 33.8 % (37.0-47.0); Hemoglobin 10.4 g/dL (12.2-16.2); Immature Granulocytes % 0.4 %; Mean Corpuscular HGB Conc 30.8 g/dL (31.8-35.4); Mean Corpuscular Hemoglobin 26.8 pg (27.0-31.2); Mean Corpuscular Volume 87.1 fl (81-99); Nucleated Red Blood Cells % 0 %; Platelet Count 224 K/mm3 (142-424); Red Blood Count 3.88 M/mm3 (4.20-5.40); Red Cell Distribution Width-SD 42.7 fL; White Blood Count 15.9 K/mm3 (4.8-10.8)
[2025-05-22 07:22] LABS: Chloride 102 mmol/L (98-107); Sodium 133 mmol/L (136-145)
[2025-05-22 07:23] LABS: Potassium 3.6 mmoL/L (3.5-5.1)
[2025-05-22 07:26] LABS: Anion Gap 7.6 mEq/L (5-15); Blood Urea Nitrogen 23 mg/dl (7-17); Calcium 9.1 mg/dl (8.4-10.2); Carbon Dioxide 27 mmol/L (22.0-30.0); Creatinine Clearance Estimated 76 mL/min (50-200); Creatinine,Serum 0.90 mg/dl (0.52-1.04); Estimated Glomerular Filt Rate 62 ml/min (>60); GFR (African American) 75 ML/MIN (>60); Glucose 127 mg/dl (74-100)
[2025-05-22 07:48] LABS: Magnesium 2.2 mg/dl (1.6-2.3)
[2025-05-22 08:00] VITALS: BP 120/54; PULSE 70; PULSE 72; RESP 22; TEMP 36.6; O2SAT 93
--- NOTE | 2025-05-22 08:41 | EXP.DC.SUM ---
General Admission date:: 05/20/25 Discharge date: 05/22/25 HPI HPI HPI: 69-year-old female with history of hypertension, COPD, smoking stopped many years ago, obesity. She presents with a week of worsening shortness of breath, chills, cough that is nonproductive. Saw her PCP today who sent her to the ER for evaluation for concern of sepsis and pneumonia. On arrival to the ER, patient sats were in the 70s. Placed on nasal cannula oxygen with improvement. Workup in the ER with white count of 15. Chest imaging showing bilateral multifocal pneumonia. Meeting sepsis criteria with tachycardia, tachypnea, hypoxia, white count and pneumonia on chest imaging. Initiated on ceftriaxone and azithromycin. Medicine consulted for admission and further management of sepsis and pneumonia. On arrival to the floor, patient denies chest pain but does complain of having had some nausea and intermittent emesis over the past day or 2. States she is feeling somewhat better after receiving medications in the ER. Tolerating 3 L oxygen with sats of 88 to 89%. Increased to 5 L during evaluation. Will administer additional breathing treatment at this time. Alert and oriented x 4. No antibiotics prior to the ER. States is her surrogate decision-maker Hospital Course Hospital Course Hospital Course: 69-year-old female with history of COPD, hypertension, obesity presents with shortness of breath and suspected pneumonia. Workup in the ER positive for pneumonia and sepsis. Discussed case with ER physician, request admission for further management with IV antibiotics and supplemental oxygen. Medicine decided to admit for further care. Initiated on broad-spectrum antibiotics. Pulmonology was consulted. Oxygen weaned to room air. Symptoms improving. Feverresolved. Will transition to oral antibiotics to complete 7-day course. Follow-up with pulmonology as an outpatient. Problems addressed as follows: Acute hypoxemic respiratory failure Multifocal pneumonia Sepsis -Meeting sepsis criteria with white count of 15, Tachypnea with respiratory rate of 28, fever of 102.4, and chest CT per my review with multifocal airspace disease bilaterally and lower lobes. Small effusion left side. No PEs per my review of imaging. Initiated on ceftriaxone and azithromycin IV. Completed 3 days of azithromycin 500 mg IV. Completed 3 days of ceftriaxone IV. Will transition to cefdinir at pulmonology's recommendation to complete 7 days total of antibiotic therapy. Initially requiring 4 L to 5 L of oxygen for goal sats greater 90%. Weaned to room air for over 24 hours prior to discharge. Fever resolved. White count fluctuated but patient clinically showing improvement. Given her stability on room air, will discharge home for close follow-up with pulmonology. Blood cultures negative at discharge. Unable to produce sputum culture during admission. Hypomagnesemia: Initial level 1.3 on admission. Improved with replacement. Stable at 2.2 on day of discharge. INR elevated at 1.38, patient not on blood thinners. Unsure the significance. Remainder of liver enzymes normal. Repeat monitoring showed improvement. Hypertension: - Echo obtained December 2019 EF normal at that time. Resumed home regimen for blood pressure including carvedilol 12.5 mg twice daily, Lasix 20 mg daily. Kidney function normal Depression: Continue citalopram 20 mg daily Neuropathy: Continue gabapentin 100 mg 3 times a day GERD: Pantoprazole 40 mg nightly as formulary conversion Total time spent on discharge 32 minutes in counseling, documentation, chart review, and direct care with patient. Exam Data for Last 24 hours Vital signs and Labs for Last 24 Hours: Temp Pulse Resp BP Pulse Ox O2 Del Method O2 Flow Rate 97.9 F 72 22 120/54 L 93 L Room Air 2 05/22/25 08:00 05/22/25 08:00 05/22/25 08:00 05/22/25 08:00 05/22/25 08:00 05/22/25 08:00 05/21/25 10:37 Laboratory Results - last 24 hr 05/21/25 04:44: C-Reactive Protein 210.4 H, Procalcitonin 2.05 H 05/22/25 06:33: WBC 15.9 H D, RBC 3.88 L, Hgb 10.4 L, Hct 33.8 L, MCV 87.1, MCH 26.8 L, MCHC 30.8 L, RDW 13.3, Plt Count 224, MPV 11.8 H, Neut % (Auto) 88.0 H, Lymph % (Auto) 7.7 L, [place] % (Auto) 3.8, Eos % (Auto) 0.0 L, Baso % (Auto) 0.1, Neut # (Auto) 14.0 H, Lymph # (Auto) 1.2, [place] # (Auto) 0.6, Eos # (Auto) 0.0, Baso # (Auto) 0.0, Sodium 133 L, Potassium 3.6, Chloride 102, Carbon Dioxide 27, Anion Gap 7.6, BUN 23 H D, Creatinine 0.90, Estimated Creat Clear 76, Estimated GFR 62, Est GFR ( Amer) 75, Glucose 127 H, Calcium 9.1, Magnesium 2.2 I & O for Last 24 hours: Intake & Output 05/19/25 05/20/25 05/21/25 05/22/25 23:59 23:59 23:59 23:59 Intake Total 730 / 970 640 / 640 Output Total 2250 / 2550 300 / 300 Balance -1520 / -1580 340 / 340 Weight 92.941 kg 92.941 kg 92.079 kg Microbiology Reports for the Last 24 Hours: Microbiology 05/20/25 15:59 Blood Blood Culture - Preliminary NO GROWTH AFTER 24 HOURS 05/20/25 15:57 Blood Blood Culture - Preliminary NO GROWTH AFTER 24 HOURS Constitutional Constitutional: no acute distress, obese and cooperative *Routine HEENT Exam Head: Present normocephalic Eye: Present EOMI and PERRL ENT: Present mucous membranes moist *Routine Neck Exam Neck: Present supple; Absent lymphadenopathy *Routine Respiratory Exam Respiratory: Present CTA bilaterally; Absent rhonchi, wheezes or crackles *Routine Cardiovascular Exam Cardiovascular: Present RRR *Routine Abdominal Exam Abdominal: Present soft and normoactive bowel sounds; Absent tenderness *Routine Rectal Exam Patient deferred: visual exam *Routine Exam Patient deferred: external exam *Routine Extremities Exam Extremities: Absent cyanosis, clubbing or edema *Routine Skin Exam Skin: Present warm; Absent rash *Routine Neurological Exam Neurological: Present alert, oriented X3 and moving all extremities; Absent altered mental status Results Data Completed and Pending Labs on day of discharge: Labs from last 24 hours 05/22/25 05/21/25 06:33 04:44 WBC 15.9 H D RBC 3.88 L Hgb 10.4 L Hct 33.8 L MCV 87.1 MCH 26.8 L MCHC 30.8 L RDW 13.3 Plt Count 224 MPV 11.8 H Neut % (Auto) 88.0 H Lymph % (Auto) 7.7 L [place] % (Auto) 3.8 Eos % (Auto) 0.0 L Baso % (Auto) 0.1 Neut # (Auto) 14.0 H Lymph # (Auto) 1.2 [place] # (Auto) 0.6 Eos # (Auto) 0.0 Baso # (Auto) 0.0 Sodium 133 L Potassium 3.6 Chloride 102 Carbon Dioxide 27 Anion Gap 7.6 BUN 23 H D Creatinine 0.90 Estimated Creat Clear 76 Estimated GFR 62 Est GFR ( Amer) 75 Glucose 127 H Calcium 9.1 Magnesium 2.2 C-Reactive Protein 210.4 H Procalcitonin 2.05 H Preliminary micro results at discharge 05/20/25 15:59 Blood Culture - Preliminary Blood NO GROWTH AFTER 24 HOURS 05/20/25 15:57 Blood Culture - Preliminary Blood NO GROWTH AFTER 24 HOURS DS: Diagnosis Discharge Diagnosis (1) Sepsis: Status: Acute Code(s): A41.9 - Sepsis, unspecified organism (2) Pneumonia: Status: Acute Code(s): J18.9 - Pneumonia, unspecified organism Qualifiers: Laterality: bilateral Lung location: lower lobe of lung Pneumonia type: due to unspecified organism Qualified Code(s): J18.9 - Pneumonia, unspecified organism (3) Acute hypoxic respiratory failure: Status: Acute Code(s): J96.01 - Acute respiratory failure with hypoxia (4) Hypoxia: Status: Acute Code(s): R09.02 - Hypoxemia (5) History of COPD: Status: Acute Code(s): Z87.09 - Personal history of other diseases of the respiratory system (6) History of smoking 30 or more pack years: Status: Acute Code(s): Z87.891 - Personal history of nicotine dependence (7) Obesity (BMI 30.0-34.9): Status: Acute Code(s): E66.811 - Obesity, class 1 (8) Hypertension: Status: Chronic Code(s): I10 - Essential (primary) hypertension (9) Depression: Status: Chronic Code(s): F32.A - Depression, unspecified (10) Hypomagnesemia: Status: Acute Code(s): E83.42 - Hypomagnesemia Meds Home Medications and Allergies Home Medications ?Medication ?Instructions ?Recorded ?Confirmed ?Type citalopram 20 mg tablet 20 mg PO DAILY Anxiety 04/07/19 05/20/25 History fluticasone propionate 50 1 spray intranasal DAILY 04/07/19 05/20/25 History mcg/actuation nasal spray,suspension (Flonase Allergy Relief) gabapentin 100 mg capsule 100 mg PO TID Pain 04/07/19 05/20/25 History pravastatin 80 mg tablet 80 mg PO DAILY 04/07/19 05/20/25 History furosemide 20 mg tablet 20 mg PO DAILY 07/20/20 05/20/25 History potassium chloride 20 mEq 20 meq PO DAILY 07/20/20 05/20/25 History tablet,extended release(part/cryst) carvedilol 12.5 mg tablet 12.5 mg PO BID 07/14/24 05/20/25 History cholecalciferol (vitamin D3) 25 25 mcg PO DAILY 07/14/24 05/20/25 History mcg (1,000 unit) capsule ipratropium 0.5 mg-albuterol 3 mg 3 ml inhalation Q4HP PRN Shortness 07/14/24 05/21/25 History (2.5 mg base)/3 mL nebulization Of Breath soln Spiriva with HandiHaler 18 mcg and 1 cap inhalation DAILY #90 puffs 08/21/24 05/20/25 Rx inhalation capsules (tiotropium bromide) montelukast 10 mg tablet 10 mg PO DAILY #90 tabs 08/21/24 05/20/25 Rx (Singulair) fluticasone 500 mcg-salmeterol 50 1 inh inhalation BID #180 ea 10/28/24 05/20/25 Rx mcg/dose blistr powdr for inhalation (Advair Diskus) omeprazole 20 mg capsule,delayed 20 mg PO DAILY 05/21/25 05/21/25 History release cefdinir 300 mg capsule 300 mg PO BID 4 days #8 caps 05/22/25 Rx New Prescriptions to Start Prescriptions: Milan Nascimento Allergies Allergy/AdvReac Type Severity Reaction Status Date / Time codeine Allergy Mild NA-NAUSEA/V Verified 08/21/24 10:13 OMITING adhesive Allergy Unknown Verified 08/21/24 10:13 lanolin Allergy Unknown Verified 08/21/24 10:13 Discharge Plan Disposition Patient Disposition: Home, Self-Care Condition: Fair Discharge Order Discharge Orders: Discharge Order (Routine); Ordered 05/22/25 Ordered By: Milan [place] Follow up Plan Follow up with: Dai Valera MD [Physician, Pulmonology] - 1 week Referral Note: Please call May to set up your 1 week follow up appointmewnt with Pulmonology. The office is aware of your need for an appointment. Thank you! Be Goldman MD [Primary Care Provider, Internal Medicine] - Enter time for follow up Referral Note: Please Call Dr. Goldman's office to schedule your follow up appointment. The office is aware of your need for an appointment. If you do not recieve a call by SaturdayMay 24 please give them a call. Thank you ! Prescriptions/Medication Reconciliation: New cefdinir 300 mg capsule 300 mg PO BID 4 Days Qty: 8 0RF Rx Instructions: first dose morning of 05/23 Continued citalopram 20 mg tablet 20 mg PO DAILY fluticasone propionate [Flonase Allergy Relief] 50 mcg/actuation spray,suspension 1 spray INTRANASAL DAILY pravastatin 80 mg tablet 80 mg PO DAILY gabapentin 100 mg capsule 100 mg PO TID ipratropium-albuterol 0.5 mg-3 mg(2.5 mg base)/3 mL solution for nebulization 3 ml inhalation Q4HP PRN (Reason: Shortness Of Breath) cholecalciferol (vitamin D3) 25 mcg (1,000 unit) capsule 25 mcg PO DAILY carvedilol 12.5 mg tablet 12.5 mg PO BID tiotropium bromide [Spiriva with HandiHaler] 18 mcg capsule, w/inhalation device 1 cap inhalation DAILY Qty: 90 2RF Rx Instructions: puncture 1 cap using device; one dose = 2 inhalations montelukast [Singulair] 10 mg tablet 10 mg PO DAILY Qty: 90 2RF furosemide 20 mg tablet 20 mg PO DAILY potassium chloride 20 mEq tablet,ER particles/crystals 20 meq PO DAILY fluticasone propion-salmeterol [Advair Diskus] 500-50 mcg/dose blister with device 1 inh inhalation BID Qty: 180 2RF omeprazole 20 mg capsule,delayed release(DR/EC) 20 mg PO DAILY Problem Reconciliation Problems Reviewed?: Yes Patient Discharge Instructions ACTIVITY: Continue current activity DIET: continue same diet Patient Instructions: Magnesium, DI for Pneumonia -- Adult, DI for High Blood Pressure, DI for Respiratory Failure, Stop Light Pneumonia, NCM Setting Goals for Weight Management Diet, Stop Light COPD Print Language: Mohawk Providers Primary Care Provider: Be Goldman Admhenry Provider: Prasanna Banegas Attending Provider: Prasanna Banegas
[2025-05-22] MEDS: FUROSEMIDE 20MG TABLET 20 MG PO (09:45)
[2025-05-22] MEDS: GABAPENTIN 100MG CAPSULE 100 MG PO (09:45)
[2025-05-22] MEDS: CARVEDILOL 12.5MG TABLET 12.5 MG PO (09:45)
[2025-05-22] MEDS: CITALOPRAM 20MG TABLET 20 MG PO (09:45)
[2025-05-22] MEDS: AZITHROMYCIN 500 MG in 0.9 % SODIUM CHLORIDE 250 ML 250 MG IV (11:47)
--- NOTE | 2025-05-24 11:14 | SW/DCPLANNER ---
Spoke with patient on the phone. Patient stated that she is doing good. Patient stated that she has called to schedule her follow up appointments and left messages for them to call her back to schedule. Patient stated that she was able to get her new medicine picked up. Patient stated that she does not have any concerns or questions at this time. Tre Atkins
== END 2025-05-22 13:51 | disposition home or self-care (01) | DRG 871 ==
LOC: ER 18:37 → ICU 05-21 06:18 → 2ND 05-21 13:37
PROVIDERS: Internal Medicine Adolescent Medicine; Internal Medicine Pulmonary Disease; Physician Assistant; Admitting Provider Internal Medicine; Emergency Provider Emergency Medicine; PCP Internal Medicine Adolescent Medicine; Visit Provider Internal Medicine
DX: A41.9 Sepsis, unspecified organism (principal); J18.9 Pneumonia, unspecified organism; J96.01 Acute respiratory failure with hypoxia; J44.0 Chronic obstructive pulmonary disease with (acute) lower respiratory infection; E66.811 Obesity, class 1; I10 Essential (primary) hypertension; F32.A Depression, unspecified; E83.42 Hypomagnesemia; K21.9 Gastro-esophageal reflux disease without esophagitis; G62.9 Polyneuropathy, unspecified; E78.5 Hyperlipidemia, unspecified; R79.1 Abnormal coagulation profile; Z68.34 Body mass index [BMI] 34.0-34.9, adult; Z87.891 Personal history of nicotine dependence; Z79.899 Other long term (current) drug therapy; Z88.5 Allergy status to narcotic agent; Z88.8 Allergy status to other drugs, medicaments and biological substances; Z91.048 Other nonmedicinal substance allergy status
CPT/HCPCS: 36415; 71045; 71275; 74177; 80048; 80053; 81001; 82803; 83605; 83690; 83735; 83880; 84145; 84484; 85025; 85610; 86140; 86803; 87040; 87389; 87636; 93005; 94640; 94761; J0131; J0456; J0696; J1644; J2405; J2919; J3475; J7050; J7120; Q9967

== ENCOUNTER 2025-08-30 08:42 | Outpatient (CLI) | payer MEDICARE, SELFPAY ==
--- OUTSIDE RECORDS SUMMARY | 2025-08-30 08:59 | XMS_ITS | Encounter Summary ---
Author Organization [employer] ([place], [place], [place], [place], [place]) Address [address] [place] [address] Care Team Providers Care Silver Steward Name Role Phone Unavailable Primary Care Provider Unavailabl e Encounter Details Date Type Department Care Team (Late st Contact Info) Description 09/20/2021 Transcribed Document [facility] [place] Family Medicine [address] [place] [address] ProviderInes MD [address] [place] [address] Social History Tobacco Use Types [...] Conversion Note - Historical ProviderMD - 09/20/2021 4:28 PM BARKEEPER Treatment Intervention, OT Entered On: 09/21/2021 16:06 EST Performed On: 09/21/2021 11:21 EST by MADONNA CUETO, OTR/L General Information, OT Visit Type, OT : Treatment Note Patient Orders : Order Date Order Ordering 09/20/2021 10:50 OT Evaluation and Treatment Ordered By: TMIO BLAKE MD-ORKristin 09/20/2021 10:50 OT Treatment Instructions Ordered By: [...] MADONNA CUETO OTR/Yoanna - 09/21/2021 16:03 EST [facility] Goals, OT Grooming LTG Grid Goal #1 [...] Goal Status : Progressing, continue MADONNA CUETO OTR/L - 09/21/2021 16:03 EST Treatment Note Subjective Comment : Pt was agreeable Patient's Response to Treatment : Pt tolerated tx Additional Objective Information : Pt was found sitting up in chair. Pt was supervision for sit to stand, tolieting, dressing lower body via AE, ambulation via RWX, and stand to sit. Pt was left in PT gym recieivng edu on HEP. No joint value stream coach present. Assessment : Pt is progressing towards goals Plan for Treatment : Cont OT POC MADONNA CUETO OTR/Yoanna - 09/21/2021 16:03 EST Ribera OT Charges OT Selfcare/Hm Mgmt Ea 15 Min : 1 OT Ther Activities Ea 15 Min : 1 MADONNA CUETO OTR/Yoanna - 09/21/2021 16:03 EST documented in this encounter Plan of Treatment Not on file documented as of this encounter Visit Diagnoses Not on filedocumented in this encounter
--- OUTSIDE RECORDS SUMMARY | 2025-08-30 08:59 | XMS_ITS | Encounter Summary ---
Author Organization [employer] ([place], [place], [place], [place], [place]) Address [address] [place] [address] Care Team Providers Care Deposition Reporter Name Role Phone Unavailable Primary Care Provider Unavailabl e Encounter Details Date Type Department Care Team (Late st Contact Info) Description 09/20/2021 Transcribed Document [facility] [place] [address] [place] [address] ProviderInes MD [address] [place] [address] Social History Tobacco Use Types [...] Conversion Note - Historical ProviderMD - 09/20/2021 5:04 PM PROJECT PRODUCT MANAGER Spiritual Care Assessment Entered On: 09/20/2021 17:45 [...] Emotional Support : Empathic/Engaged listening Spiritual and Taoism : Spiritual/Taoism support provided Derrek Saldana Chaplain - 09/20/2021 17:45 EST Electronically signed by [facility] Conversion Street Light Servicer Helper Cerner at 02/04/2023 12:38 PM CDT documented in this encounter Plan of Treatment Not on file documented as of this encounter Visit Diagnoses Not on filedocumented in this encounter
--- OUTSIDE RECORDS SUMMARY | 2025-08-30 08:59 | XMS_ITS | Encounter Summary ---
Author Organization [employer] ([place], [place], [place], [place], [place]) Address [address] [place] [address] Care Team Providers Care Belt Builder Name Role Phone Unavailable Primary Care Provider Unavailabl e Encounter Details Date Type Department Care Team (Late st Contact Info) Description 09/19/2021 Transcribed Document [facility] [place] Family Medicine [address] [place] [address] ProviderInes MD [address] [place] [address] Social History Tobacco Use Types [...] - Historical ProviderMD - 09/19/2021 2:10 PM TECHNOLOGY AND ENGINEERING TEACHER [facility] Authorization Entered On: 09/19/2021 15:32 EST Performed On: 09/19/2021 14:10 EST by KEVIN STONE, Block Breaker Primary Insurance Authorization Authorization and Policy Numbers : Insurance 1 Health Plan: CIGNA Policy Number: [id number] Authorization Number: Insurance 2 Health Plan: [employer] GOLD CHOICE Policy Number: [id number] Authorization Number: Insurance Primary Name : Cigna [id number] Authorization Status-Primary : Opo status approv Authorized Service Begin Date-Primary : 09/20/2021 EST Observation Authorization Nbr-Primary : [id number] Authorization Comments-Primary : Pt is [place] for OP total hip on Sat09-20-21 C[employer] OP auth# [id number] [employer] Gold OP auth# [id number] Historical Authorization Comments-Primary : No Authorization Comments Found KEVIN STONE, Block Breaker - 09/19/2021 14:10 EST Secondary Insurance Authorization Authorization and Policy Numbers : Insurance 1 Health Plan: CIGNA Policy Number: [id number] Authorization Number: Insurance 2 Health Plan: HUMANA anfix CHOICE Policy Number: [id number] Authorization Number: Insurance Secondary Name : [place] [id number] Authorization Status-Secondary : Opo status approv Auth/Referral Contact Name-Secondary : Marcus R Authorized Service Begin Date-Secondary : 09/20/2021 EST Observation Authorization Number-Secondary : [id number] Historical Authorization Comments-Secondary : No Authorization Comments Found KEVIN STONE, Block Breaker - 09/19/2021 14:10 EST Electronically signed by Penelope Hutchins Conversion Mechanical Design Engineer Cerner at 02/04/2023 12:44 PM CDT documented in this encounter Plan of Treatment Not on file documented as of this encounter Visit Diagnoses Not on filedocumented in this encounter
--- OUTSIDE RECORDS SUMMARY | 2025-08-30 08:59 | XMS_ITS | Encounter Summary ---
Author Organization [employer] ([place], [place], [place], [place], [place]) Address [address] [place] [address] Care Team Providers Care Gas Torch Solderer Name Role Phone Unavailable Primary Care Provider Unavailabl e Encounter Details Date Type Department Care Team (Late st Contact Info) Description 09/21/2021 Transcribed Document [facility] Radiology [address] [place] [address] Salena Brush MD [address] [facility] [address] [place] [address] Social History Tobacco Use Types Packs/Day [...] a 66 [address] to [facility] per Dr. Johnson for a left total hip arthroplasty. Preoperatively patient was found to have advanced osteoarthritis of the left hip and elected surgical intervention after failing conservative treatment. Patient is followed perioperatively while hospitalized for medical management. Initial visit in preop --- Denies prior stroke or seizure. Denies [place], CHF or cardiac arrhythmia. Denies DM. Denies [...] 1 Cap, PRN, Oral, BID Flonase 1 [place], PRN, Nasal, BID furosemide 20 mg oral [...]
--- OUTSIDE RECORDS SUMMARY | 2025-08-30 08:59 | XMS_ITS | Encounter Summary ---
Author Organization [employer] ([place], [place], [place], [place], [place]) Address [address] [place] [address] Care Team Providers Care Customer Support Analyst Name Role Phone Unavailable Primary Care Provider Unavailabl e Encounter Details Date Type Department Care Team (Late st Contact Info) Description 09/21/2021 Transcribed Document [facility] Radiology [address] [place] [address] Timo Johnson MD [address] [place] [address] Social History Tobacco Use Types [...] Date 09/21/2021 Primary Care Provider DARSHAN ARRINGTON (REF)[facility] Discharge Diagnosis Left direct anterior total [...] home health Discharge Follow Up ARNOLD GOODSON PA-BA - 02:15 PM Discharge Medications (18) Active [...] 1 Cap, PRN, Oral, BID Flonase 1 [place], PRN, Nasal, BID furosemide 20 mg oral [...] on Discharge Stable Consulting Physicians MIRZA WEBER MD-JUAN C FERNANDEZ MD-INT Current Diet Order Diet, Adult - [...] swelling. Pending Labs In Process SENDOUT REPORT [id number], [id number], RT - Routine, 09/20/21 6:54:00 EST Pathology Tissue Request [id number], [id number], 09/20/21 6:54:00 EST, Collected, RT - Routine, [...]
--- OUTSIDE RECORDS SUMMARY | 2025-08-30 08:59 | XMS_ITS | Encounter Summary ---
Author Organization [employer] ([place], [place], [place], [place], [place]) Address [address] [place] [address] Care Team Providers Care Cook Ice Cream Name Role Phone Unavailable Primary Care Provider Unavailabl e Encounter Details Date Type Department Care Team (Late st Contact Info) Description 09/20/2021 Transcribed Document [facility] [place] Family Medicine [address] [place] [address] ProviderInes MD [address] [place] [address] Social History Tobacco Use Types [...] - Historical ProviderMD - 09/20/2021 6:32 AM GROUND HOST/HOSTESS Admission History, Adult Entered On: 09/20/2021 18:05 [...] Ambulatory Legal Guardian : Spouse Support Person/Patient Re Dye Hand : Yes Support Person/Pt Rep Name : mother Ballard Support Person/Pt Rep Contact Information : [phone] Want Family/Rep/Phys Notified of Admit : No Emergency Contact #1 : Eugene Thomas Emergency Contact #1 Emergency Contact #1 Relationship : spouse Emergency Contact #2 : Kaya Pruitt Emergency Contact #2 Phone Number : [phone] Emergency Contact #2 Relationship : sister Information Obtained From : Patient Primary Language : Cuban Preferred Communication Mode : Verbal Communication Barrier : None Rn Palliative Care Needed : No Objects to Sharing Info [...] Scale Risk Level : 25-45 Medium Risk Amonate Fall Interventions : Adequate lighting, Assistive devices [...] Source : Measured Height Entry Format : [place] Height, Feet : 5 ft(Converted to: 152 cm, 60 Inch) Height, Inches : 4 Inch(Converted to: 0 ft 4 Inch, 10.16 cm) Clinical Height : 162.56 cm Weight Source : Standing scale Weight Entry Format : [place] Clinical Dosing Weight : 88.18 kg Weight, Pounds : 194 lb Body Surface Area (BSA) : 1.93 m2 Body Mass Index : 33.4 kg/m2 (HI) [place] Body Weight : 54 kg RONEN DAVE [...] RONEN DAVE RN - 09/20/2021 18:03 EST [place] Suicide Severity Rating Scale (C-SSRS) CSSRS Past [...] RONEN DAVE RN - 09/20/2021 18:03 EST documented in this encounter Plan of Treatment Not on file documented as of this encounter Visit Diagnoses Not on filedocumented in this encounter
--- OUTSIDE RECORDS SUMMARY | 2025-08-30 08:59 | XMS_ITS | Encounter Summary ---
Author Organization [employer] ([place], [place], [place], [place], [place]) Address [address] [place] [address] Care Team Providers Care Investigator Welfare Name Role Phone Unavailable Primary Care Provider Unavailabl e Encounter Details Date Type Department Care Team (Late st Contact Info) Description 09/21/2021 Transcribed Document [facility] [place] [address] [place] [address] ProviderInes MD [address] [place] [address] Social History Tobacco Use Types [...] - Historical ProviderMD - 09/21/2021 3:11 PM LABORER TAN HOUSE Initial Discharge Planning Entered On: 09/21/2021 15:14 EST Performed On: 09/21/2021 15:11 EST by FERNIE MACE RN-Giver Initial Assessment I Previously Documented Living Environment : No qualifying data available. Living Situation : Home Patient Lives With : Spouse Is the Patient a Caregiver at Home? : No Emergency Contact #1 : Eugene Thomas Emergency Contact #1 Emergency Contact #1 Relationship : spouse Emergency Contact #2 : Kaya Pruitt Emergency Contact #2 Phone Number : [phone] Emergency Contact #2 Relationship : sister Enter Doctors Name : DARSHAN ARRINGTON (REF), -CADY Does Patient have PCP Listed? : Yes FERNIE MACE RN-Giver - 09/21/2021 15:11 EST Initial Assessment II Sensory and Motor Deficits : None Current Home Treatments and Equipment : Walker Does the Patient have a Floor to SNF Benefit? : No FERNIE MACE RN-Giver - 09/21/2021 15:11 EST Discharge Needs I Anticipated Discharge Date : 09/21/2021 EST Anticipated Discharge To, CM : Home with home health Current Home Treatment/Equipment : Current Home Treatment/Equipment No qualifying data available. Post Acute/Home Treatments : Bedside commode Documentation Status Complete : Yes FERNIE MACE RN-Giver - 09/21/2021 15:11 EST Discharge Needs II Professional Skilled Services : Professional Skilled Services No qualifying data available. Needs Assistance with Transportation : No Discharge Options Discussed with Patient : DME, Home Health Patient Discharge Goal : Home health care FERNIE MACE RN-Giver - 09/21/2021 15:11 EST Narrative Note Narrative Note : 66yo female pt s/p LTHA. Met with pt at bedside to discuss DCP. Pt needs a BSC and has no DME provider preference. Obtained one from [facility] and it has been delivered. Pt agrees to HH PT and has no INSTANT POTATO PROCESSING SUPERVISOR preference other than, a good one. Referral sent to [facility] via [facility] and confirmed acceptance with Mabel. No other CM needs noted. FERNIE MACE RN-Giver - 09/21/2021 15:11 EST Electronically signed by Penelope Hutchins Conversion Forest Fire Equipment Operator Cerner at 02/04/2023 12:21 PM CDT documented in this encounter Plan of Treatment Not on file documented as of this encounter Visit Diagnoses Not on filedocumented in this encounter
--- OUTSIDE RECORDS SUMMARY | 2025-08-30 08:59 | XMS_ITS | Encounter Summary ---
Author Organization [employer] ([place], [place], [place], [place], [place]) Address [address] [place] [address] Care Team Providers Care Sewage Disposal Worker Name Role Phone Unavailable Primary Care Provider Unavailabl e Encounter Details Date Type Department Care Team (Late st Contact Info) Description 09/21/2021 Transcribed Document [facility] [place] [address] [place] [address] ProviderInes MD [address] [place] [address] Social History Tobacco Use Types [...] - Historical ProviderMD - 09/21/2021 2:44 PM FIXED INCOME PORTFOLIO MANAGER Spiritual Care Assessment Entered On: 09/21/2021 [...] Emotional Support : Empathic/Engaged listening Spiritual and Adventism : Spiritual/Adventism support provided Derrek Saldana Chaplain - 09/21/2021 18:02 EST Electronically signed by Liset [facility] Conversion Conference Interpreter Cerner at 02/04/2023 12:17 PM CDT documented in this encounter Plan of Treatment Not on file documented as of this encounter Visit Diagnoses Not on filedocumented in this encounter
--- OUTSIDE RECORDS SUMMARY | 2025-08-30 08:59 | XMS_ITS | Encounter Summary ---
Author Organization [employer] ([place], [place], [place], [place], [place]) Address [address] [place] [address] Care Team Providers Care Instructional Leader Name Role Phone Unavailable Primary Care Provider Unavailabl e Encounter Details Date Type Department Care Team (Late st Contact Info) Description 09/20/2021 Transcribed Document [facility] Radiology [address] [place] [address] Kuldeep Johnson MD [address] [place] [address] Social History Tobacco Use Types [...] were documented. [place]- No reactions were documented. [place]- No reactions were documented. [place]- No reactions [...] Units, Oral, Daily, 0 Refill(s) Flonase: 1 [place], Nasal, BID, PRN: as needed for allergies, [...] Chondroitin-Glucosamine 2,000 Units, Oral, Daily Flonase 1 [place], PRN, Nasal, BID furosemide 20 mg oral [...] All Problems Seasonal allergies / SNOMED CT 9127536512 / Confirmed Peripheral neuropathy / SNOMED CT 1628963550 / Confirmed Peptic ulcer disease / SNOMED CT 1889262634 / Confirmed Osteoporosis / SNOMED CT 100772615 / Confirmed Incontinence / SNOMED CT 98001233 / Confirmed stress-wears a pad Impaired vision / SNOMED CT 50175532 / Confirmed corrected with lenses Cataract / SNOMED CT 0617695652 / Confirmed High blood pressure / SNOMED CT 36287501 / Confirmed GERD - Gastro-esophageal reflux disease / SNOMED CT 4571932230 / Confirmed Depression / SNOMED CT 56935985 / Confirmed Cardiac arrhythmia / SNOMED CT 9108585193 / Confirmed Bronchitis / SNOMED CT 91923263 / Confirmed Cataracts, bilateral / SNOMED CT 744335707 / Confirmed Back pain / SNOMED CT 688928286 / Confirmed At risk for sleep apnea / IMO 21892105 / Confirmed Asthma / SNOMED CT 810841315 / Confirmed Arthritis / SNOMED CT 6456319 / Confirmed, Active Problems (17) Arthritis Asthma At risk for sleep apnea Back pain Bronchitis Cardiac arrhythmia Cataract Cataracts, bilateral Depression GERD - Gastro-esophageal reflux disease High blood pressure Impaired vision Incontinence Osteoporosis Peptic ulcer disease Peripheral neuropathy Seasonal allergies Histories Past Medical History: Active Cataract ([id number]) Peptic ulcer disease (9802191428) Resolved Anemia (977344184): Resolved. Family History: No family history items [...] left thigh. colonoscopy. right total hip. Cholecystectomy (54701791). back surgery. Social History Social & Psychosocial [...] exam in office notes. Integumentary: Warm, Dry, [place]. Neurologic: Alert, Oriented. Psychiatric: Cooperative, Appropriate mood [...]
--- OUTSIDE RECORDS SUMMARY | 2025-08-30 08:59 | XMS_ITS | Encounter Summary ---
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 Electronically signed by Penelope Hutchins Conversion Rehabilitation Therapy Technician Cerner at 02/04/2023 12:13 PM CDT documented in this encounter Plan of Treatment Not on file documented as of this encounter Visit Diagnoses Not on filedocumented in this encounter
--- OUTSIDE RECORDS SUMMARY | 2025-08-30 08:59 | XMS_ITS | Encounter Summary ---
Author Organization [employer] ([place], [place], [place], [place], [place]) Address [address] [place] [address] Care Team Providers Care Seasoning Sprayer Name Role Phone Unavailable Primary Care Provider Unavailabl e Encounter Details Date Type Department Care Team (Late st Contact Info) Description 09/20/2021 Transcribed Document [facility] [place] [address] [place] [address] ProviderInes MD [address] [place] [address] Social History Tobacco Use Types [...] - Ines ProviderMD - 09/20/2021 7:56 AM DRUM PLATER [facility] Main OR IntraOp Summary Primary Physician: TIMO BLAKE MD-ORT Finalized Date/Time: 09/21/21 13:14:06 Pt. Name: NATALIA REID Barrett /Sex: 1955 Female Med Rec #: [id number] Physician: TIMO BLAKE MD-ORT Financial #: [id number] Pt. Type: O Room/Bed: 3/1 Admit/Disch: 09/20/21 06:33:00 - Institution: [facility] IntraOp Case Attendance Entry 1 Entry 2 Entry 3 Case Attendee TIMO BLAKE CORNEA, MIHAELA, MD-ANS [facility], VLAD K, MD-ORT TELEPHONE REPAIRER, RETORT ENGINEER Role Performed Surgeon/Proceduralist, Anesthesiologist of RETORT ENGINEER/Nurse Water Valve Mechanic First Record Time In 09/20/21 07:25:00 09/20/21 [...] BAUTISTA SEXTON, Ana Buenrostro, Rn Sridhar Jessica, Casino Floor Walker Role Performed General Medical Practitioner, First Manufacturing Cost Estimator, First Scrub, First Time In 09/20/21 07:25:00 09/20/21 07:25:00 09/20/21 07:25:00 Time Out 09/20/21 09:12:00 09/20/21 09:12:00 09/20/21 09:12:00 Procedure Hip Total Anterior Hip Total Anterior Hip Total Anterior Approach(Left) Approach(Left) Approach(Left) Other Attendee Superficial Wound Closed By: Last Modified By: Ana Fitch, Ana Padilla, Ana Padilla, Alfa 09/20/21 09:12:37 09/20/21 09:12:37 09/20/21 09:12:37 Entry 7 Entry 8 Entry 9 Case Attendee RADHA OWUSU OTHER, ATTENDEE LEON PEACOCK RN Role Performed Real Estate Sales Supervisor Vendor Manufacturing Cost Estimator, Second Time In 09/20/21 07:25:00 09/20/21 07:25:00 09/20/21 07:25:00 Time Out 09/20/21 09:12:00 09/20/21 09:12:00 09/20/21 09:12:00 Procedure Hip Total Anterior Hip Total Anterior Hip Total Anterior Approach(Left) Approach(Left) Approach(Left) Other Attendee JERZY FERNANDO BREAK Superficial Wound Closed By: Last Modified By: Ana Fitch Rn Ana Fitch, Rn Ana Fitch Rn 09/20/21 09:12:37 09/20/21 09:12:37 09/20/21 09:12:37 [facility] IntraOp Case Attendance Audit 09/20/21 09:12:37 National Sales Manager: [id number] Modifier: [id number] <+> Time Out 1 <*> Procedure [...] Procedure Hip Total Anterior Approach(Left) 09/20/21 08:55:51 National Sales Manager: [id number] Modifier: [id number] <+> Time In 1 <*> Procedure [...] Procedure <+> 9 Other Attendee 09/20/21 06:47:55 National Sales Manager: [id number] Modifier: [id number] <+> 1 Procedure 2 <*> Procedure Hip Total Anterior Approach(Left) 3 <*> Procedure Hip Total Anterior Approach(Left) 4 <*> Procedure Hip Total Anterior Approach(Left) 5 <*> Procedure Hip Total Anterior Approach(Left) 6 <*> Procedure Hip Total Anterior Approach(Left) 7 <*> Procedure Hip Total Anterior Approach(Left) 8 <*> Procedure Hip Total Anterior Approach(Left) [facility] IntraOp Case Times Entry 1 Patient In Room Time 09/20/21 07:25:00 Out Room Time 09/20/21 09:12:00 Anesthesia Start Time 09/20/21 07:25:00 Stop Time 09/20/21 09:12:00 Surgery / Procedure Times Start Time 09/20/21 07:56:00 Stop Time 09/20/21 09:05:00 Last Modified By: Ana Fitch Rn 09/20/21 09:12:29 [facility] IntraOp Case Times Audit 09/20/21 09:12:29 National Sales Manager: [id number] Modifier: [id number] <+> 1 Out Room Time <+> 1 Stop Time <+> 1 Stop Time 09/20/21 07:56:47 National Sales Manager: [id number] Modifier: [id number] <+> 1 Start Time [facility] IntraOp Cautery Entry 1 ESU Identification Cautery Type Monopolar ESU ID Number [id number] ID Type Hospital Number Cautery Settings Cut Setting 50 Coag Setting 50 ESU Grounding Pad Ground Pad Type Adult Grounding Pad Site Right Lower Abdomen Grounding Pad Ana Fitch Rn Applied By Grounding Pad Site Intact, Warm, Dry Skin Condition Before Cautery Grounding Pad Site Unchanged Skin Condition After Cautery Last Modified By: Ana Fitch Rn 09/20/21 06:45:44 [facility] IntraOp Communication Entry 1 Entry 2 Communication To Family/Significant other Family/Significant other Comment CLOSE Communication By Ana Fitch Rn TAYLOR, MELISSA A, RN Date and Time 09/20/21 07:58:00 09/20/21 08:56:00 Last Modified By: Ana Fitch Rn Compton, Tracy R, Rn 09/20/21 07:58:41 09/20/21 09:06:57 [facility] IntraOp Communication Audit 09/20/21 09:06:57 National Sales Manager: [id number] Modifier: [id number] <+> 2 Communication By <+> 2 Date and Time <+> 2 Communication To <+> 2 Comment [facility] IntraOp Counts Verification Entry 1 Procedure Hip Total Anterior Approach(Left) Count Info Count Type Sponge, Sharps Counts Verification Baseline/pre-procedure Sequence Count Results Not Applicable Counts Performed By Count Performed By Sridhar Jessica Scrub (Scrub) Tech Count Performed By Ana Fitch Rn (RN) Last Modified By: Ana Fitch Rn 09/20/21 06:45:59 [facility] IntraOp Counts Final Entry 1 Procedure Hip Total Anterior Approach(Left) Final Count Info Count Type Sponge, Sharps, Miscellaneous Counts Verification Skin Closure/end of Sequence procedure Count Results Correct, surgeon notified Counts Performed By Count Performed By Sridhar Jessica Scrub (Scrub) Tech Count Performed By LEON PEACOCK RN (RN) Last Modified By: Ana Fitch Rn 09/20/21 08:56:06 [facility] IntraOp Cultures and Spec Summary Entry 1 Cultrures and Specimens Specimen Ordered: Yes Test(s) Routine/Path-Lab Requested/Final Disposition Last Modified By: Ana Fitch Rn 09/20/21 06:46:09 General Comments: A, LEFT FEMORAL HEAD [facility] IntraOp Delays Entry 1 Delay Reason Surgeon late - no reason Duration 10 Minute(s) Last Modified By: Ana Fitch Rn 09/20/21 07:32:08 [facility] IntraOp Departure from OR Entry 1 Integumentary Assessment Integumentary WDL Assessment WDL Transfer/Handoff Transfer to PACU Phase I Handoff Method Bedside/Face to face, Phone call Post-op Transport Stretcher/Gurney Via Patient Transport VLAD ORTIZ, Accompanied by TELEPHONE REPAIRER, TRISTEN, Ana Fitch Rn Last Modified By: Ana Fitch Rn 09/20/21 06:46:16 [facility] IntraOp Dressing and Packing Entry 1 Type Dressing Location OPERATIVE SITE Wound Dressing Item Occlusive dressing, Skin Closure Glue, Other Applied By BAUTISTA SEXTON CSA Other Comments AQUACEL AG, HIP WRAP Last Modified By: Ana Fitch Rn 09/20/21 06:46:19 [facility] IntraOp Fire Risk Assessment Entry 1 Fire [...] Modified By: Ana Fitch Rn 09/20/21 06:46:22 [facility] IntraOp General Case Workforce Manager 1 Case Information OR OR 05 [facility] Case Level 1 Room Verified Yes Wound Class 1 - Clean Specialty Orthopedic Anesthesia Type General ASA Class 2 Diagnosis Preop Diagnosis LEFT HIP OSTEOARTHRITIS Postop Same As Preop Yes Postop Diagnosis LEFT HIP OSTEOARTHRITIS Wound Class Definitions Last Modified By: Ana Fitch Rn 09/20/21 08:08:55 [facility] IntraOp General Case Data Audit 09/20/21 08:08:55 National Sales Manager: [id number] Modifier: [id number] 1 <*> OR OR 04 [facility] IntraOp Implant Log Entry 1 Entry 2 Entry 3 Type Implant (Synthetic) Implant (Synthetic) Implant (Synthetic) Implant Log Implant Type Hardware Hardware Hardware Tissue Implant Type Implant TRIDENT ACEL CLUSTER SCR LOW PROFILE SCR LOW PROFILE Identification 48MM [id number] Description Implant Quantity 1 1 1 Implant Site LEFT HIP LEFT HIP LEFT HIP Implant Identification Model Number Implant Identification Serial Number Implant [id number] Identification Lot Number Implant Ira Ortho Cap Ira:Ira Ira:Gage Identification Orthopaedics Orthopaedics [facility] Name: Implant [id number] Identification Catalog Number Implant Size Implant Has an Yes Yes Yes Expiration Date Implant Expiration 07/12/26 06/14/26 06/16/26 Date Wasted Radioactive Material Time Implanted Tissue Implant Continue for Tissue Implant Documentation Tissue Identification Number Graft Prep Per [facility] Instructions: Tissue Preparation Method: Reconstitution Solution: Reconstitution Solution Lot Number Reconstitution Solution Expiration Date: Thawing Solution Thawing Solution Lot Number Thawing Solution Expiration Date Preparation Materials, Other Preparation Materials, Other Lot Number Preparation Materials, Other Expiration Date Tissue Prepared/Processed By [facility] Paperwork Completed Implant Type Comment Last Modified By: Ana Fitch Rn Compton, Tracy R, Rn Compton, Tracy R, Rn 09/20/21 08:45:43 09/20/21 08:45:43 09/20/21 08:45:43 Entry 4 Entry 5 Entry 6 Type Implant (Synthetic) Implant (Synthetic) Implant (Synthetic) Implant Log Implant Type Hardware Hardware Hardware Tissue Implant Type Implant INSRT TRIDENT POLY X3 HIP STEM ACCOLADE II HEAD FEM 36MM BIOLOX Identification 36MM [id number] [id number] Description Implant Quantity 1 1 1 Implant Site LEFT HIP LEFT HIP LEFT HIP Implant Identification Model Number Implant Identification Serial Number Implant [id number] Identification Lot Number Implant Ira:Gage Ira:Ira Ira:Ira Identification Orthopaedics Orthopaedics Orthopaedics [facility] Name: Implant [id number] Identification Catalog Number Implant Size Implant Has an Yes Yes Yes Expiration Date Implant Expiration 07/16/26 07/17/26 07/18/26 Date Wasted Radioactive Material Time Implanted Tissue Implant Continue for Tissue Implant Documentation Tissue Identification Number Graft Prep Per [facility] Instructions: Tissue Preparation Method: Reconstitution Solution: Reconstitution Solution Lot Number Reconstitution Solution Expiration Date: Thawing Solution Thawing Solution Lot Number Thawing Solution Expiration Date Preparation Materials, Other Preparation Materials, Other Lot Number Preparation Materials, Other Expiration Date Tissue Prepared/Processed By [facility] Paperwork Completed Implant Type Comment Last Modified By: Ana Fitch Rn Compton, Tracy R, Rn Compton, Tracy R, Rn 09/20/21 08:45:43 09/20/21 08:45:43 09/20/21 08:45:43 [facility] IntraOp Intraoperative Assessment Entry 1 Handoff Method [...] Modified By: Ana Fitch Rn 09/20/21 06:46:55 [facility] IntraOp Intraoperative Equipment Entry 1 Type Equipment Equipment Equipment Alina Suction System ID Number [id number] Setting ON Intraop Monitoring Blood Pressure Non-Invasive BP Device Source Blood Pressure Arm, right upper Location Pulse Oximeter Hand, left Probe Site Antiembolic Devices Antiembolic Devices Antiembolic hose, knee high Antiembolic Device Right Location Scopes Photo/Video Documentation Last Modified By: Ana Fitch Rn 09/20/21 06:47:18 [facility] IntraOp Medication Admin Entry 1 Entry 2 Entry 3 Medication/Irrigant TRANEXAMIC ACID 1 GM vancomycin 1Gm vial - SHIREEN IRR NACL 0.9PCT [id number] 2000ML [id number] Combo Med List Time Administered 09/20/21 08:47:00 09/20/21 08:47:00 09/20/21 07:56:00 Route of TOPICAL TOPICAL IRRIGATION Administration Dose Dose 2 1 Unit of Measure gram gram Volume Administered By TIMO BLAKE KARTHIKEYAN, THARUN, KARTHIKEYAN, THARUN, MD-ORT -ORT -ORT Procedure Irrigation Irrigant Volume In Irrigant Volume Out Last Modified By: Ana Fitch Rn Compton, Tracy R, Rn Compton, Tracy R, Rn 09/20/21 08:47:38 09/20/21 08:47:38 09/20/21 07:57:01 Entry 4 Medication/Irrigant DR. BLAKE HIP INJECTION Combo Med List Time Administered 09/20/21 08:47:00 Route of INJECTION Administration Dose Dose 50 Unit of Measure ml Volume Administered By TIMO BLAKE MD-ORT Procedure Irrigation Irrigant Volume In Irrigant Volume Out Last Modified By: Ana Fitch Rn 09/20/21 08:47:38 [facility] IntraOp Medication Admin Audit 09/20/21 08:47:38 National Sales Manager: [id number] Modifier: [id number] <+> 1 Time Administered 2 <*> Medication/Irrigant vancomycin 1Gm vial - [id number] 2 <+> Time Administered <+> 4 Time Administered 09/20/21 07:57:01 National Sales Manager: [id number] Modifier: [id number] <*> Medication/Irrigant SHIREEN IRR NACL 0.9PCT 2000ML [id number] 3 <+> Time Administered [facility] IntraOp Patient Positioning Entry 1 Procedure Hip [...] Arm(s), Stirrups/Leg Costa, Boot, Pad, Elbow, Table, Sheldon Positioned By TIMO BLAKE MD-ORKristin, VLAD ORTIZ APRN, TRISTEN, Ana Fitch, Rn, BAUTISTA SEXTON CSA Position Verified Positioning Yes Verified by Anesthesia Positioning Yes Verified by Surgeon Last Modified By: Ana Fitch Rn 09/20/21 06:47:25 [facility] IntraOp Sign In Entry 1 Patient, Site, [...] Modified By: Ana Fitch Rn 09/20/21 06:47:33 [facility] IntraOp Sign Out Entry 1 RN Confirmation [...] Modified By: Ana Fitch Rn 09/20/21 09:12:34 [facility] IntraOp Sign Out Audit 09/20/21 09:12:34 National Sales Manager: [id number] Modifier: [id number] <+> 1 RN Sign Out Signature Date/Time [facility] IntraOp Skin Prep Entry 1 Procedure Hip Total Anterior Approach(Left) Prescribed Yes Pre-Surgical Prep Completed Prep Area OPERATIVE HIP TO KNEE Intraop Prep Integumentary WDL Assessment WDL Prep Agents Chlorhexidine gluconate/alcohol, Chloraprep, DuraPrep Prep by Ana Fitch Rn Hair Removal Methods No hair removal performed Last Modified By: Ana Fitch Rn 09/20/21 06:47:49 [facility] IntraOp Surgical Procedures Entry 1 Procedure Hip Total Anterior Approach Modifiers Left Additional (LT ANTERIOR TOTAL HIP Procedure ARTHROPLASTY Description Primary Procedure Yes Primary Surgeon TIMO BLAKE MD-ORT Start 09/20/21 07:56:00 Stop 09/20/21 09:05:00 Anesthesia Type General Specialty Orthopedic Wound Class 1 - Clean Last Modified By: Ana Fitch Rn 09/20/21 09:12:35 [facility] IntraOp Surgical Procedures Audit 09/20/21 09:12:35 National Sales Manager: [id number] Modifier: [id number] <+> 1 Start <+> 1 Stop [facility] IntraOp Temp Regulation Devices Entry 1 Temp Regulation Temperature Forced Air Warming Regulation Device device, Warm blankets Temperature 21672 Regulation Device Serial/Unit Number Temperature Upper body Regulation Site Temperature Device ON Setting Temperature VLAD ORTIZ, Regulation Device TELEPHONE REPAIRER, RETORT ENGINEER Applied by Temperature THERMOREGULATION Regulation Comment MEASURES MONITORED AND ADJUSTED BY ANESTHESIA Last Modified By: Ana Fitch Rn 09/20/21 06:48:09 [facility] IntraOP Time Out Entry 1 Procedure to [...] Modified By: Ana Fitch Rn 09/20/21 07:54:28 [facility] IntraOP Time Out Audit 09/20/21 07:54:28 National Sales Manager: [id number] Modifier: [id number] 1 <+> Time Out Pause Time 1 <*> Procedure to be Performed Hip Total Anterior Approach(Left) [facility] IntraOp X-Ray and Images Entry 1 X-Ray/Imaging Type Fluoroscopy Fluoroscopy Type C-Arm Site OPERATIVE HIP Section Gang Name RADHA OWUSU Protective Devices No Used Last Modified By: Ana Fitch Rn 09/20/21 06:48:44 Case Comments <None> Finalized By: KAL ROBLES Document Signatures Signed By: Ana Fitch Rn 09/20/21 11:04 Ana Fitch Rn 09/20/21 09:12 KAL ROBLES 09/21/21 13:14 Unfinalized History Date/Time Username Reason for Unfinalizing Freetext Reason for Unfinalizing 09/20/21 11:00 [id number] Correct Documentation 09/21/21 13:11 ISAAC Correct Billing Electronically signed by Liset [facility] Conversion Customs Verifier Cerner at 02/04/2023 12:40 PM CDT documented in this encounter Plan of Treatment Not on file documented as of this encounter Visit Diagnoses Not on filedocumented in this encounter
--- OUTSIDE RECORDS SUMMARY | 2025-08-30 09:00 | XMS_ITS | Encounter Summary ---
Author Organization [employer] ([place], [place], [place], [place], [place]) Address [address] [place] [address] Care Team Providers Care Ms Sql Dba Name Role Phone Unavailable Primary Care Provider Unavailabl e Encounter Details Date Type Department Care Team (Late st Contact Info) Description 09/20/2021 Transcribed Document [facility] [place] [address] [place] [address] ProviderInes MD [address] [place] [address] Social History Tobacco Use Types [...] - Historical ProviderMD - 09/20/2021 2:00 AM INBOUND CUSTOMER SERVICE REPRESENTATIVE Spiritual Care Assessment Entered On: 09/20/2021 7:53 [...] Empathic/Engaged listening, Family/Significant other supported Spiritual and Jehovah'S Witness : Prayer shared, Spiritual/Jehovah'S Witness support provided DIEUDONNE MORALES - 09/20/2021 7:52 EST Electronically signed by Liset [facility] Conversion Telephone Surveyor Cerner at 02/04/2023 12:22 PM CDT documented in this encounter Plan of Treatment Not on file documented as of this encounter Visit Diagnoses Not on filedocumented in this encounter
--- OUTSIDE RECORDS SUMMARY | 2025-08-30 09:00 | XMS_ITS | Encounter Summary ---
Author Organization [employer] ([place], [place], [place], [place], [place]) Address [address] [place] [address] Care Team Providers Care Bag Machine Operator Name Role Phone Unavailable Primary Care Provider Unavailabl e Encounter Details Date Type Department Care Team (Late st Contact Info) Description 03/04/2021 Transcribed Document [facility] [place] [address] [place] [address] ProviderInes MD [address] [place] [address] Social History Tobacco Use Types [...] from sitting : Severe 4. Bending to floor/flower buncher or picker an object : Severe 5. Lying in bed (turning over, maintaining hip position) : Severe 6. Sitting : Severe MELL CUMMINS Raw Score (ref) : 18 KAVIN LARA OTR/Yaonna - 12/26/2021 10:32 EST PROMIS Global Health [...] KAVIN LARA OTR/Yoanna - 12/26/2021 10:32 EST Electronically signed by Penelope Hutchins Conversion Spring Manufacturing Set Up Technician Cerner at 02/04/2023 12:25 PM CDT documented in this encounter Plan of Treatment Not on file documented as of this encounter Visit Diagnoses Not on filedocumented in this encounter
--- OUTSIDE RECORDS SUMMARY | 2025-08-30 09:00 | XMS_ITS | Encounter Summary ---
Author Organization [employer] ([place], [place], [place], [place], [place]) Address [address] [place] [address] Care Team Providers Care Sales Advisory Manager Name Role Phone Unavailable Primary Care Provider Unavailabl e Encounter Details Date Type Department Care Team (Late st Contact Info) Description 09/20/2021 Transcribed Document [facility] Family Medicine [address] [place] [address] ProviderInes MD [address] [place] [address] Social History Tobacco Use Types [...] Conversion Note - Historical ProviderMD - 09/20/2021 3:32 PM GLUE JOINTER FEEDER Treatment Intervention, PT Entered On: 09/21/2021 11:51 [...] PT Treatment Instructions Ordered By: TIMO BLAKE MD-ORKristin 09/20/2021 10:50 PT Treatment Instructions Ordered By: [...] PT Tx Plan/Goals Established w Patient : No EDGARD BUENO PT - 09/21/2021 11:46 EST Electric Tape Slitter Goals Mobility/Bed Mobility LTG PT Grid Goal #1 Activity : Sit to stand Assist : Supervision or set-up Equipment : Walker, front wheel Date to Meet : 10/04/2021 EST Goal Status : Goal met Date Met : 09/21/2021 EST EDGARD BUENO, PT - 09/21/2021 11:46 EST Ambulation LTG [...] Information : Modified independent sup-sit with leg store group manager SBA sit-stand with RWx SBA gait x [...]
--- OUTSIDE RECORDS SUMMARY | 2025-08-30 09:00 | XMS_ITS | Encounter Summary ---
Author Organization [employer] ([place], [place], [place], [place], [place]) Address [address] [place] [address] Care Team Providers Care Line Service Attendant Name Role Phone Unavailable Primary Care Provider Unavailabl e Encounter Details Date Type Department Care Team (Late st Contact Info) Description 09/20/2021 Transcribed Document [facility] [place] [address] [place] [address] ProviderInes MD [address] [place] [address] Social History Tobacco Use Types [...] Conversion Note - Historical ProviderMD - 09/20/2021 11:23 AM HEART NURSE UM Authorization Entered On: 09/20/2021 11:23 EST Performed On: 09/20/2021 11:23 EST by KEVIN STONE, Financial Compliance Officer Primary Insurance Authorization Authorization and Policy Numbers : Insurance 1 Health Plan: [employer] Policy Number: [id number] Authorization Number: [id number] Insurance 2 Health Plan: [employer] CHOICE Policy Number: [id number] Authorization Number: [id number] Insurance Primary Name : Juan Manuel [id number] Authorization Status-Primary : Opo status approv Authorized Service Begin Date-Primary : 09/20/2021 EST Observation Authorization Nbr-Primary : [id number] Historical Authorization Comments-Primary : Comment 1: Pt is [place] for OP total hip on Sat09-20-21 paOnde OP auth# [id number] Gold OP auth# [id number] (KEVIN STONE, Financial Compliance Officer 09/19/2021 14:10) KEVIN STONE, Financial Compliance Officer - 09/20/2021 11:23 EST Secondary Insurance Authorization Authorization and Policy Numbers : Insurance 1 Health Plan: [employer] Policy Number: [id number] Authorization Number: [id number] Insurance 2 Health Plan: [employer] CHOICE Policy Number: [id number] Authorization Number: [id number] Insurance Secondary Name : Jack Erwin [id number] Authorization Status-Secondary : Opo status approv Auth/Referral Contact Name-Secondary : Marcus R Authorized Service Begin Date-Secondary : 09/20/2021 EST Observation Authorization Number-Secondary : [id number] Historical Authorization Comments-Secondary : No Authorization Comments Found KEVIN STONE, Financial Compliance Officer - 09/20/2021 11:23 EST documented in this encounter Plan of Treatment Not on file documented as of this encounter Visit Diagnoses Not on filedocumented in this encounter
--- OUTSIDE RECORDS SUMMARY | 2025-08-30 09:00 | XMS_ITS | Encounter Summary ---
Author Organization [employer] ([place], [place], [place], [place], [place]) Address [address] [place] [address] Care Team Providers Care Emt Dispatcher Name Role Phone Unavailable Primary Care Provider Unavailabl e Encounter Details Date Type Department Care Team (Late st Contact Info) Description 09/21/2021 Transcribed Document [facility] [place] [address] [place] [address] ProviderInes MD [address] [place] [address] Social History Tobacco Use Types [...] - Historical ProviderMD - 09/21/2021 4:02 PM CLIENT SERVICES ADMINISTRATOR Nursing Discharge Summary Entered On: 09/21/2021 16:02 [...] For Questions Given : 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
--- OUTSIDE RECORDS SUMMARY | 2025-08-30 09:00 | XMS_ITS | Encounter Summary ---
Author Organization [employer] ([place], [place], [place], [place], [place]) Address [address] [place] [address] Care Team Providers Care Magazine Editor Name Role Phone Unavailable Primary Care Provider Unavailabl e Encounter Details Date Type Department Care Team (Late st Contact Info) Description 09/20/2021 Transcribed Document [facility] [place] [address] [place] [address] ProviderInes MD [address] [place] [address] Social History Tobacco Use Types [...] - Ines ProviderMD - 09/20/2021 7:56 AM DESIGNER AND PATTERNMAKER [facility] Main OR Preop Summary Primary Physician: TIMO BLAKE MD-ORT Finalized Date/Time: 09/20/21 13:54:12 Pt. Name: PINKY REID Barrett /Sex: 1955 Female Med Rec #: [id number] Physician: TIMO BLAKE MD-ORT Financial #: [id number] Pt. Type: O Room/Bed: 643/1 Admit/Disch: 09/20/21 06:33:00 - Institution: [facility] PreOp Case Times Entry 1 In Preop 09/20/21 05:42:00 Ready for Holding n/a Room Patient Ready for 09/20/21 06:37:00 Surgery Patient Out of Preop 09/20/21 07:22:00 Patient Out of n/a Holding Room Last Modified By: DERECK Yates RN 09/20/21 13:54:09 [facility] PreOp Case Times Audit 09/20/21 13:54:09 Jacquard Fixer: ANNIE Modifier: WILSONDL <+> 1 Patient Out of Preop 09/20/21 06:37:39 Jacquard Fixer: ANNEI Modifier: WILSONDL <+> 1 Patient Ready for Surgery Finalized By: DERECK Yates, RN Document Signatures Signed By: DERECK Yates RN 09/20/21 13:54 Electronically signed by Liset [facility] Conversion African Studies Professor Cerner at 02/04/2023 12:17 PM CDT documented in this encounter Plan of Treatment Not on file documented as of this encounter Visit Diagnoses Not on filedocumented in this encounter
--- OUTSIDE RECORDS SUMMARY | 2025-08-30 09:00 | XMS_ITS | Referral Summary ---
Author Organization [employer] ([place], [place], [place], [place], [place]) Address [address] [place] [address] Care Team Providers Care Aviation Program Manager Name Role Phone Unavailable Primary Care [...]
--- OUTSIDE RECORDS SUMMARY | 2025-08-30 09:00 | XMS_ITS | Encounter Summary ---
Author Organization [employer] ([place], [place], [place], [place], [place]) Address [address] [place] [address] Care Team Providers Care Counter Pocket Trimmer Name Role Phone Unavailable Primary Care Provider Unavailabl e Encounter Details Date Type Department Care Team (Late st Contact Info) Description 09/21/2021 Transcribed Document [facility] [place] Family Medicine [address] [place] [address] ProviderInes MD [address] [place] [address] Social History Tobacco Use Types [...] - Historical ProviderMD - 09/21/2021 11:51 AM EXECUTIVE BUSINESS COACH Discharge Summary, PT Entered On: 09/21/2021 11:51 [...] - 09/21/2021 11:51 EST Electronically signed by Liset [facility] Conversion Rail Flaw Detector Operator Cerner at 02/04/2023 12:20 PM CDT documented in this encounter Plan of Treatment Not on file documented as of this encounter Visit Diagnoses Not on filedocumented in this encounter
--- OUTSIDE RECORDS SUMMARY | 2025-08-30 09:00 | XMS_ITS | Encounter Summary ---
Author Organization [employer] ([place], [place], [place], [place], [place]) Address [address] [place] [address] Care Team Providers Care Pottery Decoration Designer Name Role Phone Unavailable Primary Care Provider Unavailabl e Encounter Details Date Type Department Care Team (Late st Contact Info) Description 09/20/2021 Transcribed Document [facility] Radiology [address] [place] [address] Salena Brush MD [address] [facility] [address] [place] [id number] Social History Tobacco Use Types Packs/Day Years [...] is a 66 yo female admitted to [facility] per Dr. Johnson for a left total hip arthroplasty. Preoperatively patient was found to have advanced osteoarthritis of the left hip and elected surgical intervention after failing conservative treatment. Patient is followed perioperatively while hospitalized for medical management. Initial visit in preop --- Denies prior stroke or seizure. Denies [place], CHF or cardiac arrhythmia. Denies DM. Denies [...] Chondroitin-Glucosamine 2,000 Units, Oral, Daily Flonase 1 [place], PRN, Nasal, BID furosemide 20 mg oral [...] Last Charted Minimum Maximum Temp 97.5 (SEP 20:19) 97.5 (SEP 20 06:19) 97.5 (SEP 20 06:19) Mon HR 73 (SEP 20:19) 73 (SEP 20:19) 73 (SEP 20:19) Resp Rate 16 (SEP 20 06:19) 16 (SEP 20 06:19) 16 (SEP 20 06:19) SBP 122 (SEP 20 06:19) 122 (SEP 20 06:19) 122 (SEP 20 06:19) DBP 70 (SEP 20:19) 70 (SEP 20 06:19) 70 (SEP 20 06:19) MAP 87 (SEP 20 06:19) 87 (SEP 20 06:19) 87 (SEP 20 06:19) SpO2 98 (SEP 20 06:19) 98 (SEP 20:19) 98 (SEP 20:) GEN: sleepy, NAD Neck: [...]
--- OUTSIDE RECORDS SUMMARY | 2025-08-30 09:00 | XMS_ITS | Encounter Summary ---
Author Organization [employer] ([place], [place], [place], [place], [place]) Address [address] [place] [address] Care Team Providers Care Sergeant Missile Crewman Name Role Phone Unavailable Primary Care Provider Unavailabl e Encounter Details Date Type Department Care Team (Late st Contact Info) Description 09/20/2021 Transcribed Document [facility] [place] [address] [place] [address] ProviderInes MD [address] [place] [address] Social History Tobacco Use Types [...] - Historical ProviderMD - 09/20/2021 6:00 PM SIGNAL SUPERVISOR Pain Assessment Entered On: 09/21/2021 6:26 EST [...]
--- OUTSIDE RECORDS SUMMARY | 2025-08-30 09:00 | XMS_ITS | Encounter Summary ---
Author Organization [employer] ([place], [place], [place], [place], [place]) Address [address] [place] [address] Care Team Providers Care Pen Ruler Operator Name Role Phone Unavailable Primary Care Provider Unavailabl e Encounter Details Date Type Department Care Team (Late st Contact Info) Description 09/21/2021 Transcribed Document [facility] [place] [address] [place] [address] ProviderInes MD [address] [place] [address] Social History Tobacco Use Types [...] Conversion Note - Ines ProviderMD - 09/21/2021 12:16 PM CHILD MONITOR Patient Education Materials Follows: Discharge Instructions for [...] concern regarding your total joint replacement Call 911 if: ?? You have sudden chest pain or shortness of breath ?? You fall and cannot get up ?? Life-threatening signs or symptoms ?? Stroke signs and symptoms: Facial droop, uneven smile, arm numbness, arm weakness, slurred speech, difficulty speaking or understanding If you are a patient of Dr. Johnson or Dr. Damon, call [phone] If you are a patient of Dr. Thomas, call [phone] Nurse Navigator: Kemi Gates Office: [phone]; ; available during regular business hours documented in this encounter Plan of Treatment Not on file documented as of this encounter Visit Diagnoses Not on filedocumented in this encounter
--- OUTSIDE RECORDS SUMMARY | 2025-08-30 09:00 | XMS_ITS | Encounter Summary ---
Author Organization [employer] ([place], [place], [place], [place], [place]) Address [address] [place] [address] Care Team Providers Care Program Checker Name Role Phone Unavailable Primary Care Provider Unavailabl e Encounter Details Date Type Department Care Team (Late st Contact Info) Description 08/30/2021 Transcribed Document [facility] [place] [address] [place] [address] ProviderInes MD [address] [place] [address] Social History Tobacco Use Types [...] - Historical ProviderMD - 08/30/2021 1:24 PM MESSAGE CLERK PAT Adult Entered On: 08/30/2021 13:29 EST [...] Source : Measured Height Entry Format : Christoval Height, Feet : 5 ft(Converted to: 152 cm, 60 Inch) Height, Inches : 4 Inch(Converted to: 0 ft 4 Inch, 10.16 cm) Clinical Height : 162.56 cm Weight Source : Standing scale Weight Entry Format : Christoval Clinical Dosing Weight : 88.18 kg Weight, Pounds : 194 lb Body Surface Area (BSA) : 1.93 m2 Body Mass Index : 33.4 kg/m2 (HI) [place] Body Weight : 54 kg KASSI AMIN [...] LEON JAMES RN - 08/30/2021 13:24 EST [place] Suicide Severity Rating Scale (C-SSRS) CSSRS Past [...] Ambulatory Legal Guardian : Spouse Support Person/Patient Motor Vehicle Parts Interpreter : Yes Support Person/Pt Rep Name : Yesica Gilbert mother Support Person/Pt Rep Contact Information : [phone] Want Family/Rep/Phys Notified of Admit : No Emergency Contact #1 : Eugene Thomas Emergency Contact #1 Emergency Contact #1 Relationship : spouse Emergency Contact #2 : Kaya Pruitt Emergency Contact #2 Phone Number : [phone] Emergency Contact #2 Relationship : sister Information Obtained From : Patient Primary Language : Ukrainian Preferred Communication Mode : Verbal Communication Barrier : None Float Builder Needed : No Objects to Sharing Info [...] LEON JAMES RN - 08/30/2021 13:24 EST Electronically signed by Penelope Hutchins Conversion Cardiopulmonary Physical Therapist Cerner at 02/04/2023 12:15 PM CDT documented in this encounter Plan of Treatment Not on file documented as of this encounter Visit Diagnoses Not on filedocumented in this encounter
--- OUTSIDE RECORDS SUMMARY | 2025-08-30 09:00 | XMS_ITS | Encounter Summary ---
Author Organization [employer] ([place], [place], [place], [place], [place]) Address [address] [place] [address] Care Team Providers Care Desizing Machine Back Tender Name Role Phone Unavailable Primary Care Provider Unavailabl e Encounter Details Date Type Department Care Team (Late st Contact Info) Description 09/21/2021 Transcribed Document [facility] [place] Family Medicine [address] [place] [address] ProviderInes MD [address] [place] [address] Social History Tobacco Use Types [...] - Historical ProviderMD - 09/21/2021 12:26 PM LASER SPECIALIST Stroke/Warfarin Instructions Entered On: 09/21/2021 12:26 EST Performed On: 09/21/2021 12:26 EST by Hue Lopez RN Stroke/Warfarin Instructions Stroke/TIA Discharge Ins : N/A Warfarin Discharge Ins : N/A Hue Lopez RN - 09/21/2021 12:26 EST Electronically signed by Liset [facility] Conversion Creel Operator Cerner at 02/04/2023 12:32 PM CDT documented in this encounter Plan of Treatment Not on file documented as of this encounter Visit Diagnoses Not on filedocumented in this encounter
--- OUTSIDE RECORDS SUMMARY | 2025-08-30 09:00 | XMS_ITS | Encounter Summary ---
Author Organization [employer] ([place], [place], [place], [place], [place]) Address [address] [place] [address] Care Team Providers Care Picking Belt Operator Name Role Phone Unavailable Primary Care Provider Unavailabl e Encounter Details Date Type Department Care Team (Late st Contact Info) Description 08/25/2021 Transcribed Document [facility] [place] [address] [place] [address] ProviderInes MD [address] [place] [address] Social History Tobacco Use Types [...] scant HH in network. She states that [employer] is her primary insurance now. She would like whichever home therapy agency is rated best. Karmen Gates RN-Navigator - 08/25/2021 13:15 EDT documented in this encounter Plan of Treatment Not on file documented as of this encounter Visit Diagnoses Not on filedocumented in this encounter
--- OUTSIDE RECORDS SUMMARY | 2025-08-30 09:00 | XMS_ITS | Encounter Summary ---
Author Organization [employer] ([place], [place], [place], [place], [place]) Address [address] [place] [address] Care Team Providers Care Parts Sales Counterperson Name Role Phone Unavailable Primary Care Provider Unavailabl e Encounter Details Date Type Department Care Team (Late st Contact Info) Description 09/20/2021 Transcribed Document [facility] [place] [address] [place] [address] ProviderInes MD [address] [place] [address] Social History Tobacco Use Types [...] Conversion Note - Historical ProviderMD - 09/20/2021 3:59 PM FERTILIZER PROCESSING SUPERVISOR Orthopedic Nurse Navigator Entered On: 09/20/2021 16:00 EST Performed On: 09/20/2021 15:59 EST by Karmen Gates RN-Navigator Orthopedic Nurse Navigator Assessment Attended Joint Academy : Yes Joint AcademyType : Online Joint Solar Consultant Name : Eugene Type of Surgery : [...] Printed materials, Video/Educational TV Education Comment : LYNN Santiagoiz 100% Karmen Gates RN-Navigator - 09/20/2021 15:59 [...] Karmen Gates RN-Navigator - 09/20/2021 15:59 EST Electronically signed by Penelope Hutchins Conversion Pneumatic Tester Mechanic Cerner at 02/04/2023 12:29 PM CDT documented in this encounter Plan of Treatment Not on file documented as of this encounter Visit Diagnoses Not on filedocumented in this encounter
--- OUTSIDE RECORDS SUMMARY | 2025-08-30 09:00 | XMS_ITS | Encounter Summary ---
Author Organization [employer] ([place], [place], [place], [place], [place]) Address [address] [place] [address] Care Team Providers Care Credit Risk Analytics Manager Name Role Phone Unavailable Primary Care Provider Unavailabl e Encounter Details Date Type Department Care Team (Late st Contact Info) Description 09/21/2021 Transcribed Document [facility] [place] Family Medicine [address] [place] [address] ProviderInes MD [address] [place] [address] Social History Tobacco Use Types [...] - Ines ProviderMD - 09/21/2021 2:41 PM FISHERIES TECHNICAL OFFICER [facility] [place] [address] NATALIA REID :1955 Visit Time:09/20/2021 Your Visit Summary Your Care Team Admitting Physician - TIMO JOHNSON MD-ORKristin Attending Physician - TIMO JOHNSON MD-ORKristin Primary Care Physician - DARSHAN ARRINGTON (REF)AUSTEN [...] Tramadol Home Health Services: [facility]--[phone] Medical Equipment for Home Use: Diet after [...] Jose Maria Hernandez PA-C in 3 wks ([phone]) Follow Up Instructions: Continue AMANDA hose for 3 wks if tolerated. Follow Up Instructions: Leave Aquacel dressing in place x 7d, then leave open to air. Follow-Up Appointments Follow Up with ARNOLD HERNANDEZ PA-ORT When 10/11/2021 02:15 PM EST Where: [address] [place] [address]- Medications What How Much When Instructions Next Dose acetaminophen-oxyCODONE (Percocet 5/ 325 oral tablet) 1 Tablet(s) Oral Every 4 Hours as needed for as needed for pain Duration: 7 Day(s) not to exceed 5 tablets/ day Pickup at [facility] [place] 530pm aspirin (aspirin 81 mg oral delayed release tablet) 1 Tablet(s) Oral Two Times A Day Pickup at [facility] cefadroxil (cefadroxil 500 mg oral capsule) 1 Capsule(s) Oral Every 12 hours Duration: 7 Day(s) Pickup at [facility] docusate (Colace 100 mg oral capsule) 1 Capsule(s) Oral Two Times A Day as needed for as needed for constipation Pickup at [facility] meloxicam (Mobic 15 mg oral tablet) 1 Tablet(s) Oral Every Day Pickup at [facility] 12-3 PRAVAstatin (pravastatin 80 mg oral tablet) [...] for insomnia tonight fluticasone nasal (Flonase) 1 Dilworth(s) Nasal Two Times A Day as needed for as needed for allergies tonight fluticasone-vilanterol (Breo Ellipta 100 mcg-25 mcg inhalation powder) 1 Puff(s) Inhalation Every Day 12-3 gabapentin (gabapentin 100 mg oral capsule) 2 Capsule(s) Oral Two Times A Day tonight ondansetron (Zofran 4 mg oral tablet) 1 Tablet(s) Oral Every 8 Hours as needed for Nausea/Vomiting Pickup at [facility] potassium chloride (potassium chloride extended release) 20 Milliequivalent(s) Oral Two Times A Day [facility] Pharmacy Information [facility] [place]: [address] [facility] [address] [place], [place] [id number] [phone] Take your medications faithfully. Do NOT skip [...] concern regarding your total joint replacement Call 225 if: ??? You have sudden chest pain or shortness of breath ??? You fall and cannot get up ??? Life-threatening signs or symptoms ??? Stroke signs and symptoms: Facial droop, uneven smile, arm numbness, arm weakness, slurred speech, difficulty speaking or understanding If you are a patient of Dr. Johnson or Dr. Damon, call [phone] If you are a patient of Dr. Reid, call [phone] Nurse Navigator: Kemi Gates Office: [phone]; ; available during regular business hours docusate [...] may report side effects to FDA at 6-966-HJA-0484. What other drugs will affect docusate? Other drugs may affect docusate, including prescription and gpyi-tfp-fceeaqm medicines, vitamins, and herbal products. Tell your [...] to ensure that the information provided by HowAboutWe. ('Multum') is accurate, up-to-date, and complete, but no guarantee is made to that effect. Drug information contained herein may be time sensitive. jaeyos information has been compiled for use by healthcare practitioners and consumers in the [place] and therefore jaeyos does not warrant that uses outside of the [place] are appropriate, unless specifically indicated otherwise. [employer] drug information does not endorse drugs, diagnose patients or recommend therapy. [employer] drug information is an informational resource designed [...] effective or appropriate for any given patient. jaeyos does not assume any responsibility for any aspect of healthcare administered with the aid of information jaeyos provides. The information contained herein is not intended to cover all possible uses, directions, precautions, warnings, drug interactions, allergic reactions, or adverse effects. If you have questions about the drugs you are taking, check with your doctor, nurse or pharmacist. Copyright 1328-9952 HowAboutWe. Version: 4.01. Revision Date: 04/27/2019. cefadroxil (SEF [...] may report side effects to FDA at 4-680-UMN-1095. What other drugs will affect cefadroxil? Other drugs may affect cefadroxil, including prescription and uluy-tuq-lguhric medicines, vitamins, and herbal products. Tell your [...] to ensure that the information provided by HowAboutWe. ('Multum') is accurate, up-to-date, and complete, but no guarantee is made to that effect. Drug information contained herein may be time sensitive. jaeyos information has been compiled for use by healthcare practitioners and consumers in the [place] and therefore jaeyos does not warrant that uses outside of the [place] are appropriate, unless specifically indicated otherwise. jaeyos's drug information does not endorse drugs, diagnose patients or recommend therapy. [employer] drug information is an informational resource designed [...] effective or appropriate for any given patient. [facility] does not assume any responsibility for any aspect of healthcare administered with the aid of information [facility] provides. The information contained herein is not intended to cover all possible uses, directions, precautions, warnings, drug interactions, allergic reactions, or adverse effects. If you have questions about the drugs you are taking, check with your doctor, nurse or pharmacist. Copyright 4723-[address] [facility]. Version: 6.03. Revision Date: 10/24/2020. acetaminophen and [...] may report side effects to FDA at 2-013-EKS-3250. What other drugs will affect acetaminophen and [...] affect acetaminophen and oxycodone, including prescription and aabm-gyb-pjwqtdl medicines, vitamins, and herbal products. Not all [...] to ensure that the information provided by HowAboutWe. ('Multum') is accurate, up-to-date, and complete, but no guarantee is made to that effect. Drug information contained herein may be time sensitive. jaeyos information has been compiled for use by healthcare practitioners and consumers in the [place] and therefore jaeyos does not warrant that uses outside of the [place] are appropriate, unless specifically indicated otherwise. [employer] drug information does not endorse drugs, diagnose patients or recommend therapy. [employer] drug information is an informational resource designed [...] effective or appropriate for any given patient. [employer]os does not assume any responsibility for any aspect of healthcare administered with the aid of information jaeyos provides. The information contained herein is not intended to cover all possible uses, directions, precautions, warnings, drug interactions, allergic reactions, or adverse effects. If you have questions about the drugs you are taking, check with your doctor, nurse or pharmacist. Copyright 4478-8987 HowAboutWe. Version: 20.03. Revision Date: 11/25/2020. ondansetron (oral) (on PRIYA [...] To use ondansetron oral soluble film (strip) (Lorraine): ?? Keep the strip in the foil [...] may report side effects to FDA at 1-079-YTW-9514. What other drugs will affect ondansetron? Ondansetron [...] interact with ondansetron. This includes prescription and abqx-hpi-gxgewbp medicines, vitamins, and herbal products. Give a [...] to ensure that the information provided by HowAboutWe. ('PageLevertum') is accurate, up-to-date, and complete, but no guarantee is made to that effect. Drug information contained herein may be time sensitive. jaeyos information has been compiled for use by healthcare practitioners and consumers in the [place] and therefore jaeyos does not warrant that uses outside of the [place] are appropriate, unless specifically indicated otherwise. jaeyos's drug information does not endorse drugs, diagnose patients or recommend therapy. [employer] drug information is an informational resource designed [...] effective or appropriate for any given patient. [employer]os does not assume any responsibility for any aspect of healthcare administered with the aid of information jaeyos provides. The information contained herein is not intended to cover all possible uses, directions, precautions, warnings, drug interactions, allergic reactions, or adverse effects. If you have questions about the drugs you are taking, check with your doctor, nurse or pharmacist. Copyright 1085-4257 HowAboutWe. Version: 13.01. Revision Date: 08/10/2016. aspirin (oral) ( pir in) Arthritis Pain, Aspi-Cor, Aspir-Low, Moy Plus, Durlaza, Ecotrin, Miniprin, Vazalore What is the most important information I should know about aspirin? Aspirin can cause Nina's syndrome, a serious and sometimes fatal condition in children. What is aspirin? Aspirin is a salicylate (lm-XCI-or-ate) that is used to treat pain, and [...] may report side effects to FDA at 5-445-VWJ-2125. What other drugs will affect aspirin? Ask [...] drugs may affect aspirin, including prescription and sgxo-ppf-dyccuaq medicines, vitamins, and herbal products. Not all [...] to ensure that the information provided by HowAboutWe. ('Multum') is accurate, up-to-date, and complete, but no guarantee is made to that effect. Drug information contained herein may be time sensitive. jaeyos information has been compiled for use by healthcare practitioners and consumers in the [place] and therefore jaeyos does not warrant that uses outside of the [place] are appropriate, unless specifically indicated otherwise. [employer] drug information does not endorse drugs, diagnose patients or recommend therapy. [employer] drug information is an informational resource designed [...] effective or appropriate for any given patient. jaeyos does not assume any responsibility for any aspect of healthcare administered with the aid of information jaeyos provides. The information contained herein is not intended to cover all possible uses, directions, precautions, warnings, drug interactions, allergic reactions, or adverse effects. If you have questions about the drugs you are taking, check with your doctor, nurse or pharmacist. Copyright 1581-4926 HowAboutWe. Version: 16.03. Revision Date: 04/17/2021. meloxicam (oral/injection) [...] may report side effects to FDA at 5-933-OQW-5995. What other drugs will affect meloxicam? Ask [...] drugs may affect meloxicam, including prescription and mind-zos-hnfbokq medicines, vitamins, and herbal products. Not all [...] to ensure that the information provided by HowAboutWe. ('Multum') is accurate, up-to-date, and complete, but no guarantee is made to that effect. Drug information contained herein may be time sensitive. jaeyos information has been compiled for use by healthcare practitioners and consumers in the [place] and therefore jaeyos does not warrant that uses outside of the [place] are appropriate, unless specifically indicated otherwise. [employer] drug information does not endorse drugs, diagnose patients or recommend therapy. Bitium drug information is an informational resource designed [...] effective or appropriate for any given patient. jaeyos does not assume any responsibility for any aspect of healthcare administered with the aid of information jaeyos provides. The information contained herein is not intended to cover all possible uses, directions, precautions, warnings, drug interactions, allergic reactions, or adverse effects. If you have questions about the drugs you are taking, check with your doctor, nurse or pharmacist. Copyright 3407-0257 HowAboutWe. Version: 14.01. Revision Date: 08/23/2020. Emergency Awareness and Preventative [...] Assistance with quitting is available by contacting 7-498-JTWR-NOW. This is a free resource providing counseling, [...]
--- OUTSIDE RECORDS SUMMARY | 2025-08-30 09:00 | XMS_ITS | Encounter Summary ---
Author Organization [employer] ([place], [place], [place], [place], [place]) Address [address] [place] [address] Care Team Providers Care Engineering Patternmaker Name Role Phone Unavailable Primary Care Provider Unavailabl e Encounter Details Date Type Department Care Team (Late st Contact Info) Description 09/20/2021 Transcribed Document [facility] [place] [address] [place] [address] ProviderInes MD [address] [place] [address] Social History Tobacco Use Types [...] - Historical ProviderMD - 09/20/2021 10:45 AM ORIENTATION AND MOBILITY INSTRUCTOR Meds to Bed Enrollment Entered On: 09/20/2021 10:52 EST Performed On: 09/20/2021 10:45 EST by Bret Plummer Business Systems Manager Cert Lead Meds to Bed Enrollment Patient Enrollment Decision: : Yes/enroll in meds to bed program Bret Plummer Business Systems Manager Cert Lead - 09/20/2021 10:52 EST Electronically signed by Penelope Hutchins Conversion Design Center Consultant Luis Enrique at 02/04/2023 12:30 PM CDT documented in this encounter Plan of Treatment Not on file documented as of this encounter Visit Diagnoses Not on filedocumented in this encounter
--- OUTSIDE RECORDS SUMMARY | 2025-08-30 09:00 | XMS_ITS | Encounter Summary ---
Author Organization [employer] ([place], [place], [place], [place], [place]) Address [address] [place] [address] Care Team Providers Care Shoe Repairer Helper Name Role Phone Unavailable Primary Care Provider Unavailabl e Encounter Details Date Type Department Care Team (Late st Contact Info) Description 09/20/2021 Transcribed Document [facility] Radiology [address] [place] [address] Kuldeep Johnson MD [address] [place] [address] Social History Tobacco Use Types [...] Mild dysplasia left hip *Surgeon(s) Surgeon: Alex Motor Grader Rough Grade: Richard Rowe CSA *Procedure Narrative Patient was [...] patient was then carefully positioned on the [place] table. The hip was then prepped and [...] series of hemispherical acetabular reamers were passed. Beau-hp-loae ream, with an excellent bleeding cancellous bony [...] 400 cc *Findings Abx: 2g Ancef Implants: Merrill Trident 2 acetabular component: 48 mm 6.5 mm Acetabular screws: 2 Merrill Accolade 2 femoral component: Size 132 neck angle Trident X3 acetabular liner: 36 mm neutral Biolox Delta ceramic femoral head: 36 mm -2.5 Reaming technique: Phnk-ml-vxwu Initial press-fit assessment: excellent Acetabular osteophytes: none [...] None Technique Press-fit HALEY, direct anterior approach, Merrill components Date of Service No qualifying data available. documented in this encounter Plan of Treatment Not on file documented as of this encounter Visit Diagnoses Not on filedocumented in this encounter
--- OUTSIDE RECORDS SUMMARY | 2025-08-30 09:00 | XMS_ITS | Clinical Summary ---
Author Organization [facility] Address [address] [place] [address], [address] [place] [address] Care Team Providers Care Appraiser Auditor Name Role Phone System, Referring Not In [...] of Treatment Not on file Care Teams Appraiser Auditor Relationship Specialty Start Date End Date System, Referring Not In PCP - General 11/05/12
--- OUTSIDE RECORDS SUMMARY | 2025-08-30 09:00 | XMS_ITS | Encounter Summary ---
Author Organization [facility] ([place], [place], [place], [place], [place]) Address [address] [place] [address] Care Team Providers Care Dispatcher Refinery Name Role Phone Unavailable Primary Care Provider Unavailabl e Encounter Details Date Type Department Care Team (Late st Contact Info) Description 09/20/2021 Transcribed Document [facility] [place] Family Medicine [address] [place] [address] ProviderInes MD [address] [place] [address] Social History Tobacco Use Types [...] - Ines ProviderMD - 09/20/2021 7:56 AM ROLLOFF DRIVER [facility] Main OR PACU Summary Primary Physician: TIMO BLAKE MD-ORT Finalized Date/Time: 09/25/21 14:46:33 Pt. Name: PINKY REDI.O.B./Sex: 1955 Female Med Rec #: [id number] Physician: TIMO BLAKE MD-ORT Financial #: [id number] Pt. Type: O Room/Bed: 643/1 Admit/Disch: 09/20/21 06:33:00 - 09/21/21 16:00:00 Institution: [facility] Main OR PACU I Case Times Entry 1 In PACU I 09/20/21 09:15:00 Ready for PACU 09/20/21 10:10:00 Discharge Discharge from PACU 09/20/21 10:35:00 I Last Modified By: Carmela Franco RN-PATIENT CARE BEDSIDE NON-EXEMPT 09/20/21 10:52:42 [facility] Main OR PACU Acuity Entry 1 Start Time 09/20/21 10:10:00 Stop Time 09/20/21 10:35:00 Acuity Level [facility] PACU Acuity I Last Modified By: Carmela Franco RN-PATIENT CARE BEDSIDE NON-EXEMPT 09/20/21 10:53:17 [facility] Main OR PACU Acuity Audit 09/25/21 14:46:32 Furnace Feeder: [id number] Modifier: [id number] <*> Start Time 09/20/21 09:15:00 Finalized By: Estella Grover, Nurse Non Destructive Tester Signatures Signed By: Carmela Franco RN-PATIENT CARE BEDSIDE NON-EXEMPT 09/20/21 10:53 Estella Grover, Nurse Software Administrator 09/25/21 14:46 Unfinalized History Date/Time Username Reason for Unfinalizing Freetext Reason for Unfinalizing 09/25/21 14:46 [id number] Correct Billing Electronically signed by Liset [facility] Conversion Unionmelt Operator Cerner at 02/04/2023 12:30 PM CDT documented in this encounter Plan of Treatment Not on file documented as of this encounter Visit Diagnoses Not on filedocumented in this encounter
--- OUTSIDE RECORDS SUMMARY | 2025-08-30 09:00 | XMS_ITS | Encounter Summary ---
Author Organization [employer] ([place], [place], [place], [place], [place]) Address [address] [place] [address] Care Team Providers Care Sleeve Wheel Maker Name Role Phone Unavailable Primary Care Provider Unavailabl e Encounter Details Date Type Department Care Team (Late st Contact Info) Description 09/20/2021 Transcribed Document [facility] [place] Family Medicine [address] [place] [address] ProviderInes MD [address] [place] [address] Social History Tobacco Use Types [...] - Ines ProviderMD - 09/20/2021 11:20 AM ORIENTAL RUG STRETCHER Pain Assessment Entered On: 09/21/2021 6:28 EST [...]
--- OUTSIDE RECORDS SUMMARY | 2025-08-30 09:00 | XMS_ITS | Clinical Summary ---
Author Organization [email or web address] ([place], [place], [place], [place], [place]) Address [address] [place] [address] Care Team Providers Care Testing And Regulating Technician Name Role Phone Unavailable Primary Care [...]
--- OUTSIDE RECORDS SUMMARY | 2025-08-30 09:00 | XMS_ITS | Encounter Summary ---
Author Organization [employer] ([place], [place], [place], [place], [place]) Address [address] [place] [address] Care Team Providers Care Quarry Supervisor Name Role Phone Unavailable Primary Care Provider Unavailabl e Encounter Details Date Type Department Care Team (Late st Contact Info) Description 09/21/2021 Transcribed Document [facility] [place] [place] [address] [place] [address] ProviderInes MD [address] [place] [address] Social History Tobacco Use Types [...] Conversion Note - Historical ProviderMD - 09/21/2021 3:15 PM BPM ANALYST Final Discharge Planning Entered On: 09/21/2021 15:15 EST Performed On: 09/21/2021 15:15 EST by FERNIE MACE RN-Crimp Setter Final Discharge Planning Discharge Arrangements : Patient Post-Acute Information Patient Name: PINKY REID Gender: Female : [birth year] Age: 66 Years [place] Referral(s): Service: Organization: Business Address: Phone Number: Home Care Physician Services [facility] - [address], [address], [place], [address] Patient Offered Choice/Affiliations Explained : [...] Services (Related/SOC within 3 days)-06 FERNIE MACE RN-Crimp Setter - 09/21/2021 15:15 EST Electronically signed by Liset [facility] Conversion Virtual Office Assistant Cerner at 02/04/2023 12:20 PM CDT documented in this encounter Plan of Treatment Not on file documented as of this encounter Visit Diagnoses Not on filedocumented in this encounter
--- OUTSIDE RECORDS SUMMARY | 2025-08-30 09:00 | XMS_ITS | Encounter Summary ---
Author Organization [employer] ([place], [place], [place], [place], [place]) Address [address] [place] [address] Care Team Providers Care Millinery Blocker Name Role Phone Unavailable Primary Care Provider Unavailabl e Encounter Details Date Type Department Care Team (Late st Contact Info) Description 09/20/2021 Transcribed Document [facility] [place] Family Medicine [address] [place] [address] ProviderInes MD [address] [place] [address] Social History Tobacco Use Types [...] - Ines ProviderMD - 09/20/2021 10:50 AM BOOKBINDER APPRENTICE Evaluation, Physical Therapy Entered On: 09/20/2021 15:31 [...] EDGARD BUENO, PT - 09/20/2021 15:26 EST Teacher Education Director Goals Mobility/Bed Mobility LTG PT Grid Goal [...] by Intervention : Yes Pain Comment : RN peter aware EDGARD BUENO, PT - 09/20/2021 15:26 [...] EDGARD BUENO, PT - 09/20/2021 15:26 EST [place] [facility] Charges PT Eval Low Complexity : 1 EDGARD BUENO PT - 09/20/2021 15:26 EST Electronically signed by Liset [facility] Conversion Band Nailer Luis Enrique at 02/04/2023 12:24 PM CDT documented in this encounter Plan of Treatment Not on file documented as of this encounter Visit Diagnoses Not on filedocumented in this encounter
--- OUTSIDE RECORDS SUMMARY | 2025-08-30 09:00 | XMS_ITS | Encounter Summary ---
Author Organization [employer] ([place], [place], [place], [place], [place]) Address [address] [place] [address] Care Team Providers Care Federal Java Developer Name Role Phone Unavailable Primary Care Provider Unavailabl e Encounter Details Date Type Department Care Team (Late st Contact Info) Description 09/21/2021 Transcribed Document [facility] [place] Family Medicine [address] [place] [address] ProviderInes MD [address] [place] [address] Social History Tobacco Use Types [...] - Historical ProviderMD - 09/21/2021 12:00 PM PEST CONTROL TECHNICIAN Pain Assessment Entered On: 09/21/2021 16:07 EST [...]
--- OUTSIDE RECORDS SUMMARY | 2025-08-30 09:00 | XMS_ITS | Encounter Summary ---
Author Organization [employer] ([place], [place], [place], [place], [place]) Address [address] [place] [address] Care Team Providers Care Emblem Drawer In Name Role Phone Unavailable Primary Care Provider Unavailabl e Encounter Details Date Type Department Care Team (Late st Contact Info) Description 09/20/2021 Transcribed Document [facility] Family Medicine [address] [place] [address] ProviderInes MD [address] [place] [address] Social History Tobacco Use Types [...] Conversion Note - Historical ProviderMD - 09/20/2021 10:50 AM HIDE SHAKER Evaluation, Occupational Therapy Entered On: 09/20/2021 16:24 EST Performed On: 09/20/2021 14:56 EST by MADONNA CUETO, OTR/L General Information, OT Visit Type, OT : Initial evaluation Patient Orders : Order Date Order Ordering 09/20/2021 10:50 OT Evaluation and Treatment Ordered By: TIMO BLAKE MD-ORT 09/20/2021 10:50 OT Treatment Instructions Ordered By: TIMO BLAKE MD-ORKristin Active Diagnoses : No Qualifying Diagnoses Therapy [...] Sit : Rehab Minimal assistance MADONNA CUETO OTR/Yoanna - 09/20/2021 16:24 EST Cognition Assessment, OT Orientation : Oriented x 4 MADONNA CUETO OTR/L - 09/20/2021 16:24 EST Indication Assessment, OT Occupational Therapy Indicated : Yes Problem List, OT : Impaired, endurance tolerance, Impaired functional mobility, Impaired, strength, Impaired, transfers Potential Barriers, OT : None evident Rehabilitation Potential, OT : Good MADONNA CUETO OTR/L - 09/20/2021 16:24 EST Plan of Care, OT OT Tx Plan/Goals Established w Patient : Yes OT Frequency Rehab : Five days per week OT Duration Rehab : Fourteen days OT Treatments Planned : Activities of daily living, Functional mobility training, Safety education, Therapeutic activities NORYMADONNAPHYLLISR/L - 09/20/2021 16:24 EST Nursing Home Goals, OT Grooming LTG Grid Goal #1 Activity : Grooming Assist : Independent, modified Date to Meet : 10/04/2021 EST Goal Status : Initial goal NORYMADONNA REES OTR/L - 09/20/2021 16:24 EST Bathing LTG Grid Goal #1 Activity : Bathing Assist : Independent, modified Date to Meet : 10/04/2021 EST Goal Status : Initial goal NORYMADONNA REES OTR/L - 09/20/2021 16:24 EST Dressing, Lower [...] for Treatment : See goals MADONNA CUETO OTR/Yoanna - 09/20/2021 16:24 EST Pain Assessment Pain Scaled Used : 0-10 Pain scale Pain Score Pre-Intervention : 5 MADONNA CUETO OTR/Yoanna - 09/20/2021 16:24 EST Image 1 - Images currently included in the form version of this document have not been included in the text rendition version of the form. Anticipated Discharge Needs, OT/PT Anticipated Discharge to : Home, with home health MADONNA CUETO OTR/Yoanna - 09/20/2021 16:[address] [facility] OT Charges OT Selfcare/Hm Mgmt Ea 15 Min : 1 OT Eval Moderate Complexity : 1 MADONNA CUETO OTR/Yoanna - 09/20/2021 16:24 EST documented in this encounter Plan of Treatment Not on file documented as of this encounter Visit Diagnoses Not on filedocumented in this encounter
--- OUTSIDE RECORDS SUMMARY | 2025-08-30 09:00 | XMS_ITS | Encounter Summary ---
Author Organization [employer] ([place], [place], [place], [place], [place]) Address [address] [place] [address] Care Team Providers Care Manager Of Training And Development Name Role Phone Unavailable Primary Care Provider Unavailabl e Encounter Details Date Type Department Care Team (Late st Contact Info) Description 09/20/2021 Transcribed Document [facility] [place] Family Medicine [address] [place] [address] ProviderInes MD [address] [place] [address] Social History Tobacco Use [...] Conversion Note - Historical ProviderMD - 09/20/2021 11:20 AM START UP SPECIALIST Pain Assessment Entered On: 09/20/2021 18:05 EST [...]
[2025-08-30 09:40] VITALS: PULSE 73; PULSE 78
[2025-08-30] MEDS: ALBUTEROL 0.083% 2.5 MG/3 ML NEB IH (09:40)
== END 2025-08-30 23:59 | disposition home or self-care (01) ==
LOC: RT 08:43
PROVIDERS: PCP Internal Medicine Adolescent Medicine; Visit Provider Internal Medicine Pulmonary Disease
DX: J44.9 Chronic obstructive pulmonary disease, unspecified (principal); R94.2 Abnormal results of pulmonary function studies
CPT/HCPCS: 94060; 94618; 94640; 94726; 94729

== ENCOUNTER 2025-08-31 13:50 | Outpatient (CLI) | payer MEDICARE, SELFPAY ==
--- NOTE | 2025-08-31 13:53 | XR_ITS ---
FINAL REPORT CLINICAL HISTORY: PNM COMPARISON: 05/20/2025 FINDINGS: PA and lateral views of the chest were obtained. Resolved patchy airspace opacity from the prior exam. Mild scarring or atelectasis is noted at the right lung base. There is no evidence of acute pneumonia. No pleural effusions. No pneumothorax. The mediastinum has a normal appearance. The cardiac silhouette is unremarkable. IMPRESSION: No acute findings. Reviewed, Interpreted and Dictated by Haylee Louie MD Transcribed by Martha Covarrubias Authenticated and [facility]
--- OUTSIDE RECORDS SUMMARY | 2025-08-31 14:03 | XMS_ITS | Encounter Summary ---
Author Organization [employer] ([place], [place], [place], [place], [place]) Address [address] [place] [address] Care Team Providers Care Rate Examiner Name Role Phone Unavailable Primary Care Provider Unavailabl e Encounter Details Date Type Department Care Team (Late st Contact Info) Description 09/19/2021 Transcribed Document [facility] [place] Family Medicine [address] [place] [address] ProviderInes MD [address] [place] [address] Social History Tobacco Use Types [...] - Historical ProviderMD - 09/19/2021 2:10 PM NET SOFTWARE DEVELOPER [facility] Authorization Entered On: 09/19/2021 15:32 EST Performed On: 09/19/2021 14:10 EST by KEVIN STONE, Contract Implementation Analyst Primary Insurance Authorization Authorization and Policy Numbers : Insurance 1 Health Plan: [employer] Policy Number: [id number] Authorization Number: Insurance 2 Health Plan: [employer] GOLD CHOICE Policy Number: [id number] Authorization Number: Insurance Primary Name : [employer] [id number] Authorization Status-Primary : Opo status approv Authorized Service Begin Date-Primary : 09/20/2021 EST Observation Authorization Nbr-Primary : [id number] Authorization Comments-Primary : Pt is [place] for OP total hip on Sat09-20-21 [employer] OP auth# [id number] [employer] Gold OP auth# [id number] Historical Authorization Comments-Primary : No Authorization Comments Found KEVIN STONE, Contract Implementation Analyst - 09/19/2021 14:10 EST Secondary Insurance Authorization Authorization and Policy Numbers : Insurance 1 Health Plan: CIGNA Policy Number: [id number] Authorization Number: Insurance 2 Health Plan: [employer] CHOICE Policy Number: [id number] Authorization Number: Insurance Secondary Name : [place] [id number] Authorization Status-Secondary : Opo status approv Auth/Referral Contact Name-Secondary : Marcus R Authorized Service Begin Date-Secondary : 09/20/2021 EST Observation Authorization Number-Secondary : [id number] Historical Authorization Comments-Secondary : No Authorization Comments Found KEVIN STONE, Contract Implementation Analyst - 09/19/2021 14:10 EST documented in this encounter Plan of Treatment Not on file documented as of this encounter Visit Diagnoses Not on filedocumented in this encounter
--- OUTSIDE RECORDS SUMMARY | 2025-08-31 14:03 | XMS_ITS | Encounter Summary ---
Author Organization [employer] ([place], [place], [place], [place], [place]) Address [address] [place] [address] Care Team Providers Care Door Technician Name Role Phone Unavailable Primary Care Provider Unavailabl e Encounter Details Date Type Department Care Team (Late st Contact Info) Description 09/20/2021 Transcribed Document [facility] [place] Family Medicine [address] [place] [address] ProviderInes MD [address] [place] [address] Social History Tobacco Use Types [...] - Ines ProviderMD - 09/20/2021 7:56 AM RADIOLOGY RECEPTIONIST [facility] Main OR IntraOp Summary Primary Physician: TIMO BLAKE MD-ORT Finalized Date/Time: 09/21/21 13:14:06 Pt. Name: NATALIA REID Barrett /Sex: 1955 Female Med Rec #: [id number] Physician: TIMO BLAKE MD-ORT Financial #: [id number] Pt. Type: O Room/Bed: 3/1 Admit/Disch: 09/20/21 06:33:00 - Institution: [facility] IntraOp Case Attendance Entry 1 Entry 2 Entry 3 Case Attendee TIMO BLAKE CORNEA, MIHAELA, [facility], VLAD K, MD-ORT PARTS ORDER AND STOCK CLERK, GENERAL FARMER Role Performed Surgeon/Proceduralist, Anesthesiologist of GENERAL FARMER/Nurse Aerospace Mechanic First Record Time In 09/20/21 07:25:00 [...] BAUTISTA SEXTON, Ana Buenrostro, Rn Sridhar Jessica, Follow Up Manager Role Performed Supervisor Cabinetmaker, First Furnace Maintenance, First Scrub, First Time In 09/20/21 07:25:00 [...] OTHER, ATTENDEE LEON PEACOCK RN Role Performed Airline Reservation Agent Vendor Furnace Maintenance, Second Time In 09/20/21 07:25:00 09/20/21 07:25:00 09/20/21 07:25:00 Time Out 09/20/21 09:12:00 09/20/21 09:12:00 09/20/21 09:12:00 Procedure Hip Total Anterior Hip Total Anterior Hip Total Anterior Approach(Left) Approach(Left) Approach(Left) Other Attendee JERZY FERNANDO BREAK Superficial Wound Closed By: Last Modified By: Ana Fitch Rn Ana Fitch, Rn Ana Fitch Rn 09/20/21 09:12:37 09/20/21 09:12:37 09/20/21 09:12:37 [facility] IntraOp Case Attendance Audit 09/20/21 09:12:37 Director Of Global Marketing: [id number] Modifier: [id number] <+> Time Out 1 <*> Procedure [...] Procedure Hip Total Anterior Approach(Left) 09/20/21 08:55:51 Director Of Global Marketing: [id number] Modifier: [id number] <+> Time In 1 <*> Procedure [...] Procedure <+> 9 Other Attendee 09/20/21 06:47:55 Director Of Global Marketing: [id number] Modifier: [id number] <+> 1 Procedure 2 <*> Procedure Hip Total Anterior Approach(Left) 3 <*> Procedure Hip Total Anterior Approach(Left) 4 <*> Procedure Hip Total Anterior Approach(Left) 5 <*> Procedure Hip Total Anterior Approach(Left) 6 <*> Procedure Hip Total Anterior Approach(Left) 7 <*> Procedure Hip Total Anterior Approach(Left) 8 <*> Procedure Hip Total Anterior Approach(Left) [facility] IntraOp Case Times Entry 1 Patient In Room Time 09/20/21 07:25:00 Out Room Time 09/20/21 09:12:00 Anesthesia Start Time 09/20/21 07:25:00 Stop Time 09/20/21 09:12:00 Surgery / Procedure Times Start Time 09/20/21 07:56:00 Stop Time 09/20/21 09:05:00 Last Modified By: Ana Fitch Rn 09/20/21 09:12:29 [facility] IntraOp Case Times Audit 09/20/21 09:12:29 Director Of Global Marketing: [id number] Modifier: [id number] <+> 1 Out Room Time <+> 1 Stop Time <+> 1 Stop Time 09/20/21 07:56:47 Director Of Global Marketing: [id number] Modifier: [id number] <+> 1 Start Time [facility] IntraOp Cautery Entry 1 ESU Identification Cautery Type Monopolar ESU ID Number [id number] ID Type Hospital Number Cautery Settings Cut Setting 50 Coag Setting 50 ESU Grounding Pad Ground Pad Type Adult Grounding Pad Site Right Lower Abdomen Grounding Pad Ana Fitch Rn Applied By Grounding Pad Site Intact, Warm, Dry Skin Condition Before Cautery Grounding Pad Site Unchanged Skin Condition After Cautery Last Modified By: Ana Fitch Rn 09/20/21 06:45:44 [facility] IntraOp Communication Entry 1 Entry 2 Communication To Family/Significant other Family/Significant other Comment CLOSE Communication By Ana Fitch Rn TAYLOR, MELISSA A, RN Date and Time 09/20/21 07:58:00 09/20/21 08:56:00 Last Modified By: Ana Fitch Rn Compton, Tracy R, Rn 09/20/21 07:58:41 09/20/21 09:06:57 [facility] IntraOp Communication Audit 09/20/21 09:06:57 Director Of Global Marketing: [id number] Modifier: [id number] <+> 2 Communication By <+> 2 Date and Time <+> 2 Communication To <+> 2 Comment [facility] IntraOp Counts Verification Entry 1 Procedure Hip Total Anterior Approach(Left) Count Info Count Type Sponge, Sharps Counts Verification Baseline/pre-procedure Sequence Count Results Not Applicable Counts Performed By Count Performed By Sridhar Jessica Scrub (Scrub) Tech Count Performed By Ana Fitch Rn (RN) Last Modified By: Ana Fitch Rn 09/20/21 06:45:59 [facility] IntraOp Counts Final Entry 1 Procedure Hip Total Anterior Approach(Left) Final Count Info Count Type Sponge, Sharps, Miscellaneous Counts Verification Skin Closure/end of Sequence procedure Count Results Correct, surgeon notified Counts Performed By Count Performed By Sridhar Jessica Scrub (Scrub) Tech Count Performed By LEON PEACOCK RN (RN) Last Modified By: Ana Fitch Rn 09/20/21 08:56:06 [facility] IntraOp Cultures and Spec Summary Entry 1 Cultrures and Specimens Specimen Ordered: Yes Test(s) Routine/Path-Lab Requested/Final Disposition Last Modified By: Ana Fitch Rn 09/20/21 06:46:09 General Comments: A, LEFT FEMORAL HEAD [facility] IntraOp Delays Entry 1 Delay Reason Surgeon late - no reason Duration 10 Minute(s) Last Modified By: Ana Fitch Rn 09/20/21 07:32:08 [facility] IntraOp Departure from OR Entry 1 Integumentary Assessment Integumentary WDL Assessment WDL Transfer/Handoff Transfer to PACU Phase I Handoff Method Bedside/Face to face, Phone call Post-op Transport Stretcher/Gurney Via Patient Transport VLAD ORTIZ, Accompanied by PARTS ORDER AND STOCK CLERK, TRISTEN, Ana Fitch Rn Last Modified By: Ana Fitch Rn 09/20/21 06:46:16 [facility] IntraOp Dressing and Packing Entry 1 Type Dressing Location OPERATIVE SITE Wound Dressing Item Occlusive dressing, Skin Closure Glue, Other Applied By BAUTISTA SEXTON CSA Other Comments AQUACEL AG, HIP WRAP Last Modified By: Ana Fitch Rn 09/20/21 06:46:19 [facility] IntraOp Fire Risk Assessment Entry 1 [...] Modified By: Ana Fitch Rn 09/20/21 06:46:22 [facility] IntraOp General Case Recep 1 Case Information OR OR 05 [facility] Case Level 1 Room Verified Yes Wound Class 1 - Clean Specialty Orthopedic Anesthesia Type General ASA Class 2 Diagnosis Preop Diagnosis LEFT HIP OSTEOARTHRITIS Postop Same As Preop Yes Postop Diagnosis LEFT HIP OSTEOARTHRITIS Wound Class Definitions Last Modified By: Ana Fitch Rn 09/20/21 08:08:55 [facility] IntraOp General Case Data Audit 09/20/21 08:08:55 Director Of Global Marketing: [id number] Modifier: [id number] <*> OR OR 04 [facility] IntraOp Implant Log Entry 1 Entry 2 Entry 3 Type Implant (Synthetic) Implant (Synthetic) Implant (Synthetic) Implant Log Implant Type Hardware Hardware Hardware Tissue Implant Type Implant TRIDENT ACEL CLUSTER SCR LOW PROFILE SCR LOW PROFILE Identification 48MM [id number] Description Implant Quantity 1 1 1 Implant Site LEFT HIP LEFT HIP LEFT HIP Implant Identification Model Number Implant Identification Serial Number Implant [id number] Identification Lot Number Implant Ira Ortho Cap Ira:Ira Ira:[place] Identification Orthopaedics Orthopaedics Talent Consultant Name: Implant [id number] Identification Catalog Number Implant Size Implant Has an Yes Yes Yes Expiration Date Implant Expiration 07/12/26 06/14/26 06/16/26 Date Wasted Radioactive Material Time Implanted Tissue Implant Continue for Tissue Implant Documentation Tissue Identification Number Graft Prep Per Talent Consultant Instructions: Tissue Preparation Method: Reconstitution Solution: Reconstitution Solution Lot Number Reconstitution Solution Expiration Date: Thawing Solution Thawing Solution Lot Number Thawing Solution Expiration Date Preparation Materials, Other Preparation Materials, Other Lot Number Preparation Materials, Other Expiration Date Tissue Prepared/Processed By Talent Consultant Paperwork Completed Implant Type Comment Last Modified By: Ana Fitch Rn Compton, Tracy R, Rn Compton, Tracy R, Rn 09/20/21 08:45:43 09/20/21 08:45:43 09/20/21 08:45:43 Entry 4 Entry 5 Entry 6 Type Implant (Synthetic) Implant (Synthetic) Implant (Synthetic) Implant Log Implant Type Hardware Hardware Hardware Tissue Implant Type Implant INSRT TRIDENT POLY X3 HIP STEM ACCOLADE II HEAD FEM 36MM BIOLOX Identification 36MM [id number] Description Implant Quantity 1 1 1 Implant Site LEFT HIP LEFT HIP LEFT HIP Implant Identification Model Number Implant Identification Serial Number Implant [id number] Identification Lot Number Implant Ira:[place] Ira:Ira Ira:Ira Identification Orthopaedics Orthopaedics Orthopaedics Talent Consultant Name: Implant [id number] Identification Catalog Number Implant Size Implant Has an Yes Yes Yes Expiration Date Implant Expiration 07/16/26 07/17/26 07/18/26 Date Wasted Radioactive Material Time Implanted Tissue Implant Continue for Tissue Implant Documentation Tissue Identification Number Graft Prep Per Talent Consultant Instructions: Tissue Preparation Method: Reconstitution Solution: Reconstitution Solution Lot Number Reconstitution Solution Expiration Date: Thawing Solution Thawing Solution Lot Number Thawing Solution Expiration Date Preparation Materials, Other Preparation Materials, Other Lot Number Preparation Materials, Other Expiration Date Tissue Prepared/Processed By Talent Consultant Paperwork Completed Implant Type Comment Last Modified By: Ana Fitch Rn Compton, Tracy R, Rn Compton, Tracy R, Rn 09/20/21 08:45:43 09/20/21 08:45:43 09/20/21 08:45:43 [facility] IntraOp Intraoperative Assessment Entry 1 Handoff [...] Modified By: Ana Fitch Rn 09/20/21 06:46:55 [facility] IntraOp Intraoperative Equipment Entry 1 Type Equipment Equipment Equipment Alina Suction System ID Number [id number] Setting ON Intraop Monitoring Blood Pressure Non-Invasive BP Device Source Blood Pressure Arm, right upper Location Pulse Oximeter Hand, left Probe Site Antiembolic Devices Antiembolic Devices Antiembolic hose, knee high Antiembolic Device Right Location Scopes Photo/Video Documentation Last Modified By: Ana Fitch Rn 09/20/21 06:47:18 [facility] IntraOp Medication Admin Entry 1 Entry 2 Entry 3 Medication/Irrigant TRANEXAMIC ACID 1 GM vancomycin 1Gm vial - SHIREEN IRR NACL 0.9PCT [id number] 2000ML [id number] Combo Med List Time Administered 09/20/21 08:47:00 [...] Modified By: Ana Fitch Rn 09/20/21 08:47:38 [facility] IntraOp Medication Admin Audit 09/20/21 08:47:38 Director Of Global Marketing: [id number] Modifier: [id number] <+> 1 Time Administered 2 <*> Medication/Irrigant vancomycin 1Gm vial - [id number] 2 <+> Time Administered <+> 4 Time Administered 09/20/21 07:57:01 Director Of Global Marketing: [id number] Modifier: [id number] <*> Medication/Irrigant SHIREEN IRR NACL 0.9PCT 2000ML [id number] 3 <+> Time Administered [facility] IntraOp Patient Positioning Entry 1 Procedure [...] Arm(s), Stirrups/Leg [place], Boot, Pad, Elbow, Table, [place] Positioned By TIMO BLAKE MD-ORKristin, VLAD ORTIZ APRN, TRISTEN, Ana Fitch, Rn, BAUTISTA SEXTON CSA Position Verified Positioning Yes Verified by Anesthesia Positioning Yes Verified by Surgeon Last Modified By: Ana Fitch Rn 09/20/21 06:47:25 [facility] IntraOp Sign In Entry 1 Patient, [...] Modified By: Ana Fitch Rn 09/20/21 06:47:33 [facility] IntraOp Sign Out Entry 1 RN [...] Modified By: Ana Fitch Rn 09/20/21 09:12:34 [facility] IntraOp Sign Out Audit 09/20/21 09:12:34 Director Of Global Marketing: [id number] Modifier: [id number] <+> 1 RN Sign Out Signature Date/Time [facility] IntraOp Skin Prep Entry 1 Procedure Hip Total Anterior Approach(Left) Prescribed Yes Pre-Surgical Prep Completed Prep Area OPERATIVE HIP TO KNEE Intraop Prep Integumentary WDL Assessment WDL Prep Agents Chlorhexidine gluconate/alcohol, Chloraprep, DuraPrep Prep by Ana Fitch Rn Hair Removal Methods No hair removal performed Last Modified By: Ana Fitch Rn 09/20/21 06:47:49 [facility] IntraOp Surgical Procedures Entry 1 Procedure Hip Total Anterior Approach Modifiers Left Additional (LT ANTERIOR TOTAL HIP Procedure ARTHROPLASTY Description Primary Procedure Yes Primary Surgeon TIMO BLAKE MD-ORT Start 09/20/21 07:56:00 Stop 09/20/21 09:05:00 Anesthesia Type General Specialty Orthopedic Wound Class 1 - Clean Last Modified By: Ana Fitch Rn 09/20/21 09:12:35 [facility] IntraOp Surgical Procedures Audit 09/20/21 09:12:35 Director Of Global Marketing: [id number] Modifier: [id number] <+> 1 Start <+> 1 Stop [facility] IntraOp Temp Regulation Devices Entry 1 Temp Regulation Temperature Forced Air Warming Regulation Device device, Warm blankets Temperature 08841 Regulation Device Serial/Unit Number Temperature Upper body Regulation Site Temperature Device ON Setting Temperature VLAD ORTIZ, Regulation Device PARTS ORDER AND STOCK CLERK, GENERAL FARMER Applied by Temperature THERMOREGULATION Regulation Comment MEASURES MONITORED AND ADJUSTED BY ANESTHESIA Last Modified By: Ana Fitch Rn 09/20/21 06:48:09 [facility] IntraOP Time Out Entry 1 Procedure [...] Modified By: Ana Fitch Rn 09/20/21 07:54:28 [facility] IntraOP Time Out Audit 09/20/21 07:54:28 Director Of Global Marketing: [id number] Modifier: [id number] 1 <+> Time Out Pause Time 1 <*> Procedure to be Performed Hip Total Anterior Approach(Left) [facility] IntraOp X-Ray and Images Entry 1 X-Ray/Imaging Type Fluoroscopy Fluoroscopy Type C-Arm Site OPERATIVE HIP Litigation Attorney Name RADHA OWUSU Protective Devices No Used Last Modified By: Ana Fitch Rn 09/20/21 06:48:44 Case Comments <None> Finalized By: KAL ROBLES Document Signatures Signed By: Ana Fitch Rn 09/20/21 11:04 Ana Fitch Rn 09/20/21 09:12 KAL ROBLES 09/21/21 13:14 Unfinalized History Date/Time Username Reason for Unfinalizing Freetext Reason for Unfinalizing 09/20/21 11:00 [id number] Correct Documentation 09/21/21 13:11 ISAAC Correct Billing Electronically signed by Liset [facility] Conversion Hospital Account Manager Cerner at 02/04/2023 12:40 PM CDT documented in this encounter Plan of Treatment Not on file documented as of this encounter Visit Diagnoses Not on filedocumented in this encounter
--- OUTSIDE RECORDS SUMMARY | 2025-08-31 14:03 | XMS_ITS | Encounter Summary ---
Author Organization [employer] ([place], [place], [place], [place], [place]) Address [address] [place] [address] Care Team Providers Care Shingle Weaver Name Role Phone Unavailable Primary Care Provider Unavailabl e Encounter Details Date Type Department Care Team (Late st Contact Info) Description 09/20/2021 Transcribed Document [facility] [place] [address] [place] [address] ProviderInes MD [address] [place] [address] Social History Tobacco Use [...] - Historical ProviderMD - 09/20/2021 4:28 PM POSTAGE MACHINE OPERATOR Treatment Intervention, OT Entered On: 09/21/2021 16:06 EST Performed On: 09/21/2021 11:21 EST by MADONNA CUETO, OTR/L General Information, OT Visit Type, OT : Treatment Note Patient Orders : Order Date Order Ordering 09/20/2021 10:50 OT Evaluation and Treatment Ordered By: TIMO BLAKE MD-ORKristin 09/20/2021 10:50 OT Treatment Instructions [...] MADONNA CUETO OTR/Yoanna - 09/21/2021 16:03 EST [facility] Goals, OT Grooming LTG Grid Goal #1 [...] gym recieivng edu on HEP. No joint gymnastics coach present. Assessment : Pt is progressing towards goals Plan for Treatment : Cont OT POC MADONNA CUETO OTR/Yoanna - 09/21/2021 16:03 EST [place] OT Charges OT Selfcare/Hm Mgmt Ea 15 Min : 1 OT Ther Activities Ea 15 Min : 1 MADONNA CUETO OTR/Yoanna - 09/21/2021 16:03 EST documented in this encounter Plan of Treatment Not on file documented as of this encounter Visit Diagnoses Not on filedocumented in this encounter
--- OUTSIDE RECORDS SUMMARY | 2025-08-31 14:03 | XMS_ITS | Encounter Summary ---
Author Organization [employer] ([place], [place], [place], [place], [place]) Address [address] [place] [address] Care Team Providers Care Chimney Mechanic Name Role Phone Unavailable Primary Care Provider Unavailabl e Encounter Details Date Type Department Care Team (Late st Contact Info) Description 09/20/2021 Transcribed Document [facility] [place] Family Medicine [address] [place] [address] ProviderInes MD [address] [place] [address] Social History Tobacco Use Types [...] - Historical ProviderMD - 09/20/2021 5:04 PM DISC RECORDIST Spiritual Care Assessment Entered On: 09/20/2021 17:45 [...] Emotional Support : Empathic/Engaged listening Spiritual and Buddhist : Spiritual/Buddhist support provided Derrek Saldana Chaplain - 09/20/2021 17:45 EST Electronically signed by [facility], [facility] Conversion Toll Mechanic Cerner at 02/04/2023 12:38 PM CDT documented in this encounter Plan of Treatment Not on file documented as of this encounter Visit Diagnoses Not on filedocumented in this encounter
--- OUTSIDE RECORDS SUMMARY | 2025-08-31 14:03 | XMS_ITS | Encounter Summary ---
Author Organization [employer] ([place], [place], [place], [place], [place]) Address [address] [place] [address] Care Team Providers Care Shipping Services Sales Representative Name Role Phone Unavailable Primary Care Provider Unavailabl e Encounter Details Date Type Department Care Team (Late st Contact Info) Description 09/20/2021 Transcribed Document [facility] [place] [address] [place] [address] ProviderInes MD [address] [place] [address] Social History Tobacco Use Types [...] - Historical ProviderMD - 09/20/2021 10:00 PM BRAZER FURNACE Pain Assessment Entered On: 09/21/2021 6:27 EST [...]
--- OUTSIDE RECORDS SUMMARY | 2025-08-31 14:03 | XMS_ITS | Encounter Summary ---
Author Organization [employer] ([place], [place], [place], [place], [place]) Address [address] [place] [address] Care Team Providers Care Cloud Infrastructure Architect Name Role Phone Unavailable Primary Care Provider Unavailabl e Encounter Details Date Type Department Care Team (Late st Contact Info) Description 09/21/2021 Transcribed Document [facility] Radiology 1 [place] [address] Salena Brush MD [address] [facility] [address] [place] [address] Social History Tobacco Use Types [...] is a 66 yo female admitted to [facility] per Dr. Johnson for a left total hip arthroplasty. Preoperatively patient was found to have advanced osteoarthritis of the left hip and elected surgical intervention after failing conservative treatment. Patient is followed perioperatively while hospitalized for medical management. Initial visit in preop --- Denies prior stroke or seizure. Denies PA, CHF or cardiac arrhythmia. Denies DM. Denies [...] 1 Cap, PRN, Oral, BID Flonase 1 [place], PRN, Nasal, BID furosemide 20 mg oral [...]
--- OUTSIDE RECORDS SUMMARY | 2025-08-31 14:03 | XMS_ITS | Encounter Summary ---
Author Organization [employer] ([place], [place], [place], [place], [place]) Address [address] [place] [address] Care Team Providers Care Millwork Estimator Name Role Phone Unavailable Primary Care Provider Unavailabl e Encounter Details Date Type Department Care Team (Late st Contact Info) Description 09/20/[address] [facility] [place] Family Medicine [address] [place] [address] ProviderInes MD [address] [place] [address] Social History Tobacco Use Types [...] - Historical ProviderMD - 09/20/2021 6:32 AM LAWNMOWER REPAIR MECHANIC Admission History, Adult Entered On: 09/20/2021 18:05 [...] Ambulatory Legal Guardian : Spouse Support Person/Patient Boat Worker : Yes Support Person/Pt Rep Name : mother Ballard Support Person/Pt Rep Contact Information : [phone] Want Family/Rep/Phys Notified of Admit : No Emergency Contact #1 : Eugene Thomas Emergency Contact #1 Emergency Contact #1 Relationship : spouse Emergency Contact #2 : Kaya Pruitt Emergency Contact #2 Phone Number : [phone] Emergency Contact #2 Relationship : sister Information Obtained From : Patient Primary Language : Armenian Preferred Communication Mode : Verbal Communication Barrier : None Obstetrical Nurse Needed : No Objects to Sharing Info [...] Scale Risk Level : 25-45 Medium Risk [employer] Fall Interventions : Adequate lighting, Assistive devices [...] Source : Measured Height Entry Format : Diamond Height, Feet : 5 ft(Converted to: 152 cm, 60 Inch) Height, Inches : 4 Inch(Converted to: 0 ft 4 Inch, 10.16 cm) Clinical Height : 162.56 cm Weight Source : Standing scale Weight Entry Format : Diamond Clinical Dosing Weight : 88.18 kg Weight, Pounds : 194 lb Body Surface Area (BSA) : 1.93 m2 Body Mass Index : 33.4 kg/m2 (HI) [place] Body Weight : 54 kg RONEN DAVE [...] RONEN DAVE RN - 09/20/2021 18:03 EST [place] Suicide Severity Rating Scale (C-SSRS) CSSRS Past [...]
--- OUTSIDE RECORDS SUMMARY | 2025-08-31 14:03 | XMS_ITS | Encounter Summary ---
Author Organization [employer] ([place], [place], [place], [place], [place]) Address [address] [place] [address] Care Team Providers Care Taproom Attendant Name Role Phone Unavailable Primary Care Provider Unavailabl e Encounter Details Date Type Department Care Team (Late st Contact Info) Description 09/21/2021 Transcribed Document [facility] Radiology 1 [place] [address] Timo Johnsno MD [address] [place] [address] Social History Tobacco Use Types [...] Date 09/21/2021 Primary Care Provider DARSHAN ARRINGTON (REF)MD-[facility] Discharge Diagnosis Left direct anterior total hip [...] 1 Cap, PRN, Oral, BID Flonase 1 [place], PRN, Nasal, BID furosemide 20 mg oral [...] swelling. Pending Labs In Process SENDOUT REPORT [id number], [id number], RT - Routine, 09/20/21 6:54:00 EST Pathology Tissue Request [id number], [id number], 09/20/21 6:54:00 EST, Collected, RT - Routine, [...]
--- OUTSIDE RECORDS SUMMARY | 2025-08-31 14:03 | XMS_ITS | Encounter Summary ---
Author Organization [employer] ([place], [place], [place], [place], [place]) Address [address] [place] [address] Care Team Providers Care Vocational Education Professional Name Role Phone Unavailable Primary Care Provider Unavailabl e Encounter Details Date Type Department Care Team (Late st Contact Info) Description 09/21/2021 Transcribed Document [facility] [place] Family Medicine [address] [place] [address] ProviderInes MD [address] [place] [address] Social History Tobacco Use Types [...] - Historical ProviderMD - 09/21/2021 3:11 PM CLINICAL INFORMATICS MANAGER Initial Discharge Planning Entered On: 09/21/2021 15:14 EST Performed On: 09/21/2021 15:11 EST by FERNIE MACE RN-Pay Per Click Strategist Initial Assessment I Previously Documented Living Environment : No qualifying data available. Living Situation : Home Patient Lives With : Spouse Is the Patient a Caregiver at Home? : No Emergency Contact #1 : Eugene Thomas Emergency Contact #1 Emergency Contact #1 Relationship : spouse Emergency Contact #2 : Kaya Pruitt Emergency Contact #2 Phone Number : [phone] Emergency Contact #2 Relationship : sister Enter Doctors Name : DARSHAN ARRINGTON (REF), -[facility] Does Patient have PCP Listed? : Yes FERNIE MACE RN-Pay Per Click Strategist - 09/21/2021 15:11 EST Initial Assessment II Sensory and Motor Deficits : None Current Home Treatments and Equipment : Walker Does the Patient have a Floor to SNF Benefit? : No FERNIE MACE RN-Pay Per Click Strategist - 09/21/2021 15:11 EST Discharge Needs I Anticipated Discharge Date : 09/21/2021 EST Anticipated Discharge To, CM : Home with home health Current Home Treatment/Equipment : Current Home Treatment/Equipment No qualifying data available. Post Acute/Home Treatments : Bedside commode Documentation Status Complete : Yes FERNIE MACE RN-Pay Per Click Strategist - 09/21/2021 15:11 EST Discharge Needs II Professional Skilled Services : Professional Skilled Services No qualifying data available. Needs Assistance with Transportation : No Discharge Options Discussed with Patient : DME, Home Health Patient Discharge Goal : Home health care FERNIE MACE RN-Pay Per Click Strategist - 09/21/2021 15:11 EST Narrative Note Narrative Note : 66yo female pt s/p LTHA. Met with pt at bedside to discuss DCP. Pt needs a BSC and has no DME provider preference. Obtained one from [facility] and it has been delivered. Pt agrees to HH PT and has no BUS WASHER preference other than, a good one. Referral sent to [facility] via [facility] and confirmed acceptance with Mabel. No other CM needs noted. FERNIE MACE RN-Pay Per Click Strategist - 09/21/2021 15:11 EST Electronically signed by Penelope Hutchins Conversion Coach Professional Athletes Cerner at 02/04/2023 12:21 PM CDT documented in this encounter Plan of Treatment Not on file documented as of this encounter Visit Diagnoses Not on filedocumented in this encounter
--- OUTSIDE RECORDS SUMMARY | 2025-08-31 14:03 | XMS_ITS | Encounter Summary ---
Author Organization [employer] ([place], [place], [place], [place], [place]) Address [address] [place] [address] Care Team Providers Care Station Operator Name Role Phone Unavailable Primary Care Provider Unavailabl e Encounter Details Date Type Department Care Team (Late st Contact Info) Description 09/21/2021 Transcribed Document [facility] [place] Family Medicine [address] [place] [address] ProviderInes MD [address] [place] [address] Social History Tobacco Use Types [...] - Historical ProviderMD - 09/21/2021 2:44 PM INFANT CHILDCARE PROVIDER Spiritual Care Assessment Entered On: 09/21/2021 18:02 [...] Emotional Support : Empathic/Engaged listening Spiritual and Cheondoism : Spiritual/Cheondoism support provided Derrek Saldana Chaplain - 09/21/2021 18:02 EST Electronically signed by Liset [facility] Conversion Resourcing Consultant Cerner at 02/04/2023 12:17 PM CDT documented in this encounter Plan of Treatment Not on file documented as of this encounter Visit Diagnoses Not on filedocumented in this encounter
--- OUTSIDE RECORDS SUMMARY | 2025-08-31 14:03 | XMS_ITS | Encounter Summary ---
Author Organization [employer] ([place], [place], [place], [place], [place]) Address [address] [place] [address] Care Team Providers Care Home Stager Name Role Phone Unavailable Primary Care Provider Unavailabl e Encounter Details Date Type Department Care Team (Late st Contact Info) Description 09/20/2021 Transcribed Document [facility] Radiology 1 [place] [address] Kuldeep Johnson MD [address] [place] [address] Social History Tobacco Use Types [...] were documented. [place]- No reactions were documented. [place]- No reactions were documented. [place]- No reactions [...] Units, Oral, Daily, 0 Refill(s) Flonase: 1 [place], Nasal, BID, PRN: as needed for allergies, [...] Chondroitin-Glucosamine 2,000 Units, Oral, Daily Flonase 1 [place], PRN, Nasal, BID furosemide 20 mg oral [...] All Problems Seasonal allergies / SNOMED CT 4052705981 / Confirmed Peripheral neuropathy / SNOMED CT 8045051497 / Confirmed Peptic ulcer disease / SNOMED CT 5770732534 / Confirmed Osteoporosis / SNOMED CT 343239756 / Confirmed Incontinence / SNOMED CT 45771313 / Confirmed stress-wears a pad Impaired vision / SNOMED CT 25913173 / Confirmed corrected with lenses Cataract / SNOMED CT 4188575589 / Confirmed High blood pressure / SNOMED CT 21171414 / Confirmed GERD - Gastro-esophageal reflux disease / SNOMED CT 5919737588 / Confirmed Depression / SNOMED CT 60215468 / Confirmed Cardiac arrhythmia / SNOMED CT 3747801283 / Confirmed Bronchitis / SNOMED CT 84928275 / Confirmed Cataracts, bilateral / SNOMED CT 290712552 / Confirmed Back pain / SNOMED CT 062506350 / Confirmed At risk for sleep apnea / IMO 91390337 / Confirmed Asthma / SNOMED CT 948275264 / Confirmed Arthritis / SNOMED CT 9435479 / Confirmed, Active Problems (17) Arthritis Asthma At risk for sleep apnea Back pain Bronchitis Cardiac arrhythmia Cataract Cataracts, bilateral Depression GERD - Gastro-esophageal reflux disease High blood pressure Impaired vision Incontinence Osteoporosis Peptic ulcer disease Peripheral neuropathy Seasonal allergies Histories Past Medical History: Active Cataract (0607536562) Peptic ulcer disease (8799688699) Resolved Anemia (787095513): Resolved. Family History: No family history items [...] left thigh. colonoscopy. right total hip. Cholecystectomy (61050624). back surgery. Social History Social & Psychosocial [...] exam in office notes. Integumentary: Warm, Dry, [place]. Neurologic: Alert, Oriented. Psychiatric: Cooperative, Appropriate mood [...]
--- OUTSIDE RECORDS SUMMARY | 2025-08-31 14:04 | XMS_ITS | Encounter Summary ---
Author Organization [employer] ([place], [place], [place], [place], [place]) Address [address] [place] [address] Care Team Providers Care Tire Building Supervisor Name Role Phone Unavailable Primary Care Provider Unavailabl e Encounter Details Date Type Department Care Team (Late st Contact Info) Description 09/20/2021 Transcribed Document [facility] [place] Family Medicine [address] [place] [address] ProviderInes MD [address] [place] [address] Social History Tobacco Use Types [...] - Ines ProviderMD - 09/20/2021 7:56 AM STORE GIFT WRAP ASSOCIATE [facility] Main OR PACU Summary Primary Physician: TIMO BLAKE MD-ORT Finalized Date/Time: 09/25/21 14:46:33 Pt. Name: PINKY REID.O.B./Sex: 1955 Female Med Rec #: [id number] Physician: TIMO BLAKE MD-ORT Financial #: [id number] Pt. Type: O Room/Bed: 643/1 Admit/Disch: 09/20/21 06:33:00 - 09/21/21 16:00:00 Institution: [facility] Main OR PACU I Case Times Entry 1 In PACU I 09/20/21 09:15:00 Ready for PACU 09/20/21 10:10:00 Discharge Discharge from PACU 09/20/21 10:35:00 I Last Modified By: Carmela Franco RN-PATIENT CARE BEDSIDE NON-EXEMPT 09/20/21 10:52:42 [facility] Main OR PACU Acuity Entry 1 Start Time 09/20/21 10:10:00 Stop Time 09/20/21 10:35:00 Acuity Level [facility] PACU Acuity I Last Modified By: Carmela Franco RN-PATIENT CARE BEDSIDE NON-EXEMPT 09/20/21 10:53:17 [facility] Main OR PACU Acuity Audit 09/25/21 14:46:[address] Referee: [id number] Modifier: [id number] <*> Start Time 09/20/21 09:15:00 Finalized By: Estella Grover, Nurse Hospice/Home Health Aide Signatures Signed By: Carmela Franco RN-PATIENT CARE BEDSIDE NON-EXEMPT 09/20/21 10:53 Estella Grover, Nurse Document Clerk 09/25/21 14:46 Unfinalized History Date/Time Username Reason for Unfinalizing Freetext Reason for Unfinalizing 09/25/21 14:46 [id number] Correct Billing Electronically signed by Liset [facility] Conversion Heel Edge Inker Machine Cerner at 02/04/2023 12:30 PM CDT documented in this encounter Plan of Treatment Not on file documented as of this encounter Visit Diagnoses Not on filedocumented in this encounter
--- OUTSIDE RECORDS SUMMARY | 2025-08-31 14:04 | XMS_ITS | Encounter Summary ---
Author Organization [employer] ([place], [place], [place], [place], [place]) Address [address] [place] [address] Care Team Providers Care Group Exercise Instructor Name Role Phone Unavailable Primary Care Provider Unavailabl e Encounter Details Date Type Department Care Team (Late st Contact Info) Description 09/21/2021 Transcribed Document [facility] [place] Family Medicine [address] [place] [address] ProviderInes MD [address] [place] [address] Social History Tobacco Use Types [...] Historical ProviderMD - 09/21/2021 12:26 PM FIRE REGULATOR Stroke/Warfarin Instructions Entered On: 09/21/2021 12:26 EST Performed On: 09/21/2021 12:26 EST by Hue Lopez RN Stroke/Warfarin Instructions Stroke/TIA Discharge Ins : N/A Warfarin Discharge Ins : N/A Hue Lopez RN - 09/21/2021 12:26 EST Electronically signed by Liset [facility] Conversion Production Foreman Cerner at 02/04/2023 12:32 PM CDT documented in this encounter Plan of Treatment Not on file documented as of this encounter Visit Diagnoses Not on filedocumented in this encounter
--- OUTSIDE RECORDS SUMMARY | 2025-08-31 14:04 | XMS_ITS | Encounter Summary ---
Author Organization [employer] ([place], [place], [place], [place], [place]) Address [address] [place] [address] Care Team Providers Care Supervisor Cabinetmaker Name Role Phone Unavailable Primary Care Provider Unavailabl e Encounter Details Date Type Department Care Team (Late st Contact Info) Description 09/20/2021 Transcribed Document [facility] Radiology 1 [place] [address] Kuldeep Johnson MD [address] [place] [address] Social History Tobacco Use Types [...] Mild dysplasia left hip *Surgeon(s) Surgeon: Alex Orthodontic Lab Technician: Richard Rowe CSA *Procedure Narrative Patient was [...] patient was then carefully positioned on the [place] table. The hip was then prepped and [...] series of hemispherical acetabular reamers were passed. Uarb-hz-ufqg ream, with an excellent bleeding cancellous bony [...] 400 cc *Findings Abx: 2g Ancef Implants: [place] Trident 2 acetabular component: 48 mm 6.5 mm Acetabular screws: 2 [place] Accolade 2 femoral component: Size 132 neck angle Trident X3 acetabular liner: 36 mm neutral Biolox Delta ceramic femoral head: 36 mm -2.5 Reaming technique: [id number]-[id number] Initial press-fit assessment: excellent Acetabular osteophytes: none [...] None Technique Press-fit HALEY, direct anterior approach, [place] components Date of Service No qualifying data available. documented in this encounter Plan of Treatment Not on file documented as of this encounter Visit Diagnoses Not on filedocumented in this encounter
--- OUTSIDE RECORDS SUMMARY | 2025-08-31 14:04 | XMS_ITS | Encounter Summary ---
Author Organization [employer] ([place], [place], [place], [place], [place]) Address [address] [place] [address] Care Team Providers Care Spanish Literature Professor Name Role Phone Unavailable Primary Care Provider Unavailabl e Encounter Details Date Type Department Care Team (Late st Contact Info) Description 09/20/2021 Transcribed Document [facility] [place] Family Medicine [address] [place] [address] ProviderInes MD [address] [place] [address] Social History Tobacco Use Types [...] - Historical ProviderMD - 09/20/2021 11:20 AM DIRECTOR INDEX Pain Assessment Entered On: 09/21/2021 6:28 EST [...]
--- OUTSIDE RECORDS SUMMARY | 2025-08-31 14:04 | XMS_ITS | Encounter Summary ---
Author Organization [employer] ([place], [place], [place], [place], [place]) Address [address] [place] [address] Care Team Providers Care Automobile Service Station Mechanic Name Role Phone Unavailable Primary Care Provider Unavailabl e Encounter Details Date Type Department Care Team (Late st Contact Info) Description 09/20/2021 Transcribed Document [facility] [place] Family Medicine [address] [place] [address] ProviderInes MD [address] [place] [address] Social History Tobacco Use Types [...] - Ines ProviderMD - 09/20/2021 7:56 AM SWITCH HOUSE OPERATOR [facility] Main OR Preop Summary Primary Physician: TIMO BLAKE MD-ORT Finalized Date/Time: 09/20/21 13:54:12 Pt. Name: PINKY REID Barrett /Sex: 1955 Female Med Rec #: [id number] Physician: TIMO BLAKE MD-ORT Financial #: [id number] Pt. Type: O Room/Bed: 643/1 Admit/Disch: 09/20/21 06:33:00 - Institution: [facility] PreOp Case Times Entry 1 In Preop 09/20/21 05:42:00 Ready for Holding n/a Room Patient Ready for 09/20/21 06:37:00 Surgery Patient Out of Preop 09/20/21 07:22:00 Patient Out of n/a Holding Room Last Modified By: DERECK Yates RN 09/20/21 13:54:09 [facility] PreOp Case Times Audit 09/20/21 13:54:09 Body Liner: ANNIE Modifier: WILSONDL <+> 1 Patient Out of Preop 09/20/21 06:37:39 Body Liner: ANNIE Modifier: WILSONDL <+> 1 Patient Ready for Surgery Finalized By: DERECK Yates, RN Document Signatures Signed By: DERECK Yates RN 09/20/21 13:54 Electronically signed by Liset [facility] Conversion Gasoline Dragline Operator Cerner at 02/04/2023 12:17 PM CDT documented in this encounter Plan of Treatment Not on file documented as of this encounter Visit Diagnoses Not on filedocumented in this encounter
--- OUTSIDE RECORDS SUMMARY | 2025-08-31 14:04 | XMS_ITS | Encounter Summary ---
Author Organization [employer] ([place], [place], [place], [place], [place]) Address [address] [place] [address] Care Team Providers Care Pharmacy Tech Customer Service Name Role Phone Unavailable Primary Care Provider Unavailabl e Encounter Details Date Type Department Care Team (Late st Contact Info) Description 08/25/2021 Transcribed Document [facility] [address] [place] [address] ProviderInes MD [address] [place] [address] Social History Tobacco Use Types [...] EDT Electronically signed by Penelope Hutchins Conversion Sports Apparel Internship Cerner at 02/04/2023 12:15 PM CDT documented in this encounter Plan of Treatment Not on file documented as of this encounter Visit Diagnoses Not on filedocumented in this encounter
--- OUTSIDE RECORDS SUMMARY | 2025-08-31 14:04 | XMS_ITS | Clinical Summary ---
Author Organization [facility] [facility] Address [address] [place] [address], [address] [place] [address] Care Team Providers Care Manager Wealth Management Name Role Phone System, Referring Not In [...] of Treatment Not on file Care Teams Manager Wealth Management Relationship Specialty Start Date End Date System, Referring Not In PCP - General 11/05/12
--- OUTSIDE RECORDS SUMMARY | 2025-08-31 14:04 | XMS_ITS | Encounter Summary ---
Author Organization [employer] ([place], [place], [place], [place], [place]) Address [address] [place] [address] Care Team Providers Care Project Development Coordinator Name Role Phone Unavailable Primary Care Provider Unavailabl e Encounter Details Date Type Department Care Team (Late st Contact Info) Description 09/21/2021 Transcribed Document [facility] [place] [address] [place] [address] ProviderInes MD [address] [place] [address] Social History Tobacco Use Types [...] - Historical ProviderMD - 09/21/2021 12:00 PM SUPERINTENDENT DRIVERS Pain Assessment Entered On: 09/21/2021 16:07 EST [...]
--- OUTSIDE RECORDS SUMMARY | 2025-08-31 14:04 | XMS_ITS | Encounter Summary ---
Author Organization [employer] ([place], [place], [place], [place], [place]) Address [address] [place] [address] Care Team Providers Care Nuclear Plant Technical Advisor Name Role Phone Unavailable Primary Care Provider Unavailabl e Encounter Details Date Type Department Care Team (Late st Contact Info) Description 09/20/2021 Transcribed Document [facility] [place] Family Medicine [address] [place] [address] ProviderInes MD [address] [place] [address] Social History Tobacco Use Types [...] - Historical ProviderMD - 09/20/2021 2:00 AM RN PSYCHIATRIC Spiritual Care Assessment Entered On: 09/20/2021 7:53 [...] Empathic/Engaged listening, Family/Significant other supported Spiritual and Sabianist : Prayer shared, Spiritual/Sabianist support provided DIEUDONNE MORALES - 09/20/2021 7:52 EST Electronically signed by Liset [facility] Conversion Executive Advisor Cerner at 02/04/2023 12:22 PM CDT documented in this encounter Plan of Treatment Not on file documented as of this encounter Visit Diagnoses Not on filedocumented in this encounter
--- OUTSIDE RECORDS SUMMARY | 2025-08-31 14:04 | XMS_ITS | Encounter Summary ---
Author Organization [employer] ([place], [place], [place], [place], [place]) Address [address] [place] [address] Care Team Providers Care Director Of Agronomy Name Role Phone Unavailable Primary Care Provider Unavailabl e Encounter Details Date Type Department Care Team (Late st Contact Info) Description 09/20/2021 Transcribed Document [facility] [place] Family Medicine [address] [place] [address] ProviderInes MD [address] [place] [address] Social History Tobacco Use Types [...] - Historical ProviderMD - 09/20/2021 11:23 AM PHOTOGRAPHIC ENGINEER UM Authorization Entered On: 09/20/2021 11:23 EST Performed On: 09/20/2021 11:23 EST by KEVIN STONE, Sign Fabricator Primary Insurance Authorization Authorization and Policy Numbers : Insurance 1 Health Plan: [employer] Policy Number: [id number] Authorization Number: [id number] Insurance 2 Health Plan: [employer] CHOICE Policy Number: [id number] Authorization Number: [id number] Insurance Primary Name : Juan Manuel [id number] Authorization Status-Primary : Opo status approv Authorized Service Begin Date-Primary : 09/20/2021 EST Observation Authorization Nbr-Primary : [id number] Historical Authorization Comments-Primary : Comment 1: Pt is [place] for OP total hip on Sat09-20-21 [place] OP auth# [id number] Gold OP auth# [id number] (KEVIN STONE, Sign Fabricator 09/19/2021 14:10) KEVIN STONE, Sign Fabricator - 09/20/2021 11:23 EST Secondary Insurance Authorization Authorization and Policy Numbers : Insurance 1 Health Plan: [employer] Policy Number: [id number] Authorization Number: [id number] Insurance 2 Health Plan: [employer] CHOICE Policy Number: [id number] Authorization Number: [id number] Insurance Secondary Name : Survela [id number] Authorization Status-Secondary : Opo status approv Auth/Referral Contact Name-Secondary : Marcus R Authorized Service Begin Date-Secondary : 09/20/2021 EST Observation Authorization Number-Secondary : [id number] Historical Authorization Comments-Secondary : No Authorization Comments Found KEVIN STONE, Sign Fabricator - 09/20/2021 11:23 EST Electronically signed by Penelope Hutchins Conversion Practice Management Consultant Cerner at 02/04/2023 12:33 PM CDT documented in this encounter Plan of Treatment Not on file documented as of this encounter Visit Diagnoses Not on filedocumented in this encounter
--- OUTSIDE RECORDS SUMMARY | 2025-08-31 14:04 | XMS_ITS | Encounter Summary ---
Author Organization [employer] ([place], [place], [place], [place], [place]) Address [address] [place] [address] Care Team Providers Care Sports Book Writer Name Role Phone Unavailable Primary Care Provider Unavailabl e Encounter Details Date Type Department Care Team (Late st Contact Info) Description 09/20/2021 Transcribed Document [facility] [place] Family Medicine [address] [place] [address] ProviderInes MD [address] [place] [address] Social History Tobacco Use Types [...] - Historical ProviderMD - 09/20/2021 3:59 PM PUBLICATION DESIGNER Orthopedic Nurse Navigator Entered On: 09/20/2021 16:00 EST Performed On: 09/20/2021 15:59 EST by Karmen Gates RN-Navigator Orthopedic Nurse Navigator Assessment Attended Joint Academy : Yes Joint AcademyType : Online Joint Jewelry Sales Representative Name : Eugene Type of Surgery : [...]
--- OUTSIDE RECORDS SUMMARY | 2025-08-31 14:04 | XMS_ITS | Clinical Summary ---
Author Organization [employer] ([place], [place], [place], [place], [place]) Address [address] [place] [address] Care Team Providers Care Customer Operations Specialist Name Role Phone Unavailable Primary Care [...]
--- OUTSIDE RECORDS SUMMARY | 2025-08-31 14:04 | XMS_ITS | Referral Summary ---
Author Organization [employer] ([place], [place], [place], [place], [place]) Address [address] [place] [address] Care Team Providers Care Outdoor Adventure Guides Name Role Phone Unavailable Primary Care Provider [...]
--- OUTSIDE RECORDS SUMMARY | 2025-08-31 14:04 | XMS_ITS | Encounter Summary ---
Author Organization [employer] ([place], [place], [place], [place], [place]) Address [address] [place] [address] Care Team Providers Care Ekg Technician Name Role Phone Unavailable Primary Care Provider Unavailabl e Encounter Details Date Type Department Care Team (Late st Contact Info) Description 09/20/2021 Transcribed Document [facility] [place] Family Medicine [address] [place] [address] ProviderInes MD [address] [place] [address] Social History Tobacco Use Types [...] - Historical ProviderMD - 09/20/2021 6:00 PM MORTGAGE SERVICING SPECIALIST Pain Assessment Entered On: 09/21/2021 6:26 EST [...] form. Electronically signed by Penelope Hutchins Conversion Cyber Security Administrator [place] at 02/04/2023 12:27 PM CDT documented in this encounter Plan of Treatment Not on file documented as of this encounter Visit Diagnoses Not on filedocumented in this encounter
--- OUTSIDE RECORDS SUMMARY | 2025-08-31 14:04 | XMS_ITS | Encounter Summary ---
Author Organization [employer] ([place], [place], [place], [place], [place]) Address [address] [place] [address] Care Team Providers Care Marketing Program Manager Name Role Phone Unavailable Primary Care Provider Unavailabl e Encounter Details Date Type Department Care Team (Late st Contact Info) Description 09/20/2021 Transcribed Document [facility] [place] [address] [place] [address] ProviderInes MD [address] [place] [address] Social History Tobacco Use Types [...] - Historical ProviderMD - 09/20/2021 10:45 AM RUGBY UNION FOOTBALLER Meds to Bed Enrollment Entered On: 09/20/2021 10:52 EST Performed On: 09/20/2021 10:45 EST by Bret Plummer Marine Plumber Cert Lead Meds to Bed Enrollment Patient Enrollment Decision: : Yes/enroll in meds to bed program Bret Plummer Marine Plumber Cert Lead - 09/20/2021 10:52 EST Electronically signed by Penelope Hutchins Conversion Director Of Loss Prevention Luis Enrique at 02/04/2023 12:30 PM CDT documented in this encounter Plan of Treatment Not on file documented as of this encounter Visit Diagnoses Not on filedocumented in this encounter
--- OUTSIDE RECORDS SUMMARY | 2025-08-31 14:04 | XMS_ITS | Encounter Summary ---
Author Organization [employer] ([place], [place], [place], [place], [place]) Address [address] [place] [address] Care Team Providers Care Ferryboat Operator Name Role Phone Unavailable Primary Care Provider Unavailabl e Encounter Details Date Type Department Care Team (Late st Contact Info) Description 09/21/2021 Transcribed Document [facility] [place] [address] [place] [address] ProviderInes MD [address] [place] [address] Social History Tobacco Use Types [...] - Ines ProviderMD - 09/21/2021 12:16 PM AGATE SETTER Patient Education Materials Follows: Discharge Instructions for [...] of Dr. Johnson or Dr. Damon, call [phone] If you are a patient of Dr. Thomas, call [phone] Nurse Navigator: Kemi Gates Office: [phone]; ; available during regular business hours documented in this encounter Plan of Treatment Not on file documented as of this encounter Visit Diagnoses Not on filedocumented in this encounter
--- OUTSIDE RECORDS SUMMARY | 2025-08-31 14:04 | XMS_ITS | Encounter Summary ---
Author Organization [employer] ([place], [place], [place], [place], [place]) Address [address] [place] [address] Care Team Providers Care Floriculture Professor Name Role Phone Unavailable Primary Care Provider Unavailabl e Encounter Details Date Type Department Care Team (Late st Contact Info) Description 08/30/2021 Transcribed Document [facility] [place] Family Medicine [address] [place] [address] ProviderInes MD [address] [place] [address] Social History Tobacco Use Types [...] - Historical ProviderMD - 08/30/2021 1:24 PM INDUSTRIAL PLANT CUSTODIAN PAT Adult Entered On: 08/30/2021 13:29 EST [...] Source : Measured Height Entry Format : Convoy Height, Feet : 5 ft(Converted to: 152 cm, 60 Inch) Height, Inches : 4 Inch(Converted to: 0 ft 4 Inch, 10.16 cm) Clinical Height : 162.56 cm Weight Source : Standing scale Weight Entry Format : Convoy Clinical Dosing Weight : 88.18 kg Weight, Pounds : 194 lb Body Surface Area (BSA) : 1.93 m2 Body Mass Index : 33.4 kg/m2 (HI) Darrow Body Weight : 54 kg KASSI AMIN [...] LEON JAMES RN - 08/30/2021 13:24 EST [place] Suicide Severity Rating Scale (C-SSRS) CSSRS Past [...] Ambulatory Legal Guardian : Spouse Support Person/Patient Cash Teller : Yes Support Person/Pt Rep Name : Yesica Gilbert mother Support Person/Pt Rep Contact Information : [phone] Want Family/Rep/Phys Notified of Admit : No Emergency Contact #1 : Eugene Thomas Emergency Contact #1 Emergency Contact #1 Relationship : spouse Emergency Contact #2 : Kaya Pruitt Emergency Contact #2 Phone Number : [phone] Emergency Contact #2 Relationship : sister Information Obtained From : Patient Primary Language : Georgian Preferred Communication Mode : Verbal Communication Barrier : None Milieu Therapist Needed : No Objects to Sharing Info [...]
--- OUTSIDE RECORDS SUMMARY | 2025-08-31 14:04 | XMS_ITS | Encounter Summary ---
Author Organization [employer] ([place], [place], [place], [place], [place]) Address [address] [place] [address] Care Team Providers Care Rubber Cutting Machine Tender Name Role Phone Unavailable Primary Care Provider Unavailabl e Encounter Details Date Type Department Care Team (Late st Contact Info) Description 09/20/2021 Transcribed Document [facility] [place] Family Medicine [address] [place] [address] ProviderInes MD [address] [place] [address] Social History Tobacco Use [...] - Historical ProviderMD - 09/20/2021 10:50 AM CRECHE ATTENDANT Evaluation, Occupational Therapy Entered On: 09/20/2021 16:24 [...] Therapeutic activities NORYMADONNAPHYLLISR/L - 09/20/2021 16:24 EST Skilled Nursing Goals, OT Grooming LTG Grid Goal #1 [...] MADONNA CUETO OTR/Yoanna - 09/20/2021 16:24 EST Electronically signed by Penelope Hutchins Conversion Technology Sales Representative Cerner at 02/04/2023 12:28 PM CDT documented in this encounter Plan of Treatment Not on file documented as of this encounter Visit Diagnoses Not on filedocumented in this encounter
--- OUTSIDE RECORDS SUMMARY | 2025-08-31 14:04 | XMS_ITS | Encounter Summary ---
Author Organization [employer] ([place], [place], [place], [place], [place]) Address [address] [place] [address] Care Team Providers Care Manager Drive Name Role Phone Unavailable Primary Care Provider Unavailabl e Encounter Details Date Type Department Care Team (Late st Contact Info) Description 09/21/2021 Transcribed Document [facility] [place] Family Medicine [address] [place] [address] ProviderInes MD [address] [place] [address] Social History Tobacco Use Types [...] - Historical ProviderMD - 09/21/2021 4:02 PM FIRST MATE Nursing Discharge Summary Entered On: 09/21/2021 16:02 [...] For Questions Given : Patient, Other: joint continuous improvement coach Patient Education Completed : Yes Teaching Method : Explanation Teaching Evaluation : Verbalizes understanding Education Comment : LYNN Coronado 100% Hue Lopze RN - 09/21/2021 16:02 EST Electronically signed by [facility] Conversion Offset Label Rewinder Cerner at 02/04/2023 12:27 PM CDT documented in this encounter Plan of Treatment Not on file documented as of this encounter Visit Diagnoses Not on filedocumented in this encounter
--- OUTSIDE RECORDS SUMMARY | 2025-08-31 14:04 | XMS_ITS | Encounter Summary ---
Author Organization [employer] ([place], [place], [place], [place], [place]) Address [address] [place] [address] Care Team Providers Care Watch Crystal Edge Grinder Name Role Phone Unavailable Primary Care Provider Unavailabl e Encounter Details Date Type Department Care Team (Late st Contact Info) Description 09/20/2021 Transcribed Document [facility] [place] Family Medicine [address] [place] [address] ProviderInes MD [address] [place] [address] Social History Tobacco Use Types [...] - Historical ProviderMD - 09/20/2021 11:20 AM SOUND DESIGNER Pain Assessment Entered On: 09/20/2021 18:05 EST [...] form. Electronically signed by Penelope Hutchins Conversion Disease Intervention Specialist Cerner at 02/04/2023 12:35 PM CDT documented in this encounter Plan of Treatment Not on file documented as of this encounter Visit Diagnoses Not on filedocumented in this encounter
--- OUTSIDE RECORDS SUMMARY | 2025-08-31 14:04 | XMS_ITS | Encounter Summary ---
Author Organization [employer] ([place], [place], [place], [place], [place]) Address [address] [place] [address] Care Team Providers Care Maintenance Instructor Name Role Phone Unavailable Primary Care Provider Unavailabl e Encounter Details Date Type Department Care Team (Late st Contact Info) Description 09/21/2021 Transcribed Document [facility] [place] Family Medicine [address] [place] [address] ProviderInes MD [address] [place] [address] Social History Tobacco Use Types [...] - Historical ProviderMD - 09/21/2021 11:51 AM ASSET PROTECTION GREETER Discharge Summary, PT Entered On: 09/21/2021 11:51 [...] 09/21/2021 11:51 EST Electronically signed by [facility]et [facility] Conversion Glaze Handler Cerner at 02/04/2023 12:20 PM CDT documented in this encounter Plan of Treatment Not on file documented as of this encounter Visit Diagnoses Not on filedocumented in this encounter
--- OUTSIDE RECORDS SUMMARY | 2025-08-31 14:04 | XMS_ITS | Encounter Summary ---
Author Organization [employer] ([place], [place], [place], [place], [place]) Address [address] [place] [address] Care Team Providers Care Autotransfusionist Name Role Phone Unavailable Primary Care Provider Unavailabl e Encounter Details Date Type Department Care Team (Late st Contact Info) Description 09/21/2021 Transcribed Document [facility] Family Medicine [address] [place] [address] ProviderInes MD [address] [place] [address] Social History Tobacco Use Types [...] - Ines ProviderMD - 09/21/2021 2:41 PM SAMPLER TESTER [facility] [place] [address] [place] REID :[id number] Visit Time:09/20/2021 Your [...] Tramadol Home Health Services: [facility]--[phone] Medical Equipment for Home Use: Diet after [...] Jose Maria Hernandez PA-C in 3 wks ([phone]) Follow Up Instructions: Continue AMANDA hose for 3 wks if tolerated. Follow Up Instructions: Leave Aquacel dressing in place x 7d, then leave open to air. Follow-Up Appointments Follow Up with ARNOLD HERNANDEZ PA-ORT When 10/11/2021 02:15 PM EST Where: [address] [place] [address]- Medications What How Much When Instructions Next Dose acetaminophen-oxyCODONE (Percocet 5/ 325 oral tablet) 1 Tablet(s) Oral Every 4 Hours as needed for as needed for pain Duration: 7 Day(s) not to exceed 5 tablets/ day Pickup at [facility] 530pm aspirin (aspirin 81 mg oral delayed release tablet) 1 Tablet(s) Oral Two Times A Day Pickup at [facility] cefadroxil (cefadroxil 500 mg oral capsule) 1 Capsule(s) Oral Every 12 hours Duration: 7 Day(s) Pickup at [facility] docusate (Colace 100 mg oral capsule) 1 Capsule(s) Oral Two Times A Day as needed for as needed for constipation Pickup at [facility] meloxicam (Mobic 15 mg oral tablet) 1 Tablet(s) Oral Every Day Pickup at [facility] 12-3 PRAVAstatin (pravastatin 80 mg oral [...] for insomnia tonight fluticasone nasal (Flonase) 1 [place](s) Nasal Two Times A Day as needed for as needed for allergies tonight fluticasone-vilanterol (Breo Ellipta 100 mcg-25 mcg inhalation powder) 1 Puff(s) Inhalation Every Day 12-3 gabapentin (gabapentin 100 mg oral capsule) 2 Capsule(s) Oral Two Times A Day tonight ondansetron (Zofran 4 mg oral tablet) 1 Tablet(s) Oral Every 8 Hours as needed for Nausea/Vomiting Pickup at [facility] potassium chloride (potassium chloride extended release) 20 Milliequivalent(s) Oral Two Times A Day [facility] Pharmacy Information [facility]: [address] [facility] [address] [place], [place] [id number] [phone] Take your medications faithfully. Do NOT skip [...] concern regarding your total joint replacement Call 517 if: ??? You have sudden chest pain or shortness of breath ??? You fall and cannot get up ??? Life-threatening signs or symptoms ??? Stroke signs and symptoms: Facial droop, uneven smile, arm numbness, arm weakness, slurred speech, difficulty speaking or understanding If you are a patient of Dr. Johnson or Dr. Damon, call [phone] If you are a patient of Dr. Reid, call [phone] Nurse Navigator: Kemi Gates Office: [phone]; ; available during regular business hours docusate [...] may report side effects to FDA at 7-849-TFZ-2382. What other drugs will affect docusate? Other drugs may affect docusate, including prescription and qvsh-ldn-luvvctq medicines, vitamins, and herbal products. Tell your [...] to ensure that the information provided by [facility]. ('Multum') is accurate, up-to-date, and complete, but no guarantee is made to that effect. Drug information contained herein may be time sensitive. [employer] information has been compiled for use by healthcare practitioners and consumers in the [place] and therefore [employer] does not warrant that uses outside of the [place] are appropriate, unless specifically indicated otherwise. [employer] drug information does not endorse drugs, diagnose patients or recommend therapy. [employer] drug information is an informational resource designed [...] effective or appropriate for any given patient. [employer] does not assume any responsibility for any aspect of healthcare administered with the aid of information [employer] provides. The information contained herein is not intended to cover all possible uses, directions, precautions, warnings, drug interactions, allergic reactions, or adverse effects. If you have questions about the drugs you are taking, check with your doctor, nurse or pharmacist. Copyright 7089-3991 [facility]. Version: 4.01. Revision Date: 04/27/2019. cefadroxil (SEF [...] may report side effects to FDA at 9-133-BDF-7564. What other drugs will affect cefadroxil? Other drugs may affect cefadroxil, including prescription and gmev-paq-pqkmolu medicines, vitamins, and herbal products. Tell your [...] to ensure that the information provided by [facility]. ('Multum') is accurate, up-to-date, and complete, but no guarantee is made to that effect. Drug information contained herein may be time sensitive. [employer] information has been compiled for use by healthcare practitioners and consumers in the [place] and therefore [employer] does not warrant that uses outside of the [place] are appropriate, unless specifically indicated otherwise. [employer]'s drug information does not endorse drugs, diagnose patients or recommend therapy. [employer] drug information is an informational resource designed [...] effective or appropriate for any given patient. [facility] does not assume any responsibility for any aspect of healthcare administered with the aid of information [facility] provides. The information contained herein is not intended to cover all possible uses, directions, precautions, warnings, drug interactions, allergic reactions, or adverse effects. If you have questions about the drugs you are taking, check with your doctor, nurse or pharmacist. Copyright 2414-9975 [facility]. Version: 6.03. Revision Date: 10/24/2020. acetaminophen and [...] may report side effects to FDA at 6-178-UEV-5263. What other drugs will affect acetaminophen and [...] affect acetaminophen and oxycodone, including prescription and xfqv-tws-evfpyik medicines, vitamins, and herbal products. Not all [...] to ensure that the information provided by [facility]. ('Multum') is accurate, up-to-date, and complete, but no guarantee is made to that effect. Drug information contained herein may be time sensitive. [employer] information has been compiled for use by healthcare practitioners and consumers in the [place] and therefore [employer] does not warrant that uses outside of the [place] are appropriate, unless specifically indicated otherwise. [employer] drug information does not endorse drugs, diagnose patients or recommend therapy. [employer] drug information is an informational resource designed [...] effective or appropriate for any given patient. [employer] does not assume any responsibility for any aspect of healthcare administered with the aid of information [employer] provides. The information contained herein is not intended to cover all possible uses, directions, precautions, warnings, drug interactions, allergic reactions, or adverse effects. If you have questions about the drugs you are taking, check with your doctor, nurse or pharmacist. Copyright 1397-2325 [facility]. Version: 20.03. Revision Date: 11/25/2020. ondansetron (oral) [...] may report side effects to FDA at 5-682-AAF-5340. What other drugs will affect ondansetron? Ondansetron [...] interact with ondansetron. This includes prescription and ynbt-lbh-knlmftc medicines, vitamins, and herbal products. Give a [...] to ensure that the information provided by [facility]. ('500Friendstum') is accurate, up-to-date, and complete, but no guarantee is made to that effect. Drug information contained herein may be time sensitive. [employer] information has been compiled for use by healthcare practitioners and consumers in the [place] and therefore [employer] does not warrant that uses outside of the [place] are appropriate, unless specifically indicated otherwise. [employer]'s drug information does not endorse drugs, diagnose patients or recommend therapy. [employer] drug information is an informational resource designed [...] effective or appropriate for any given patient. [employer] does not assume any responsibility for any aspect of healthcare administered with the aid of information [employer] provides. The information contained herein is not intended to cover all possible uses, directions, precautions, warnings, drug interactions, allergic reactions, or adverse effects. If you have questions about the drugs you are taking, check with your doctor, nurse or pharmacist. Copyright 0609-3713 [facility]. Version: 13.01. Revision Date: 08/10/2016. aspirin (oral) ( pir in) Arthritis Pain, Aspi-Cor, Aspir-Low, Moy Plus, Durlaza, Ecotrin, Miniprin, Vazalore What is the most important information I should know about aspirin? Aspirin can cause Nina's syndrome, a serious and sometimes fatal condition in children. What is aspirin? Aspirin is a salicylate (cx-JWX-kc-ate) that is used to treat pain, and [...] may report side effects to FDA at 3-520-MBI-1448. What other drugs will affect aspirin? Ask [...] drugs may affect aspirin, including prescription and jqxo-iyh-fmwpheh medicines, vitamins, and herbal products. Not all [...] to ensure that the information provided by [facility]. ('Multum') is accurate, up-to-date, and complete, but no guarantee is made to that effect. Drug information contained herein may be time sensitive. [employer] information has been compiled for use by healthcare practitioners and consumers in the [place] and therefore [employer] does not warrant that uses outside of the [place] are appropriate, unless specifically indicated otherwise. [employer] drug information does not endorse drugs, diagnose patients or recommend therapy. [employer] drug information is an informational resource designed [...] effective or appropriate for any given patient. [employer] does not assume any responsibility for any aspect of healthcare administered with the aid of information [employer] provides. The information contained herein is not intended to cover all possible uses, directions, precautions, warnings, drug interactions, allergic reactions, or adverse effects. If you have questions about the drugs you are taking, check with your doctor, nurse or pharmacist. Copyright 2779-7187 [facility]. Version: 16.03. Revision Date: 04/17/2021. meloxicam (oral/injection) [...] may report side effects to FDA at 3-329-TOH-0747. What other drugs will affect meloxicam? Ask [...] drugs may affect meloxicam, including prescription and vueg-eil-qioggye medicines, vitamins, and herbal products. Not all [...] to ensure that the information provided by [facility]. ('Multum') is accurate, up-to-date, and complete, but no guarantee is made to that effect. Drug information contained herein may be time sensitive. [employer] information has been compiled for use by healthcare practitioners and consumers in the [place] and therefore [employer] does not warrant that uses outside of the [place] are appropriate, unless specifically indicated otherwise. [employer]s drug information does not endorse drugs, diagnose patients or recommend therapy. [employer] drug information is an informational resource designed [...] effective or appropriate for any given patient. [employer] does not assume any responsibility for any aspect of healthcare administered with the aid of information [employer] provides. The information contained herein is not intended to cover all possible uses, directions, precautions, warnings, drug interactions, allergic reactions, or adverse effects. If you have questions about the drugs you are taking, check with your doctor, nurse or pharmacist. Copyright 0532-8833 [facility]. Version: 14.01. Revision Date: 08/23/2020. Emergency Awareness [...] Assistance with quitting is available by contacting 4-701-IZZC-NOW. This is a free resource providing counseling, [...]
--- OUTSIDE RECORDS SUMMARY | 2025-08-31 14:04 | XMS_ITS | Encounter Summary ---
Author Organization [employer] ([place], [place], [place], [place], [place]) Address [address] [place] [address] Care Team Providers Care Pulpit Operator Name Role Phone Unavailable Primary Care Provider Unavailabl e Encounter Details Date Type Department Care Team (Late st Contact Info) Description 03/04/2021 Transcribed Document [facility] Family Medicine [address] [place] [address] ProviderInes MD [address] [place] [address] Social History Tobacco Use Types [...] from sitting : Severe 4. Bending to floor/bead picker an object : Severe 5. Lying [...]
--- OUTSIDE RECORDS SUMMARY | 2025-08-31 14:04 | XMS_ITS | Encounter Summary ---
Author Organization [employer] ([place], [place], [place], [place], [place]) Address [address] [place] [address] Care Team Providers Care Command Center Officer Name Role Phone Unavailable Primary Care Provider Unavailabl e Encounter Details Date Type Department Care Team (Late st Contact Info) Description 09/21/2021 Transcribed Document [facility] Family Medicine [address] [place] [address] ProviderInes MD [address] [place] [address] Social History Tobacco Use Types [...] - Historical ProviderMD - 09/21/2021 3:15 PM PIT WORKER POWER SHOVEL Final Discharge Planning Entered On: 09/21/2021 15:15 EST Performed On: 09/21/2021 15:15 EST by FERNIE MACE RN-Electronic Controls Repairer Supervisor Final Discharge Planning Discharge Arrangements : Patient Post-Acute Information Patient Name: PINKY REID Gender: Female : [birth year] Age: 66 Years [place] Referral(s): Service: Organization: Business Address: Phone Number: Home Care Physician Services [facility] - [address], [address], [place], [address] Patient Offered Choice/Affiliations Explained : [...] Services (Related/SOC within 3 days)-06 FERNIE MACE RN-Electronic Controls Repairer Supervisor - 09/21/2021 15:15 EST Electronically signed by Liset [facility] Conversion Associate Professor Of History Cerner at 02/04/2023 12:20 PM CDT documented in this encounter Plan of Treatment Not on file documented as of this encounter Visit Diagnoses Not on filedocumented in this encounter
--- OUTSIDE RECORDS SUMMARY | 2025-08-31 14:04 | XMS_ITS | Encounter Summary ---
Author Organization [employer] ([place], [place], [place], [place], [place]) Address [address] [place] [address] Care Team Providers Care Newswriter Name Role Phone Unavailable Primary Care Provider Unavailabl e Encounter Details Date Type Department Care Team (Late st Contact Info) Description 09/20/2021 Transcribed Document [facility] Family Medicine [address] [place] [address] ProviderInes MD [address] [place] [address] Social History Tobacco Use Types [...] - Historical ProviderMD - 09/20/2021 3:32 PM CHILLER OPERATOR Treatment Intervention, PT Entered On: 09/21/2021 11:51 [...] EDGARD BUENO PT - 09/21/2021 11:46 EST Automotive Technology Instructor Goals Mobility/Bed Mobility LTG PT Grid Goal [...] Information : Modified independent sup-sit with leg group reservations coordinator SBA sit-stand with RWx SBA gait x [...] EDGARD BUENO, PT - 09/21/2021 11:46 EST Electronically signed by Penelope Hutchins Conversion Tape Cutting Machine Operator Devantener at 02/04/2023 12:18 PM CDT documented in this encounter Plan of Treatment Not on file documented as of this encounter Visit Diagnoses Not on filedocumented in this encounter
--- OUTSIDE RECORDS SUMMARY | 2025-08-31 14:04 | XMS_ITS | Encounter Summary ---
Author Organization [employer] ([place], [place], [place], [place], [place]) Address [address] [place] [address] Care Team Providers Care Shop Router Name Role Phone Unavailable Primary Care Provider Unavailabl e Encounter Details Date Type Department Care Team (Late st Contact Info) Description 09/20/2021 Transcribed Document [facility] Family Medicine [address] [place] [address] ProviderInes MD [address] [place] [address] Social History Tobacco Use Types [...] - Ines ProviderMD - 09/20/2021 10:50 AM SELF PAY REPRESENTATIVE Evaluation, Physical Therapy Entered On: 09/20/2021 15:31 [...] EDGARD BUENO, PT - 09/20/2021 15:26 EST Date Pitter Goals Mobility/Bed Mobility LTG PT Grid Goal [...] EDGARD BUENO, PT - 09/20/2021 15:26 EST [place]aden PT Charges PT Eval Low Complexity : 1 EDGARD BUENO PT - 09/20/2021 15:26 EST Electronically signed by Liset [facility] Conversion Hoop Rolls Operator Luis Enrique at 02/04/2023 12:24 PM CDT documented in this encounter Plan of Treatment Not on file documented as of this encounter Visit Diagnoses Not on filedocumented in this encounter
--- OUTSIDE RECORDS SUMMARY | 2025-08-31 14:04 | XMS_ITS | Encounter Summary ---
Author Organization [employer] ([place], [place], [place], [place], [place]) Address [address] [place] [address] Care Team Providers Care Electronics Assembler And Tester Name Role Phone Unavailable Primary Care Provider Unavailabl e Encounter Details Date Type Department Care Team (Late st Contact Info) Description 09/20/2021 Transcribed Document [facility] [address] [place] [address] Salena Brush MD [address] [facility] [address] [place] [id number] Social History Tobacco Use Types Packs/Day Years [...] is a 66 yo female admitted to [facility] per Dr. Johnson for a left total hip arthroplasty. Preoperatively patient was found to have advanced osteoarthritis of the left hip and elected surgical intervention after failing conservative treatment. Patient is followed perioperatively while hospitalized for medical management. Initial visit in preop --- Denies prior stroke or seizure. Denies ME, CHF or cardiac arrhythmia. Denies DM. Denies [...] Chondroitin-Glucosamine 2,000 Units, Oral, Daily Flonase 1 [place], PRN, Nasal, BID furosemide 20 mg oral [...]
== END 2025-08-31 23:59 | disposition home or self-care (01) ==
LOC: RAD 13:51
PROVIDERS: PCP Internal Medicine Adolescent Medicine; Visit Provider Internal Medicine Pulmonary Disease
DX: R06.02 Shortness of breath (principal)
CPT/HCPCS: 71046

== ENCOUNTER 2025-10-20 16:00 | Outpatient (RCR) | payer MEDICARE, SELFPAY ==
--- NOTE | 2025-09-28 15:32 | HMH.PTOPEV ---
PT Evaluation Rehab PT Outpatient Evaluation Start: 09/28/25 14:58 Freq: Status: Active Protocol: Document 09/28/25 14:58 FLOYD (Rec: 09/28/25 15:32 GLORIAMYRIAM [id number]) E-signed By Jose L Renae, PT Outpatient Therapy Subjective History Subjective History Pt is a 70 yof who is referred to [facility] outpatient PT with complaints of L hip pain. Pt reports that she has had both hips replaced with the R hip being done approximately 10 years and L hip being done approximately 5 years ago. Pt reports that she can walk a short distance before she feels like her hip wants to give out. Pt reports that walking longer distances give her a lot of difficulty, such as walking in the grocery store, or even walking around in the kitchen doing chores. Pt reports that when her hip wants to give out, it is accompanied by a sharp pain that will linger for some time and then dissipate after sitting a while. Pt reports that she will take Tylenol PM every night for the pain. Pt reports that stairs tend to give her a lot of difficulty as well. PMH: History of asthma History of COPD History of smoking 30 or more pack years Dyspnea on exertion Lipoma 6+ centimeters prominent adiposity/lipoma in right upper quadrant/right lower chest wall Hypertension HLD (hyperlipidemia) GERD (gastroesophageal reflux disease) Depression Asthma Anxiety History of local excision of skin lesion History of left hip replacement History of colonoscopy History of cholecystectomy Hx of tonsillectomy History of total right hip replacement H/O arthroscopy of right knee New diagnosis of No cancer in past 12 months? Chief Complaint Pain,Stiff,Gives out/Unstable Symptom Type Sharp Symptoms Relieved By Nothing Symptoms Aggravated Standing,Walking,Lifting By Prior Functional None Limitations Current Functional Lifting,Standing,Squatting,Walking,Stairs Limitations Symptom Description Intermittent,Activity Dependent Level of pain today 5 (0-10) Pain scale - at its 0 best (0-10) Pain scale - at its 9 worst (0-10) Hip/Knee Eval Gait Observation General Gait Pattern Antalgic Gait,Decrease Weight Bear (L),Decrease Stride Observation Lngth (R) Palpation Tenderness left Hip Palpation Tenderness Findings Hip Palpation TTP 4/4 over greater trochanter Overall Comment MMT Hip Flexion Strength 3+ Fair+ Grade Hip Abduction 2 Poor Strength Grade Hip Extension 2 Poor Strength Grade Special Tests Hip Scouring ( Positive Left Quadrant) Test Hip Trendelenburg Positive Left Test Lower Extremity Functional Index Activities Today, do you or would you have any difficulty at all with: a.Any of your usual A little bit of difficulty work, housework or school activities b. Your usual A little bit of difficulty hobbies, recreational or sporting activities c. Getting into or Quite a bit of difficulty out of the bath d. Walking between A little bit of difficulty rooms e. Putting on your Moderate difficulty shoes or socks f. Squatting Quite a bit of difficulty g. Lifting an object Quite a bit of difficulty , like a bag of groceries from the floor h. Performing light Moderate difficulty activities around your home i. Performing heavy Quite a bit of difficulty activities around your home j. Getting into or Moderate difficulty out of a car k. Walking 2 blocks Quite a bit of difficulty l. Walking a mile Quite a bit of difficulty m. Going up or down Extreme difficulty or unable to perform activity 10 stairs (about 1 flight of stairs) n. Standing for 1 Quite a bit of difficulty hour o. Sitting for 1 Quite a bit of difficulty hour p. Running on even Extreme difficulty or unable to perform activity ground q. Running on uneven Extreme difficulty or unable to perform activity ground r. Making sharp Extreme difficulty or unable to perform activity turns while running fast s. Hopping Extreme difficulty or unable to perform activity t. Rolling over in Moderate difficulty bed LEFI Score Lower Extremity 25 Functional Index Score PT Patient Goals PT Patient Goals PT Short Term In 4 weeks: Patient Goals 1. Patient will improve strength of L hip complex to 3+ /5 globally to improve gait mechanics, improve static/ dynamic balance and to decrease fall risk. 2. Patient will demonstrate a reduction in trigger point sensitivity to Grade 2 with manual palpation to improve comfort during activity and soft tissue mobility. 3. Patient will improve LEFS score to 54/80 to demonstrate improved functional mobility and increased independence with ADLs. 4. Patient will demonstrate improved balance by maintaining tandem stance for 30s with each foot placed forward, on an even surface, without upper extremity support to demonstrate a reduced fall risk. 5. Patient will report a 48 hour average pain of 5/10 on the numeric pain rating scale to demonstrate improvement in quality of life and increased functional capacity. 6. Pt will demonstrate HEP compliance by completing prescribed HEP 4-5x/week. PT Retirement Patient In 8 weeks: Goals 1. Patient will improve strength of L hip complex to 4+ /5 globally to improve gait mechanics, improve static/ dynamic balance and to decrease fall risk. . 2. Patient will report a 48 hour average pain of 2-3/10 on the numeric pain rating scale to demonstrate improvement in quality of life and increased functional capacity. 4. Pt will be able to ascend/descend a flight of stairs with reciprocal stepping pattern and no hand rail to demonstrate improvements in home and community mobility . 5. Patient will demonstrate improved balance by performing tandem walking on an unstable surface for 10 feet without loss of balance or needed clinical nursing assistant to demonstrate a reduced fall risk and improved community ambulation. 6. Patient will be able to stand/walk for 1 hour at one time to demonstrate improved community ambulation for activities, such as grocery shopping. 7. Pt will perform 10 [id number] from a standard chair without upper extremity assistance to demonstrate improved in-home mobility, decreased fall risk and improved LE strength. Outpatient Therapy Plan of Care Treatment Plan May Include Therapeutic Exercise Yes Including Home Exercise Program Manual Therapy Yes Techniques Neuromuscular Re- Yes education Therapeutic Yes Activities to Return to Previous Functional/Work Level Gait Training Yes Thermal Modalities Yes Electrical Yes Stimulation Massage Yes Manual Lymphatic Yes Drainage Eval/Re-Eval Yes Frequency Times per week 2 Duration Number of Weeks 6 Addendums This patient is a No candidate for social or vocational rehab ? Patient/Guardian Yes verbally acknowledges understanding of treatment program and consents to further treatment? Patient/Guardian Yes verbally acknowledges understanding of diagnosis, prognosis and goals for treatment? Eval Complexity PT Charges 52769 - High Complexity Shoulder/Elbow Eval Shoulder Objective Measurements Elbow Objective Measurements PHYSICIAN CERTIFICATION: I certify the specified therapy services for Natalia Thomas are required, authorized, and reviewed every 30 days.
== END 2025-10-20 23:59 | disposition home or self-care (01) ==
LOC: PT 16:00
PROVIDERS: PCP Internal Medicine Adolescent Medicine; Visit Provider Internal Medicine Adolescent Medicine
DX: M25.552 Pain in left hip (principal)
CPT/HCPCS: 97110; 97163